=== PATIENT | female | born 1955 | race Caucasian/White ===

== ENCOUNTER 2019-12-19 13:27 | Outpatient (REF) | payer OTHER, SELFPAY | END 2019-12-19 13:28 | disposition home or self-care (01) | LOC: HO.HAP 13:27 | PROVIDERS: Visit Provider Internal Medicine | DX: H90.3 Sensorineural hearing loss, bilateral (principal) | CPT/HCPCS: 92591; V5275 ==

== ENCOUNTER 2020-01-15 06:47 | Day surgery (SDC) | payer OTHER, SELFPAY ==
[2020-01-10 13:43] VITALS: BMI 39.0
--- NOTE | 2020-01-14 10:47 | P.CONAN_ITS ---
Documented by User: Aislinn Borden 01/14/20 10:50 HPI - Anesthesia Eval Consult details Narrative: 64yo F for Colonoscopy with antibiotics (s/p TKA 2019) FOR[facility]LY [facility] Past Medical History Medical History Arthritis Asthma Diabetes GERD (gastroesophageal reflux disease) Hiatal hernia History of hypothyroidism HTN (hypertension) Hx of migraines Hx of vertigo Increased BMI Renal calculi Sleep apnea Surgical History Surgical History History of esophagogastroduodenoscopy (EGD) Hx of colonoscopy Hx of tonsillectomy Hx of total knee arthroplasty Social History Social History Alcohol intake: current Alcohol intake frequency: holidays/special occasions only Smoking Status: Former smoker Advance Directives: No Advance Directives Information Provided: No Advance Directives on File: No Meds Allergies Allergy/AdvReac Type Severity Reaction Status Date / Time No Known Allergies Allergy Verified 01/10/20 13:33 [No Known Allergies*] Home Medications Medication Instructions Recorded Confirmed Type acetaminophen 1 tab PO Q8H PRN 01/10/20 01/10/20 History albuterol sulfate 2 puff INHALATION Q6H PRN 01/10/20 01/10/20 History albuterol sulfate [Ventolin HFA] 2 puff PO Q6H PRN 01/10/20 01/10/20 History levothyroxine 1 tab PO QAM 01/10/20 01/10/20 History lisinopril-hydrochlorothiazide 2 tab PO QAM 01/10/20 01/10/20 History omeprazole 1 cap PO QAM 01/10/20 01/10/20 History Exam Exam Date and Time: January 14, 2020 1047 Height,Weight and Vital Signs: Height 5 ft Weight 90.718 kg Pertinent Lab Results Pertinent Lab Results: Laboratory Tests 11/16/19 11/21/19 11:15 09:04 WBC 7.5 Hgb 11.8 L Hct 37.1 Plt Count 392 Sodium 139 Potassium 4.6 Chloride 100 BUN 13 Creatinine 0.81 Assessment and Plan Assessment Anesthesia Assessment: Chart Reviewed Documented by User: Araceli Barrios 01/15/20 08:15 [facility] Past Medical History Medical History Arthritis Asthma Diabetes GERD (gastroesophageal reflux disease) Hiatal hernia History of hypothyroidism HTN (hypertension) Hx of migraines Hx of vertigo Increased BMI Renal calculi Sleep apnea Family History Family history of problems with anesthesia: No Surgical History Surgical History History of esophagogastroduodenoscopy (EGD) Hx of colonoscopy Hx of tonsillectomy Hx of total knee arthroplasty History of Problems with Anesthesia: No Social History Social History Alcohol intake: current Alcohol intake frequency: holidays/special occasions only Smoking Status: Former smoker Advance Directives: No Advance Directives Information Provided: No Advance Directives on File: No Meds Allergies Allergy/AdvReac Type Severity Reaction Status Date / Time No Known Allergies Allergy Verified 01/10/20 13:33 [No Known Allergies*] Home Medications Medication Instructions Recorded Confirmed Type acetaminophen 1 tab PO Q8H PRN 01/10/20 01/10/20 History albuterol sulfate 2 puff INHALATION Q6H PRN 01/10/20 01/10/20 History albuterol sulfate [Ventolin HFA] 2 puff PO Q6H PRN 01/10/20 01/10/20 History levothyroxine 1 tab PO QAM 01/10/20 01/10/20 History lisinopril-hydrochlorothiazide 2 tab PO QAM 01/10/20 01/10/20 History omeprazole 1 cap PO QAM 01/10/20 01/10/20 History Exam Height,Weight and Vital Signs: Vital Signs Temp Pulse Resp BP Pulse Ox 01/15/20 07:38 97 F 63 16 133/63 98 Pertinent Lab Results Pertinent Lab Results: Lab Results 01/15/20 Range/Units 07:19 POC Glucose 132 H (60-115) mg/dL Airway Mallampati Class: II TM Dist: >3cm Neck ROM: Full Denture: Upper Partial: Lower Heart: RRR Lungs: CTAB Assessment and Plan Assessment Anesthesia Assessment: Anesthesia Plan Discussed and Chart Reviewed Final Anesthetic Review NPO: Yes ASA Class: III Final Preanesthetic Review: No Changes in Pt Med Stat, Meds/Allgs Chart Reviewed, Consent Obtained/Reviewed and Anes Risks/Benef Reviewed Patient Risk: Intermediate Procedure Risk: Low Anesthetic Plan Anesthetic Plan: MAC: Disposition: Standard PACU
[2020-01-15 07:23] LABS: Glucose, Whole Blood 132 mg/dL (60-115)
[2020-01-15 07:38] VITALS: BP 133/63; PULSE 63; RESP 16; TEMP 36.1; O2SAT 98
[2020-01-15] MEDS: Gentamicin Sulfate/NaCl 80 MG/100 ML PIGGYBACK 100 MG IV (07:54)
[2020-01-15 09:17] VITALS: BP 92/55; PULSE 88; RESP 16; TEMP 36.8; O2SAT 92
--- NOTE | 2020-01-15 09:24 | PM.OP ---
Brief Operative Note Date of procedure: 01/15/20 Pre-op diagnosis: Screening Post-op diagnosis: other (Rectal polyp, Diverticulosis) Procedure: Colonoscopy to cecum and TI with biopsy and removal of polyp Surgeon: Kishan Keen Anesthesia: MAC Estimated blood loss (mL): 3.0 Pathology: other (A. Distal rectal polyp) Condition: stable Disposition: PACU
[2020-01-15 09:29] VITALS: BP 103/61; PULSE 74; RESP 18; TEMP 36.4; O2SAT 100
--- NOTE | 2020-01-15 09:48 | OP_ITS ---
SURGEON: Kishan Keen MD INDICATIONS: The patient presents for evaluation of colorectal cancer screening and personal history of tubular adenoma of the colon. Full consent has been obtained from her for this, including risks of bleeding and perforation. PREOPERATIVE DIAGNOSIS: POSTOPERATIVE DIAGNOSIS: PROCEDURE PERFORMED: ESTIMATED BLOOD LOSS: COMPLICATIONS: ANESTHESIA: Monitored anesthesia care. ASSISTANTS: SPECIMENS: PREOPERATIVE DIAGNOSES: Colorectal cancer screening and personal history of tubular adenoma of the colon. POSTOPERATIVE DIAGNOSES: Colorectal cancer screening and personal history of tubular adenoma of the colon, small colon polyp, diverticulosis, and internal hemorrhoids. DESCRIPTION OF PROCEDURE: The patient was placed in the left lateral decubitus position. The digital rectal exam revealed no abnormalities. The Olympus video pediatric colonoscope was entered into the rectum and advanced easily to the cecum. Once in the cecum, I did identify normal-appearing cecal pouch with appendiceal orifice and a normal-appearing ileocecal valve. The terminal ileum was cannulated and appeared normal. The scope withdrawn back in the colon. The entire cecum and ileocecal valve appeared normal. The scope was then slowly withdrawn assessing all mucosal surfaces carefully. Preparation was excellent. I did not visualize any sign of colitis nor angiodysplasia. There was a mild amount of sigmoid diverticulosis. The only polyp visualized was in the distal rectum seen in the retroflexed position. This was approximately 3 or 4 mm in diameter and was biopsied and completely removed with cold biopsy forceps. Internal hemorrhoids were noted as well. The scope was straightened out and withdrawn from the patient. She tolerated the procedure well and was returned to the recovery area in stable condition. IMPRESSION: 1. Small distal rectal polyp, status post biopsy removal. 2. Diverticulosis. 3. Internal hemorrhoids. PLAN: The results of the biopsy will be checked. I would recommend a repeat colonoscopy in 5 years for further screening. She was advised not to use any aspirin nor NSAIDs for 1 week. She did receive preprocedure antibiotics for prophylaxis in regard to recent knee replacement and was given a prescription for amoxicillin to use later today as well. PROCEDURES PERFORMED: Colonoscopy to cecum and terminal ileum with biopsy and removal of polyp. MD UGO Nicolas/CRISTÓBAL / [id number]
--- NOTE | 2020-01-15 10:04 | HO.POSTANES ---
Post Anesthesia Evaluation Post Anesthesia Evaluation Vital Signs: Vital Signs Temp Pulse Resp BP Pulse Ox 01/15/20 09:29 97.5 F 74 18 103/61 100 01/15/20 09:17 98.2 F 88 16 92/55 L 92 01/15/20 07:38 97 F 63 16 133/63 98 Anesthesia: Monitored Mental Status: Awake Pain Control: Satisfactory Nausea/Vomiting: None Hydration: Adequate Anesthesia-Related Issues: No Anes. Related Issues
== END 2020-01-15 10:15 | disposition home or self-care (01) ==
PROVIDERS: PCP Internal Medicine; Visit Provider Internal Medicine
PROC: 0DJD8ZZ Inspection of Lower Intestinal Tract, Via Natural or Artificial Opening Endoscopic (ICD-10-PCS; CPT 45378; principal; 2020-01-15 08:30)
DX: Z12.11 Encounter for screening for malignant neoplasm of colon (principal); Z86.010 Personal history of colon polyps; D12.8 Benign neoplasm of rectum; K57.30 Diverticulosis of large intestine without perforation or abscess without bleeding; K64.8 Other hemorrhoids; K21.9 Gastro-esophageal reflux disease without esophagitis; I10 Essential (primary) hypertension; E11.9 Type 2 diabetes mellitus without complications; G47.30 Sleep apnea, unspecified; J45.909 Unspecified asthma, uncomplicated; Z79.899 Other long term (current) drug therapy; Z96.652 Presence of left artificial knee joint; Z87.891 Personal history of nicotine dependence
CPT/HCPCS: 45380; 82947; 88305; J0290; J1580

== ENCOUNTER 2020-01-22 09:24 | Outpatient (REF) | payer OTHER, SELFPAY ==
--- NOTE | 2020-01-22 10:36 | MHC.AU.P13 ---
Hearing Instrument Fitting- Adult- Binaural Date of Visit: 01/22/20 Hearing Instruments Dispensed: Right Ear: Construction Grip: Phonak Model: Audeo [id number] Serial Number: [id number] Warranty: 04/05/2023 Battery Size: 312 Color: Black Hand Or Machine Paster: Size 2 power Type of Mold: cShell SN: [id number] Type of Wax Guard: Cerustop Left Ear: Construction Grip: Phonak Model: Audeo [id number] Serial Number: [id number] Warranty: 04/05/2023 Battery Size: 312 Color: Black Hand Or Machine Paster: size 2 power Type of Mold: cShell SN: [id number] Type of Wax Guard: Cerustop Summary of Fitting: Hearing aids were programmed to patient's audiogram and set to 100% target gain. Ran feedback measures and real-ear verification. Adjustments were made to better meet real-ear targets. Patient reported comfortable fit and sound quality. She notes that she may not like the Black color of the aids, as she usually cuts her hair very short. Advised that I think black is the best match but if she wants to change it we can return them for credit and re-order. Recommendations: Recommendations: Hearing instrument care and maintenance were discussed and practiced. See handouts for care/use instructions and battery information. The instrument(s) were paired to the patient's smartphone. Use of the smartphone catie was demonstrated. A hearing instrument follow-up was scheduled. Diagnosis Code(s): Primary Diagnosis: H90.3 Bilateral Sensorineural Hearing Loss Services Performed: Hearing Instrument Services: BTE-Binaural- Level 3 Hearing Aid Dispensing: Binaural Dispensing Fee Fitting (Other): Fitting/Orientation/Checking of Hearing Aid Conformity Evaluation, Real Ear, Functional Testing Number of Individual Battery Cells: 42 Signature: Provider: Donte Goetz, DEANNA-A
== END 2020-01-22 09:25 | disposition home or self-care (01) ==
LOC: HO.HAP 09:24
PROVIDERS: Visit Provider Internal Medicine
DX: Z46.1 Encounter for fitting and adjustment of hearing aid (principal); H90.3 Sensorineural hearing loss, bilateral
CPT/HCPCS: V5011; V5020; V5160; V5261; V5264; V5266

== ENCOUNTER 2020-02-10 09:24 | Emergency (ER) | payer OTHER, SELFPAY ==
--- NOTE | 2020-02-10 10:21 | ED_ITS ---
HPI - Abdominal Pain General Chief Complaint: General Medical Stated Complaint: ABD PAIN Time Seen by Provider: 02/10/20 10:03 Source: patient Mode of arrival: ambulatory Limitations: no limitations History of Present Illness HPI narrative: 64-year-old female with a past medical history of arthritis, asthma, diabetes, GERD, hiatal hernia, hypothyroidism, hypertension, migraines, vertigo, renal calculi, sleep apnea here with multiple complaints. The patient tells me that she has has body aches, cough, chills, nausea, diarrhea for the last 2-3 days. No fevers, shortness of breath, chest pain, abdominal pain or vomiting. MD elicited complaint: other Onset (ago): day(s) Pain Consistency: constant Location: none Exacerbating factors: nothing Relieving factors: nothing Associated symptoms: nausea, diarrhea and chills Related Data Home Medications Medication Instructions Recorded Confirmed acetaminophen 1 tab PO Q8H PRN 01/10/20 01/10/20 albuterol sulfate 2 puff INHALATION Q6H PRN 01/10/20 01/10/20 albuterol sulfate [Ventolin HFA] 2 puff PO Q6H PRN 01/10/20 01/10/20 lisinopril-hydrochlorothiazide 2 tab PO QAM 01/10/20 01/10/20 omeprazole 1 cap PO QAM 01/10/20 01/10/20 Previous Rx's Medication Instructions Recorded gabapentin 300 mg capsule 300 mg PO BID 90 Days #180 cap 01/10/20 prazosin 2 mg capsule 2 mg PO BEDTIME #90 cap 01/10/20 ibuprofen 800 mg tablet 800 mg PO TID PRN 15 Days #45 tab 01/23/20 meclizine 25 mg tablet 25 mg PO Q8H #90 tab 01/23/20 docusate sodium 100 mg capsule 100 mg PO BID #60 cap 01/24/20 fluticasone propionate 50 1 spray INTRANASAL DAILY #16 g 01/24/20 mcg/actuation nasal spray,suspension levothyroxine 75 mcg tablet 75 mcg PO QAM #90 tab 01/24/20 lactulose 10 gram/15 mL oral 10 g PO DAILY PRN 30 Days #500 ml 01/27/20 solution Allergies Allergy/AdvReac Type Severity Reaction Status Date / Time No Known Allergies Allergy Verified 01/10/20 13:33 [No Known Allergies*] Review of Systems Review of Systems Yes all other systems are reviewed and are negative Constitutional: Reports no additional constitutional complaints, Reports body ache(s), Reports chills, Denies fever(s), Denies headache(s) and Denies weakness Eyes: Reports no additional eye complaints and Denies change in vision Reports system reviewed and no additional complaints, except as documented, D enies dizziness, Denies headache(s), Denies nasal congestion, Denies nasal discharge and Denies neck pain Cardiovascular: Reports no additional cardiovascular complaints, Denies chest pain, Denies leg edema and Denies dyspnea Respiratory: Reports no additional respiratory complaints, Reports cough and Denies dyspnea Gastrointestinal: Reports no additional gastrointestinal complaints, Denies abdominal pain, Reports diarrhea, Reports nausea and Denies vomiting Genitourinary: Reports no additional female genitourinary complaints and Denies urinary incontinence Musculoskeletal: Reports no additional musculoskeletal complaints, Denies back pain, Denies arthralgias, Denies joint swelling, Denies neck pain, Denies numbness and Denies tingling Skin/Breast: Reports system reviewed and no additional complaints, except as docu and Denies rash Reports system reviewed and no additional complaints, except as documented, Denies Abnormal speech present, Denies dizziness, Denies headache(s), Denies numbness, Denies tingling and Denies weakness Physical Exam Vital Signs: Vital Signs: Last Vital Signs Temp 99.0 F 02/10/20 10:27 Pulse 65 02/10/20 10:27 Resp 16 02/10/20 10:27 BP 125/70 02/10/20 10:27 Pulse Ox 96 02/10/20 10:27 Body Mass Index 39.0 Const: General: cooperative, healthy appearing, comfortable and no acute di stress Orientation/consciousness: patient oriented x3 Limitations: no limitations HENMT: Head: Yes normal to inspection Ears: hearing grossly normal bilaterally General nose exam: Normal external nose present Face and sinus: Yes normal facial exam Mouth: Normal oral and palatal mucosa present Throat: Yes posterior oropharynx normal Eyes: General: appearance normal, both eyes and all related structures Pupils: Equal, round and reactive pupils present Neck: Neck: Yes normal visual inspection Chest: Chest palpation & inspection: normal inspection of the chest Resp: Effort & Inspection: normal respiratory effort Auscultation: clear to auscultation bilaterally Cardio: Rate: regular rate Rhythm: regular rhythm Peripheral pulses: Peripheral pulses 2+ throughout GI: Inspection: Yes normal to inspection Palpation (GI): Soft to palpation and nontender Auscultation: normal bowel sounds Back/Spine/Pelvis: Thoracic/Lumbar Spine: thoracic and lumbar spine normal to inspection Skin: General skin exam: no rashes or lesions noted Neuro: General: patient oriented x3, no focal motor deficits and normal sensation to monofilament Cranial nerves: Yes Equal, round and reactive pupils present Cognition (Neuro): normal cognition Speech: No Abnormal speech present Gait exam (Neuro): Normal gait present Motor exam (neuro): 5/5 motor strength present throughout Extrem: General: Yes normal to inspection Course Course Course Narrative: 64-year-old female here with body aches, nausea, diarrhea had cough for the last few days. On arrival the patient is well appearing, stable vital signs, afebrile. Plan for COVID testing, chest x-ray and labs. 1215- X-ray unremarkable. Labs unremarkable. COVID testing positive. Patient has stable vital signs, afebrile with saturations greater than 98%. She is able to tolerate p.o. liquids with no difficulty. Will discharge home with supportive care. Reviewed worrisome signs and symptoms of when to return to the emergency department. Comfortable discharge home. MDM - Abdominal Pain MDM Narrative Medical decision making narrative: Viral syndrome, COVID-19 infection, gastroenteritis, Medical Records Attestation: I reviewed the patient's medical records. Lab Data Attestation: I reviewed the patient's lab results. Result diagrams: 02/10/20 11:02/10/20 11: Labs: Lab Results 02/10/20 02/10/20 02/10/20 Range/Units 11: 11: 11:02 WBC 8.3 (4.8-10.8) X10*3/uL RBC 4.31 (4.20-5.50) X10*6/uL Hgb 12.0 (12.0-16.0) g/dl Hct 37.1 (37-47) % MCV 86.1 (80-98) fL MCH 27.8 (27.0-33.0) pg MCHC 32.3 (31.0-35.0) g/dl RDW 14.6 (11.0-16.0) % Plt Count 286 (160-400) X10*3/uL MPV 10.7 (9.4-12.3) fL Immature Gran % (Auto) 0.2 (0.0-0.4) % Neut % (Auto) 75.3 H (45-73) % Lymph % (Auto) 17.8 L (20-40) % Harris % (Auto) 6.6 (2-11) % Eos % (Auto) 0.0 (0-4) % Baso % (Auto) 0.1 (0-2) % Lymph # (Auto) 1.5 (1.2-4.9) X10*3/uL Harris # (Auto) 0.6 (0.1-1.2) X10*3/uL Eos # (Auto) 0.0 (0.0-0.4) X10*3/uL Baso # (Auto) 0.0 (0.0-0.2) X10*3/uL Abs Immat Gran (auto) 0.02 (0.00-0.03) X10*3/uL Absolute Neuts (auto) 6.3 (2.0-8.3) X10*3/uL Absolute Nucleated RBC 0.000 (0.0-0.012) X10*3/uL Nucleated RBC % (auto) 0.0 (0.0-0.2) /100WBC Sodium 136 (135-145) mmol/L Potassium 4.2 (3.3-5.1) mmol/l Chloride 99 (96-108) mmol/L Carbon Dioxide 29 (22-29) mmol/L Anion Gap 12 (12-20) BUN 9 (9-16) mg/dL Creatinine 0.77 (0.5-1.4) mg/dL Estim Creat Clear Calc 72.1 Estimated GFR > 60 Random Glucose 138 H (60-115) mg/dL Calcium 8.8 (8.4-10.2) mg/dL Magnesium 1.8 (1.6-2.6) mg/dL Total Bilirubin 0.4 (0.0-1.0) mg/dL Direct Bilirubin 0.2 (0.0-0.5) mg/dL AST 31 (5-31) U/L ALT 29 (0-31) U/L Alkaline Phosphatase 75 (39-117) U/L Total Protein 7.7 (6.5-8.0) g/dL Albumin 4.0 (3.5-5.0) g/dL Coronavirus (PCR) POSITIVE A (Negative) Influenza Type A (PCR) NEGATIVE (Negative) Influenza Type B (PCR) NEGATIVE (Negative) RSV RNA Qual (PCR) NEGATIVE (Negative) Imaging Data Chest x-ray: Attestation: I personally reviewed and interpreted this imaging study as follows: Radiologist's impression: EXAMINATION: XR CHEST CLINICAL INFORMATION: Cough COMPARISON: Chest radiographs 11/16/2019, 11/30/2010 TECHNIQUE: Frontal view of the chest was obtained. FINDINGS: The lungs are clear. There is no airspace consolidation or groundglass opacity. No vascular congestion or effusion. The heart is normal in size. The hilar and mediastinal contours and visualized bony structures are unremarkable. XR/XR chest 1V IMPRESSION: Unremarkable examination. Discharge Plan Discharge Clinical Impression: COVID-19 Patient Disposition: Home, Self-Care Instructions: COVID-19 (Coronavirus Disease 2019) (ED) Additional Instructions: Take tylenol or motrin if able as needed for pain or fever. Stay well hydrated with fluids like water, gatorade and/or powerade. Wash hands at home. If living with others try to self isolate if possible. If unable wear a mask around others in your home and wash hands frequently. If COVID test is positive you will need to self isolate for a total of 14 days from when your symptoms started. You may return to work sooner if testing is negative and all symptoms resolved >72 hours. You should return to the emergency department for severe shortness of breath, chest pain or fever which does not respond to both tylenol and motrin at home. expect to feel sick for a total of 14 days Prescriptions: No Action prazosin 2 mg capsule 2 mg PO BEDTIME Qty: 90 RF: 3 gabapentin 300 mg capsule 300 mg PO BID 90 Days Qty: 180 RF: 3 meclizine 25 mg tablet 25 mg PO Q8H Qty: 90 RF: 0 ibuprofen 800 mg tablet 800 mg PO TID PRN (Reason: fever or pain) 15 Days Qty: 45 RF: 0 levothyroxine 75 mcg tablet 75 mcg PO QAM Qty: 90 RF: 0 docusate sodium [Colace] 100 mg capsule 100 mg PO BID Qty: 60 RF: 0 fluticasone propionate 50 mcg/actuation spray,suspension 1 spray intranasal DAILY Qty: 16 RF: 0 lactulose 10 gram/15 mL solution 10 g PO DAILY PRN (Reason: constipation) 30 Days Qty: 500 RF: 0 lisinopril-hydrochlorothiazide 20-12.5 mg tablet 2 tab PO QAM RF: 0 acetaminophen 650 mg tablet extended release 1 tab PO Q8H PRN (Reason: Pain) RF: 0 albuterol sulfate 90 mcg/actuation HFA aerosol inhaler 2 puff inhalation Q6H PRN (Reason: Shortness Of Breath Or Wheezing) RF: 0 albuterol sulfate [Ventolin HFA] 90 mcg/actuation HFA aerosol inhaler 2 puff PO Q6H PRN (Reason: dyspnea) RF: 0 omeprazole 20 mg tablet,delayed release (DR/EC) 1 cap PO QAM RF: 0 Referrals: Gemma Lee MD [Primary Care Provider] - 2 days Interventions: ED Discharge Assessment Last Done: 02/10/20 12:12 Discharge Date/Time: 02/10/20 12:12 [facility] Past Medical History Attestation statement: The following information was validated with the patient. Source: old records reviewed and nursing notes reviewed Medical History Arthritis Asthma Diabetes GERD (gastroesophageal reflux disease) Hiatal hernia History of hypothyroidism HTN (hypertension) Hx of migraines Hx of vertigo Increased BMI Renal calculi Sleep apnea Surgical History History of esophagogastroduodenoscopy (EGD) Hx of colonoscopy Hx of tonsillectomy Hx of total knee arthroplasty Social History Social History Alcohol intake: current Alcohol intake frequency: does not drink Smoking Status: Never smoker Use of substances other than those prescribed or required for medical reasons: No Advance Directives: No Advance Directives Information Provided: Yes
[2020-02-10 10:27] VITALS: BP 125/70; PULSE 65; RESP 16; TEMP 37.2; O2SAT 96; BMI 39.0
[2020-02-10 11:05] LABS: MANUAL DIFF FLAG NO
[2020-02-10 11:09] LABS: Basophils Percent Auto 0.1 % (0-2); Hematocrit 37.1 % (37-47); Imm Gran Abs Auto 0.02 X10*3/uL (0.00-0.03); Imm Gran Pct Auto 0.2 % (0.0-0.4); Lymphocytes Absolute Auto 1.5 X10*3/uL (1.2-4.9); Lymphocytes Percent Auto 17.8 % (20-40); Mean Corpuscular HGB Conc 32.3 g/dl (31.0-35.0); Mean Corpuscular Hemoglobin 27.8 pg (27.0-33.0); Mean Corpuscular Volume 86.1 fL (80-98); Mean Platelet Volume 10.7 fL (9.4-12.3); Monocytes Absolute Auto 0.6 X10*3/uL (0.1-1.2); Monocytes Percent Auto 6.6 % (2-11); Neutrophils Absolute Auto 6.3 X10*3/uL (2.0-8.3); Neutrophils Percent Auto 75.3 % (45-73); Platelet Count 286 X10*3/uL (160-400); Red Blood Count 4.31 X10*6/uL (4.20-5.50); Red Cell Distribution Width 14.6 % (11.0-16.0); White Blood Count 8.3 X10*3/uL (4.8-10.8)
[2020-02-10 11:38] LABS: Alanine Aminotransferase 29 U/L (0-31); Alkaline Phosphatase 75 U/L (39-117); Anion Gap 12 (12-20); Aspartate Amino Transferase 31 U/L (5-31); Bilirubin Direct 0.2 mg/dL (0.0-0.5); Bilirubin Total 0.4 mg/dL (0.0-1.0); Blood Urea Nitrogen 9 mg/dL (9-16); Calcium 8.8 mg/dL (8.4-10.2); Carbon Dioxide 29 mmol/L (22-29); Chloride 99 mmol/L (96-108); Creatinine Clr Calc Pharmacy 72.1; Estimated Glomerular Filt Rate > 60; Glucose Random 138 mg/dL (60-115); Magnesium 1.8 mg/dL (1.6-2.6); Potassium 4.2 mmol/l (3.3-5.1); Sodium 136 mmol/L (135-145); Total Protein 7.7 g/dL (6.5-8.0)
[2020-02-10 11:53] LABS: Influenza A PCR NEGATIVE (Negative); Influenza B PCR NEGATIVE (Negative); Resp Syncy Virus RNA Qual PCR NEGATIVE (Negative); SARS COV2 PCR INHOUSE POSITIVE (Negative)
== END 2020-02-10 12:12 | disposition home or self-care (01) ==
PROVIDERS: Nurse Practitioner Family; Emergency Provider Internal Medicine; PCP Internal Medicine
DX: U07.1 COVID-19 (principal); M79.10 Myalgia, unspecified site; R05 Cough; R10.9 Unspecified abdominal pain
CPT/HCPCS: 0241U; 36415; 71045; 80048; 80076; 83735; 85025; 99283; 99284

== ENCOUNTER 2020-02-24 08:46 | Outpatient (REF) | payer MEDICARE, SELFPAY | END 2020-02-24 08:47 | disposition home or self-care (01) | LOC: HO.LAB 08:46 | PROVIDERS: PCP Internal Medicine; Visit Provider Internal Medicine | DX: Z20.828 Contact with and (suspected) exposure to other viral communicable diseases (principal) | CPT/HCPCS: C9803; U0003 ==

== ENCOUNTER 2020-03-20 08:25 | Outpatient (REF) | payer MEDICARE, SELFPAY | END 2020-03-20 08:26 | disposition home or self-care (01) | LOC: HO.HAP 08:25 | PROVIDERS: Visit Provider Internal Medicine | DX: Z13.89 Encounter for screening for other disorder (principal) ==

== ENCOUNTER 2020-04-10 10:42 | Outpatient (REF) | payer MEDICARE, SELFPAY | END 2020-04-10 10:43 | disposition home or self-care (01) | LOC: HO.HAP 10:42 | PROVIDERS: Visit Provider Internal Medicine | DX: Z46.1 Encounter for fitting and adjustment of hearing aid (principal); H90.3 Sensorineural hearing loss, bilateral | CPT/HCPCS: V5266 ==

== ENCOUNTER 2020-06-08 08:39 | Outpatient (REF) | payer MEDICARE, SELFPAY ==
[2020-06-08 09:46] LABS: Alanine Aminotransferase 17 U/L (0-31); Albumin Level 4.2 g/dL (3.5-5.0); Alkaline Phosphatase 75 U/L (39-117); Anion Gap 16 (12-20); Aspartate Amino Transferase 17 U/L (5-31); Bilirubin Total 0.4 mg/dL (0.0-1.0); Blood Urea Nitrogen 12 mg/dL (9-16); Calcium 9.1 mg/dL (8.4-10.2); Carbon Dioxide 28 mmol/L (22-29); Chloride 99 mmol/L (96-108); Cholesterol 215 mg/dL; Estimated Glomerular Filt Rate > 60; Glucose Fasting 134 mg/dL (60-99); HDL Cholesterol 46 mg/dL; LDL Cholesterol Calculated 140 mg/dl; Sodium 139 mmol/L (135-145); Triglycerides 147 mg/dL
[2020-06-08 09:54] LABS: Estimated Average Glucose 134 mg/dL; Hemoglobin A1c % 6.3 %
[2020-06-08 10:10] LABS: TSH reflex Free T4 3.72 uIU/mL (0.32-4.0)
[2020-06-08 10:37] LABS: Creatinine Urine 332.76 mg/dL; Microalbum/Creatinine Ratio Ur 6.6 ug/mg cr
== END 2020-06-08 08:40 | disposition home or self-care (01) ==
LOC: HO.LAB 08:39
PROVIDERS: PCP Internal Medicine; Visit Provider Internal Medicine
DX: E11.9 Type 2 diabetes mellitus without complications (principal); E78.00 Pure hypercholesterolemia, unspecified; E06.3 Autoimmune thyroiditis; E78.5 Hyperlipidemia, unspecified
CPT/HCPCS: 36415; 80053; 80061; 82043; 83036; 84443

== ENCOUNTER 2020-08-14 10:36 | Outpatient (REF) | payer MEDICARE, SELFPAY | END 2020-08-14 10:37 | disposition home or self-care (01) | LOC: HO.HAP 10:36 | PROVIDERS: Visit Provider Internal Medicine | DX: Z46.1 Encounter for fitting and adjustment of hearing aid (principal); H90.3 Sensorineural hearing loss, bilateral | CPT/HCPCS: V5266 ==

== ENCOUNTER 2020-08-26 08:41 | Outpatient (REF) | payer MEDICARE, SELFPAY | END 2020-08-26 08:42 | disposition home or self-care (01) | LOC: HO.LAB 08:41 | PROVIDERS: PCP Internal Medicine; Visit Provider Internal Medicine | DX: Z13.89 Encounter for screening for other disorder (principal) ==

== ENCOUNTER 2020-10-22 08:28 | Emergency (ER) | payer MEDICARE, SELFPAY ==
--- NOTE | ~2020-10-22 | XR_ITS ---
EXAMINATION: XR CHEST CLINICAL INFORMATION: SOB. COMPARISON: Chest 02/10/2020 TECHNIQUE: 2 views of the chest were obtained. FINDINGS: No significant abnormality is noted involving the heart, lungs, mediastinum, bony thorax or soft tissues. XR/XR chest 2V IMPRESSION: Unremarkable chest examination.
--- NOTE | 2020-10-22 08:35 | ECG_ITS ---
Test Reason : CP Blood Pressure : / mmHG Vent. Rate : 072 BPM Atrial Rate : 072 BPM P-R Int : 124 ms QRS Dur : 092 ms QT Int : 362 ms P-R-T Axes : 032 015 029 degrees QTc Int : 396 ms Normal sinus rhythm Nonspecific T wave abnormality Abnormal ECG When compared with ECG of 05-APR-2018 10:16, Nonspecific T wave abnormality now evident in Lateral leads Referred By: Generic ED Physician Electronically Signed By:STEFAN DOWNING MD
[2020-10-22 08:57] LABS: MANUAL DIFF FLAG NO
[2020-10-22 08:59] LABS: Basophils Absolute Auto 0.1 X10*3/uL (0.0-0.2); Basophils Percent Auto 0.6 % (0-2); Eosinophils Absolute Auto 0.2 X10*3/uL (0.0-0.4); Eosinophils Percent Auto 2.5 % (0-4); Hematocrit 37.3 % (37-47); Imm Gran Abs Auto 0.03 X10*3/uL (0.00-0.03); Imm Gran Pct Auto 0.4 % (0.0-0.4); Lymphocytes Absolute Auto 2.2 X10*3/uL (1.2-4.9); Lymphocytes Percent Auto 27.4 % (20-40); Mean Corpuscular HGB Conc 32.2 g/dl (31.0-35.0); Mean Corpuscular Hemoglobin 27.8 pg (27.0-33.0); Mean Corpuscular Volume 86.5 fL (80-98); Mean Platelet Volume 10.3 fL (9.4-12.3); Monocytes Absolute Auto 0.7 X10*3/uL (0.1-1.2); Monocytes Percent Auto 9.1 % (2-11); Neutrophils Absolute Auto 4.7 X10*3/uL (2.0-8.3); Platelet Count 341 X10*3/uL (160-400); Red Blood Count 4.31 X10*6/uL (4.20-5.50); Red Cell Distribution Width 14.7 % (11.0-16.0); White Blood Count 7.9 X10*3/uL (4.8-10.8)
[2020-10-22 09:22] LABS: Troponin-I High Sensitivity < 3.5 ng/L (<3.5-17.0)
[2020-10-22 09:29] LABS: Anion Gap 12 (12-20); Blood Urea Nitrogen 10 mg/dL (9-16); Calcium 9.1 mg/dL (8.4-10.2); Carbon Dioxide 28 mmol/L (22-29); Chloride 101 mmol/L (96-108); Estimated Glomerular Filt Rate > 60; Glucose Random 251 mg/dL (60-115); Potassium 4.1 mmol/L (3.3-5.1); Sodium 137 mmol/L (135-145)
[2020-10-22 10:19] VITALS: BP 126/78; PULSE 80; RESP 16; O2SAT 98; BMI 39.0
[2020-10-22 10:25] LABS: Influenza A PCR NEGATIVE (Negative); Influenza B PCR NEGATIVE (Negative); Resp Syncy Virus RNA Qual PCR NEGATIVE (Negative); SARS COV2 PCR INHOUSE NEGATIVE (Negative)
[2020-10-22 11:07] VITALS: BP 132/72; PULSE 75; RESP 16; O2SAT 96
--- NOTE | 2020-10-22 11:25 | ED.GENADULT ---
HPI - General Adult General Chief complaint: Upper Respiratory Symptoms Stated complaint: cough,sob, chest pain Time Seen by Provider: 10/22/20 11:25 History of Present Illness HPI narrative: 64-year-old female w ith past medical history of hypothyroidism, diabetes, hypertension, asthma, COVID in January of 2020 is here today with complaining of sore throat, rhinitis, cough for last 4 days. Patient denies fever, SOB, CP, syncope, presyncope. Patient reports that she had COVID in January of 2020. She reports that her symptoms are different today. When she had COVID he had lot of body aches today she reports that she has runny nose and itchy throat and cough. Patient had COVID vaccine in May. Patient denies being around anyone that has been sick with any respiratory symptoms. Denies having history of allergies Related Data Home Medications Medication Instructions Recorded Confirmed aspirin 81 mg tablet,delayed 81 mg PO QAM 02/20/20 06/18/20 release clonazepam 1 mg tablet 0.500f1 mg PO BID PRN 02/20/20 06/18/20 fluoxetine 20 mg capsule 60 mg PO QAM 02/20/20 06/18/20 trazodone 100 mg tablet 300 mg PO Q OTHER DAY PRN 02/20/20 06/18/20 Previous Rx's Medication Instructions Recorded gabapentin 300 mg capsule 300 mg PO BID 90 Days #180 cap 01/10/20 prazosin 2 mg capsule 2 mg PO BEDTIME #90 cap 01/10/20 nebulizers (AeroEclipse II #1 ea 02/11/20 Nebulizer) lisinopril 20 2 tab PO QAM #180 tab 03/01/20 mg-hydrochlorothiazide 12.5 mg tablet metformin 500 mg tablet,extended 500 mg PO BEDTIME #90 tab 03/01/20 release 24 hr verapamil 120 mg tablet,extended 120 mg PO QAM #90 tab 03/01/20 release lancets 33 gauge (TRUEplus Lancets) 33 gauge MISCELLANEOUS TID 30 Days 03/03/20 #100 ea lactulose 10 gram/15 mL oral 10 g PO DAILY PRN 30 Days #500 ml 03/10/20 solution blood sugar diagnostic (FreeStyle 1 strip MISCELLANEOUS BID 30 Days 03/18/20 Lite Strips) #50 strip atorvastatin 80 mg tablet 80 mg PO BEDTIME #90 tab 04/25/20 omeprazole 20 mg capsule,delayed 20 mg PO QAM #30 cap 05/19/20 release docusate sodium 100 mg capsule 100 mg PO BID #60 cap 05/21/20 (Colace) fluticasone propionate 50 1 spray INTRANASAL DAILY #16 g 05/21/20 mcg/actuation nasal spray,suspension albuterol sulfate 90 mcg/actuation 2 puff INHALATION Q6H PRN 30 Days 06/08/20 aerosol inhaler #8.5 g ezetimibe 10 mg tablet 10 mg PO DAILY 90 Days #90 tab 06/18/20 acetaminophen 650 mg 650 mg PO Q8H PRN 30 Days #90 tab 06/21/20 tablet,extended release miscellaneous medical supply See Rx Instructions MISCELLANEOUS 08/17/20 .COMPLEX #1 ea levothyroxine 75 mcg tablet 75 mcg PO QAM #90 tab 08/20/20 meclizine 25 mg tablet 25 mg PO Q8H #90 tab 09/07/20 ibuprofen 800 mg tablet 800 mg PO TID PRN #60 tab 09/26/20 albuterol sulfate 2.5 mg INHALATION Q4-6H PRN 30 10/13/20 Days #15 ml benzonatate 100 mg capsule 100 mg PO TID PRN #30 cap 10/22/20 (Ruben Hall) loratadine 10 mg tablet 10 mg PO DAILY PRN #20 tab 10/22/20 Allergies Allergy/AdvReac Type Severity Reaction Status Date / Time No Known Allergies Allergy Verified 06/18/20 11:09 [No Known Allergies*] Review of Systems Review of Systems: Constitutional : No Weight loss, No Fever, No Chills, No Night Sweats, No Fatigue, No Malaise ENT/Mouth : No Hearing loss, No Ear Pain, Nasal Congestion, No Sinus Pain, No Hoarseness, sore throat, Rhinorrhea, No Swallowing Difficulty Eyes: No Eye Pain, No Swelling, No Redness, No Foreign Body, No Discharge, No Vision Changes Cardiovascular : Chest Wall Pain, No SOB, No Dyspnea on Exertion, No Orthopnea, No Edema, No Palpitations Respiratory : Dry Cough, No Sputum, No Wheezing, No Smoke Exposure, No Dyspnea Gastrointestinal : No Nausea, No Vomiting, No Diarrhea, No Constipation, No abdominal Pain, No Hematochezia, No Melena Genitourinary : no irregular bleeding, No Dysuria, No Urinary Frequency, No Hematuria, No Urinary Incontinence, No Urgency, No Flank Pain, No Urinary Flow Changes, No Hesitancy Musculoskeletal : No joint pain, No Myalgias, No Joint Swelling Skin : No Skin Lesions, No rash Neuro : No Weakness, No Numbness, No Paresthesias, No Loss of Consciousness, No Dizziness, No Headache Psych : No Anxiety/Panic, No Depression, No SI/HI/AH/VH, No Social Issues, Heme/Lymph: No Bruising, No Bleeding,No Lymphadenopathy Endocrine : No Polyuria, No Polydipsia, No Temperature Intolerance [facility] Past Medical History Medical History (Updated 10/22/20 @ 11:55 by Joie Bradley [facility]) Arthritis Asthma Autoimmune thyroiditis Diabetes Dyslipidemia Facial abscess GERD (gastroesophageal reflux disease) Hiatal hernia HTN (hypertension) Hx of migraines Hx of vertigo Hypothyroidism Increased BMI Renal calculi Sleep apnea Thoracic spine pain Vertigo Surgical History History of arthroscopy of left knee History of esophagogastroduodenoscopy (EGD) History of hysteroscopy Hx of colonoscopy Hx of tonsillectomy Hx of total knee arthroplasty Family History Family History Father Stomach cancer Mother Stomach cancer Brother Stomach cancer Heart disease Sister Diabetes Breast cancer Social History Social History Alcohol intake: former Advance Directives: No Advance Directives Information Provided: Yes Physical Exam Vital Signs: Vital Signs: Last Vital Signs Pulse 75 10/22/20 11:07 Resp 16 10/22/20 11:07 BP 132/72 10/22/20 11:07 Pulse Ox 96 10/22/20 11:07 Body Mass Index 39.0 Const: General: cooperative, healthy appearing, comfortable and no acute distress Orientation/consciousness: patient oriented x3 Limitations: no limitations HENMT: Head: Yes normal to inspection, Yes normocephalic and Yes atraumatic Ears: hearing grossly normal bilaterally General nose exam: Normal external nose present Face and sinus: Yes normal facial exam Mouth: Normal oral and palatal mucosa present Teeth and gingiva: dentition normal Throat: Yes posterior oropharynx normal Eyes: Eyelids: Yes eyelids normal Conjunctivae: conjunctivae normal Sclerae: sclerae normal Corneas: corneas normal Pupils: Equal, round and reactive pupils present EOM: EOMs intact bilaterally Neck: Neck: Yes normal visual inspection, Yes full ROM, Yes no lymphadenopathy, Yes trachea midline and Yes supple Chest: Chest palpation & inspection: normal inspection of the chest Resp: Effort & Inspection: normal respiratory effort and able to speak in complete sentences Auscultation: clear to auscultation bilaterally Cardio: Jugular venous distension: no JVD Rate: regular rate Rhythm: regular rhythm GI: Inspection: Yes normal to inspection and No distended Auscultation: normal bowel sounds Skin: General skin exam: no rashes or lesions noted and turgor normal Neuro: General: patient oriented x3 Cranial nerves: Yes Equal, round and reactive pupils present Extrem: General: Yes normal to inspection and Yes full ROM Course Course Course Narrative: 64 years old female with history of COVID here today with 4 days of cough scratchy throat and tinnitus. Will obtain COVID testing, basic labs, EKG, chest x-ray, troponin. Patient reports that she has chest tightness when she is coughing. Denies any SOB, wheeze, palpitation, syncope, presyncope. Denies any other symptoms. Reevaluation(s) Reevaluation #1: All results reviewed. No leukocytosis, troponin negative, EKG normal, chest x-ray normal. Most likely allergic rhinitis, postnasal drip and cough. Will send patient home with Testina Coxes and loratadine. Patient can follow-up with her PCP in 2-3 days. She was instructed to return to emergency department if she will have worsening symptoms or if she will experience any additional concerning symptoms. Medical Decision Making Lab Data Result diagrams: 10/22/20 08:42 10/22/20 08:42 Labs: Lab Results 10/22/20 10/22/20 10/22/20 Range/Units 08:42 08:42 08:42 WBC 7.9 (4.8-10.8) X10*3/uL RBC 4.31 (4.20-5.50) X10*6/uL Hgb 12.0 (12.0-16.0) g/dl Hct 37.3 (37-47) % MCV 86.5 (80-98) fL MCH 27.8 (27.0-33.0) pg MCHC 32.2 (31.0-35.0) g/dl RDW 14.7 (11.0-16.0) % Plt Count 341 (160-400) X10*3/uL MPV 10.3 (9.4-12.3) fL Immature Gran % (Auto) 0.4 (0.0-0.4) % Neut % (Auto) 60.0 (45-73) % Lymph % (Auto) 27.4 (20-40) % [place] % (Auto) 9.1 (2-11) % Eos % (Auto) 2.5 (0-4) % Baso % (Auto) 0.6 (0-2) % Lymph # (Auto) 2.2 (1.2-4.9) X10*3/uL [place] # (Auto) 0.7 (0.1-1.2) X10*3/uL Eos # (Auto) 0.2 (0.0-0.4) X10*3/uL Baso # (Auto) 0.1 (0.0-0.2) X10*3/uL Abs Immat Gran (auto) 0.03 (0.00-0.03) X10*3/uL Absolute Neuts (auto) 4.7 (2.0-8.3) X10*3/uL Absolute Nucleated RBC 0.000 (0.0-0.012) X10*3/uL Nucleated RBC % (auto) 0.0 (0.0-0.2) /100WBC Sodium 137 (135-145) mmol/L Potassium 4.1 (3.3-5.1) mmol/L Chloride 101 (96-108) mmol/L Carbon Dioxide 28 (22-29) mmol/L Anion Gap 12 (12-20) BUN 10 (9-16) mg/dL Creatinine 0.83 (0.5-1.4) mg/dL Estim Creat Clear Calc TNP Estimated GFR > 60 Random Glucose 251 H D (60-115) mg/dL Calcium 9.1 (8.4-10.2) mg/dL Troponin I High Sens < 3.5 (<3.5-17.0) ng/L Coronavirus (PCR) (Negative) Influenza Type A (PCR) (Negative) Influenza Type B (PCR) (Negative) RSV RNA Qual (PCR) (Negative) 10/22/20 Range/Units Unknown WBC (4.8-10.8) X10*3/uL RBC (4.20-5.50) X10*6/uL Hgb (12.0-16.0) g/dl Hct (37-47) % MCV (80-98) fL MCH (27.0-33.0) pg MCHC (31.0-35.0) g/dl RDW (11.0-16.0) % Plt Count (160-400) X10*3/uL MPV (9.4-12.3) fL Immature Gran % (Auto) (0.0-0.4) % Neut % (Auto) (45-73) % Lymph % (Auto) (20-40) % [place] % (Auto) (2-11) % Eos % (Auto) (0-4) % Baso % (Auto) (0-2) % Lymph # (Auto) (1.2-4.9) X10*3/uL [place] # (Auto) (0.1-1.2) X10*3/uL Eos # (Auto) (0.0-0.4) X10*3/uL Baso # (Auto) (0.0-0.2) X10*3/uL Abs Immat Gran (auto) (0.00-0.03) X10*3/uL Absolute Neuts (auto) (2.0-8.3) X10*3/uL Absolute Nucleated RBC (0.0-0.012) X10*3/uL Nucleated RBC % (auto) (0.0-0.2) /100WBC Sodium (135-145) mmol/L Potassium (3.3-5.1) mmol/L Chloride (96-108) mmol/L Carbon Dioxide (22-29) mmol/L Anion Gap (12-20) BUN (9-16) mg/dL Creatinine (0.5-1.4) mg/dL Estim Creat Clear Calc Estimated GFR Random Glucose (60-115) mg/dL Calcium (8.4-10.2) mg/dL Troponin I High Sens (<3.5-17.0) ng/L Coronavirus (PCR) NEGATIVE (Negative) Influenza Type A (PCR) NEGATIVE (Negative) Influenza Type B (PCR) NEGATIVE (Negative) RSV RNA Qual (PCR) NEGATIVE (Negative) Imaging Data Chest x-ray: Radiologist's impression: FINDINGS: No significant abnormality is noted involving the heart, lungs, mediastinum, bony thorax or soft tissues. ECG Data Interpretation: Normal sinus, ventricular rate 72, atrial rate 72, GA 0.12, no ST changes. No changes when compared with EKG from April 05, 2018 Discharge Plan Discharge Clinical Impression: Cough Rhinitis Qualifiers: Rhinitis type: allergic Allergic rhinitis trigger: unspecified Allergic rhinitis seasonality: seasonal Qualified Code(s): J30.2 - Other seasonal allergic rhinitis Seasonal allergic rhinitis Qualifiers: Allergic rhinitis trigger: unspecified Qualified Code(s): J30.2 - Other seasonal allergic rhinitis Patient Disposition: Home, Self-Care Instructions: Allergic Rhinitis (ED), Acute Cough (ED) Additional Instructions: You were seen here today for cough and sore throat. Your COVID test is negative, your chest x-ray was negative for any acute processes. Your EKG was normal. You will be sent home with cough medication and allergy medicine. Please follow-up with your primary care provider in 2-3 days. He may return to emergency department if he your symptoms will get worse or if you will experience any additional concerning symptoms. Prescriptions: New benzonatate [Tessalon Perles] 100 mg capsule 100 mg PO TID PRN (Reason: cough) Qty: 30 RF: 0 loratadine 10 mg tablet 10 mg PO DAILY PRN (Reason: allergy symptoms) Qty: 20 RF: 0 No Action prazosin 2 mg capsule 2 mg PO BEDTIME Qty: 90 RF: 3 gabapentin 300 mg capsule 300 mg PO BID 90 Days Qty: 180 RF: 3 verapamil 120 mg tablet extended release 120 mg PO QAM Qty: 90 RF: 3 lisinopril-hydrochlorothiazide 20-12.5 mg tablet 2 tab PO QAM Qty: 180 RF: 3 metformin 500 mg tablet extended release 24 hr 500 mg PO BEDTIME Qty: 90 RF: 3 lancets [TRUEplus Lancets] 33 gauge misc 33 gauge miscellaneous TID 30 Days Qty: 100 RF: 10 lactulose 10 gram/15 mL solution 10 g PO DAILY PRN (Reason: constipation) 30 Days Qty: 500 RF: 11 blood sugar diagnostic [FreeStyle Lite Strips] Strip 1 strip miscellaneous BID 30 Days Qty: 50 RF: 9 atorvastatin 80 mg tablet 80 mg PO BEDTIME Qty: 90 RF: 2 omeprazole 20 mg capsule,delayed release(DR/EC) 20 mg PO QAM Qty: 30 RF: 6 fluticasone propionate 50 mcg/actuation spray,suspension 1 spray intranasal DAILY Qty: 16 RF: 6 docusate sodium [Colace] 100 mg capsule 100 mg PO BID Qty: 60 RF: 6 albuterol sulfate 90 mcg/actuation HFA aerosol inhaler 2 puff inhalation Q6H PRN (Reason: Shortness Of Breath Or Wheezing) 30 Days Qty: 8.5 RF: 6 acetaminophen 650 mg tablet extended release 650 mg PO Q8H PRN (Reason: fever or pain) 30 Days Qty: 90 RF: 6 miscellaneous medical supply Misc See Rx Instructions miscellaneous .COMPLEX Qty: 1 RF: 0 levothyroxine 75 mcg tablet 75 mcg PO QAM Qty: 90 RF: 0 meclizine 25 mg tablet 25 mg PO Q8H Qty: 90 RF: 1 ibuprofen 800 mg tablet 800 mg PO TID PRN (Reason: fever or pain) Qty: 60 RF: 4 albuterol sulfate 2.5 mg /3 mL (0.083 %) solution for nebulization 2.5 mg inhalation Q4-6H PRN (Reason: shortness of breath or wheezing) 30 Days Qty: 15 RF: 5 fluoxetine 20 mg capsule 60 mg PO QAM RF: 0 trazodone 100 mg tablet 300 mg PO Q OTHER DAY PRNRF: 0 clonazepam 1 mg tablet 0.500f1 mg PO BID PRN (Reason: anxiety) RF: 0 aspirin 81 mg tablet,delayed release (DR/EC) 81 mg PO QAM RF: 0 ezetimibe 10 mg tablet 10 mg PO DAILY 90 Days Qty: 90 RF: 3 (DME) AeroEclipse II Nebulizer Misc See Rx Instructions .ROUTE .MEDSUPPLY Qty: 1 RF: 0
== END 2020-10-22 12:10 | disposition home or self-care (01) ==
PROVIDERS: Emergency Provider Emergency Medicine; PCP Internal Medicine
DX: J30.2 Other seasonal allergic rhinitis (principal); Z20.822 Contact with and (suspected) exposure to COVID-19; R05 Cough; J02.9 Acute pharyngitis, unspecified; E11.9 Type 2 diabetes mellitus without complications; I10 Essential (primary) hypertension; J45.909 Unspecified asthma, uncomplicated; Z79.82 Long term (current) use of aspirin; Z79.899 Other long term (current) drug therapy
CPT/HCPCS: 0241U; 36415; 71046; 80048; 84484; 85025; 93005; 99283

== ENCOUNTER 2020-11-26 13:29 | Outpatient (REF) | payer MEDICARE, SELFPAY ==
--- NOTE | 2020-11-26 14:29 | MHC.AU.HFU ---
Hearing Instrument Follow-Up- Binaural Date of Visit: 11/26/20 Right Ear: Lock Tender Chief Operator: Phonak Model: Dinero Limitedeo [id number] Serial Number: [id number] Repair Warranty: 04/05/2023 Battery Size: 312 Color: Black Software Tools Developer: Size 2 power Type of Mold: cShell SN: [id number] Type of Wax Guard: Cerustop Dispensed By: [facility] Date of Fittin01/22/2020 Left Ear: Lock Tender Chief Operator: Phonak Model: Dinero Limitedeo [id number] Serial Number: [id number] Repair Warranty: 04/05/2023 Battery Size: 312 Color: Black Software Tools Developer: size 2 power Type of Mold: cShell SN: [id number] Type of Wax Guard: Cerustop Dispensed By: [facility] Date of Fittin01/22/2020 Follow-Up Summary: Hearing aid problem - Patient reports aids are not working well and cannot connect aids to cell phone and catie. Listening check showed the left aid cuts out when the roughener moves. Right aid was cleaned and is amplifying well. Patient asked to try to connect the right aid to the cell phone and catie. Able to pair cell phone with aids, but could not connect aids to the catie. Sending both aids with c-shells in for repair under warranty and patient is using old ITC aids. Recommendations: Recommendations (Other): Schedule appointment to pair aids to cell phone and catie when repairs are received. Diagnosis Code(s): Primary Diagnosis: H90.3 Bilateral Sensorineural Hearing Loss Services Performed: REYNA Non-Quantity Charges: HANC: NonBillable Event Signature: Provider: Donte Mills, DEANNA-A
== END 2020-11-26 13:30 | disposition home or self-care (01) ==
LOC: HO.HAP 13:29
PROVIDERS: Visit Provider Internal Medicine
DX: Z13.89 Encounter for screening for other disorder (principal)

== ENCOUNTER 2020-12-08 12:08 | Outpatient (REF) | payer MEDICARE, SELFPAY | END 2020-12-08 12:09 | disposition home or self-care (01) | LOC: HO.LAB 12:08 | PROVIDERS: PCP Internal Medicine; Visit Provider Internal Medicine | DX: Z20.822 Contact with and (suspected) exposure to COVID-19 (principal) | CPT/HCPCS: C9803; U0003; U0005 ==

== ENCOUNTER 2020-12-11 08:29 | Outpatient (REF) | payer MEDICARE, SELFPAY ==
[2020-12-11 09:25] LABS: Alanine Aminotransferase 23 U/L (0-31); Albumin Level 4.2 g/dL (3.5-5.0); Alkaline Phosphatase 78 U/L (39-117); Anion Gap 12 (12-20); Aspartate Amino Transferase 20 U/L (5-31); Bilirubin Total 0.6 mg/dL (0.0-1.0); Blood Urea Nitrogen 12 mg/dL (9-16); Calcium 9.5 mg/dL (8.4-10.2); Carbon Dioxide 29 mmol/L (22-29); Chloride 103 mmol/L (96-108); Cholesterol 187 mg/dL; Estimated Glomerular Filt Rate > 60; Glucose Fasting 138 mg/dL (60-99); HDL Cholesterol 55 mg/dL; LDL Cholesterol Calculated 114 mg/dl; Potassium 4.6 mmol/L (3.3-5.1); Sodium 139 mmol/L (135-145); Triglycerides 92 mg/dL
[2020-12-11 09:48] LABS: Creatinine Urine 294.66 mg/dL; Microalbum/Creatinine Ratio Ur 8.8 ug/mg cr
[2020-12-11 09:48] LABS: Thyroid Stimulating Hormone 3.35 uIU/mL (0.32-4.0)
[2020-12-16 13:46] LABS: Vitamin D 25-OH, D2 <4 ng/mL; Vitamin D 25-OH, D3 35 ng/mL; Vitamin D 25-OH, Total 35 ng/mL (30-100)
== END 2020-12-11 08:30 | disposition home or self-care (01) ==
LOC: HO.LAB 08:29
PROVIDERS: PCP Internal Medicine; Visit Provider Internal Medicine
DX: E11.65 Type 2 diabetes mellitus with hyperglycemia (principal); E78.5 Hyperlipidemia, unspecified; E03.9 Hypothyroidism, unspecified; E55.9 Vitamin D deficiency, unspecified; M54.6 Pain in thoracic spine
CPT/HCPCS: 36415; 80053; 80061; 82043; 82306; 84443

== ENCOUNTER 2020-12-24 13:27 | Outpatient (REF) | payer MEDICARE, SELFPAY | END 2020-12-24 13:28 | disposition home or self-care (01) | LOC: HO.HAP 13:27 | PROVIDERS: Visit Provider Internal Medicine | DX: Z13.89 Encounter for screening for other disorder (principal) ==

== ENCOUNTER 2021-05-05 07:25 | Outpatient (REF) | payer MEDICARE, SELFPAY ==
[2021-05-05 08:24] LABS: Alanine Aminotransferase 17 U/L (0-31); Albumin Level 4.1 g/dL (3.5-5.0); Alkaline Phosphatase 74 U/L (39-117); Anion Gap 15 (12-20); Aspartate Amino Transferase 18 U/L (5-31); Bilirubin Total 0.4 mg/dL (0.0-1.0); Blood Urea Nitrogen 12 mg/dL (9-16); Calcium 8.5 mg/dL (8.4-10.2); Carbon Dioxide 26 mmol/L (22-29); Chloride 102 mmol/L (96-108); Cholesterol 170 mg/dL; Estimated Glomerular Filt Rate > 60; Glucose Fasting 143 mg/dL (60-99); HDL Cholesterol 41 mg/dL; LDL Cholesterol Calculated 103 mg/dl; Potassium 4.1 mmol/L (3.3-5.1); Sodium 139 mmol/L (135-145); Total Protein 7.9 g/dL (6.5-8.0); Triglycerides 131 mg/dL
[2021-05-05 08:43] LABS: Thyroid Stimulating Hormone 9.48 uIU/mL (0.32-4.0)
[2021-05-05 09:02] LABS: Creatinine Urine 425.55 mg/dL
[2021-05-09 15:21] LABS: Vitamin D 25-OH, D2 <4 ng/mL; Vitamin D 25-OH, D3 36 ng/mL; Vitamin D 25-OH, Total 36 ng/mL (30-100)
== END 2021-05-05 07:26 | disposition home or self-care (01) ==
LOC: HO.LAB 07:25
PROVIDERS: PCP Internal Medicine; Visit Provider Internal Medicine
DX: E03.9 Hypothyroidism, unspecified (principal); I10 Essential (primary) hypertension; E78.5 Hyperlipidemia, unspecified; E55.9 Vitamin D deficiency, unspecified; E11.9 Type 2 diabetes mellitus without complications
CPT/HCPCS: 36415; 80053; 80061; 82043; 82306; 84443

== ENCOUNTER 2021-05-19 10:05 | Outpatient (REF) | payer MEDICARE, SELFPAY ==
--- NOTE | ~2021-05-19 | US_ITS ---
EXAMINATION: US ABDOMEN LIMITED CLINICAL INFORMATION: Periumbilical pain. COMPARISON: CT abdomen and pelvis 11/11/2019. Renal ultrasound 09/20/2018 and 02/07/2017. X-ray KUB 09/04/2018. TECHNIQUE: Real-time imaging of the periumbilical area. FINDINGS: In the area of the patient's pain in the periumbilical region, there is no hernia, mass, or fluid collection. US/US abdomen limited IMPRESSION: No abnormality of the soft tissues in the periumbilical region in the area of the patient's pain.
== END 2021-05-19 10:06 | disposition home or self-care (01) ==
LOC: HO.US 10:05
PROVIDERS: PCP Internal Medicine; Visit Provider Internal Medicine
DX: R10.33 Periumbilical pain (principal)
CPT/HCPCS: 76705

== ENCOUNTER 2021-06-07 09:27 | Outpatient (REF) | payer MEDICARE, SELFPAY ==
[2021-06-07 14:50] LABS: CT PCR NOT DETECTED (Not Detect.); NG PCR NOT DETECTED (Not Detect.)
== END 2021-06-07 09:28 | disposition home or self-care (01) ==
LOC: HO.LAB 09:27
PROVIDERS: Visit Provider Obstetrics & Gynecology
DX: Z01.419 Encounter for gynecological examination (general) (routine) without abnormal findings (principal); R10.2 Pelvic and perineal pain; N95.1 Menopausal and female climacteric states
CPT/HCPCS: 81003; 87491; 87591; 99212

== ENCOUNTER 2021-06-30 10:32 | Outpatient (REF) | payer OTHER, SELFPAY ==
--- NOTE | ~2021-06-30 | US_ITS ---
EXAMINATION: US PELVIS CLINICAL INFORMATION: Pelvic and perineal pain. COMPARISON: None TECHNIQUE: Ultrasound of the pelvis is performed using both transabdominal and transvaginal transducers along with Doppler. Transvaginal imaging is performed due to inadequate visualization transabdominally. FINDINGS: The uterus is measuring 7 x 2.9 x 4.1 cm. The endometrial thickness is 0.7 cm. Characterized by hyperechogenicity. There is also some fluid/cystic change within the lower canal. The right ovary is measuring 1.3 x 1.8 x 1.9 cm. Volume 1.1 cm. Associated calcification is noted. Vascularity normal. Left ovary is 1.9 x 1.1 x 1 cm. Unremarkable appearance. No free fluid is seen. No obvious adnexal mass. US/US pelvic and transvaginal IMPRESSION: The endometrium is thickened here in this postmenopausal patient at 7 mm and there is a cystic area in the lower endometrial canal region. Certainly polyp formation or hyperplasia versus other would need to be considered. Recommend gynecologic consultation. The ovaries appear to be within normal limits. There is no free fluid. Some small calcification associated with non-enlarged right ovary.
== END 2021-06-30 10:33 | disposition home or self-care (01) ==
LOC: HO.US 10:32
PROVIDERS: Visit Provider Obstetrics & Gynecology
DX: R10.2 Pelvic and perineal pain (principal)
CPT/HCPCS: 76830; 76856

== ENCOUNTER 2021-07-14 09:24 | Outpatient (REF) | payer OTHER, SELFPAY ==
--- NOTE | ~2021-07-14 | MM_ITS ---
EXAMINATION: BONE DENSITOMETRY CLINICAL INDICATION: Menopausal and female climacteric states. COMPARISON: Previous BD dated 09/16/2016 and baseline BD dated 12/22/2009. TECHNIQUE: Using a [employer] DXA System (software version: 13.1) manufactured by [employer], dual-energy x-ray absorptiometry was performed of the lumbar spine and left hip. The images are of good technical quality. Summary results are attached. FINDINGS: AP SPINE L1-L4: Current: BMD 1.245 g/cm2, Z-score 1.2, T-score 0.5, normal, 1.1% increase from previous, 10.0% increase from baseline (<5% change is not significant). Prior: BMD 1.231 g/cm2. Baseline: BMD 1.132 g/cm2. LEFT FEMUR, NECK: Current: BMD 0.874 g/cm2, Z-score -0.3, T-score -1.2, osteopenia. Prior: BMD 0.951 g/cm2. Baseline: BMD 0.952 g/cm2. LEFT FEMUR, TOTAL: Current: BMD 1.028 g/cm2, Z-score 0.8, T-score 0.2, normal, 1.9% increase from previous, 1.9% increase from baseline (<5% change is not significant). Prior: BMD 1.009 g/cm2. Baseline: BMD 1.009 g/cm2. IDENTIFIED RISK FACTORS: Menopause. HISTORY OF FRACTURE: None listed. MEDICATIONS: Vitamin D. MM/XR DEXA axial skeleton IMPRESSION: 1. DIAGNOSIS: Osteopenia based on the lowest T-score value of -1.2 in the femoral neck applying World Health Organization criteria. 2. 10-YEAR FRACTURE RISK PREDICTION, FRAX: Major osteoporotic fracture (clinical spine, forearm, hip or shoulder) 4.3%. Hip fracture 0.4%. 3. Treatment Recommendations: NOF guidelines recommend consideration for treatment in postmenopausal women and men age 50 and older presenting with the following: -A hip or vertebral (clinical or morphometric) fracture. -T-score less than or equal to -2.5 at the femoral neck or spine after appropriate evaluation to exclude secondary causes. -Low bone mass at the hip or spine and a 10-year fracture probability by FRAX of greater than or equal to 3% for hip fracture or greater than or equal to 20% for major osteoporotic fracture based on the [place] adapted WHO algorithm. 4. Other Recommendations: All treatment decisions require clinical judgment and consideration of individual patient factors, including patient preferences, comorbidities, previous drug use, risk factors not captured in the FRAX model (e.g. frailty, falls, vitamin D deficiency, increased bone turnover, interval significant decline in bone density) and possible under or overestimation of fracture risk by FRAX. Additional medical evaluation for secondary cause of low bone mineral density may be appropriate. FUTURE SCAN RECOMMENDATION: People with diagnosed cases of osteoporosis or at high risk for fracture should have regular bone mineral density tests. For patients eligible for Medicare, routine testing is allowed once every 2 years. The testing frequency can be increased to one year for patients who have rapidly progressing disease, those who are receiving or discontinuing medical therapy to restore bone mass, or have additional risk factors.
== END 2021-07-14 09:25 | disposition home or self-care (01) ==
LOC: HO.MAMMO 09:24
PROVIDERS: Visit Provider Obstetrics & Gynecology
DX: Z13.820 Encounter for screening for osteoporosis (principal); N95.1 Menopausal and female climacteric states
CPT/HCPCS: 77080

== ENCOUNTER → 2021-07-21 09:28 | Outpatient (BNVA) | payer OTHER, SELFPAY | PROVIDERS: PCP Internal Medicine; Visit Provider Obstetrics & Gynecology | DX: M85.80 Other specified disorders of bone density and structure, unspecified site (principal); R93.5 Abnormal findings on diagnostic imaging of other abdominal regions, including retroperitoneum | CPT/HCPCS: 99212 ==

== ENCOUNTER 2021-08-12 09:45 | Outpatient (REF) | payer OTHER, SELFPAY ==
--- NOTE | ~2021-08-12 | XR_ITS ---
EXAMINATION: XR SHOULDER, LEFT CLINICAL INFORMATION: Pain COMPARISON: Previous x-ray from November 2017 TECHNIQUE: Three views of the left shoulder. FINDINGS: Bone alignment is normal. No fracture or dislocation is seen. There is arthritis at the glenohumeral and acromioclavicular joints. There is an undersurface acromial osteophyte. There are degenerative changes of the greater tuberosity. There may be a left cervical rib. Soft tissues are unremarkable. XR/XR shoulder LT min 2V IMPRESSION: Arthritis at the acromioclavicular and glenohumeral joints. Question left cervical rib.
== END 2021-08-12 09:46 | disposition home or self-care (01) ==
LOC: HO.HOSX 09:45
PROVIDERS: PCP Internal Medicine; Visit Provider Physician Assistant
DX: M75.102 Unspecified rotator cuff tear or rupture of left shoulder, not specified as traumatic (principal)
CPT/HCPCS: 20610; 73030; 99212; J1020

== ENCOUNTER 2021-08-17 12:23 | Outpatient (REF) | payer OTHER, SELFPAY ==
--- NOTE | ~2021-08-17 | MM_ITS ---
EXAMINATION: MM SCREENING DIGITAL BREAST TOMOSYNTHESIS, BILATERAL CLINICAL INFORMATION: Screening. Asymptomatic. The lifetime risk of breast cancer based on the Tyrer-Cuzick Model is 5.7%. COMPARISON: Mammography: December 11, 2019 and studies dating back to August 14, 2014 TECHNIQUE: Digital breast tomosynthesis is performed in both the craniocaudal and mediolateral oblique views along with computer-aided detection (CAD). Synthesized 2D images are generated from the tomosynthesis. FINDINGS: There are scattered areas of fibroglandular density (ACR BI-RADS breast composition Category b). There are no significant masses, abnormal calcifications, or other abnormalities. MM/MM tomosynthesis screening BI IMPRESSION: There are no significant changes from prior study. ASSESSMENT: BI-RADS 1: Negative RECOMMENDATION: Routine annual mammography screening. This patient's information was entered into a reminder system with a target due date for their next mammogram.
== END 2021-08-17 12:24 | disposition home or self-care (01) ==
LOC: HO.MAMMO 12:23
PROVIDERS: Visit Provider Internal Medicine
DX: Z12.31 Encounter for screening mammogram for malignant neoplasm of breast (principal)
CPT/HCPCS: 77063; 77067

== ENCOUNTER 2021-08-19 09:42 | Outpatient (REF) | payer OTHER, SELFPAY | END 2021-08-19 09:43 | disposition home or self-care (01) | LOC: HO.LAB 09:42 | PROVIDERS: PCP Internal Medicine; Visit Provider Obstetrics & Gynecology | DX: R93.5 Abnormal findings on diagnostic imaging of other abdominal regions, including retroperitoneum (principal) | CPT/HCPCS: 58100; 88305 ==

== ENCOUNTER → 2021-09-02 09:27 | Outpatient (BNVA) | payer OTHER, SELFPAY | PROVIDERS: PCP Internal Medicine; Visit Provider Obstetrics & Gynecology | DX: N85.02 Endometrial intraepithelial neoplasia [EIN] (principal) | CPT/HCPCS: 99212 ==

== ENCOUNTER → 2021-09-06 10:32 | Outpatient (BNVA) | payer OTHER, SELFPAY | PROVIDERS: Visit Provider Obstetrics & Gynecology | DX: N85.02 Endometrial intraepithelial neoplasia [EIN] (principal) | CPT/HCPCS: 99212 ==

== ENCOUNTER 2021-09-17 06:36 | Day surgery (SDC) | payer OTHER, SELFPAY ==
--- NOTE | 2021-09-15 12:31 | P.CONAN_ITS ---
Documented by User: Aislinn Borden NP 09/15/21 12:32 HPI - Anesthesia Eval Consult details Narrative: 65yo F for D&C Hysteroscopy,poss polypectomy/myomectomy PMFSH Active Problems Active Problems: All Active Problems (Updated 09/02/21 @ 09:53 by Danny Fontenot MD) EIN (endometrial intraepithelial neoplasia) (Acute) Painful arc syndrome of left shoulder (Acute) Abnormal ultrasound of endometrium (Acute) Osteopenia (Acute) Pelvic pain in female (Acute) Menopausal state (Acute) Well woman exam (Acute) Periumbilical pain (Acute) Morbid obesity due to excess calories (Acute) Mild recurrent major depression (Acute) Vertigo (Acute) Thoracic spine pain (Acute) Facial abscess (Acute) Autoimmune thyroiditis (Acute) Dyslipidemia (Acute) HTN (hypertension) (Acute) Diabetes (Acute) Asthma (Acute) COVID-19 (Acute) Increased BMI (Acute) Past Medical History Medical History Arthritis Asthma Autoimmune thyroiditis Diabetes Dyslipidemia Facial abscess GERD (gastroesophageal reflux disease) Hiatal hernia HTN (hypertension) Hx of migraines Hx of vertigo Hypothyroidism Increased BMI Mild recurrent major depression Morbid obesity due to excess calories Periumbilical pain Renal calculi Sleep apnea Thoracic spine pain Vertigo Family History Family History Father Stomach cancer Mother Stomach cancer Brother Stomach cancer Heart disease Sister Diabetes Breast cancer Family history of problems with anesthesia: No Surgical History Surgical History History of arthroscopy of left knee History of esophagogastroduodenoscopy (EGD) History of hysteroscopy Hx of colonoscopy Hx of tonsillectomy Hx of total knee arthroplasty History of Problems with Anesthesia: No Social History Social History Housing: Apartment Alcohol intake: former Patient Tobacco Use Status: Former Tobacco user Tobacco use type: Cigarette e-Cigarette/Vaping Use: Never Used Second Hand Smoke Exposure: No Use of substances other than those prescribed or required for medical reasons: No Are you DNR?: No Advance Directives: No Advance Directives Information Provided: Yes Advance Directives on File: No service: No Current occupational status: disabled Current occupational exposures/hazards: No Meds Allergies Allergy/AdvReac Type Severity Reaction Status Date / Time No Known Allergies Allergy Verified 09/06/21 10:36 [No Known Allergies*] Home Medications Medication Instructions Recorded Confirmed Last Taken Type clonazepam 1 mg tablet 0.500f1 mg PO BID PRN anxiety 02/20/20 05/11/21 Unknown History fluoxetine 20 mg capsule 60 mg PO QAM 02/20/20 05/11/21 Unknown History trazodone 100 mg tablet 300 mg PO Q OTHER DAY PRN 02/20/20 05/11/21 Unknown History amitriptyline 25 mg tablet 25 mg PO BEDTIME 12/22/20 05/11/21 Unknown History Exam Exam Date and Time: September 15, 2021 1231 Assessment and Plan Assessment Anesthesia Assessment: Chart Reviewed Final Anesthetic Review Family History of Problems with Anesthesia: No History of Problems with Anesthesia: No Documented by User: Araceli Barrios MD 09/17/21 08:58 [facility] Active Problems Active Problems: All Active Problems (Updated 09/02/21 @ 09:53 by Danny Fontenot MD) EIN (endometrial intraepithelial neoplasia) (Acute) Painful arc syndrome of left shoulder (Acute) Abnormal ultrasound of endometrium (Acute) Osteopenia (Acute) Pelvic pain in female (Acute) Menopausal state (Acute) Well woman exam (Acute) Periumbilical pain (Acute) Morbid obesity due to excess calories (Acute) Mild recurrent major depression (Acute) Vertigo (Acute) Thoracic spine pain (Acute) Facial abscess (Acute) Autoimmune thyroiditis (Acute) Dyslipidemia (Acute) HTN (hypertension) (Acute) Diabetes (Acute) Asthma (Acute). Controlled. Inhaler prn COVID-19 (Acute) Increased BMI (Acute) MATT. Not using CPAP for now. Unable to obtain CPAP machine Past Medical History Medical History Arthritis Asthma Autoimmune thyroiditis Diabetes Dyslipidemia Facial abscess GERD (gastroesophageal reflux disease) Hiatal hernia HTN (hypertension) Hx of migraines Hx of vertigo Hypothyroidism Increased BMI Mild recurrent major depression Morbid obesity due to excess calories Periumbilical pain Renal calculi Sleep apnea Thoracic spine pain Vertigo Family History Family History Father Stomach cancer Mother Stomach cancer Brother Stomach cancer Heart disease Sister Diabetes Breast cancer Surgical History Surgical History History of arthroscopy of left knee History of esophagogastroduodenoscopy (EGD) History of hysteroscopy Hx of colonoscopy Hx of tonsillectomy Hx of total knee arthroplasty Social History Social History Housing: Apartment Alcohol intake: former Patient Tobacco Use Status: Former Tobacco user Tobacco use type: Cigarette e-Cigarette/Vaping Use: Never Used Second Hand Smoke Exposure: No Use of substances other than those prescribed or required for medical reasons: No Are you DNR?: No Advance Directives: No Advance Directives Information Provided: Yes Advance Directives on File: No service: No Current occupational status: disabled Current occupational exposures/hazards: No Meds Allergies Allergy/AdvReac Type Severity Reaction Status Date / Time No Known Allergies Allergy Verified 09/06/21 10:36 [No Known Allergies*] Home Medications Medication Instructions Recorded Confirmed Last Taken Type clonazepam 1 mg tablet 0.500f1 mg PO BID PRN anxiety 02/20/20 05/11/21 Unknown History fluoxetine 20 mg capsule 60 mg PO QAM 02/20/20 05/11/21 Unknown History trazodone 100 mg tablet 300 mg PO Q OTHER DAY PRN 02/20/20 05/11/21 Unknown History amitriptyline 25 mg tablet 25 mg PO BEDTIME 12/22/20 05/11/21 Unknown History Exam Height,Weight and Vital Signs: Height 5 ft Weight 95.254 kg Vital Signs Temp Pulse Resp BP Pulse Ox O2 Del Method 09/17/21 07:18 97.2 F 67 16 145/79 H 97 Room Air Pertinent Lab Results Pertinent Lab Results: Lab Results 09/17/21 Range/Units 07:15 POC Glucose 152 H (60-115) mg/dL Airway Mallampati Class: III TM Dist: >3cm Neck ROM: Full Denture: Upper Partial: Lower Loose/Missing/Broken Teeth: Yes (As above. No broken or loose per patient ) Heart: RRR Lungs: CTAB Assessment and Plan Assessment Anesthesia Assessment: Anesthesia Plan Discussed Final Anesthetic Review NPO: Yes ASA Class: III Final Preanesthetic Review: No Changes in Pt Med Stat, Meds/Allgs Chart Reviewed, Consent Obtained/Reviewed and Anes Risks/Benef Reviewed Patient Risk: Intermediate Procedure Risk: Low Assessment/Block/Sedation in SS: Assess/Block/Sedation-SS Anesthetic Plan Anesthetic Plan: GA Disposition: Standard PACU
[2021-09-17 07:03] VITALS: BMI 41.0
[2021-09-17 07:18] VITALS: BP 145/79; PULSE 67; RESP 16; TEMP 36.2; O2SAT 97
[2021-09-17 07:18] LABS: Glucose, Whole Blood 152 mg/dL (60-115)
[2021-09-17] MEDS: Lactated Ringers 1,000 ML 100 ML IVCONT (07:31)
--- NOTE | 2021-09-17 07:41 | MHC.SHP ---
Pre-Procedural Eval Section A Date of Service: 09/17/21 The patient is an INPATIENT: No Changes since office visit: No Cold of Flu in the past 2 weeks, No New Medical Problems, No Changes in Medication and No Patient answered all questions The History & Physical has been completed within 30 days and I have reviewed it.: Yes Section B Chief Complaint: Endometrial intraepithelial neoplasia [EIN] Allergies: Allergies Allergy/AdvReac Type Severity Reaction Status Date / Time No Known Allergies Allergy Verified 09/06/21 10:36 [No Known Allergies*] Plan Diagnosis/Plan: Unchanged I have reviewed the history and physical and performed a pertinent physical examination on my patient. No changes have occurred unless specified.
--- NOTE | 2021-09-17 09:35 | P.BOP_ITS ---
Brief Operative Note Date of Service: 09/17/21 Pre-op diagnosis: Endometrial hyperplasia with insufficient endometrial tissues on office EMB Post-op diagnosis: same (Normal endometrial/endocervical cavity no evidence of pathology) Procedure: Hysteroscopy D&C Surgeon: Danny Fontenot MD Anesthesia: GLMA Was an Pocket Assembler used for this Procedure?: No Estimated blood loss (mL): 0 Pathology: other (Endometrial Scrapping.) Condition: stable Disposition: PACU
--- NOTE | 2021-09-17 09:36 | P.OP_ITS ---
Operative Note Operative Note Date of Service: 09/17/21 Narrative: Preop Diagnosis: Endometrial hyperplasia with insufficient tissues on office endometrial biopsy Operation: Diagnostic Hysteroscopy, Dilataion & Curettage Post Op Diagnosis: Normal endometrial cavity QBL: Minimal Anesthesia: GLMA Surgeon: Danny Fontenot MD Product Development Ecologist: None Complication: None Pathology: Endometrial Scrapings Procedure: The patient was put in the dorsal lithotomy position, scrubbed, and draped in the usual manner. A sterile speculum was inserted in the patient's vagina. The anterior lip of the cervix was grasped with a single tooth tenaculum. The cervix was dilated up to 5 mm, then the scope was inserted in the patient's uterus. Inspection revealed Normal endometrial cavity. The Myosure Reach device was used; sharp curettings was carried on with minimal to moderate amount of tissues retrieved. At the end of the procedure, all instruments were taken out of the patient uterine and vaginal cavity. The single tooth tenaculum was removed and homeostasis was assured using pressure,. The patient tolerated the procedure well and was transferred to the PACU in a stable condition.
[2021-09-17 09:39] VITALS: BP 122/69; PULSE 70; RESP 14; TEMP 36.2; O2SAT 96
[2021-09-17 09:44] VITALS: BP 122/51; PULSE 65; RESP 16; O2SAT 97
[2021-09-17 09:49] VITALS: BP 130/67; PULSE 65; RESP 16; O2SAT 97
[2021-09-17 09:54] VITALS: BP 124/59; PULSE 64; RESP 16; O2SAT 98
[2021-09-17] MEDS: Acetaminophen 325 MG TABLET 650 MG PO (09:59)
[2021-09-17 10:11] VITALS: BP 136/71; PULSE 62; RESP 20; TEMP 36.7; O2SAT 98
== END 2021-09-17 10:50 | disposition home or self-care (01) ==
PROVIDERS: PCP Internal Medicine; Visit Provider Obstetrics & Gynecology
PROC: 0UDB8ZZ Extraction of Endometrium, Via Natural or Artificial Opening Endoscopic (ICD-10-PCS; CPT 58558; principal; 2021-09-17 08:30)
DX: N85.02 Endometrial intraepithelial neoplasia [EIN] (principal); I10 Essential (primary) hypertension; J45.909 Unspecified asthma, uncomplicated; E66.01 Morbid (severe) obesity due to excess calories; Z68.41 Body mass index [BMI] 40.0-44.9, adult; G47.33 Obstructive sleep apnea (adult) (pediatric); E11.9 Type 2 diabetes mellitus without complications; Z79.84 Long term (current) use of oral hypoglycemic drugs; Z79.899 Other long term (current) drug therapy; Z87.891 Personal history of nicotine dependence; Z86.16 Personal history of COVID-19
CPT/HCPCS: 58558; 82947; 88305; J2405; J2765; J3010

== ENCOUNTER 2021-09-27 06:30 | Outpatient (REF) | payer OTHER, SELFPAY ==
[2021-09-27 07:55] LABS: Alanine Aminotransferase 15 U/L (0-31); Albumin Level 4.1 g/dL (3.5-5.0); Alkaline Phosphatase 75 U/L (39-117); Anion Gap 12 (12-20); Aspartate Amino Transferase 18 U/L (5-31); Bilirubin Total 0.2 mg/dL (0.0-1.0); Blood Urea Nitrogen 12 mg/dL (9-16); Calcium 9.1 mg/dL (8.4-10.2); Carbon Dioxide 28 mmol/L (22-29); Chloride 103 mmol/L (96-108); Cholesterol 189 mg/dL; Estimated Glomerular Filt Rate > 60; Glucose Fasting 131 mg/dL (60-99); HDL Cholesterol 47 mg/dL; LDL Cholesterol Calculated 119 mg/dl; Potassium 4.2 mmol/L (3.3-5.1); Sodium 139 mmol/L (135-145); Total Protein 7.7 g/dL (6.5-8.0); Triglycerides 117 mg/dL
[2021-09-27 08:18] LABS: TSH reflex Free T4 (Prenatal) 11.23 uIU/mL (0.32-4.0)
[2021-09-27 09:17] LABS: Free T4 (Free Thyroxine) 0.72 ng/dL (0.71-1.85)
[2021-09-27 10:22] LABS: Creatinine Urine 229.06 mg/dL; Microalbum/Creatinine Ratio Ur 127.4 ug/mg cr
== END 2021-09-27 06:31 | disposition home or self-care (01) ==
LOC: HO.LAB 06:30
PROVIDERS: PCP Internal Medicine; Visit Provider Internal Medicine
DX: E11.65 Type 2 diabetes mellitus with hyperglycemia (principal); E78.5 Hyperlipidemia, unspecified; E06.3 Autoimmune thyroiditis
CPT/HCPCS: 36415; 80053; 80061; 82043; 84439

== ENCOUNTER → 2021-09-30 12:29 | Outpatient (BNVA) | payer OTHER, SELFPAY | PROVIDERS: PCP Internal Medicine; Visit Provider Obstetrics & Gynecology | DX: R93.5 Abnormal findings on diagnostic imaging of other abdominal regions, including retroperitoneum (principal) | CPT/HCPCS: 99212 ==

== ENCOUNTER 2021-12-14 07:18 | Outpatient (REF) | payer OTHER, SELFPAY ==
[2021-12-14 08:44] LABS: Protein/Creatinine Ratio, Ur 0.07 (<0.2); Total Protein Urine Random 24 mg/dL (<12)
[2021-12-14 08:44] LABS: Anion Gap 18 (12-20); Blood Urea Nitrogen 14 mg/dL (9-16); Carbon Dioxide 24 mmol/L (22-29); Chloride 101 mmol/L (96-108); Estimated Glomerular Filt Rate > 60; Glucose Random 140 mg/dL (60-115); Potassium 3.9 mmol/L (3.3-5.1); Sodium 139 mmol/L (135-145)
== END 2021-12-14 07:19 | disposition home or self-care (01) ==
LOC: HO.LAB 07:18
PROVIDERS: Visit Provider Internal Medicine Hypertension Specialist
DX: I10 Essential (primary) hypertension (principal); R80.9 Proteinuria, unspecified
CPT/HCPCS: 36415; 80048; 84156

== ENCOUNTER → 2021-12-28 09:19 | Outpatient (BNVA) | payer OTHER, SELFPAY | PROVIDERS: PCP Internal Medicine; Visit Provider Physician Assistant | DX: M75.102 Unspecified rotator cuff tear or rupture of left shoulder, not specified as traumatic (principal) | CPT/HCPCS: 99212 ==

== ENCOUNTER 2022-01-03 09:59 | Outpatient (REF) | payer OTHER, SELFPAY | END 2022-01-03 10:00 | disposition home or self-care (01) | LOC: HO.LNP 09:59 | PROVIDERS: Visit Provider Obstetrics & Gynecology | DX: R93.5 Abnormal findings on diagnostic imaging of other abdominal regions, including retroperitoneum (principal) | CPT/HCPCS: 58100; 88305 ==

== ENCOUNTER → 2022-01-17 09:02 | Outpatient (BNVA) | payer OTHER, SELFPAY | PROVIDERS: PCP Internal Medicine; Visit Provider Obstetrics & Gynecology | DX: Z71.2 Person consulting for explanation of examination or test findings (principal) | CPT/HCPCS: 99212 ==

== ENCOUNTER 2022-01-24 08:55 | Outpatient (REF) | payer OTHER, SELFPAY ==
[2022-01-24 10:46] LABS: Microalbum/Creatinine Ratio Ur 12.5 ug/mg cr
[2022-01-24 11:03] LABS: Alanine Aminotransferase 16 U/L (0-31); Alkaline Phosphatase 88 U/L (39-117); Anion Gap 14 (12-20); Aspartate Amino Transferase 17 U/L (5-31); Bilirubin Total 0.4 mg/dL (0.0-1.0); Blood Urea Nitrogen 13 mg/dL (9-16); Calcium 9.2 mg/dL (8.4-10.2); Carbon Dioxide 27 mmol/L (22-29); Chloride 103 mmol/L (96-108); Cholesterol 167 mg/dL; Estimated Glomerular Filt Rate > 60; Glucose Fasting 140 mg/dL (60-99); HDL Cholesterol 44 mg/dL; LDL Cholesterol Calculated 98 mg/dl; Potassium 4.2 mmol/L (3.3-5.1); Sodium 140 mmol/L (135-145); Total Protein 7.8 g/dL (6.5-8.0); Triglycerides 128 mg/dL; Vitamin D 25-OH Total 41.8 ng/mL (>30)
== END 2022-01-24 08:56 | disposition home or self-care (01) ==
LOC: HO.LAB 08:55
PROVIDERS: PCP Internal Medicine; Visit Provider Internal Medicine
DX: E55.9 Vitamin D deficiency, unspecified (principal); E06.3 Autoimmune thyroiditis; E78.5 Hyperlipidemia, unspecified; E11.65 Type 2 diabetes mellitus with hyperglycemia
CPT/HCPCS: 36415; 80053; 80061; 82043; 82306; 84443

== ENCOUNTER → 2022-02-18 09:25 | Outpatient (BNVA) | payer OTHER, SELFPAY | PROVIDERS: PCP Internal Medicine; Visit Provider Physician Assistant | DX: M75.102 Unspecified rotator cuff tear or rupture of left shoulder, not specified as traumatic (principal); E11.9 Type 2 diabetes mellitus without complications | CPT/HCPCS: 20610; 99212; J1040 ==

== ENCOUNTER 2022-05-17 09:09 | Outpatient (REF) | payer OTHER, SELFPAY ==
--- NOTE | ~2022-05-17 | MR_ITS ---
EXAMINATION: MR BRAIN WITHOUT CONTRAST CLINICAL INFORMATION: Ataxia COMPARISON: Brain MRI 09/12/[address] head 11/16/2019 TECHNIQUE: MRI of the brain was obtained using routine sequences without contrast. FINDINGS: No substantial change in mild to moderate burden of supratentorial white matter disease without new lesions identified. Unremarkable appearance of the posterior fossa. No acute infarct. No acute intracranial hemorrhage or extra-axial fluid collection. Stable mild generalized parenchymal volume loss. No mass lesion, mass effect, or herniation pattern. Normal intracranial arterial and dural venous sinus flow voids. Normal appearance of the midline structures. The orbits are grossly unremarkable. The paranasal sinuses and mastoids are well aerated. Normal marrow signal. 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 No new acute intracranial abnormality.
== END 2022-05-17 09:10 | disposition home or self-care (01) ==
LOC: HO.MRI 09:09
PROVIDERS: PCP Internal Medicine; Visit Provider Psychiatry & Neurology Neurology
DX: R27.0 Ataxia, unspecified (principal)
CPT/HCPCS: 70551

== ENCOUNTER → 2022-05-20 09:20 | Outpatient (BNVA) | payer OTHER, SELFPAY | PROVIDERS: Visit Provider Physician Assistant | DX: M75.102 Unspecified rotator cuff tear or rupture of left shoulder, not specified as traumatic (principal); E11.9 Type 2 diabetes mellitus without complications | CPT/HCPCS: 20610; 99212; J1040 ==

== ENCOUNTER 2022-05-25 10:00 | Outpatient (RCR) | payer OTHER, SELFPAY ==
--- NOTE | 2022-05-04 12:48 | MHC.PT.EP ---
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 pt's signs and symptoms consistent w/ cervical radiculopathy vs. TOS vs. referred pain from rotator cuff tendinopathy. pt had ? cervical rib on L side which may also be a factor in her pain symptoms. Will continue to monitor and treat/refer as appropriate. Impairments include pain, decreased range of motion, decreased strength, impaired functional mobility, impaired postural awareness, and altered ambulation mechanics. pt is a good candidate for skilled PT due to age, potential remediation of impairments, typical disease/condition progression and prognosis, comorbidities, and motivation. pt would benefit from skilled PT intervention to provide a tailored strengthening and stretching exercise program, functional training, gait training, postural re-training, neuromuscular re-education, modalities as needed for pain, equipment safety demonstration. Frequency and Duration: The patient will be seen 2x/wk for 4 wks Short Term Goals: pt will be I w/ HEP to promote self-management of condition. pt will improve L shoulder flexion by at least 10 degrees to promote ease in reaching for objects on higher shelves. pt will demo proper sitting posture w/ lumbar roll to promote neutral spine w/ seated ADLs. Dip Dyer Goals: pt will improve L functional ER and IR by 25% to promote ease in upper body ADLs. pt will report a statistically significant improvement in self-reported outcome measure, SPADI, to promote return to PLOF. pt will improve B shoulder flexion strength to 5/5 to promote ease in lifting objects. Treatment Plan: Modalities to reduce pain, spasms and effusion. Manual therapy to restore motion and function. Therapeutic exercise to improve strength and flexibility. Neuromuscular re-education for posture and balance. Therapeutic activities to return to functional activities of daily living. Electronically signed by: Neyda Zhao PT, DPT Please sign and return to therapist. Thank you for your referral.
--- NOTE | 2022-06-14 08:54 | MHC.PT.DC ---
[facility] [place] [facility] [place] [facility] [place] [facility] [address] [place] Turner 140 [facility] [phone] F: [phone] F: [phone] F: [phone] F: [phone] Physical Therapy Discharge Report Diagnosis: osteoarthritis of glenohumeral joint (RC) Date of Surgery: N/A Date of Evaluation: 05/04/22 Date of Discharge: 06/14/22 Treatments to Date: 5 Cancellations to Date: 2 No Shows to Date: 0 Discharge Status: Patient Elected to Stop Discharge Summary: Overall, the patient was reporting an improvement in shoulder pain with physical therapy intervention. The patient cancelled the last two scheduled visits and has not called to reschedule any additional appointments in approximately three weeks. The patient is discharged from this physical therapy plan of care. Electronically signed by: Neyda Zhao PT, DPT Please sign and return to therapist. Thank you for your referral.
== END 2022-06-14 08:55 | disposition home or self-care (01) ==
LOC: HO.PT 10:00
PROVIDERS: PCP Internal Medicine; Visit Provider Physician Assistant
DX: M19.012 Primary osteoarthritis, left shoulder (principal)
CPT/HCPCS: 97110; 97112; 97162

== ENCOUNTER 2022-05-31 09:51 | Outpatient (REF) | payer OTHER, SELFPAY ==
--- NOTE | ~2022-05-31 | XR_ITS ---
EXAMINATION: XR HAND, RIGHT CLINICAL INFORMATION: 05/31/2022 - Injury of wrist, hand, fingers 06/04/2022 - Pain of right thumb COMPARISON: None available. TECHNIQUE: PA, lateral, and oblique views of the right hand were obtained on 05/31/2022. PA, lateral, and oblique views of the right hand were obtained on 06/04/2022. FINDINGS: Right hand, 05/31/2022 Bones have normal alignment in the hand and wrist. The carpal bones are normal. Joint spaces of the wrist are maintained. Small ossific density of < 0.2 cm size adjacent to the base of the proximal phalanx of the thumb is of uncertain chronicity. There are osteophytes of multiple mildly degenerated interphalangeal joints. No erosions or periostitis. Right hand, 06/04/2022 Again noted is a small ossific density adjacent to the base of the proximal pharynx of the thumb, in region of radial collateral ligament attachment. 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 No new abnormalities. XR/XR hand RT 2V IMPRESSION: * Small ossific density of < 0.2 cm adjacent to the base of the proximal findings of the thumb is of uncertain chronicity. There was recent trauma, this could represent recent small avulsion fracture. 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
== END 2022-05-31 09:52 | disposition home or self-care (01) ==
LOC: HO.XRAY 09:51
PROVIDERS: PCP Internal Medicine; Visit Provider Internal Medicine
DX: S69.91XA Unspecified injury of right wrist, hand and finger(s), initial encounter (principal); X58.XXXA Exposure to other specified factors, initial encounter; Y93.9 Activity, unspecified; Y92.9 Unspecified place or not applicable; Y99.9 Unspecified external cause status
CPT/HCPCS: 73120

== ENCOUNTER 2022-06-04 06:15 | Emergency (ER) | payer OTHER, SELFPAY ==
--- NOTE | ~2022-06-04 | XR_ITS ---
EXAMINATION: XR HAND, RIGHT CLINICAL INFORMATION: 05/31/2022 - Injury of wrist, hand, fingers 06/04/2022 - Pain of right thumb COMPARISON: None available. TECHNIQUE: PA, lateral, and oblique views of the right hand were obtained on 05/31/2022. PA, lateral, and oblique views of the right hand were obtained on 06/04/2022. FINDINGS: Right hand, 05/31/2022 Bones have normal alignment in the hand and wrist. The carpal bones are normal. Joint spaces of the wrist are maintained. Small ossific density of < 0.2 cm size adjacent to the base of the proximal phalanx of the thumb is of uncertain chronicity. There are osteophytes of multiple mildly degenerated interphalangeal joints. No erosions or periostitis. Right hand, 06/04/2022 Again noted is a small ossific density adjacent to the base of the proximal pharynx of the thumb, in region of radial collateral ligament attachment. 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 No new abnormalities. XR/XR hand RT min 3V IMPRESSION: * Small ossific density of < 0.2 cm adjacent to the base of the proximal findings of the thumb is of uncertain chronicity. There was recent trauma, this could represent recent small avulsion fracture. 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
[2022-06-04 06:52] VITALS: BP 152/82; PULSE 64; RESP 16; TEMP 36.6; O2SAT 97; BMI 39.0
[2022-06-04 07:44] VITALS: BP 161/68; PULSE 58; RESP 13; TEMP 36.9; O2SAT 98
--- NOTE | 2022-06-04 07:48 | ED.EXTPRO ---
HPI - Extremity Problem General Chief complaint: Extremity Injury, Upper Stated complaint: dislocated thumb Time Seen by Provider: 06/04/22 07:34 Source: patient Mode of arrival: ambulatory Limitations: no limitations History of Present Illness HPI Narrative: c/o rt thumb pain sent by PCP because possible dislocation,pt fell on Monday,had outpatient xray Complaint: other (rt thumb pain) Onset (ago): day(s) (5) Pain Consistency: constant Location: right and other (thumb) Radiation: none Relieving factors: nothing Exacerbating factors: nothing Related Data Home Medications Medication Instructions Recorded Confirmed clonazepam 1 mg tablet 0.500f1 mg PO BID PRN anxiety 02/20/20 02/09/22 fluoxetine 20 mg capsule 60 mg PO QAM 02/20/20 02/09/22 trazodone 100 mg tablet 300 mg PO Q OTHER DAY PRN 02/20/20 02/09/22 amitriptyline 25 mg tablet 25 mg PO BEDTIME 12/22/20 02/09/22 Previous Rx's Medication Instructions Recorded nebulizers (AeroEclipse II #1 ea 02/11/20 Nebulizer) miscellaneous medical supply See Rx Instructions miscellaneous 08/17/20 .COMPLEX #1 ea loratadine 10 mg tablet 10 mg PO DAILY PRN allergy 12/22/20 symptoms #20 tabs docusate sodium 100 mg capsule 100 mg PO BID #60 caps 12/28/20 (Colace) fluticasone propionate 50 1 spray intranasal DAILY #16 grams 07/03/21 mcg/actuation nasal spray,suspension meclizine 25 mg tablet 25 mg PO Q8H #90 tabs 08/22/21 diabetic shoes #1 ea 09/28/21 blood sugar diagnostic (FreeStyle 1 strip miscellaneous BID for 10/12/21 Lite Strips) diabetes mellitus 30 days #50 strips aspirin 81 mg tablet,delayed 81 mg PO QAM 90 days #90 tabs 10/21/21 release prazosin 2 mg capsule 2 mg PO BEDTIME #90 caps 11/18/21 gabapentin 300 mg capsule 300 mg PO BID 90 days #180 caps 11/21/21 omeprazole 20 mg capsule,delayed 20 mg PO QAM #30 caps 01/11/22 release verapamil 120 mg tablet,extended 120 mg PO QAM #90 tabs 11/05/22 release ibuprofen 800 mg tablet 800 mg PO TID PRN fever or pain 01/16/22 #60 tabs albuterol sulfate 90 mcg/actuation 2 puff inhalation Q6H PRN 01/21/22 aerosol inhaler Shortness Of Breath Or Wheezing 30 days #8.5 grams albuterol sulfate 2.5 mg/3 mL 2.5 mg (3 mL) inhalation Q4-6H PRN 01/27/22 (0.083 %) solution for nebulization shortness of breath or wheezing 30 days #15 mL atorvastatin 80 mg tablet 80 mg PO BEDTIME #90 tabs 02/09/22 ezetimibe 10 mg tablet 10 mg PO DAILY 90 days #90 tabs 02/09/22 lisinopril 20 2 tab PO QAM #180 tabs 02/12/22 mg-hydrochlorothiazide 12.5 mg tablet metformin 500 mg tablet,extended 500 mg PO BEDTIME #90 tabs 02/12/22 release 24 hr levothyroxine 100 mcg tablet 100 mcg PO DAILY 90 days #90 tabs 02/18/22 (Synthroid) lancets 33 gauge (TRUEplus Lancets) 33 gauge miscellaneous TID for 03/20/22 diabetes mellitus #100 ea lactulose 10 gram/15 mL oral 10 g (15 mL) PO DAILY PRN 04/12/22 solution constipation 30 days #500 mL acetaminophen 650 mg 650 mg PO Q8H PRN fever or pain 30 05/02/22 tablet,extended release days #90 tabs Allergies Allergy/AdvReac Type Severity Reaction Status Date / Time No Known Allergies Allergy Verified 05/20/22 09:26 [No Known Allergies*] Review of Systems Eyes: Eyes: Reports no additional eye complaints Cardiovascular: Cardiovascular: Reports no additional cardiovascular complaints Gastrointestinal: Gastrointestinal: Reports no additional gastrointestinal complaints Neurologic: Reports system reviewed and no additional complaints, except as documented PMFSH Past Medical History Medical History Arthritis Asthma Autoimmune thyroiditis Diabetes Dyslipidemia Facial abscess GERD (gastroesophageal reflux disease) Hiatal hernia HTN (hypertension) Hx of migraines Hx of vertigo Hypothyroidism Increased BMI Mild recurrent major depression Morbid obesity due to excess calories Periumbilical pain Renal calculi Sleep apnea Thoracic spine pain Vertigo Surgical History History of arthroscopy of left knee History of esophagogastroduodenoscopy (EGD) History of hysteroscopy Hx of colonoscopy Hx of tonsillectomy Hx of total knee arthroplasty Family History Family History Father Stomach cancer Mother Stomach cancer Brother Stomach cancer Heart disease Sister Diabetes Breast cancer Social History Social History Housing: Apartment Alcohol intake: former Patient Tobacco Use Status: Former Tobacco user Tobacco use type: Cigarette e-Cigarette/Vaping Use: Never Used Second Hand Smoke Exposure: No Advance Directives: No service: No Current occupational status: disabled Current occupation: left hand dominant Current occupational exposures/hazards: No Cognitive needs: Yes Hearing needs: Yes Vision needs: Yes Physical Exam Vital Signs: Vital Signs: Last Vital Signs Temp 98.4 F 06/04/22 07:44 Pulse 58 06/04/22 07:44 Resp 13 06/04/22 07:44 BP 161/68 H 06/04/22 07:44 Pulse Ox 98 06/04/22 07:44 O2 Del Method Room Air 06/04/22 07:44 BMI result Body Mass Index 39.0 Const: General: cooperative Nutritional Appearance: average body habitus Orientation/consciousness: oriented to person HEENT: Head: Yes normal to inspection General nose exam: Normal external nose present Face and sinus: Yes normal facial exam Mouth: Normal oral and palatal mucosa present Neck: Neck: Yes normal visual inspection and Yes full ROM Chest: Chest palpation & inspection: normal inspection of the chest Resp: Effort & Inspection: normal respiratory effort Auscultation: clear to auscultation bilaterally Cardio: Jugular venous distension: no JVD Rate: regular rate Rhythm: regular rhythm GI: Inspection: Yes normal to inspection Palpation (GI): Soft to palpation, not firm and nontender Skin: General skin exam: no rashes or lesions noted Rashes: no rashes Neuro: General: oriented to person Extrem: Other: There is tenderness in the left thumb swelling in the left thumb Course Reevaluation(s) Reevaluation #1: X-ray reviewed there is no dislocation a possible small fracture will apply a spica splint discharge the patient with the follow-up with with Ortho Medical Decision Making Medical Decision Making MDM Narrative: Patient presented with a possible dislocation of the left thumb were going to get another x-ray and reassess Differential Diagnosis Differential Diagnoses: The differential diagnosis associated with the presentation includes Fracture/dislocation Independent Interpretation I performed an independent interpretation of an: Plain X-Ray Interpretation: I read the x-ray myself interpreted myself no dislocation seen possible no displaced fracture Radiology Impression Discussion of test interpretation with radiology: I have reviewed the radiologist's reading. Radiologist Impression: I reviewed the x-ray report. Small ossific density of < 0.2 cm size adjacent to the base of the proximal phalanx of the thumb is of uncertain chronicity. There are osteophytes of multiple mildly degenerated interphalangeal joints. No erosions or periostitis. Right hand, 06/04/2022 Again noted is a small ossific density adjacent to the base of the proximal pharynx of the thumb, in region of radial collateral ligament attachment. 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 No new abnormalities. XR/XR hand RT min 3V IMPRESSION: *? Small ossific density of < 0.2 cm adjacent to the base of the proximal findings of the thumb is of uncertain chronicity. There was recent trauma, this could represent recent small avulsion fracture. ? *? 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 Dictated By: Oh Browning MD Signed By: <Electronically signed by Oh Browning MD in OV> 06/04/22 0815 Procedures Orthopedic Splinting/Casting rt thumb: Side: right Upper Extremity Immobilizer: thumb spica Additional Comments: Right spica thumb splint was applied by me personally circulation was normal after the splint Discharge Plan Discharge Clinical Impression: Fracture of thumb Patient Disposition: Home, Self-Care Instructions: Thumb Fracture (ED) Additional Instructions: The x-ray does not show dislocation of the time but just a possible fracture . Prescriptions: No Action miscellaneous medical supply Misc See Rx Instructions miscellaneous .COMPLEX Qty: 1 0RF Rx Instructions: 1 pair of diabetic shoes and inserts miscellaneous; docusate sodium [Colace] 100 mg capsule 100 mg PO BID Qty: 60 0RF fluticasone propionate 50 mcg/actuation spray,suspension 1 spray intranasal DAILY Qty: 16 6RF meclizine 25 mg tablet 25 mg PO Q8H Qty: 90 1RF FreeStyle Lite Strips Strip 1 strip miscellaneous BID 30 Days Qty: 50 9RF aspirin 81 mg tablet,delayed release (DR/EC) 81 mg PO QAM 90 Days Qty: 90 3RF prazosin 2 mg capsule 2 mg PO BEDTIME Qty: 90 3RF gabapentin 300 mg capsule 300 mg PO BID 90 Days Qty: 180 3RF omeprazole 20 mg capsule,delayed release(DR/EC) 20 mg PO QAM Qty: 30 6RF verapamil 120 mg tablet extended release 120 mg PO QAM Qty: 90 3RF ibuprofen 800 mg tablet 800 mg PO TID PRN (Reason: fever or pain) Qty: 60 4RF albuterol sulfate 90 mcg/actuation HFA aerosol inhaler 2 puff inhalation Q6H PRN (Reason: Shortness Of Breath Or Wheezing) 30 Days Qty: 8.5 6RF albuterol sulfate 2.5 mg /3 mL (0.083 %) solution for nebulization 2.5 mg inhalation Q4-6H PRN (Reason: shortness of breath or wheezing) 30 Days Qty: 15 5RF lisinopril-hydrochlorothiazide 20-12.5 mg tablet 2 tab PO QAM Qty: 180 3RF metformin 500 mg tablet extended release 24 hr 500 mg PO BEDTIME Qty: 90 3RF levothyroxine [Synthroid] 100 mcg tablet 100 mcg PO DAILY 90 Days Qty: 90 0RF lancets [TRUEplus Lancets] 33 gauge misc 33 gauge miscellaneous TID Qty: 100 10RF lactulose 10 gram/15 mL solution 10 g PO DAILY PRN (Reason: constipation) 30 Days Qty: 500 11RF acetaminophen 650 mg tablet extended release 650 mg PO Q8H PRN (Reason: fever or pain) 30 Days Qty: 90 2RF fluoxetine 20 mg capsule 60 mg PO QAM trazodone 100 mg tablet 300 mg PO Q OTHER DAY PRN clonazepam 1 mg tablet 0.500f1 mg PO BID PRN (Reason: anxiety) (DME) AeroEclipse II Nebulizer Misc See Rx Instructions .ROUTE .MEDSUPPLY Qty: 1 0RF Rx Instructions: As directed amitriptyline 25 mg tablet 25 mg PO BEDTIME loratadine 10 mg tablet 10 mg PO DAILY PRN (Reason: allergy symptoms) Qty: 20 0RF (DME) diabetic shoes 8 See Rx Instructions .Route .MEDSUPPLY Qty: 1 0RF Rx Instructions: As directed atorvastatin 80 mg tablet 80 mg PO BEDTIME Qty: 90 2RF ezetimibe 10 mg tablet 10 mg PO DAILY 90 Days Qty: 90 3RF Referrals: Amador Montero MD [Physician] - 3 days
== END 2022-06-04 09:31 | disposition home or self-care (01) ==
PROVIDERS: Emergency Provider Emergency Medicine; PCP Internal Medicine
DX: S62.514A Nondisplaced fracture of proximal phalanx of right thumb, initial encounter for closed fracture (principal); W18.30XA Fall on same level, unspecified, initial encounter; E11.9 Type 2 diabetes mellitus without complications; E78.5 Hyperlipidemia, unspecified; I10 Essential (primary) hypertension; Z79.899 Other long term (current) drug therapy; Z79.02 Long term (current) use of antithrombotics/antiplatelets; Y93.9 Activity, unspecified; Y92.9 Unspecified place or not applicable; Y99.9 Unspecified external cause status
CPT/HCPCS: 29125; 73130; 99283; 99284

== ENCOUNTER 2022-06-08 12:55 | Outpatient (REF) | payer OTHER, SELFPAY ==
--- NOTE | ~2022-06-08 | XR_ITS ---
EXAMINATION: XR HAND, RIGHT CLINICAL INFORMATION: Hand pain. COMPARISON: X-ray 06/04/2022 TECHNIQUE: Four views of the right hand. FINDINGS: Redemonstrated is a small ossific density measuring approximately 2 mm in size, adjacent to the base of the proximal phalanx of the thumb, stable in position and alignment. This of uncertain chronicity. Mild degenerative changes in multiple interphalangeal joints, characterized by joint space loss, marginal osteophytes. Carpal row alignment is maintained. No erosions. XR/XR hand RT min 3V IMPRESSION: *Similar appearance of a small ossific density measuring approximately 2 mm adjacent to the base of the proximal phalanx of the thumb, of uncertain chronicity. This is an expected region of the radial collateral ligament attachment, and could represent an avulsion fracture, of indeterminate age. *Mild osteoarthritis of multiple interphalangeal joints.
== END 2022-06-08 12:56 | disposition home or self-care (01) ==
LOC: HO.HOSX 12:55
PROVIDERS: PCP Internal Medicine; Visit Provider Physician Assistant
DX: M18.11 Unilateral primary osteoarthritis of first carpometacarpal joint, right hand (principal)
CPT/HCPCS: 29085; 73130; 99212

== ENCOUNTER → 2022-06-15 11:14 | Outpatient (BNVA) | payer OTHER, SELFPAY | PROVIDERS: PCP Internal Medicine; Visit Provider Physician Assistant | DX: S62.501A Fracture of unspecified phalanx of right thumb, initial encounter for closed fracture (principal) | CPT/HCPCS: 29085 ==

== ENCOUNTER → 2022-06-29 08:23 | Outpatient (BNVA) | payer OTHER, SELFPAY | PROVIDERS: PCP Internal Medicine; Visit Provider Physician Assistant ==

== ENCOUNTER 2022-08-19 08:56 | Outpatient (REF) | payer OTHER, SELFPAY ==
--- NOTE | ~2022-08-19 | MM_ITS ---
EXAMINATION: MM SCREENING DIGITAL BREAST TOMOSYNTHESIS, BILATERAL CLINICAL INFORMATION: Screening. Asymptomatic. The lifetime risk of breast cancer based on the Tyrer-Cuzick Model is 5%. COMPARISON: Mammography: 08/17/2021, 12/11/2019, 12/05/2018 TECHNIQUE: Digital breast tomosynthesis is performed in both the craniocaudal and mediolateral oblique views along with computer-aided detection (CAD). Synthesized 2D images are generated from the tomosynthesis. FINDINGS: There are scattered areas of fibroglandular density (ACR BI-RADS breast composition Category b). There are no significant masses, abnormal calcifications, or other abnormalities. Parenchymal pattern is similar to prior studies. There is no developing density or architectural abnormality. Scattered minor nodular densities are stable. There are scattered benign round and rim calcifications again seen. The axilla and skin contours are unremarkable. No significant changes. MM/MM tomosynthesis screening BI IMPRESSION: No mammographic evidence of malignancy. ASSESSMENT: BI-RADS 2: Benign RECOMMENDATION: Routine annual mammography screening. This patient's information was entered into a reminder system with a target due date for their next mammogram.
== END 2022-08-19 08:57 | disposition home or self-care (01) ==
LOC: HO.MAMMO 08:56
PROVIDERS: PCP Internal Medicine; Visit Provider Internal Medicine
DX: Z12.31 Encounter for screening mammogram for malignant neoplasm of breast (principal)
CPT/HCPCS: 77063; 77067

== ENCOUNTER 2022-08-24 10:00 | Outpatient (RCR) | payer OTHER, SELFPAY ==
--- NOTE | 2022-07-18 10:32 | MHC.OT.EP ---
[address] [phone] Occupational Therapy Plan of Care Patient Name: Audrey Lopes Date of Evaluation: 07/18/22 Diagnosis: Thumb Sprain Pain Location: Right thumb base, tender to palpate radial thumb Pain Score: 7 Pain Scale Used: Numeric (0 - 10) Aggravating Factors: General use, movement/range Alleviating Factors: Ice for comfort, Tylenol Assessment: 66 yo female had episode of vertigo and fell out onto her right hand, injury occurring about two months ago, 05/30/22. She was seen in ED and given thumb spica splint for thumb injury and referred to [facility] 06/08/22. She was placed in short arm cast for three weeks. 06/29/22 cast removed and pt given removable pre-nell orthosis for activity and sleeping, referred to OT to initiate range and strengthening. Now 7 weeks s/p injury and reports moderate pain w/ movement and light use of right thumb. Patient has several orthopedic ailments at baseline (knee and shoulder pain) and has TELEPHONIC RN assist w/ home care and self care. She is also left hand dominant and uses left hand for most daily activities, but has trouble when incorporating right hand into bimanual tasks. Thumb range is slightly impaired, but overall functional. She will benefit from cont'd therapy services to address pain, edema, range, strength and overall functional return of right hand. Frequency and Duration: The patient will be seen 2x/wk for 6 weeks Short Term Goals: Ind w/ HEP Ind w/ heat modalities for comfort and warm-up before therex/ROM Thumb opp to small finger Pt to complete ADL FMC boards w/ ease Shelter Goals: Pt to progress to gentle pinch strengthening Pain free thumb at rest Pt to use right thumb w/ ease for bimanual grooming tasks or lifting small objects (cups, etc) Wean from orthosis wear Treatment Plan: Therapeutic Exercise Therapeutic Activity Home Exercise Program Patient Education Edema Control ADL Training Ultrasound Paraffin Fluidotherapy MHP Cold Packs Soft Tissue Mobilization Kinesiotaping Electronically Signed By: Raegan Sanabria OTR/L CHT Please Sign and return to therapist. Thank you once again for your referral.
--- NOTE | 2022-08-26 13:15 | MHC.OT.DC ---
[address] [phone] F: [phone] Occupational Therapy Discharge Note Patient Name: Audrey Lopes Provider: Antoine Dias PA-C Diagnosis: Thumb Sprain Date of Evaluation: 07/18/22 Date of Discharge: Treatments to Date: 9 Cancellations to Date: 2 No Shows to Date: 1 Discharge Status: Improved Function Independent with HEP Discharge Summary: Audrey was referred to OT s/p right thumb sprain 05/30/22, for which she was casted for three weeks then placed in pre-nell orthosis. She has completed course of therapy w/ good return of range, some tightness and edema still in IP. Gross grasp is weak but not painful. She has been avoiding most daily activities still but we have discussed incorporating right hand into daily use for functional return. She missed last scheduled appointment but is Ind w/ home program at this time and I anticipate she will continue to do well. Electronically Signed By: LIZZY Graham/Cecilio CHT Reviewed/agree with student documentation: Therapist: Please Sign and return to therapist, thank you for your referral.
== END 2022-08-26 13:16 | disposition home or self-care (01) ==
LOC: HO.OT 10:00
PROVIDERS: PCP Internal Medicine; Visit Provider Physician Assistant
DX: S69.90XD Unspecified injury of unspecified wrist, hand and finger(s), subsequent encounter (principal)
CPT/HCPCS: 29125; 29130; 97035; 97110; 97166; 97760

== ENCOUNTER 2022-09-05 08:51 | Outpatient (REF) | payer OTHER, SELFPAY | END 2022-09-05 08:52 | disposition home or self-care (01) | LOC: HO.LNP 08:51 | PROVIDERS: PCP Internal Medicine; Visit Provider Obstetrics & Gynecology | DX: Z13.89 Encounter for screening for other disorder (principal) ==

== ENCOUNTER 2022-09-05 10:33 | Outpatient (REF) | payer OTHER, SELFPAY ==
[2022-09-05 13:36] LABS: CT PCR NOT DETECTED (Not Detect.); NG PCR NOT DETECTED (Not Detect.)
== END 2022-09-05 10:34 | disposition home or self-care (01) ==
LOC: HO.LAB 10:33
PROVIDERS: PCP Internal Medicine; Visit Provider Obstetrics & Gynecology
DX: R10.2 Pelvic and perineal pain (principal); R31.29 Other microscopic hematuria
CPT/HCPCS: 0353U; 87086

== ENCOUNTER → 2022-09-09 12:16 | Outpatient (BNVA) | payer OTHER, SELFPAY | PROVIDERS: Visit Provider Physician Assistant | DX: M75.102 Unspecified rotator cuff tear or rupture of left shoulder, not specified as traumatic (principal) | CPT/HCPCS: 20610; 99212; J1040 ==

== ENCOUNTER 2022-09-16 13:17 | Outpatient (REF) | payer OTHER, SELFPAY ==
--- NOTE | ~2022-09-16 | US_ITS ---
EXAMINATION: US PELVIS COMPLETE CLINICAL INFORMATION: Pain COMPARISON: Pelvic ultrasound 06/30/2021 TECHNIQUE: Transabdominal and transvaginal imaging was performed. FINDINGS: The uterus is of normal size and echogenicity measuring 5.9 x 3.0 x 3.8 cm. The endometrium measures 0.6 cm in thickness with cystic change. Nabothian cysts in the cervix. A 0.8 cm intramural myoma in the posterior fundus. Both ovaries are of normal size and echogenicity. The right measures 2.0 x 1.1 x 1.2 cm for a volume of 1.4 mL. The left measures 2.0 x 0.8 x 1.1 cm for a volume of 0.9 mL. There is no pelvic free fluid. US/US pelvic and transvaginal IMPRESSION: Endometrium measures 0.6 cm in thickness with cystic change and could be seen in the setting of cystic endometrial hyperplasia with underlying neoplasia not excluded. Recommend correlation with any symptoms of postmenopausal bleeding and gynecologic evaluation and management to assess if tissue sampling may be warranted. The report will be called to the ordering clinician by a [facility] Physician Personal Injury Law Specialist.
== END 2022-09-16 13:18 | disposition home or self-care (01) ==
LOC: HO.US 13:17
PROVIDERS: Visit Provider Obstetrics & Gynecology
DX: R10.2 Pelvic and perineal pain (principal)
CPT/HCPCS: 76830; 76856

== ENCOUNTER 2022-09-20 11:02 | Outpatient (AMB) | payer OTHER, SELFPAY ==
[2022-09-20 11:15] VITALS: BP 132/76; BMI 39.8
--- NOTE | 2022-09-20 11:15 | MHC.OFFVIS ---
Intake Vital Signs 09/20/22 11:15 Height 5 ft Weight 204 lb BMI 39.8 BP 132/76 Intake Visit Reasons: urine dip Certified Orthotist/Pedorthist Required: No Allergies No Known Allergies [No Known Allergies*] Allergy (Verified 09/20/22 11:22) Is last menstrual period known: No Post menopausal: Yes Patient : No HPI HPI Comments History of Present Illness Details Presenting for follow-up. GC and chlamydia negative, ultrasound done but no report available yet [facility] Medical History Arthritis Asthma Autoimmune thyroiditis Diabetes Dyslipidemia Facial abscess GERD (gastroesophageal reflux disease) Hiatal hernia HTN (hypertension) Hx of migraines Hx of vertigo Hypothyroidism Increased BMI Mild recurrent major depression Morbid obesity due to excess calories Periumbilical pain Renal calculi Sleep apnea Thoracic spine pain Vertigo Surgical History History of arthroscopy of left knee History of esophagogastroduodenoscopy (EGD) History of hysteroscopy Hx of colonoscopy Hx of tonsillectomy Hx of total knee arthroplasty Family History Father Stomach cancer Mother Stomach cancer Brother Stomach cancer Heart disease Sister Diabetes Breast cancer Social History Housing: Apartment Alcohol intake: former Patient Tobacco Use Status: Former Tobacco user Tobacco use type: Cigarette e-Cigarette/Vaping Use: Never Used Second Hand Smoke Exposure: No Patient : No service: No Current occupational status: disabled Current occupation: left hand dominant Current occupational exposures/hazards: No Cognitive needs: Yes Hearing needs: Yes Vision needs: Yes Female Reproductive History Menstrual Age of Menarche: 11 Review of Systems Const All systems reviewed & are unremarkable except as noted in HPI and below Reports as per HPI and Reports no additional complaints GI Reports no additional complaints Reports no additional complaints Physical Exam Vital Signs: Last Vital Signs BP 132/76 09/20/22 11:15 BMI result Body Mass Index 39.8 Results AMB Urinalysis, Automated UA Leukoctes 0 Catie/uL Last Edit by IRIS Neal on 09/20/22 11:27 UA Nitrite Negative Last Edit by IRIS Neal on 09/20/22 11:27 UA Urobilinogen 0 mg/dL Last Edit by Raymond Landersileana RMA on 09/20/22 11:27 UA Protein 0 mg/dL Last Edit by Raymond Landersileana A on 09/20/22 11:27 UA pH 8.5 Last Edit by Raymond Landersdro, RMA on 09/20/22 11:27 UA Blood 0 Yovany/uL Last Edit by Raymond Landersdro, RMA on 09/20/22 11:27 UA Specific [place] 1.015 Last Edit by Raymond Landersileana RMA on 09/20/22 11:27 UA Ketone Negative Last Edit by Raymond Landersileana A on 09/20/22 11:27 UA Bilirubin 0 mg/dL Last Edit by Raymond Landersileana RMA on 09/20/22 11:27 UA Glucose 0 mg/dL Last Edit by Raymond Landersileana A on 09/20/22 11:27 Assessment & Plan Assessment & Plan (1) Microscopic hematuria: Code(s): R31.29 - Other microscopic hematuria Plan: Urine dip repeated in the office showed no evidence of microscopic hematuria, the patient was reassured. Instructions given the patient to schedule a 1-2 week ultrasound follow-up appointment to discuss the results and treat accordingly. All questions answered, the patient verbalized understanding Orders: Orders AMB Urinalysis Automated Today R31.29 - Other microscopic hematuria Quality Reporting (2019) Adult ([facility] 138/05/04/68) Smoking risk assessment performed?: Yes Patient Tobacco Use Status: Former Tobacco user Coding Level of Care Code Est Pt Level 3 (83953) Diagnoses Microscopic hematuria R31.29
== END 2022-09-20 11:33 | disposition home or self-care (01) ==
LOC: HO.HWS 11:02
PROVIDERS: PCP Internal Medicine; Visit Provider Obstetrics & Gynecology
DX: R31.29 Other microscopic hematuria (principal)
CPT/HCPCS: 99213

== ENCOUNTER → 2022-09-20 11:02 | Outpatient (BNVA) | payer OTHER, SELFPAY | PROVIDERS: PCP Internal Medicine; Visit Provider Obstetrics & Gynecology | DX: R31.29 Other microscopic hematuria (principal) | CPT/HCPCS: 81003; 99212 ==

== ENCOUNTER 2022-09-29 08:05 | Outpatient (AMB) | payer OTHER, SELFPAY ==
--- NOTE | 2022-09-29 08:25 | A.OFFVIS_ITS ---
Intake Vital Signs 09/29/22 08:26 Height 5 ft Weight 202 lb 13.204 oz BMI 39.6 BP 120/78 Intake Visit Reasons: US follow up Allergies No Known Allergies [No Known Allergies*] Allergy (Verified 09/20/22 11:22) HPI HPI Comments History of Present Illness Details Presenting for follow-up ultrasound. Pelvic ultrasound done recently showed the following: The uterus is of normal size and echogenicity measuring 5.9 x 3.0 x 3.8 cm. The endometrium measures 0.6 cm in thickness with cystic change. Nabothian cysts in the cervix. A 0.8 cm intramural myoma in the posterior fundus. Both ovaries are of normal size and echogenicity. The right measures 2.0 x 1.1 x 1.2 cm for a volume of 1.4 mL. The left measures 2.0 x 0.8 x 1.1 cm for a volume of 0.9 mL. There is no pelvic free fluid. [facility] Medical History Arthritis Asthma Autoimmune thyroiditis Diabetes Dyslipidemia Facial abscess GERD (gastroesophageal reflux disease) Hiatal hernia HTN (hypertension) Hx of migraines Hx of vertigo Hypothyroidism Increased BMI Mild recurrent major depression Morbid obesity due to excess calories Periumbilical pain Renal calculi Sleep apnea Thoracic spine pain Vertigo Surgical History History of arthroscopy of left knee History of esophagogastroduodenoscopy (EGD) History of hysteroscopy Hx of colonoscopy Hx of tonsillectomy Hx of total knee arthroplasty Family History Father Stomach cancer Mother Stomach cancer Brother Stomach cancer Heart disease Sister Diabetes Breast cancer Social History Housing: Apartment Alcohol intake: former Patient Tobacco Use Status: Former Tobacco user Tobacco use type: Cigarette e-Cigarette/Vaping Use: Never Used Second Hand Smoke Exposure: No service: No Current occupational status: disabled Current occupation: left hand dominant Current occupational exposures/hazards: No Cognitive needs: Yes Hearing needs: Yes Vision needs: Yes Female Reproductive History Menstrual Age of Menarche: 11 Review of Systems Const All systems reviewed & are unremarkable except as noted in HPI and below Reports as per HPI and Reports no additional complaints GI Reports no additional complaints Reports no additional complaints Office Procedures Endometrial Biopsy Details: The patient was counseled regarding the indication and benefits of endometrial sampling to rule out endometrial pathology including not limited to endometrial hyperplasia or endometrial cancer and others; The alternatives (Either do nothing vs. hysteroscopy D&C) & the risks were discussed with the patient including but not limited: pain, uterine perforation, bleeding, infection, possible injury to bladder, bowel, ureter, possible need for blood transfusion with all its possible risks. The patient verbalized understanding all questions answered and signed consent. The patient was placed into the dorsal lithotomy position; a speculum was inserted in the vagina. Using aseptic technique for the procedure, the cervix was cleansed with Betadine. The anterior lip of the cervix was grasped with a single tooth tenaculum. The uterus was sounded to 7 cm with a 4 mm Pipelle was used. Tissues samples were obtained and placed in formalin, in a patient labeled container and sent to the pathology department. At the end of the procedure, there was minimal bleeding noted The patient tolerated the procedure well and was discharged in good condition with the following instructions: Nothing in the vagina until the bleeding stops. No sex until the bleeding stops, to call if any of the following occurs: fever (>100.4), flu-like symptoms, abdominal pain, heavy bleeding, four smelling vaginal discharge. The patient was instructed to schedule a Follow up appointment in 2 weeks to discuss pathology results of the biopsy and treatment options. This note was generated with a voice recognition program. Some errors may have been overlooked during the review of this note. Sometimes these errors may af fect the content or meaning of a given sentence. [id number] Biopsy Assessment & Plan Assessment & Plan (1) Abnormal ultrasound of endometrium: Code(s): R93.5 - Abnormal findings on diagnostic imaging of other abdominal regions, including retroperitoneum Plan: Discussed with the patient the pelvic ultrasound findings, the endometrial stripe 6 mm and with cystic changes. The differential diagnosis discussed with the patient included but not limited to endometrial hyperplasia, malignancy or polyp. Recommended to the patient that the next step is an endometrial sampling via hysteroscopy D&C possible polypectomy versus endometrial biopsy to r/o endometrial pathology including hyperplasia or cancer. All the pros and cons risks and benefits of each approach were discussed with the patient, endometrial biopsy being less invasive, office procedure with less sensitivity and inability diagnose a polyp and removal versus hysteroscopy done under anesthesia more invasive more sensitive to endometrial cancer and possibility of diagnosing and endometrial polyp with the possibility of polypectomy. All questions were answered pt verbalized understanding and decided to proceed with endometrial biopsy. EMB done, see procedure note Orders: Orders AMB Endometrial Biopsy Today R93.5 - Abnormal findings on diagnostic imaging of other abdominal regions, including retroperitoneum Quality Reporting (2019) Adult ([facility] 13805/04/68) Smoking risk assessment performed?: Yes Patient Tobacco Use Status: Former Tobacco user Coding Level of Care Code Est Pt Level 3 (57286) Procedure Only Diagnoses Abnormal ultrasound of endometrium R93.5 CPT Codes Endometrial Biopsy - CPT: 31298-Pmhmalbqyab Biopsy ([id number])
[2022-09-29 08:26] VITALS: BP 120/78; BMI 39.6
== END 2022-09-29 08:37 | disposition home or self-care (01) ==
LOC: HO.HWS 08:05
PROVIDERS: PCP Internal Medicine; Visit Provider Obstetrics & Gynecology
DX: R93.5 Abnormal findings on diagnostic imaging of other abdominal regions, including retroperitoneum (principal)
CPT/HCPCS: 58100; 99213

== ENCOUNTER → 2022-09-29 08:05 | Outpatient (BNVA) | payer OTHER, SELFPAY | PROVIDERS: PCP Internal Medicine; Visit Provider Obstetrics & Gynecology | DX: R93.5 Abnormal findings on diagnostic imaging of other abdominal regions, including retroperitoneum (principal) | CPT/HCPCS: 58100; 99212 ==

== ENCOUNTER 2022-10-13 06:38 | Outpatient (REF) | payer OTHER, SELFPAY ==
[2022-10-13 08:04] LABS: Alanine Aminotransferase 18 U/L (0-31); Albumin Level 4.1 g/dL (3.5-5.0); Alkaline Phosphatase 82 U/L (39-117); Anion Gap 15 (12-20); Aspartate Amino Transferase 16 U/L (5-31); Bilirubin Total 0.2 mg/dL (0.0-1.0); Blood Urea Nitrogen 16 mg/dL (9-16); Calcium 9.9 mg/dL (8.4-10.2); Carbon Dioxide 24 mmol/L (22-29); Chloride 103 mmol/L (96-108); Cholesterol 188 mg/dL; Estimated Glomerular Filt Rate > 60; Glucose Fasting 119 mg/dL (60-99); HDL Cholesterol 46 mg/dL; LDL Cholesterol Calculated 114 mg/dl; Sodium 138 mmol/L (135-145); Total Protein 7.9 g/dL (6.5-8.0); Triglycerides 141 mg/dL
[2022-10-13 08:24] LABS: Vitamin D 25-OH Total 52.2 ng/mL (>30)
[2022-10-13 11:42] LABS: Creatinine Urine 138.33 mg/dL; Microalbum/Creatinine Ratio Ur 6.5 ug/mg cr
== END 2022-10-13 06:39 | disposition home or self-care (01) ==
LOC: HO.LAB 06:38
PROVIDERS: PCP Internal Medicine; Visit Provider Internal Medicine
DX: E06.3 Autoimmune thyroiditis (principal); E11.9 Type 2 diabetes mellitus without complications; E55.9 Vitamin D deficiency, unspecified; E78.5 Hyperlipidemia, unspecified
CPT/HCPCS: 36415; 80053; 80061; 82043; 82306; 84443

== ENCOUNTER 2022-10-18 09:01 | Outpatient (AMB) | payer OTHER, SELFPAY ==
[2022-10-18 09:07] VITALS: BP 150/80; PULSE 78; O2SAT 98; BMI 39.7
--- NOTE | 2022-10-18 09:07 | A.OFFPC_ITS ---
Vital Signs 10/18/22 09:07 10/18/22 10:18 Height 5 ft Weight 203 lb 6 oz BMI 39.7 BP 150/80 H 150/80 H Blood Pressure Location Lt brachial Lt brachial Position Sitting Sitting Pulse 78 Pulse Source Pulse Oximeter Pulse Oximetry (%) 98 Oxygen Delivery Method Room Air Comment Pt had 4 oz of coffee Intake Visit Reasons: Annual Exam Intake Note: Patient is here today for a physical. Manager Lvn Required: No Accompanied by: Self / Same As Patient Allergies No Known Allergies [No Known Allergies*] Allergy (Verified 10/18/22 09:23) Medication List - Last Reconciled 10/18/22 by Gemma Omer MD acetaminophen ER 650 mg PO Q8H PRN 30 days albuterol sulfate 90 mcg/actuation 2 puffs inhalation Q6H PRN 30 days albuterol sulfate 2.5 mg (3 mL) inhalation Q4-6H PRN 30 days amitriptyline 25 mg PO BEDTIME aspirin 81 mg PO QAM 90 days atorvastatin 80 mg PO BEDTIME blood sugar diagnostic (FreeStyle Lite Strips) 1 strip miscellaneous BID 30 days blood-glucose meter (FreeStyle Lite Meter kit) As directed clonazepam 0.500f1 mg PO BID PRN [diabetic shoes As directed] docusate sodium (Colace) 100 mg PO BID PRN 30 days ezetimibe 10 mg PO DAILY 90 days fluoxetine 60 mg PO QAM fluticasone propionate 50 mcg/actuation 1 spray intranasal DAILY gabapentin 300 mg PO BID 90 days ibuprofen 800 mg PO TID PRN lancets (TRUEplus Lancets) 33 gauge miscellaneous TID levothyroxine (Synthroid) 100 mcg PO DAILY 90 days lisinopril-hydrochlorothiazide 20-12.5 mg 2 tabs PO QAM loratadine 10 mg PO DAILY PRN metformin ER 500 mg PO BEDTIME miscellaneous medical supply 1 pair of diabetic shoes and inserts miscellaneous; nebulizers (AeroEclipse II Nebulizer) As directed omeprazole 20 mg PO QAM prazosin 2 mg PO BEDTIME trazodone 300 mg PO Q OTHER DAY PRN verapamil ER 120 mg PO QAM Tobacco use date assessed: 06/08/22 Fall risk assessment: 1 Fall in past year (Pt had a fall back in May and broke a right hand thumb.) Last assessed Fall Risk: 10/18/22 Dental Screening Dental Screen Date: 10/18/22 Did you have a dental visit in the last 12 months?: Yes Did you have a dental problem in the last 6 months where you did not have access to dental care?: Yes Was dental information given to patient?: Patient has dentist HPI HPI Comments History of Present Illness Details This is a 66-year-old female with diabetes mellitus type 2 and mild recurrent major depression that comes today for her physical exam. A1c within goal. Depression stable with medications and this is follow by Psychiatry. Last mammogram was August 2022 and was normal. Last colonoscopy was 2019 showing tubular adenoma and next colonoscopy is 2024. Walks with a cane for gait stability due to chronic left knee pain. Labs were discussed and TSH is dorothy vated because she did not had levothyroxine for 2 weeks. This is why I will not increase levothyroxine medication and will repeat TSH in 6 weeks. LDL not on goal and was advised to do low-cholesterol diet. [facility] Medical History (Updated 10/18/22 @ 09:37 by Gemma Omer MD) Arthritis Asthma Autoimmune thyroiditis Diabetes Dyslipidemia Facial abscess GERD (gastroesophageal reflux disease) Hiatal hernia HTN (hypertension) Hx of migraines Hx of vertigo Hypothyroidism Increased BMI Mild recurrent major depression Morbid obesity due to excess calories Periumbilical pain Renal calculi Sleep apnea Thoracic spine pain Vertigo Surgical History (Updated 10/18/22 @ 09:31 by Gemma Omer MD) History of arthroscopy of left knee History of esophagogastroduodenoscopy (EGD) History of hysteroscopy Hx of colonoscopy Hx of tonsillectomy Hx of total knee arthroplasty Family History (Updated 10/18/22 @ 09:33 by Gemma mOer MD) Father Stomach cancer Mother Stomach cancer Brother Stomach cancer Heart disease Sister Diabetes Breast cancer Social History Housing: Apartment Alcohol intake: former Patient Tobacco Use Status: Former Tobacco user Tobacco use type: Cigarette e-Cigarette/Vaping Use: Never Used Second Hand Smoke Exposure: No service: No Current occupational status: disabled Current occupation: left hand dominant Current occupational exposures/hazards: No Cognitive needs: Yes Hearing needs: Yes Vision needs: Yes Female Reproductive History Menstrual Age of Menarche: 11 Questionnaire PHQ-9 Over the last 2 weeks, how often have you been bothered by any of the following problems? 1. Little interest or pleasure in doing things: more than half the days 2. Feeling down, depressed, or hopeless: nearly every day 3. Trouble falling or staying asleep, or sleeping too much: more than half the days 4. Feeling tired or having little energy: nearly every day 5. Poor appetite or overeating: nearly every day 6. Feeling bad about yourself - or that you are a failure or have let yourself or your family down: several days 7. Trouble concentrating on things, such as reading the newspaper or watching television: not at all 8. Moving or speaking so slowly that other people could have noticed. Or the opposite - being so fidgety or restless that you have been moving around a lot more than usual: not at all 9. Thoughts that you would be better off or of hurting yourself in some way: not at all Total score: 14 Depression Screening Interpretation: Positive Depression Screening Follow-up: In treatment 11392 - PHQ-9 Billing: Yes Source: Developed by Drs. Kishan Nolan, Palak Paul, Edmundo Rodriguez and colleagues, with an educational rob from [employer]. Thrive Questionnaire Date Thrive assessed: 06/08/22 AUDIT C Alcohol Use Questionnaire (AUDIT-C) 1. How often do you have a drink containing alcohol?: Never Total Score: 0 JACOBO-7 AMB Questionnaire JACOBO-7 Date JACOBO - 7 assessed: 06/08/22 Source: Developed by Drs. Kishan Nolan, Edmundo Maya and colleagues, with an educational rob from [employer]. Review of Systems Const All systems reviewed & are unremarkable except as noted in HPI and below Eyes Reports no additional complaints, Denies change in vision and Denies other visual disturbances Card Denies chest pain at rest, Denies chest pain with activity, Denies edema, Denies irregular heart rhythm, Denies claudication, Denies dyspnea, Denies dyspnea on exertion, Denies orthopnea, Denies paroxysmal nocturnal dyspnea and Denies slow heart rate Resp Denies cough, Denies dyspnea and Denies dyspnea on exertion GI Denies abdominal pain, Denies change in bowel habits, Denies excessive flatus, Denies nausea and Denies vomiting Denies urinary incontinence, Denies urinary hesitancy and Denies urinary urgency Musc Denies abnormal gait, Denies atrophy, Denies deformity, Reports arthralgias and Denies limited range of motion Skin/Breast Denies bleeding lesions, Denies changing lesions and Denies rash Neuro Denies abnormal gait and Denies lack of coordination Physical exam (Primary Care) Vital Signs: Last Vital Signs Pulse 78 10/18/22 09:07 BP 150/80 H 10/18/22 10:18 Pulse Ox 98 10/18/22 09:07 Oxygen Delivery Method Room Air 10/18/22 09:07 BMI result Body Mass Index 39.7 Tobacco/Smoking Status: Tobacco use Status Tobacco use date assessed 06/08/22 10/18/22 09:17 Patient Tobacco Use Status Former Tobacco user 10/18/22 09:17 Tobacco use type Cigarette 10/18/22 09:17 e-Cigarette/Vaping Use Never Used 10/18/22 09:17 PHQ-9: PHQ-9 Score PHQ-9: Total score 14 10/18/22 10:24 Depression Screening Interpretation: Positive Depression Screening Follow-up: In treatment Thrive Assessment: Date of Thrive Assessment Date Thrive assessed 06/08/22 10/18/22 09:17 Const Orientation/consciousness: patient oriented x3 Limitations: ambulation with cane HENMT Head: Yes normal to inspection, Yes normocephalic and Yes atraumatic Ears: external ears normal Eyes General: appearance normal, both eyes and all related structures Eyelids: Yes eyelids normal Conjunctivae: conjunctivae normal Neck Neck: Yes normal visual inspection and Yes supple Resp Effort & Inspection: normal respiratory effort Auscultation: clear to auscultation bilaterally Cardio Jugular venous distension: no JVD Rate: regular rate Rhythm: regular rhythm Heart sounds: S1 normal heart sound present and S2 normal heart sound present GI Inspection: Yes normal to inspection Palpation (GI): Soft to palpation and nontender Auscultation: normal bowel sounds Skin General skin exam: no rashes or lesions noted Neuro General: patient oriented x3 and no focal motor deficits Extrem General: Yes full ROM Psych Appearance: grossly normal Results AMB Hemoglobin A1c AMB Hemoglobin A1c 6.3 % Last Edit by LILLIANA Espana on 10/18/22 09:41 Results Reviewed Results Reviewed: Laboratory Last Values Hgb A1c (Clinic) 6.3 % (4.0-6.0) H 10/18/22 09:36 Assessment and Plan Assessment & Plan (1) Physical exam: Code(s): Z00.00 - Encounter for general adult medical examination without abnormal fi ndings Plan: Repeat in a year. (2) Diabetes mellitus: Code(s): E11.9 - Type 2 diabetes mellitus without complications Plan: Continue metformin. A1c goal is equal or less than 7%. (3) Mild recurrent major depression: Code(s): F33.0 - Major depressive disorder, recurrent, mild Plan: Continue amitriptyline. Orders: Orders RT home sleep study Today G47.33 - Obstructive sleep apnea (adult) (pediatric) Thyroid Stimulating Hormone 6 Weeks E06.3 - Autoimmune thyroiditis AMB Hemoglobin A1c Today E11.9 - Type 2 diabetes mellitus without complications Medications: New zolpidem 5 mg PO BEDTIME PRN 30 tabs 0RF sleep 30 days meclizine 25 mg PO BID PRN 20 tabs 1RF dizziness 30 days Coding Level of Care Code Est Pt Prev Care >65y(29048) Diagnoses Physical exam Z00.00 Diabetes mellitus E11.9 Mild recurrent major depression F33.0 Time Spent (min) 35
[2022-10-18 10:18] VITALS: BP 150/80
== END 2022-10-18 09:47 | disposition home or self-care (01) ==
PROVIDERS: Visit Provider Internal Medicine
DX: Z00.00 Encounter for general adult medical examination without abnormal findings (principal); E11.9 Type 2 diabetes mellitus without complications; F33.0 Major depressive disorder, recurrent, mild
CPT/HCPCS: 83036; 99397

== ENCOUNTER 2022-10-31 07:56 | Outpatient (AMB) | payer OTHER, SELFPAY ==
[2022-10-31 07:59] VITALS: BP 120/72; BMI 39.6
--- NOTE | 2022-10-31 07:59 | MHC.OFFVIS ---
Intake Vital Signs 10/31/22 07:59 Height 5 ft Weight 202 lb 13.204 oz BMI 39.6 BP 120/72 Intake Visit Reasons: biopsy results. Medical Aides Teacher Required: No Information Interpreted: non-clinical & clinical Accompanied by: Self / Same As Patient Allergies No Known Allergies [No Known Allergies*] Allergy (Verified 10/31/22 08:00) Post menopausal: Yes HPI HPI Comments History of Present Illness Details The patient is presenting post hysteroscopy D&C no complaints minimal vaginal bleeding no feverishness chills or abdominal pain. The pathology showed the following: Endometrium, biopsy: Superficial strips of benign inactive endometrium with focal metaplastic changes and focal breakdown; no atypia or carcinoma, and fragments of benign endocervical glandular epithelium. COUNT INCLUDES THE [facility] Medical History Arthritis Asthma Autoimmune thyroiditis Diabetes Dyslipidemia Facial abscess GERD (gastroesophageal reflux disease) Hiatal hernia HTN (hypertension) Hx of migraines Hx of vertigo Hypothyroidism Increased BMI Mild recurrent major depression Morbid obesity due to excess calories Periumbilical pain Renal calculi Sleep apnea Thoracic spine pain Vertigo Surgical History History of arthroscopy of left knee History of esophagogastroduodenoscopy (EGD) History of hysteroscopy Hx of colonoscopy Hx of tonsillectomy Hx of total knee arthroplasty Family History Father Stomach cancer Mother Stomach cancer Brother Stomach cancer Heart disease Sister Diabetes Breast cancer Social History Housing: Apartment Alcohol intake: former Patient Tobacco Use Status: Former Tobacco user Tobacco use type: Cigarette e-Cigarette/Vaping Use: Never Used Second Hand Smoke Exposure: No service: No Current occupational status: disabled Current occupation: left hand dominant Current occupational exposures/hazards: No Cognitive needs: Yes Hearing needs: Yes Vision needs: Yes Female Reproductive History Menstrual Age of Menarche: 11 Review of Systems Const All systems reviewed & are unremarkable except as noted in HPI and below Reports as per HPI and Reports no additional complaints GI Reports no additional complaints Reports no additional complaints Physical Exam Vital Signs: Last Vital Signs BP 120/72 10/31/22 07:59 BMI result Body Mass Index 39.6 Assessment & Plan Assessment & Plan (1) Postmenopausal bleeding: Comment: Abnormal endometrial by ultrasound Code(s): N95.0 - Postmenopausal bleeding Plan: Discussed with the patient the intraoperative finding, no evidence of any abnormalities and the results of the pathology showing inactive endometrium. Discussed with the patient the sensitivity, specificity, positive and negative predictive value, of endometrial biopsy in detecting endometrial pathology including but not limited to endometrial hyperplasia, cancer and other pathology; instructed the patient to call in case is vaginal bleeding bleeding recurs, the next step will be to proceed with further endometrial sampling evaluation to rule out endometrial pathology. All questions answered and the patient verbalized understanding and agreed with the plan. Quality Reporting (2020) Adult ([facility] 138/05/04/68) Smoking risk assessment performed?: Yes Patient Tobacco Use Status: Former Tobacco user Coding Level of Care Code Est Pt Level 3 (39557) Diagnoses Postmenopausal bleeding N95.0
== END 2022-10-31 08:25 | disposition home or self-care (01) ==
LOC: HO.HWS 07:56
PROVIDERS: PCP Internal Medicine; Visit Provider Obstetrics & Gynecology
DX: N95.0 Postmenopausal bleeding (principal)
CPT/HCPCS: 99213

== ENCOUNTER → 2022-10-31 07:56 | Outpatient (BNVA) | payer OTHER, SELFPAY | PROVIDERS: PCP Internal Medicine; Visit Provider Obstetrics & Gynecology | DX: N95.0 Postmenopausal bleeding (principal) | CPT/HCPCS: 99212 ==

== ENCOUNTER → 2022-11-29 08:43 | Outpatient (REF) | payer OTHER, SELFPAY | LOC: HO.SL 08:43 | PROVIDERS: PCP Internal Medicine; Visit Provider Internal Medicine | DX: Z13.89 Encounter for screening for other disorder (principal) ==

== ENCOUNTER 2023-01-05 12:17 | Outpatient (AMB) | payer OTHER, SELFPAY ==
--- NOTE | 2023-01-05 12:32 | A.OFFVIS_ITS ---
Intake Intake Visit Reasons: OV - left shoulder pain, last inj 09/09/22 Intake Note: This patient presents for a repeat left shoulder injection. Allergies No Known Allergies [No Known Allergies*] Allergy (Verified 10/31/22 08:00) PFSH Medical History Arthritis Asthma Autoimmune thyroiditis Diabetes Dyslipidemia Facial abscess GERD (gastroesophageal reflux disease) Hiatal hernia HTN (hypertension) Hx of migraines Hx of vertigo Hypothyroidism Increased BMI Mild recurrent major depression Morbid obesity due to excess calories Periumbilical pain Renal calculi Sleep apnea Thoracic spine pain Vertigo Surgical History History of arthroscopy of left knee History of esophagogastroduodenoscopy (EGD) History of hysteroscopy Hx of colonoscopy Hx of tonsillectomy Hx of total knee arthroplasty Family History Father Stomach cancer Mother Stomach cancer Brother Stomach cancer Heart disease Sister Diabetes Breast cancer Social History Housing: Apartment Alcohol intake: former Patient Tobacco Use Status: Former Tobacco user Tobacco use type: Cigarette e-Cigarette/Vaping Use: Never Used Second Hand Smoke Exposure: No service: No Current occupational status: disabled Current occupation: left hand dominant Current occupational exposures/hazards: No Cognitive needs: Yes Hearing needs: Yes Vision needs: Yes Female Reproductive History Menstrual Age of Menarche: 11 Results Reviewed Results Reviewed: 01/05/23 12:22 Lidocaine HCl 2 % MPF [Xylocaine 2 % MPF] 5 ml .ROUTE .STK-MED ONE methylPREDNISolone acetate [DEPO-MedroL] 80 mg .ROUTE .STK-MED ONE Quality Reporting (2019) Adult ([facility] 138/05/04/68) Smoking risk assessment performed?: Yes Patient Tobacco Use Status: Former Tobacco user Coding
--- NOTE | 2023-01-05 12:32 | A.OFFVIS_ITS ---
Intake Intake Visit Reasons: OV - left shoulder pain, last inj 09/09/22 Allergies No Known Allergies [No Known Allergies*] Allergy (Verified 10/31/22 08:00) HPI OV - left shoulder pain, last inj 09/09/22 HPI Details 67-year-old female who presents in the [facility] today for a follow up of left shoulder pain. The patient had a cortisone injection on 09/09/2022. Patient has a significant medical history of diabetes mellitus. [facility] Medical History Arthritis Asthma Autoimmune thyroiditis Diabetes Dyslipidemia Facial abscess GERD (gastroesophageal reflux disease) Hiatal hernia HTN (hypertension) Hx of migraines Hx of vertigo Hypothyroidism Increased BMI Mild recurrent major depression Morbid obesity due to excess calories Periumbilical pain Renal calculi Sleep apnea Thoracic spine pain Vertigo Surgical History History of arthroscopy of left knee History of esophagogastroduodenoscopy (EGD) History of hysteroscopy Hx of colonoscopy Hx of tonsillectomy Hx of total knee arthroplasty Family History Father Stomach cancer Mother Stomach cancer Brother Stomach cancer Heart disease Sister Diabetes Breast cancer Social History Housing: Apartment Alcohol intake: former Patient Tobacco Use Status: Former Tobacco user Tobacco use type: Cigarette e-Cigarette/Vaping Use: Never Used Second Hand Smoke Exposure: No service: No Current occupational status: disabled Current occupation: left hand dominant Current occupational exposures/hazards: No Cognitive needs: Yes Hearing needs: Yes Vision needs: Yes Female Reproductive History Menstrual Age of Menarche: 11 Review of Systems Const All systems reviewed & are unremarkable except as noted in HPI and below Physical Exam Const General: cooperative, healthy appearing and no acute distress Resp Effort & Inspection: normal respiratory effort and able to speak in complete sentences Cardio Rate: regular rate Peripheral pulses: Peripheral pulses 2+ throughout GI Palpation (GI): Soft to palpation Skin Lesions: no lesions Rashes: no rashes Extrem Other: Left shoulder: Normal to inspection. No ecchymosis, erythema, or edema. Forward flexion and abduction to 90 degrees. Able to reach back pocket. Positive empty can. Positive cross-body reach. Negative drop arm. NVI. Office Procedures Joint Injection/Drain Joint Injection/Drain Primary Site: left shoulder Prep: site was prepped using aseptic technique, ethochloride spray was applied and injection warnings given Injected: 80 mg of, DepoMedrol, with 8 mL of (2% plain lido ) and in the subcromial space Approach Used: posterolateral Procedure: The patient tolerated the procedure well, but had some pain with the injection and there was some relief with the local anesthesia Coding 59792 - Large joint Procedure code (CPT) selection complete Results Reviewed Results Reviewed: 01/05/23 12:22 Lidocaine HCl 2 % MPF [Xylocaine 2 % MPF] 5 ml .ROUTE .STK-MED ONE methylPREDNISolone acetate [DEPO-MedroL] 80 mg .ROUTE .STK-MED ONE Assessment & Plan Assessment & Plan (1) Painful arc syndrome of left shoulder: Code(s): M75.102 - Unspecified rotator cuff tear or rupture of left shoulder, not specified as traumatic (2) Diabetes mellitus: Code(s): E11.9 - Type 2 diabetes mellitus without complications Plan Ms. Moses Jade is a 67-year-old female who presents in the office today for a follow up of left shoulder pain. The patient had a cortisone injection on 09/09/2022. Patient has a significant medical history of diabetes mellitus. The patient was offered a cortisone injection in the left shoulder with 80 mg of DepoMedrol. The patient was explained the risk, benefits, and alternatives to receiving this injection. After receiving consent for the injection, the patient had the procedure done while in office today. The patient tolerated the procedure well with no complications. Due to the patient?s history of diabetes, they were instructed to monitor his/her blood glucose level. The patient was informed that they could see a rise in their numbers and if the numbers became too high, they were instructed to call their PCP. The patient was also informed that they could have facial flushing as a side effect of the injection but this will pass. Follow up will be PRN, or sooner if needed. Patient Instructions: Scribed for Jahaira Alfaro PA-C by jose Arce scribe, on 01/05/2023 at 12:19 pm, EST. Quality Reporting (2020) Adult ([facility] 138/[birth year]) Smoking risk assessment performed?: Yes Patient Tobacco Use Status: Former Tobacco user Coding Level of Care Code Est Pt Level 4 (94285) Diagnoses Painful arc syndrome of left shoulder M75.102 Diabetes mellitus E11.9 CPT Codes Coding - 77105 Large joint: 19230 - Large joint ([id number])
== END 2023-01-05 13:23 | disposition home or self-care (01) ==
PROVIDERS: PCP Internal Medicine; Visit Provider Physician Assistant
DX: M75.102 Unspecified rotator cuff tear or rupture of left shoulder, not specified as traumatic (principal); E11.9 Type 2 diabetes mellitus without complications
CPT/HCPCS: 20610; 99214

== ENCOUNTER → 2023-01-05 12:17 | Outpatient (BNVA) | payer OTHER, SELFPAY | PROVIDERS: PCP Internal Medicine; Visit Provider Physician Assistant | DX: M75.102 Unspecified rotator cuff tear or rupture of left shoulder, not specified as traumatic (principal); E11.9 Type 2 diabetes mellitus without complications | CPT/HCPCS: 20610; 99212; J1040 ==

== ENCOUNTER 2023-01-20 07:46 | Emergency (ER) | payer OTHER, SELFPAY ==
[2023-01-20 07:57] VITALS: BP 170/66; PULSE 79; RESP 18; TEMP 36.4; O2SAT 98; BMI 39.7
--- NOTE | 2023-01-20 09:10 | ED_ITS ---
HPI - General Adult General Chief complaint: Ear Problems Stated complaint: wax guard in ear ? Time Seen by Provider: 01/20/23 09:08 Source: patient Mode of arrival: ambulatory Limitations: no limitations History of Present Illness HPI narrative: Patient is a 67 year old assigned female at with a history of MATT and DM presenting to the emergency department today with left ear pain. Patient states that over the last 2 days she has had left ear pain and is concerned part of her hearing aid is in her ear. Patient denies any dizziness, lightheadedness, abdominal pain, nausea, vomiting, fever, chills, blurry vision, double vision, loss of vision, chest pain, difficulty breathing, shortness of breath, back pain, night sweats, pain with urination, increased urinary frequency, increased urinary urgency, blood in her urine or stool, syncope or a near syncopal episode, recent trauma or falls, bowel incontinence, bladder incontinence, bowel retention, bladder retention, or any other complaints at this time. Onset (ago): day(s) (2) Location: left (ear pain) Radiation: non-radiation Severity: mild Severity scale (1-10): 3 Quality: aching and dull Pain Consistency: constant Relieving factors: none Exacerbating factors: none Associated symptoms: denies other symptoms Treatments prior to arrival: none Related Data Home Medications Medication Instructions Recorded Confirmed clonazepam 1 mg tablet 0.500f1 mg PO BID PRN anxiety 02/20/20 10/18/22 fluoxetine 20 mg capsule 60 mg PO QAM 02/20/20 10/18/22 amitriptyline 25 mg tablet 25 mg PO BEDTIME 12/22/20 10/18/22 Previous Rx's Medication Instructions Recorded nebulizers (AeroEclipse II #1 ea 02/11/20 Nebulizer) miscellaneous medical supply See Rx Instructions miscellaneous 08/17/20 .COMPLEX #1 ea loratadine 10 mg tablet 10 mg PO DAILY PRN allergy 12/22/20 symptoms #20 tabs diabetic shoes #1 ea 09/28/21 lancets 33 gauge (TRUEplus Lancets) 33 gauge miscellaneous TID for 03/20/22 diabetes mellitus #100 ea blood-glucose meter (FreeStyle #1 ea 06/10/22 Lite Meter kit) blood sugar diagnostic (FreeStyle 1 strip miscellaneous BID for 07/27/22 Lite Strips) diabetes mellitus 30 days #50 strips omeprazole 20 mg capsule,delayed 20 mg PO QAM #30 caps 08/01/22 release fluticasone propionate 50 1 spray intranasal DAILY #16 grams 08/04/22 mcg/actuation nasal spray,suspension albuterol sulfate 2.5 mg/3 mL 2.5 mg (3 mL) inhalation Q4-6H PRN 09/02/22 (0.083 %) solution for nebulization shortness of breath or wheezing 30 days #15 mL albuterol sulfate 90 mcg/actuation 2 puff inhalation Q6H PRN 09/20/22 aerosol inhaler Shortness Of Breath Or Wheezing 30 days #8.5 grams aspirin 81 mg tablet,delayed 81 mg PO QAM 90 days #90 tabs 10/03/22 release meclizine 25 mg tablet 25 mg PO BID PRN dizziness 30 days 10/18/22 #20 tabs docusate sodium 100 mg capsule 100 mg PO BID PRN constipation 30 10/22/22 (Colace) days #60 caps atorvastatin 80 mg tablet 80 mg PO BEDTIME #90 tabs 10/28/22 acetaminophen 650 mg 650 mg PO Q8H PRN fever or pain 30 10/29/22 tablet,extended release days #90 tabs gabapentin 300 mg capsule 300 mg PO BID 90 days #180 caps 10/31/22 prazosin 2 mg capsule 2 mg PO BEDTIME #90 caps 10/31/22 ibuprofen 800 mg tablet 800 mg PO TID PRN fever or pain 11/10/22 #60 tabs verapamil 120 mg tablet,extended 120 mg PO QAM #90 tabs 12/21/22 release amoxicillin 875 mg-potassium 1 tab PO BID 7 days #14 tabs 01/20/23 clavulanate 125 mg tablet ezetimibe 10 mg tablet 10 mg PO DAILY 90 days #90 tabs 01/20/23 levothyroxine 100 mcg tablet 100 mcg PO DAILY 90 days #90 tabs 01/20/23 (Synthroid) lisinopril 20 2 tab PO QAM #180 tabs 01/20/23 mg-hydrochlorothiazide 12.5 mg tablet metformin 500 mg tablet,extended 500 mg PO BEDTIME #90 tabs 01/20/23 release 24 hr zolpidem 5 mg tablet 5 mg PO BEDTIME PRN sleep 30 days 01/20/23 #30 tabs Allergies Allergy/AdvReac Type Severity Reaction Status Date / Time No Known Allergies Allergy Verified 01/20/23 07:57 [No Known Allergies*] Review of Systems Constitutional: Constitutional: Reports no additional constitutional complaints, Denies chills, Denies fever(s) and Denies night sweats Eyes: Eyes: Reports no additional eye complaints, Denies blurry vision, Denies change in vision, Denies diplopia, Denies eye discharge, Denies loss of vision and Denies eye pain ENT: Denies dizziness Comments: left ear pain Cardiovascular: Cardiovascular: Reports no additional cardiovascular complai nts, Denies chest pain, Denies lightheadedness, Denies Loss of Consciousness and Denies dyspnea Respiratory: Respiratory: Reports no additional respiratory complaints and Denies dyspnea Gastrointestinal: Gastrointestinal: Reports no additional gastrointestinal complaints, Denies abdominal pain, Denies melena, Denies hematochezia, Denies change in bowel habits and Denies change in stool character Genitourinary: Genitourinary: Denies hematuria, Denies urinary frequency, Denies dysuria, Denies urinary incontinence, Denies urinary hesitancy and Denies urinary urgency Musculoskeletal: Musculoskeletal: Reports no additional musculoskeletal complaints, Denies numbness and Denies tingling Neurologic: Denies dizziness, Denies loss of vision, Denies numbness and Denies tingling Psychiatric: Psychiatric: Reports no additional psychiatric complaints Endocrine: Endocrine: Reports no additional endocrine complaints Hematologic/Lymphatic: Hematologic/Lymphatic: Reports no additional hematolog ic/lymphatic complaints Allergic/Immunologic: Allergic/Immunologic: Reports no additional allergic/immunologic complaints [facility] Past Medical History Attestation statement: The following information was validated with the patient. Source: old records reviewed and nursing notes reviewed Medical History Postmenopausal bleeding Microscopic hematuria Injury of ligament of hand Thumb injury Microalbuminuria Abnormal ultrasound of endometrium Pelvic pain in female Well woman exam Periumbilical pain Morbid obesity due to excess calories Mild recurrent major depression Vertigo Thoracic spine pain Hypothyroidism Facial abscess Autoimmune thyroiditis Dyslipidemia Increased BMI Hx of migraines Hx of vertigo Arthritis Hiatal hernia GERD (gastroesophageal reflux disease) Renal calculi Diabetes Asthma Sleep apnea HTN (hypertension) Surgical History History of hysteroscopy History of arthroscopy of left knee History of esophagogastroduodenoscopy (EGD) Hx of colonoscopy Hx of tonsillectomy Hx of total knee arthroplasty Family History Family History Father Stomach cancer Mother Stomach cancer Brother Stomach cancer Heart disease Sister Diabetes Breast cancer Social History Social History Housing: Apartment Alcohol intake: former Patient Tobacco Use Status: Former Tobacco user Tobacco use type: Cigarette e-Cigarette/Vaping Use: Never Used Second Hand Smoke Exposure: No Advance Directives: No Advance Directives Information Provided: Yes service: No Current occupational status: disabled Current occupation: left hand dominant Current occupational exposures/hazards: No Cognitive needs: Yes Hearing needs: Yes Vision needs: Yes Physical Exam ED Vital Signs: Vital Signs - 24 hr 01/20/23 07:57 Temperature 97.6 F Pulse Rate 79 Respiratory Rate 18 Blood Pressure 170/66 H Pulse Oximetry 98 Oxygen Delivery Method Room Air BMI result Body Mass Index 39.7 Const General: cooperative, no acute distress, alert and awake Nutritional Appearance: well nourished Orientation/consciousness: patient oriented x3 Limitations: no limitations HENMT Head: Yes normal to inspection and Yes atraumatic Ears: hearing grossly normal bilaterally, external ears normal and other (left TM erythema) General nose exam: Normal external nose present, no nasal discharge noted and no epistaxis Face and sinus: Yes normal facial exam, No abrasion and No laceration Mouth: Normal oral and palatal mucosa present, no drooling and no muffled voice Eyes General: appearance normal, both eyes and all related structures Periorbital: periorbital findings normal Eyelids: Yes eyelids normal Conjunctivae: conjunctivae normal Pupils: Equal, round and reactive pupils present EOM: EOMs intact bilaterally Neck Neck: Yes normal visual inspection, Yes full ROM and Yes no lymphadenopathy Chest Chest palpation & inspection: normal inspection of the chest Resp Effort & Inspection: normal respiratory effort and able to speak in complete sentences GI Inspection: Yes normal to inspection Neuro General: patient oriented x3 and moves all extremities Cranial nerves: Yes Equal, round and reactive pupils present Cognition (Neuro): normal cognition Motor exam (neuro): 5/5 motor strength present throughout Sensory Exam: Normal double simultaneous stimulation for sensation Coordination: [id number] test normal Extrem General: Yes normal to inspection, Yes full ROM and Yes capillary refill normal Psych Appearance: grossly normal Mental Status: mental status grossly normal Affect: normal affect Attitude: cooperative Thought process: Normal thought process present Thought content: Normal thought content present Insight: Good insight present (Psych) Medical Decision Making Medical Decision Making MDM Narrative: Patient is a 67 year old assigned female at with a history of DM and MATT presenting to the emergency department today with left ear pain. Patient's physical exam was as noted in the physical exam portion of this note. I explained my physical exam findings to the patient. I answered all questions asked by the patient. I stressed the importance of the patient taking her medication as prescribed. I stressed the importance of the patient following up with her primary care provider and an ENT. I stressed the importance of the patient returning to the emergency department immediately if her symptoms were to worsen or if she were to develop any dizziness, shortness of breath, difficulty breathing, chest pain, blurry vision, loss of vision, nausea, vomiting, abdominal pain, fever, chills, back pain, or any other complaints. Patient verbalized agreement and understanding with this treatment plan and discharge. Differential Diagnosis Differential Diagnoses: The differential diagnosis associated with the presentation includes Left ear pain Otitis media Otitis externa Prescription Management I considered prescription management with: Antibiotic (patient prescribed an antibiotic for her possible otitis media.) Chronic Conditions Patient?s care impacted by: Diabetes Discharge Plan Discharge Clinical Impression: Otitis media Patient Disposition: Home, Self-Care Instructions: Ear Infection (ED) Additional Instructions: Follow up with your primary care provider and ENT. Return to the emergency department immediately if your symptoms worsen or if you develop any dizziness, shortness of breath, difficulty breathing, chest pain, blurry vision, loss of vision, nausea, vomiting, abdominal pain, fever, chills, back pain, or any other complaints. Prescriptions: New amoxicillin-pot clavulanate 875-125 mg tablet 1 tab PO BID 7 Days Qty: 14 0RF No Action miscellaneous medical supply Misc See Rx Instructions miscellaneous .COMPLEX Qty: 1 0RF Rx Instructions: 1 pair of diabetic shoes and inserts miscellaneous; lancets [TRUEplus Lancets] 33 gauge misc 33 gauge miscellaneous TID Qty: 100 10RF (DME) blood-glucose meter [FreeStyle Lite Meter] Kit See Rx Instructions .Route Qty: 1 0RF Rx Instructions: As directed FreeStyle Lite Strips Strip 1 strip miscellaneous BID 30 Days Qty: 50 9RF omeprazole 20 mg capsule,delayed release(DR/EC) 20 mg PO QAM Qty: 30 6RF fluticasone propionate 50 mcg/actuation spray,suspension 1 spray intranasal DAILY Qty: 16 6RF albuterol sulfate 2.5 mg /3 mL (0.083 %) solution for nebulization 2.5 mg inhalation Q4-6H PRN (Reason: shortness of breath or wheezing) 30 Days Qty: 15 5RF albuterol sulfate 90 mcg/actuation HFA aerosol inhaler 2 puff inhalation Q6H PRN (Reason: Shortness Of Breath Or Wheezing) 30 Days Qty: 8.5 6RF aspirin 81 mg tablet,delayed release (DR/EC) 81 mg PO QAM 90 Days Qty: 90 3RF docusate sodium [Colace] 100 mg capsule 100 mg PO BID PRN (Reason: constipation) 30 Days Qty: 60 3RF atorvastatin 80 mg tablet 80 mg PO BEDTIME Qty: 90 2RF acetaminophen 650 mg tablet extended release 650 mg PO Q8H PRN (Reason: fever or pain) 30 Days Qty: 90 2RF prazosin 2 mg capsule 2 mg PO BEDTIME Qty: 90 3RF gabapentin 300 mg capsule 300 mg PO BID 90 Days Qty: 180 3RF ibuprofen 800 mg tablet 800 mg PO TID PRN (Reason: fever or pain) Qty: 60 4RF verapamil 120 mg tablet extended release 120 mg PO QAM Qty: 90 3RF ezetimibe 10 mg tablet 10 mg PO DAILY 90 Days Qty: 90 3RF zolpidem 5 mg tablet 5 mg PO BEDTIME PRN (Reason: sleep) 30 Days Qty: 30 0RF levothyroxine [Synthroid] 100 mcg tablet 100 mcg PO DAILY 90 Days Qty: 90 0RF lisinopril-hydrochlorothiazide 20-12.5 mg tablet 2 tab PO QAM Qty: 180 3RF metformin 500 mg tablet extended release 24 hr 500 mg PO BEDTIME Qty: 90 3RF fluoxetine 20 mg capsule 60 mg PO QAM clonazepam 1 mg tablet 0.500f1 mg PO BID PRN (Reason: anxiety) (DME) AeroEclipse II Nebulizer Misc See Rx Instructions .ROUTE .MEDSUPPLY Qty: 1 0RF Rx Instructions: As directed amitriptyline 25 mg tablet 25 mg PO BEDTIME loratadine 10 mg tablet 10 mg PO DAILY PRN (Reason: allergy symptoms) Qty: 20 0RF (DME) diabetic shoes 8 See Rx Instructions .Route .MEDSUPPLY Qty: 1 0RF Rx Instructions: As directed meclizine 25 mg tablet 25 mg PO BID PRN (Reason: dizziness) 30 Days Qty: 20 1RF Referrals: [facility] [Provider Group] (Call to establish and follow up with a primary care provider. If you already have a primary care provider, please follow up with them.) [facility] [Provider Group] (Call to establish and follow up with a primary care provider. If you already have a primary care provider, please follow up with them.) [facility] Primary [place] [Provider Group] (Call to establish and follow up with a primary care provider. If you already have a primary care provider, please follow up with them.) [facility] Primary [facility],[place] [Provider Group] (Call to establish and follow up with a primary care provider. If you already have a primary care provider, please follow up with them.) Dominic Donald [Physician] - Interventions: ED Discharge Assessment Last Done: 01/20/23 09:50 Discharge Date/Time: 01/20/23 09:51 Print Language: Serbian
== END 2023-01-20 09:51 | disposition home or self-care (01) ==
PROVIDERS: Emergency Provider Emergency Medicine
DX: H66.92 Otitis media, unspecified, left ear (principal); Z79.899 Other long term (current) drug therapy
CPT/HCPCS: 99282; 99283

== ENCOUNTER 2023-02-17 07:32 | Emergency (ER) | payer OTHER, SELFPAY ==
[2023-02-17 07:46] VITALS: BP 158/77; PULSE 77; RESP 16; TEMP 36.8; O2SAT 97; BMI 39.6
--- NOTE | 2023-02-17 07:50 | ED_ITS ---
HPI - URI/Sore Throat General Chief Complaint: Upper Respiratory Symptoms Stated Complaint: covid test Time Seen by Provider: 02/17/23 07:46 Source: patient Mode of arrival: ambulatory Limitations: no limitations History of Present Illness HPI Narrative: Patient traveled to [place] and her niece now developed COVID, she has some cough and sore throat MD elicited complaint: cough and sore throat Related Data Home Medications Medication Instructions Recorded Confirmed clonazepam 1 mg tablet 0.500f1 mg PO BID PRN anxiety 02/20/20 10/18/22 fluoxetine 20 mg capsule 60 mg PO QAM 02/20/20 10/18/22 amitriptyline 25 mg tablet 25 mg PO BEDTIME 12/22/20 10/18/22 Previous Rx's Medication Instructions Recorded nebulizers (AeroEclipse II #1 ea 02/11/20 Nebulizer) miscellaneous medical supply See Rx Instructions miscellaneous 08/17/20 .COMPLEX #1 ea loratadine 10 mg tablet 10 mg PO DAILY PRN allergy 12/22/20 symptoms #20 tabs diabetic shoes #1 ea 09/28/21 blood-glucose meter (FreeStyle #1 ea 06/10/22 Lite Meter kit) blood sugar diagnostic (FreeStyle 1 strip miscellaneous BID for 07/27/22 Lite Strips) diabetes mellitus 30 days #50 strips fluticasone propionate 50 1 spray intranasal DAILY #16 grams 08/04/22 mcg/actuation nasal spray,suspension albuterol sulfate 2.5 mg/3 mL 2.5 mg (3 mL) inhalation Q4-6H PRN 09/02/22 (0.083 %) solution for nebulization shortness of breath or wheezing 30 days #15 mL albuterol sulfate 90 mcg/actuation 2 puff inhalation Q6H PRN 09/20/22 aerosol inhaler Shortness Of Breath Or Wheezing 30 days #8.5 grams aspirin 81 mg tablet,delayed 81 mg PO QAM 90 days #90 tabs 10/03/22 release meclizine 25 mg tablet 25 mg PO BID PRN dizziness 30 days 10/18/22 #20 tabs atorvastatin 80 mg tablet 80 mg PO BEDTIME #90 tabs 10/28/22 acetaminophen 650 mg 650 mg PO Q8H PRN fever or pain 30 10/29/22 tablet,extended release days #90 tabs gabapentin 300 mg capsule 300 mg PO BID 90 days #180 caps 10/31/22 prazosin 2 mg capsule 2 mg PO BEDTIME #90 caps 10/31/22 ibuprofen 800 mg tablet 800 mg PO TID PRN fever or pain 11/10/22 #60 tabs verapamil 120 mg tablet,extended 120 mg PO QAM #90 tabs 12/21/22 release amoxicillin 875 mg-potassium 1 tab PO BID 7 days #14 tabs 01/20/23 clavulanate 125 mg tablet ezetimibe 10 mg tablet 10 mg PO DAILY 90 days #90 tabs 01/20/23 levothyroxine 100 mcg tablet 100 mcg PO DAILY 90 days #90 tabs 01/20/23 (Synthroid) lisinopril 20 2 tab PO QAM #180 tabs 01/20/23 mg-hydrochlorothiazide 12.5 mg tablet metformin 500 mg tablet,extended 500 mg PO BEDTIME #90 tabs 01/20/23 release 24 hr zolpidem 5 mg tablet 5 mg PO BEDTIME PRN sleep 30 days 01/20/23 #30 tabs docusate sodium 100 mg capsule 100 mg PO BID PRN constipation 30 02/12/23 (Colace) days #60 caps omeprazole 20 mg capsule,delayed 20 mg PO QAM #30 caps 02/12/23 release lancets 33 gauge (TRUEplus Lancets) 33 gauge miscellaneous TID for 02/15/23 diabetes mellitus #100 ea Allergies Allergy/AdvReac Type Severity Reaction Status Date / Time No Known Allergies Allergy Verified 02/17/23 07:46 [No Known Allergies*] Review of Systems Review of Systems: Yes all other systems are reviewed and are negative Neurologic: Denies Sensory deficit (Neuro) REPLACED BY [facility] Past Medical History Medical History Postmenopausal bleeding Microscopic hematuria Injury of ligament of hand Thumb injury Microalbuminuria Abnormal ultrasound of endometrium Pelvic pain in female Well woman exam Periumbilical pain Morbid obesity due to excess calories Mild recurrent major depression Vertigo Thoracic spine pain Hypothyroidism Facial abscess Autoimmune thyroiditis Dyslipidemia Increased BMI Hx of migraines Hx of vertigo Arthritis Hiatal hernia GERD (gastroesophageal reflux disease) Renal calculi Diabetes Asthma Sleep apnea HTN (hypertension) Surgical History History of hysteroscopy History of arthroscopy of left knee History of esophagogastroduodenoscopy (EGD) Hx of colonoscopy Hx of tonsillectomy Hx of total knee arthroplasty Family History Family History Father Stomach cancer Mother Stomach cancer Brother Stomach cancer Heart disease Sister Diabetes Breast cancer Social History Social History Housing: Apartment Alcohol intake: former Comment: cramping Patient Tobacco Use Status: Former Tobacco user Tobacco use type: Cigarette e-Cigarette/Vaping Use: Never Used Second Hand Smoke Exposure: No Advance Directives: No service: No Current occupational status: disabled Current occupation: left hand dominant Current occupational exposures/hazards: No Cognitive needs: Yes Hearing needs: Yes Vision needs: Yes Physical Exam Vital Signs: Vital Signs: Last Vital Signs Temp 98.2 F 02/17/23 07:46 Pulse 77 02/17/23 07:46 Resp 16 02/17/23 07:46 BP 158/77 H 02/17/23 07:46 Pulse Ox 97 02/17/23 07:46 O2 Del Method Room Air 02/17/23 07:46 BMI result Body Mass Index 39.6 Const: General: healthy appearing Nutritional Appearance: average body habitus Orientation/consciousness: oriented to person and patient oriented x3 Limitations: no limitations HEENT: Head: Yes normal to inspection Ears: external ears normal General nose exam: Normal external nose present Mouth: Normal oral and palatal mucosa present and oropharynx normal Throat: Yes posterior oropharynx normal Eyes: General: appearance normal, both eyes and all related structures Neck: Other: supple Neck: Yes normal visual inspection Chest: Chest palpation & inspection: normal inspection of the chest Resp: Auscultation: clear to auscultation bilaterally Cardio: Jugular venous distension: no JVD Rate: regular rate Rhythm: regular rhythm Heart sounds: S1 normal heart sound present and S2 normal heart sound present GI: Inspection: Yes normal to inspection Palpation (GI): Soft to palpation, nontender and No hepatosplenomegaly present Auscultation: normal bowel sounds : General: Yes no CVA tenderness Back/Spine/Pelvis: Back: no CVA tenderness Skin: General skin exam: no rashes or lesions noted Neuro: General: oriented to person and patient oriented x3 Cranial nerves: Yes CN's II-XII intact bilaterally Motor exam (neuro): 5/5 motor strength present throughout Sensory Exam: No Sensory deficit (Neuro) Extrem: General: Yes normal to inspection Psych: Appearance: grossly normal Course Reevaluation(s) Reevaluation #1: patient well appearing but has covid Time: 09:00 Medical Decision Making Differential Diagnosis Differential Diagnoses: The differential diagnosis associated with the presentation includes (Flu, covid, rsv were considered) Lab Data MDM Lab Attestation statement: I reviewed the patient's lab results. (Covid positive) Labs: Lab Results 02/17/23 Range/Units 07:39 Influenza Type A (PCR) NEGATIVE (Negative) Influenza Type B (PCR) NEGATIVE (Negative) RSV RNA Qual (PCR) NEGATIVE (Negative) SARS-CoV-2 RNA (RT-PCR) POSITIVE A (Negative) Tests considered The following testing was considered but not selected: CXR considered but patient no hypoxic, well appearing Prescription Management I considered prescription management with: Antiviral (patient with no risk factors and is well appearing) Discharge Plan Discharge Clinical Impression: COVID-19 Patient Disposition: Home, Self-Care Instructions: COVID-19 (Coronavirus Disease 2019) (ED) Prescriptions: No Action miscellaneous medical supply Misc See Rx Instructions miscellaneous .COMPLEX Qty: 1 0RF Rx Instructions: 1 pair of diabetic shoes and inserts miscellaneous; (DME) blood-glucose meter [FreeStyle Lite Meter] Kit See Rx Instructions .Route Qty: 1 0RF Rx Instructions: As directed FreeStyle Lite Strips Strip 1 strip miscellaneous BID 30 Days Qty: 50 9RF fluticasone propionate 50 mcg/actuation spray,suspension 1 spray intranasal DAILY Qty: 16 6RF albuterol sulfate 2.5 mg /3 mL (0.083 %) solution for nebulization 2.5 mg inhalation Q4-6H PRN (Reason: shortness of breath or wheezing) 30 Days Qty: 15 5RF albuterol sulfate 90 mcg/actuation HFA aerosol inhaler 2 puff inhalation Q6H PRN (Reason: Shortness Of Breath Or Wheezing) 30 Days Qty: 8.5 6RF aspirin 81 mg tablet,delayed release (DR/EC) 81 mg PO QAM 90 Days Qty: 90 3RF atorvastatin 80 mg tablet 80 mg PO BEDTIME Qty: 90 2RF acetaminophen 650 mg tablet extended release 650 mg PO Q8H PRN (Reason: fever or pain) 30 Days Qty: 90 2RF prazosin 2 mg capsule 2 mg PO BEDTIME Qty: 90 3RF gabapentin 300 mg capsule 300 mg PO BID 90 Days Qty: 180 3RF ibuprofen 800 mg tablet 800 mg PO TID PRN (Reason: fever or pain) Qty: 60 4RF verapamil 120 mg tablet extended release 120 mg PO QAM Qty: 90 3RF ezetimibe 10 mg tablet 10 mg PO DAILY 90 Days Qty: 90 3RF zolpidem 5 mg tablet 5 mg PO BEDTIME PRN (Reason: sleep) 30 Days Qty: 30 0RF levothyroxine [Synthroid] 100 mcg tablet 100 mcg PO DAILY 90 Days Qty: 90 0RF lisinopril-hydrochlorothiazide 20-12.5 mg tablet 2 tab PO QAM Qty: 180 3RF metformin 500 mg tablet extended release 24 hr 500 mg PO BEDTIME Qty: 90 3RF omeprazole 20 mg capsule,delayed release(DR/EC) 20 mg PO QAM Qty: 30 6RF docusate sodium [Colace] 100 mg capsule 100 mg PO BID PRN (Reason: constipation) 30 Days Qty: 60 3RF lancets [TRUEplus Lancets] 33 gauge misc 33 gauge miscellaneous TID Qty: 100 10RF amoxicillin-pot clavulanate 875-125 mg tablet 1 tab PO BID 7 Days Qty: 14 0RF fluoxetine 20 mg capsule 60 mg PO QAM clonazepam 1 mg tablet 0.500f1 mg PO BID PRN (Reason: anxiety) (DME) AeroEclipse II Nebulizer Misc See Rx Instructions .ROUTE .MEDSUPPLY Qty: 1 0RF Rx Instructions: As directed amitriptyline 25 mg tablet 25 mg PO BEDTIME loratadine 10 mg tablet 10 mg PO DAILY PRN (Reason: allergy symptoms) Qty: 20 0RF (DME) diabetic shoes 8 See Rx Instructions .Route .MEDSUPPLY Qty: 1 0RF Rx Instructions: As directed meclizine 25 mg tablet 25 mg PO BID PRN (Reason: dizziness) 30 Days Qty: 20 1RF Referrals: Gemma Lee MD [Primary Care Provider] - 1 week
[2023-02-17 08:39] LABS: Influenza A PCR NEGATIVE (Negative); Influenza B PCR NEGATIVE (Negative); Resp Syncy Virus RNA Qual PCR NEGATIVE (Negative); SARS COV2 PCR INHOUSE POSITIVE (Negative)
[2023-02-17 09:46] VITALS: PULSE 77; RESP 17; O2SAT 99
== END 2023-02-17 09:50 | disposition home or self-care (01) ==
PROVIDERS: Emergency Provider Emergency Medicine; PCP Internal Medicine
DX: J02.9 Acute pharyngitis, unspecified (principal); R05.9 Cough, unspecified; Z20.822 Contact with and (suspected) exposure to COVID-19; Z20.828 Contact with and (suspected) exposure to other viral communicable diseases; Z79.899 Other long term (current) drug therapy
CPT/HCPCS: 0241U; 99283; 99284

== ENCOUNTER 2023-02-20 07:52 | Outpatient (REF) | payer OTHER, SELFPAY ==
[2023-02-20 10:45] LABS: Alanine Aminotransferase 26 U/L (0-31); Albumin Level 4.1 g/dL (3.5-5.0); Alkaline Phosphatase 67 U/L (39-117); Anion Gap 16 (12-20); Aspartate Amino Transferase 28 U/L (5-31); Bilirubin Total 0.3 mg/dL (0.0-1.0); Blood Urea Nitrogen 15 mg/dL (9-16); Calcium 9.6 mg/dL (8.4-10.2); Carbon Dioxide 27 mmol/L (22-29); Chloride 102 mmol/L (96-108); Cholesterol 168 mg/dL (<200); Estimated Glomerular Filt Rate > 60; Glucose Fasting 125 mg/dL (60-99); HDL Cholesterol 38 mg/dL (>40); LDL Cholesterol Calculated 100 mg/dL (<100); Potassium 3.6 mmol/L (3.3-5.1); Sodium 141 mmol/L (135-145); Total Protein 8.2 g/dL (6.5-8.0); Triglycerides 151 mg/dL (<150)
[2023-02-20 11:05] LABS: Thyroid Stimulating Hormone 11.73 uIU/mL (0.32-4.0); Vitamin D 25-OH Total 44.5 ng/mL (>30)
[2023-02-20 12:31] LABS: Creatinine Urine 335.15 mg/dL; Microalbum/Creatinine Ratio Ur 7.4 ug/mg cr (<30)
== END 2023-02-20 07:53 | disposition home or self-care (01) ==
LOC: HO.LAB 07:52
PROVIDERS: PCP Internal Medicine; Visit Provider Internal Medicine
DX: E78.5 Hyperlipidemia, unspecified (principal); E06.3 Autoimmune thyroiditis; E55.9 Vitamin D deficiency, unspecified; E11.9 Type 2 diabetes mellitus without complications
CPT/HCPCS: 36415; 80053; 80061; 82043; 82306; 82570; 84443

== ENCOUNTER 2023-02-22 07:50 | Outpatient (AMB) | payer OTHER, SELFPAY ==
[2023-02-22 08:10] VITALS: BP 150/90; BMI 39.8
--- NOTE | 2023-02-22 08:10 | MHC.PC.OV ---
Vital Signs 02/22/23 08:10 02/22/23 09:31 Height 5 ft Weight 204 lb BMI 39.8 BP 150/90 H 150/90 H Blood Pressure Location Lt brachial Lt brachial Position Sitting Sitting Intake Visit Reasons: dm Intake Note: Patient here for a follow up DM Preparation Supervisor Canning Required: No Accompanied by: Self / Same As Patient Allergies No Known Allergies [No Known Allergies*] Allergy (Verified 02/22/23 08:25) Medication List - Last Reconciled 02/22/23 by Gemma Omer MD acetaminophen ER 650 mg PO Q8H PRN 30 days albuterol sulfate 90 mcg/actuation 2 puffs inhalation Q6H PRN 30 days albuterol sulfate 2.5 mg (3 mL) inhalation Q4-6H PRN 30 days amitriptyline 25 mg PO BEDTIME aspirin 81 mg PO QAM 90 days atorvastatin 80 mg PO BEDTIME blood sugar diagnostic (FreeStyle Lite Strips) 1 strip miscellaneous BID 30 days blood-glucose meter (FreeStyle Lite Meter kit) As directed clonazepam 0.500f1 mg PO BID PRN [diabetic shoes As directed] docusate sodium (Colace) 100 mg PO BID PRN 30 days ezetimibe 10 mg PO DAILY 90 days fluoxetine 60 mg PO QAM fluticasone propionate 50 mcg/actuation 1 spray intranasal DAILY gabapentin 300 mg PO BID 90 days ibuprofen 800 mg PO TID PRN lancets (TRUEplus Lancets) 33 gauge miscellaneous TID levothyroxine (Synthroid) 100 mcg PO DAILY 90 days lisinopril-hydrochlorothiazide 20-12.5 mg 2 tabs PO QAM loratadine 10 mg PO DAILY PRN meclizine 25 mg PO BID PRN 30 days metformin ER 500 mg PO BEDTIME miscellaneous medical supply 1 pair of diabetic shoes and inserts miscellaneous; nebulizers (AeroEclipse II Nebulizer) As directed omeprazole 20 mg PO QAM prazosin 2 mg PO BEDTIME verapamil ER 120 mg PO QAM zolpidem 5 mg PO BEDTIME PRN 30 days Tobacco use date assessed: 06/08/22 Fall risk assessment: No Falls in past year Last assessed Fall Risk: 02/22/23 Dental Screening Dental Screen Date: 02/22/23 Did you have a dental visit in the last 12 months?: No Did you have a dental problem in the last 6 months where you did not have access to dental care?: No Was dental information given to patient?: Patient has dentist HPI HPI Comments History of Present Illness Details This is a 67-year-old female with diabetes mellitus type 2, hypothyroidism, dyslipidemia, hypertension and mild recurrent major depression that comes today for follow-up on her conditions. A1c not on goal, thyroid elevated, LDL not on goal and blood pressure elevated. This is because she is not compliant with medications and stop taking medications for about 1-2 weeks. Depression follow by Psychiatry and currently on medications. Had COVID-19 recently and ER did not give packs lobe it and said to call me for the prescription. She never call me for the prescription. [facility] Medical History Postmenopausal bleeding Microscopic hematuria Injury of ligament of hand Thumb injury Microalbuminuria Abnormal ultrasound of endometrium Pelvic pain in female Well woman exam Periumbilical pain Morbid obesity due to excess calories Mild recurrent major depression Vertigo Thoracic spine pain Hypothyroidism Facial abscess Autoimmune thyroiditis Dyslipidemia Increased BMI Hx of migraines Hx of vertigo Arthritis Hiatal hernia GERD (gastroesophageal reflux disease) Renal calculi Diabetes Asthma Sleep apnea HTN (hypertension) Surgical History History of hysteroscopy History of arthroscopy of left knee History of esophagogastroduodenoscopy (EGD) Hx of colonoscopy Hx of tonsillectomy Hx of total knee arthroplasty Family History Father Stomach cancer Mother Stomach cancer Brother Stomach cancer Heart disease Sister Diabetes Breast cancer Social History Housing: Apartment Alcohol intake: former Comment: cramping Patient Tobacco Use Status: Former Tobacco user Tobacco use type: Cigarette e-Cigarette/Vaping Use: Never Used Second Hand Smoke Exposure: No service: No Current occupational status: disabled Current occupation: left hand dominant Current occupational exposures/hazards: No Cognitive needs: Yes Hearing needs: Yes Vision needs: Yes Female Reproductive History Menstrual Age of Menarche: 11 Questionnaire Thrive Questionnaire Date Thrive assessed: 06/08/22 JACOBO-7 AMB Questionnaire JACOBO-7 Date JACOBO - 7 assessed: 06/08/22 Source: Developed by Drs. Kishan Nolan, Palak Paul, Edmunod Rodriguez and colleagues, with an educational rob from [employer]. Review of Systems Const All systems reviewed & are unremarkable except as noted in HPI and below Eyes Reports no additional complaints, Denies change in vision and Denies other visual disturbances Card Denies chest pain at rest, Denies chest pain with activity, Denies edema, Denies irregular heart rhythm, Denies claudication, Denies dyspnea, Denies dyspnea on exertion, Denies orthopnea, Denies paroxysmal nocturnal dyspnea and Denies slow heart rate Resp Denies cough, Denies dyspnea and Denies dyspnea on exertion GI Denies abdominal pain, Denies change in bowel habits, Denies excessive flatus, Denies nausea and Denies vomiting Denies urinary incontinence, Denies urinary hesitancy and Denies urinary urgency Musc Denies abnormal gait, Denies atrophy, Denies deformity and Denies limited range of motion Skin/Breast Denies bleeding lesions, Denies changing lesions and Denies rash Neuro Denies abnormal gait and Denies lack of coordination Physical exam (Primary Care) Vital Signs: Last Vital Signs BP 150/90 H 02/22/23 08:10 BMI result Body Mass Index 39.8 Tobacco/Smoking Status: Tobacco use Status Tobacco use date assessed 06/08/22 02/22/23 08:12 Patient Tobacco Use Status Former Tobacco user 02/22/23 08:12 Tobacco use type Cigarette 02/22/23 08:12 e-Cigarette/Vaping Use Never Used 02/22/23 08:12 Thrive Assessment: Date of Thrive Assessment Date Thrive assessed 06/08/22 02/22/23 08:12 Eyes General: appearance normal, both eyes and all related structures Eyelids: Yes eyelids normal Conjunctivae: conjunctivae normal Neck Neck: Yes normal visual inspection and Yes supple Resp Effort & Inspection: normal respiratory effort Auscultation: clear to auscultation bilaterally Cardio Jugular venous distension: no JVD Rate: regular rate Rhythm: regular rhythm Heart sounds: S1 normal heart sound present and S2 normal heart sound present Extrem General: Yes full ROM Results AMB Hemoglobin A1c AMB Hemoglobin A1c 8.2 % Last Edit by IRIS Ceballos on 02/22/23 08:16 Results Reviewed Results Reviewed: Laboratory Last Values Hgb A1c (Clinic) 8.2 % (4.0-6.0) H 02/22/23 08:06 Assessment and Plan Assessment & Plan (1) Diabetes mellitus: Code(s): E11.9 - Type 2 diabetes mellitus without complications Plan: Be compliant with metformin. A1c goal is equal or less than 7%. (2) Mild recurrent major depression: Code(s): F33.0 - Major depressive disorder, recurrent, mild Plan: Continue SSRIs. Follow-up with psychiatry. (3) Autoimmune thyroiditis: Code(s): E06.3 - Autoimmune thyroiditis Plan: Be compliant with levothyroxine. (4) Dyslipidemia: Code(s): E78.5 - Hyperlipidemia, unspecified Plan: Be compliant with statins. LDL goal is less than 70. (5) HTN (hypertension): Code(s): I10 - Essential (primary) hypertension Qualifiers: Hypertension type: essential hypertension Qualified Code(s): I10 - Essential (primary) hypertension Plan: Be compliant with lisinopril-hydrochlorothiazide. Blood pressure goal is equal or less than 130/80 P Orders: Orders Lipid Panel 4 Months E78.5 - Hyperlipidemia, unspecified Comprehensive [place]. Panel Fast 4 Months E11.9 - Type 2 diabetes mellitus without complications AMB Hemoglobin A1c Today E11.9 - Type 2 diabetes mellitus without complications Microalbumin, Random (w Creat) 4 Months E11.9 - Type 2 diabetes mellitus without complications Vitamin D 25-OH Total 4 Months E55.9 - Vitamin D deficiency, unspecified Thyroid Stimulating Hormone 4 Months E06.3 - Autoimmune thyroiditis Coding Level of Care Code Est Pt Level 4 (48670) Diagnoses Diabetes mellitus E11.9 Mild recurrent major depression F33.0 Autoimmune thyroiditis E06.3 Dyslipidemia E78.5 Essential hypertension I10 Hypertension type: essential hypertension Time Spent (min) 25
[2023-02-22 09:31] VITALS: BP 150/90
== END 2023-02-22 08:38 | disposition home or self-care (01) ==
PROVIDERS: PCP Internal Medicine; Visit Provider Internal Medicine
DX: E11.9 Type 2 diabetes mellitus without complications (principal); F33.0 Major depressive disorder, recurrent, mild; E06.3 Autoimmune thyroiditis; E78.5 Hyperlipidemia, unspecified; I10 Essential (primary) hypertension
CPT/HCPCS: 83036; 99214

== ENCOUNTER 2023-05-09 09:23 | Outpatient (AMB) | payer OTHER, SELFPAY ==
--- NOTE | 2023-05-09 09:48 | MHC.OFFVIS ---
Intake Intake Visit Reasons: OV - left shoulder pain, last inj 01/05/23 Intake Note: Audrey is a 67 year old - hand dominant female who presents today for a follow up for her left shoulder pain, last inj 01/05/23. Patient reports her last injection gave her 3 months of relief, she would like to repeat. Currently her pain is slowly coming back, however she is hoping to repeat the injection. Allergies No Known Allergies [No Known Allergies*] Allergy (Verified 05/09/23 09:49) HPI OV - left shoulder pain, last inj 01/05/23 HPI Details 67-year-old female who presents in the office today for a follow up of left shoulder pain. I last saw the patient in the office on 01/05/2023 when she received a cortisone injection in the left shoulder. While in the office today the patient reports her last injection gave her 3 months of relief. She would like to repeat the injection today. She states her pain is slowly increasing and she is hoping the injection give her relief. Patient has a significant medical history of diabetes mellitus. COUNT INCLUDES THE [facility] Medical History Postmenopausal bleeding Microscopic hematuria Injury of ligament of hand Thumb injury Microalbuminuria Abnormal ultrasound of endometrium Pelvic pain in female Well woman exam Periumbilical pain Morbid obesity due to excess calories Mild recurrent major depression Vertigo Thoracic spine pain Hypothyroidism Facial abscess Autoimmune thyroiditis Dyslipidemia Increased BMI Hx of migraines Hx of vertigo Arthritis Hiatal hernia GERD (gastroesophageal reflux disease) Renal calculi Diabetes Asthma Sleep apnea HTN (hypertension) Surgical History History of hysteroscopy History of arthroscopy of left knee History of esophagogastroduodenoscopy (EGD) Hx of colonoscopy Hx of tonsillectomy Hx of total knee arthroplasty Family History Father Stomach cancer Mother Stomach cancer Brother Stomach cancer Heart disease Sister Diabetes Breast cancer Social History Housing: Apartment Alcohol intake: former Comment: cramping Patient Tobacco Use Status: Former Tobacco user Tobacco use type: Cigarette e-Cigarette/Vaping Use: Never Used Second Hand Smoke Exposure: No service: No Current occupational status: disabled Current occupation: left hand dominant Current occupational exposures/hazards: No Cognitive needs: Yes Hearing needs: Yes Vision needs: Yes Female Reproductive History Menstrual Age of Menarche: 11 Review of Systems Const All systems reviewed & are unremarkable except as noted in HPI and below Physical Exam Const General: cooperative, healthy appearing and no acute distress Resp Effort & Inspection: normal respiratory effort and able to speak in complete sentences Cardio Rate: regular rate Peripheral pulses: Peripheral pulses 2+ throughout GI Palpation (GI): Soft to palpation Skin Lesions: no lesions Rashes: no rashes Extrem Other: Left shoulder: Normal to inspection. No ecchymosis, erythema, or edema. Forward flexion and abduction to 90 degrees. Able to reach back pocket. Positive empty can. Positive cross-body reach. Negative drop arm. NVI. Office Procedures Joint Injection/Drain Joint Injection/Drain Primary Site: left shoulder Prep: site was prepped using aseptic technique, ethochloride spray was applied and injection warnings given Injected: 80 mg of, DepoMedrol, with 8 mL of (2% plain lido ) and in the subcromial space Approach Used: posterolateral Procedure: The patient tolerated the procedure well, but had some pain with the injection and there was some relief with the local anesthesia Coding 26223 - Large joint Procedure code (CPT) selection complete Assessment & Plan Assessment & Plan (1) Painful arc syndrome of left shoulder: Code(s): M75.102 - Unspecified rotator cuff tear or rupture of left shoulder, not specified as traumatic (2) Diabetes mellitus: Code(s): E11.9 - Type 2 diabetes mellitus without complications Plan Ms. Moses Jade is a 67-year-old female who presents in the office today for a follow up of left shoulder pain. I last saw the patient in the office on 01/05/2023 when she received a cortisone injection in the left shoulder. While in the office today the patient reports her last injection gave her 3 months of relief. She would like to repeat the injection today. She states her pain is slowly increasing and she is hoping the injection give her relief. Patient has a significant medical history of diabetes mellitus. The patient was offered a cortisone injection in the left shoulder with 80 mg of DepoMedrol. The patient was explained the risk, benefits, and alternatives to receiving this injection. After receiving consent for the injection, the patient had the procedure done while in office today. The patient tolerated the procedure well with no complications. Due to the patient?s history of diabetes, they were instructed to monitor her blood glucose level. The patient was informed that they could see a rise in their numbers and if the numbers became too high, they were instructed to call their PCP. The patient was also informed that they could have facial flushing as a side effect of the injection but this will pass. Follow up will be PRN, or sooner if needed. Patient Instructions: Scribed by Jocelyne Vides bilingual medical assistant, for Jahaira Alfaro PA-C on 05/09/2023 at 9:27 am, EST. Quality Reporting (2019) Adult ([facility] 13805/04/68) Smoking risk assessment performed?: Yes Patient Tobacco Use Status: Former Tobacco user Coding Level of Care Code Est Pt Level 4 (21091) Diagnoses Painful arc syndrome of left shoulder M75.102 Diabetes mellitus E11.9 CPT Codes Coding - 04232 Large joint: 68905 - Large joint ([id number])
== END 2023-05-09 09:56 | disposition home or self-care (01) ==
PROVIDERS: PCP Internal Medicine; Visit Provider Physician Assistant
DX: M75.102 Unspecified rotator cuff tear or rupture of left shoulder, not specified as traumatic (principal); E11.9 Type 2 diabetes mellitus without complications
CPT/HCPCS: 20610; 99214

== ENCOUNTER → 2023-05-09 09:23 | Outpatient (BNVA) | payer OTHER, SELFPAY | PROVIDERS: PCP Internal Medicine; Visit Provider Physician Assistant | DX: M75.102 Unspecified rotator cuff tear or rupture of left shoulder, not specified as traumatic (principal); E11.9 Type 2 diabetes mellitus without complications | CPT/HCPCS: 20610; 99212; J1040 ==

== ENCOUNTER 2023-05-15 09:38 | Outpatient (AMB) | payer OTHER, SELFPAY ==
[2023-05-15 10:24] VITALS: BP 132/88; BMI 39.8
--- NOTE | 2023-05-15 10:24 | MHC.OFFVIS ---
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 Present Accompanied by: Self / Same As Patient Allergies No Known Allergies [No Known Allergies*] Allergy (Verified 05/15/23 10:25) Is last menstrual period known: No Post menopausal: Yes Patient : No HPI HPI Comments History of Present Illness Details Presenting complaining of vulvar bumps and vaginal bleeding upon urination since yesterday [facility] Medical History (Updated 05/15/23 @ 10:40 by Danny Fontenot MD) Postmenopausal bleeding Microscopic hematuria Injury of ligament of hand Thumb injury Microalbuminuria Abnormal ultrasound of endometrium Pelvic pain in female Well woman exam Periumbilical pain Morbid obesity due to excess calories Mild recurrent major depression Vertigo Thoracic spine pain Hypothyroidism Facial abscess Autoimmune thyroiditis Dyslipidemia Increased BMI Hx of migraines Hx of vertigo Arthritis Hiatal hernia GERD (gastroesophageal reflux disease) Renal calculi Diabetes Asthma Sleep apnea HTN (hypertension) Surgical History History of hysteroscopy History of arthroscopy of left knee History of esophagogastroduodenoscopy (EGD) Hx of colonoscopy Hx of tonsillectomy Hx of total knee arthroplasty Family History Father Stomach cancer Mother Stomach cancer Brother Stomach cancer Heart disease Sister Diabetes Breast cancer Social History Housing: Apartment Alcohol intake: former Comment: cramping Patient Tobacco Use Status: Former Tobacco user Tobacco use type: Cigarette e-Cigarette/Vaping Use: Never Used Second Hand Smoke Exposure: No Patient : No service: No Current occupational status: disabled Current occupation: left hand dominant Current occupational exposures/hazards: No Cognitive needs: Yes Hearing needs: Yes Vision needs: Yes Female Reproductive History Menstrual Age of Menarche: 11 Review of Systems Const All systems reviewed & are unremarkable except as noted in HPI and below Physical Exam Vital Signs: Last Vital Signs BP 132/88 05/15/23 10:24 BMI result Body Mass Index 39.8 General: Yes no CVA tenderness External Female Exam: normal appearance of the urethra and other (Multiple sebaceous cysts) Speculum Exam - Vagina: normal appearance of the vagina, normal palpation, no lesions and no masses Speculum Exam - Cervix: normal appearance of the cervix, normal palpation, no lesions, no masses and nontender Bimanual exam- vagina & uterus: normal bimanual exam, normal palpation, uterine size normal, normal palpation, uterine shape normal, No Cervical tenderness present and non-tender Bimanual Exam- Adnexa, other: normal adnexae Back/Spine/Pelvis Back: no CVA tenderness Assessment & Plan Assessment & Plan (1) Vulvar lesion: Code(s): N90.89 - Other specified noninflammatory disorders of vulva and perineum Plan: Discussed with the patient the finding on pelvic exam showing multiple sebaceous cyst, the patient was reassured. (2) Postmenopausal bleeding: Code(s): N95.0 - Postmenopausal bleeding Plan: Urine dip done in the office was negative for microscopic hematuria Discussed with the patient the differential diagnosis of post menopausal bleeding with normal pelvic exam including but not limited to, endometrial hyperplasia, cancer, polyps and other causes; co testing done, recommended ultrasound to measure the endometrial stripe; discussed with the patient that if the endometrial thickness is 4 mm or less the negative predictive value of endometrial pathology is 99%, otherwise If endometrial thickness is more than 4 mm will proceed with endometrial sampling versus hysteroscopy D&C polypectomy depending on the ultrasound findings. Instructed the patient to schedule an ultrasound follow-up appointment in 2 weeks. All questions answered, the patient verbalized understanding and agreed with the plan. Orders: Orders AMB Urinalysis Dipstick Today R30.0 - Dysuria US pelvic and transvaginal Today N95.0 - Postmenopausal bleeding Quality Reporting (2019) Adult ([facility] 138/05/04/68) Smoking risk assessment performed?: Yes Patient Tobacco Use Status: Former Tobacco user Coding Level of Care Code Est Pt Level 3 (70406) Diagnoses Vulvar lesion N90.89 Postmenopausal bleeding N95.0
== END 2023-05-15 11:31 | disposition home or self-care (01) ==
LOC: HO.HWS 09:39
PROVIDERS: PCP Internal Medicine; Visit Provider Obstetrics & Gynecology
DX: N90.89 Other specified noninflammatory disorders of vulva and perineum (principal); N95.0 Postmenopausal bleeding; R30.0 Dysuria
CPT/HCPCS: 99213

== ENCOUNTER → 2023-05-15 09:38 | Outpatient (BNVA) | payer OTHER, SELFPAY | PROVIDERS: PCP Internal Medicine; Visit Provider Obstetrics & Gynecology | DX: N90.89 Other specified noninflammatory disorders of vulva and perineum (principal); N95.0 Postmenopausal bleeding | CPT/HCPCS: 81002; 99212 ==

== ENCOUNTER 2023-05-29 10:36 | Outpatient (REF) | payer OTHER, SELFPAY | END 2023-05-29 10:37 | disposition home or self-care (01) | LOC: HO.US 10:36 | PROVIDERS: PCP Internal Medicine; Visit Provider Obstetrics & Gynecology | DX: Z13.89 Encounter for screening for other disorder (principal) ==

== ENCOUNTER 2023-06-01 10:19 | Outpatient (REF) | payer OTHER, SELFPAY | END 2023-06-01 10:20 | disposition home or self-care (01) | LOC: HO.HOSX 10:19 | PROVIDERS: Visit Provider Physician Assistant | DX: Z13.89 Encounter for screening for other disorder (principal) ==

== ENCOUNTER 2023-06-16 10:25 | Outpatient (REF) | payer OTHER, SELFPAY ==
--- NOTE | ~2023-06-16 | US_ITS ---
EXAMINATION: US PELVIS CLINICAL INFORMATION: Postmenopausal bleeding. COMPARISON: Pelvic ultrasound 09/16/2022. TECHNIQUE: Ultrasound of the pelvis is performed using both transabdominal and transvaginal transducers along with color Doppler. Transvaginal imaging is performed due to inadequate visualization transabdominally. FINDINGS: Uterus: The uterus is anteverted and measures 5.8 x 1.8 x 3.3 cm. 0.7 cm intramural fibroid in the posterior fundus is unchanged. The endometrial cyst seen on the prior study are not visible today. The double wall endometrial thickness is 4 mm. Adnexa: Right ovary measures 1.7 x 1.0 x 1.2 cm. The right ovary appears normal. Left ovary not seen US/US pelvic and transvaginal IMPRESSION: Endometrial stripe measures 4 mm in thickness. Previously seen endometrial cysts are not visible on the current study.
== END 2023-06-16 10:26 | disposition home or self-care (01) ==
LOC: HO.US 10:25
PROVIDERS: PCP Internal Medicine; Visit Provider Obstetrics & Gynecology
DX: N95.0 Postmenopausal bleeding (principal)
CPT/HCPCS: 76830; 76856

== ENCOUNTER 2023-06-22 08:53 | Outpatient (AMB) | payer OTHER, SELFPAY ==
[2023-06-22 09:03] VITALS: BP 140/82; BMI 39.8
--- NOTE | 2023-06-22 09:03 | MHC.OFFVIS ---
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 Urine dip in the office last visit was negative for microscopic hematuria. Pelvic ultrasound showed the following: Uterus: The uterus is anteverted and measures 5.8 x 1.8 x 3.3 cm. 0.7 cm intramural fibroid in the posterior fundus is unchanged. The endometrial cyst seen on the prior study are not visible today. The double wall endometrial thickness is 4 mm. Adnexa: Right ovary measures 1.7 x 1.0 x 1.2 cm. The right ovary appears normal. Left ovary not seen [facility] Medical History Postmenopausal bleeding Microscopic hematuria Injury of ligament of hand Thumb injury Microalbuminuria Abnormal ultrasound of endometrium Pelvic pain in female Well woman exam Periumbilical pain Morbid obesity due to excess calories Mild recurrent major depression Vertigo Thoracic spine pain Hypothyroidism Facial abscess Autoimmune thyroiditis Dyslipidemia Increased BMI Hx of migraines Hx of vertigo Arthritis Hiatal hernia GERD (gastroesophageal reflux disease) Renal calculi Diabetes Asthma Sleep apnea HTN (hypertension) Surgical History History of hysteroscopy History of arthroscopy of left knee History of esophagogastroduodenoscopy (EGD) Hx of colonoscopy Hx of tonsillectomy Hx of total knee arthroplasty Family History Father Stomach cancer Mother Stomach cancer Brother Stomach cancer Heart disease Sister Diabetes Breast cancer Social History Housing: Apartment Alcohol intake: former Comment: cramping Patient Tobacco Use Status: Former Tobacco user Tobacco use type: Cigarette e-Cigarette/Vaping Use: Never Used Second Hand Smoke Exposure: No Patient : No service: No Current occupational status: disabled Current occupation: left hand dominant Current occupational exposures/hazards: No Cognitive needs: Yes Hearing needs: Yes Vision needs: Yes Female Reproductive History Menstrual Age of Menarche: 11 control method: none Review of Systems Const All systems reviewed & are unremarkable except as noted in HPI and below Reports as per HPI and Reports no additional complaints GI Reports no additional complaints Reports no additional complaints Physical Exam Vital Signs: Last Vital Signs BP 140/82 H 06/22/23 09:03 BMI result Body Mass Index 39.8 Assessment & Plan Assessment & Plan (1) Postmenopausal bleeding: Code(s): N95.0 - Postmenopausal bleeding Plan: Discussed with the patient the results of the pelvic ultrasound showing an endometrial stripe thickness of 4 mm. Explained to the patient with an endometrial stripe of 4 mm &/or less, there is a high negative predictive value in detecting endometrial pathology including endometrial hyperplasia, polyps or malignancy. Therefore, there is no indication for endometrial sampling. Discussed with the patient the sensitivity, specificity, and positive and the negative predictive value of using ultrasound in detecting endometrial pathology. The patient was instructed to call if bleeding recurs, will proceed with endometrial sampling out endometrial pathology. All questions were answered and the patient verbalized understanding and agreed with the plan. Quality Reporting (2020) Adult ([facility] ) Smoking risk assessment performed?: Yes Patient Tobacco Use Status: Former Tobacco user Coding Level of Care Code Est Pt Level 3 (94287) Diagnoses Postmenopausal bleeding N95.0
== END 2023-06-22 09:55 | disposition home or self-care (01) ==
LOC: HO.HWS 08:53
PROVIDERS: PCP Internal Medicine; Visit Provider Obstetrics & Gynecology
DX: Z13.9 Encounter for screening, unspecified (principal); N95.0 Postmenopausal bleeding
CPT/HCPCS: 99213

== ENCOUNTER → 2023-06-22 08:53 | Outpatient (BNVA) | payer OTHER, SELFPAY | PROVIDERS: PCP Internal Medicine; Visit Provider Obstetrics & Gynecology | DX: N95.0 Postmenopausal bleeding (principal) | CPT/HCPCS: 81003; 99212 ==

== ENCOUNTER 2023-06-26 08:02 | Outpatient (REF) | payer OTHER, SELFPAY ==
[2023-06-26 09:06] LABS: Alanine Aminotransferase 23 U/L (0-31); Alkaline Phosphatase 88 U/L (39-117); Anion Gap 14 (12-20); Aspartate Amino Transferase 18 U/L (5-31); Bilirubin Total 0.4 mg/dL (0.0-1.0); Blood Urea Nitrogen 15 mg/dL (9-16); Calcium 9.2 mg/dL (8.4-10.2); Carbon Dioxide 25 mmol/L (22-29); Chloride 104 mmol/L (96-108); Cholesterol 151 mg/dL (<200); Estimated Glomerular Filt Rate > 60; Glucose Fasting 149 mg/dL (60-99); HDL Cholesterol 44 mg/dL (>40); LDL Cholesterol Calculated 74 mg/dL (<100); Potassium 3.8 mmol/L (3.3-5.1); Sodium 139 mmol/L (135-145); Total Protein 7.8 g/dL (6.5-8.0); Triglycerides 167 mg/dL (<150)
[2023-06-26 09:13] LABS: Creatinine Urine 304.56 mg/dL; Microalbum/Creatinine Ratio Ur 9.8 ug/mg cr (<30)
[2023-06-26 09:21] LABS: Thyroid Stimulating Hormone 3.43 uIU/mL (0.32-4.0); Vitamin D 25-OH Total 38.2 ng/mL (>30)
== END 2023-06-26 08:03 | disposition home or self-care (01) ==
LOC: HO.LAB 08:02
PROVIDERS: PCP Internal Medicine; Visit Provider Internal Medicine
DX: E78.5 Hyperlipidemia, unspecified (principal); E11.9 Type 2 diabetes mellitus without complications; E55.9 Vitamin D deficiency, unspecified; E06.3 Autoimmune thyroiditis
CPT/HCPCS: 36415; 80053; 80061; 82043; 82306; 82570; 84443

== ENCOUNTER 2023-06-29 09:08 | Outpatient (AMB) | payer OTHER, SELFPAY ==
--- NOTE | 2023-06-29 10:23 | A.OFFPC_ITS ---
Vital Signs 06/29/23 10:24 Height 5 ft Weight 215 lb BMI 42.0 BP 148/82 H Blood Pressure Location Lt brachial Position Sitting Intake Visit Reasons: dm- see comments Intake Note: Patient here for a follow up DM, c/o left ear pain Appointment Coordinator Required: No Accompanied by: Self / Same As Patient Allergies No Known Allergies [No Known Allergies*] Allergy (Verified 06/29/23 10:59) Medication List - Last Reconciled 06/29/23 by Gemma Omer MD acetaminophen ER 650 mg PO Q8H PRN 30 days albuterol sulfate 90 mcg/actuation 2 puffs inhalation Q6H PRN 30 days albuterol sulfate 2.5 mg (3 mL) inhalation Q4-6H PRN 30 days amitriptyline 25 mg PO BEDTIME aspirin 81 mg PO QAM 90 days atorvastatin 80 mg PO BEDTIME blood sugar diagnostic (FreeStyle Lite Strips) 1 strip miscellaneous BID 30 days blood-glucose meter (FreeStyle Lite Meter kit) As directed clonazepam 0.500f1 mg PO BID PRN [diabetic shoes As directed] docusate sodium (Colace) 100 mg PO BID PRN 30 days ezetimibe 10 mg PO DAILY 90 days fluoxetine 60 mg PO QAM fluticasone propionate 50 mcg/actuation 1 spray intranasal DAILY gabapentin 300 mg PO BID 90 days ibuprofen 800 mg PO TID PRN lancets (TRUEplus Lancets) 33 gauge miscellaneous TID levothyroxine (Synthroid) 100 mcg PO DAILY 90 days lisinopril-hydrochlorothiazide 20-12.5 mg 2 tabs PO QAM loratadine 10 mg PO DAILY PRN meclizine 25 mg PO BID PRN 30 days metformin ER 500 mg PO BEDTIME miscellaneous medical supply 1 pair of diabetic shoes and inserts miscellaneous; nebulizers (AeroEclipse II Nebulizer) As directed omeprazole 20 mg PO QAM prazosin 2 mg PO BEDTIME verapamil ER 120 mg PO QAM zolpidem 5 mg PO BEDTIME PRN 30 days Tobacco use date assessed: 06/29/23 Fall risk assessment: No Falls in past year Last assessed Fall Risk: 06/29/23 Dental Screening Dental Screen Date: 06/29/23 Did you have a dental visit in the last 12 months?: No Did you have a dental problem in the last 6 months where you did not have access to dental care?: No Was dental information given to patient?: Patient has dentist HPI HPI Comments History of Present Illness Details This is a 67-year-old female with diabetes mellitus type 2, hypertension, dyslipidemia, autoimmune thyroiditis, mild recurrent major depression and morbid obesity that complains of left ear pain that started 3 days ago. A1c has improved. Blood pressure borderline normal to elevated. TSH normal. LDL close to goal. Depression stable with medications and this is follow by Psychiatry. She is morbidly obese with a BMI of 42 and was advised to do diet and exercise to reach BMI goal less than 30. She does have chronic hearing loss and her hearing aids broke and I will refer her to a hearing test. She does wants a 2nd opinion for ear, nose throat. No chest pain or shortness of breath. [facility] Medical History (Updated 06/29/23 @ 11:50 by Gemma Omer MD) Postmenopausal bleeding Microscopic hematuria Injury of ligament of hand Thumb injury Microalbuminuria Abnormal ultrasound of endometrium Pelvic pain in female Well woman exam Periumbilical pain Morbid obesity due to excess calories Mild recurrent major depression Vertigo Thoracic spine pain Hypothyroidism Facial abscess Autoimmune thyroiditis Dyslipidemia Increased BMI Hx of migraines Hx of vertigo Arthritis Hiatal hernia GERD (gastroesophageal reflux disease) Renal calculi Diabetes Asthma Sleep apnea HTN (hypertension) Surgical History History of hysteroscopy History of arthroscopy of left knee History of esophagogastroduodenoscopy (EGD) Hx of colonoscopy Hx of tonsillectomy Hx of total knee arthroplasty Family History Father Stomach cancer Mother Stomach cancer Brother Stomach cancer Heart disease Sister Diabetes Breast cancer Social History Housing: Apartment Alcohol intake: former Comment: cramping Patient Tobacco Use Status: Former Tobacco user Tobacco use type: Cigarette e-Cigarette/Vaping Use: Never Used Second Hand Smoke Exposure: No service: No Current occupational status: disabled Current occupation: left hand dominant Current occupational exposures/hazards: No Cognitive needs: Yes Hearing needs: Yes Vision needs: Yes Female Reproductive History Menstrual Age of Menarche: 11 Questionnaire PHQ-9 Over the last 2 weeks, how often have you been bothered by any of the following problems? 1. Little interest or pleasure in doing things: several days 2. Feeling down, depressed, or hopeless: several days 3. Trouble falling or staying asleep, or sleeping too much: several days 4. Feeling tired or having little energy: several days 5. Poor appetite or overeating: several days 6. Feeling bad about yourself - or that you are a failure or have let yourself or your family down: several days 7. Trouble concentrating on things, such as reading the newspaper or watching television: not at all 8. Moving or speaking so slowly that other people could have noticed. Or the opposite - being so fidgety or restless that you have been moving around a lot more than usual: not at all 9. Thoughts that you would be better off or of hurting yourself in some way: not at all Total score: 6 Depression Screening Interpretation: Positive Depression Screening Follow-up: Existing condition and In treatment Depression Screening Done: Yes 03032 - PHQ-9 Billing: Yes Source: Developed by Drs. Kishan Nolan, Palak Paul, Edmundo Rodriguez and colleagues, with an educational rob from [employer]. Thrive Questionnaire Date Thrive assessed: 06/29/23 I am a: Patient What is your living situation today?: I have a steady place to live Within the past 12 months, did the food you bought not last and you didn't have the money to get more?: Never true Within the past 12 months, did you worry whether your food would run out before you got money to buy more?: Never true Do you have trouble paying for medicines?: No Do you have trouble getting transportation to medical appointments?: No Do you have trouble paying your heating and electricity bill?: No Do you have trouble taking care of your child, family member or friend?: No Do you have trouble with day-to-day activities such as bathing, preparing meals, shopping, managing finances, etc.?: No Are you currently unemployed and looking for a job?: No Are you interested in more education?: No Please select the resources that you would like help with: None Currently or been in a relationship where the following occur: no concerns reported THRIVE Score: 0 AUDIT C Alcohol Use Questionnaire (AUDIT-C) 1. How often do you have a drink containing alcohol?: Never Total Score: 0 JACOBO-7 AMB Questionnaire JACOBO-7 Date JACOBO - 7 assessed: 06/29/23 Feeling nervous, anxious, or on edge: 2 = More than half the days Not being able to stop or control worryin = Not at all Worrying too much about different things: 2 = More than half the days Trouble relaxin = Not at all Being so restless that it is hard to sit still: 0 = Not at all Becoming easily annoyed or irritable: 0 = Not at all Feeling afraid as if something awful might happen: 0 = Not at all Total JACOBO-7 score (0-4 normal; 5-9 mild; 10-14 moderate; 15-21 severe): 4 Source: Developed by Drs. Kishan Nolan, Palak Paul, Edmundo Rodriguez and colleagues, with an educational rob from [employer]. JACOBO-7 Assessment Billing JACOBO-7 Assessment Tool: JACOBO-7 Assessment 95775 Review of Systems Const All systems reviewed & are unremarkable except as noted in HPI and below Eyes Reports no additional complaints, Denies change in vision and Denies other visual disturbances Card Denies chest pain at rest, Denies chest pain with activity, Denies edema, Denies irregular heart rhythm, Denies claudication, Denies dyspnea, Denies dyspnea on exertion, Denies orthopnea, Denies paroxysmal nocturnal dyspnea and Denies slow heart rate Resp Denies cough, Denies dyspnea and Denies dyspnea on exertion GI Denies abdominal pain, Denies change in bowel habits, Denies excessive flatus, Denies nausea and Denies vomiting Physical exam (Primary Care) Vital Signs: Last Vital Signs BP 148/82 H 06/29/23 10:24 BMI result Body Mass Index 42.0 Tobacco/Smoking Status: Tobacco use Status Tobacco use date assessed 06/29/23 06/29/23 10:32 Patient Tobacco Use Status Former Tobacco user 06/29/23 10:32 Tobacco use type Cigarette 06/29/23 10:32 e-Cigarette/Vaping Use Never Used 06/29/23 10:32 PHQ-9: PHQ-9 Score PHQ-9: Total score 6 06/29/23 11:02 Depression Screening Interpretation: Positive Depression Screening Follow-up: Existing condition and In treatment Thrive Assessment: Date of Thrive Assessment Date Thrive assessed 06/29/23 06/29/23 10:32 Currently or been in a relationship where the following occur: no concerns reported Resp Effort & Inspection: normal respiratory effort Auscultation: clear to auscultation bilaterally Cardio Jugular venous distension: no JVD Rate: regular rate Rhythm: regular rhythm Heart sounds: S1 normal heart sound present and S2 normal heart sound present Extrem General: Yes full ROM Results AMB Hemoglobin A1c AMB Hemoglobin A1c 7.4 % Last Edit by IRIS Ceballos on 06/29/23 10:3 4 Results Reviewed Results Reviewed: Laboratory Last Values Hgb A1c (Clinic) 7.4 % (4.0-6.0) H 06/29/23 09:11 Assessment and Plan Assessment & Plan (1) Diabetes mellitus: Code(s): E11.9 - Type 2 diabetes mellitus without complications Plan: Continue metformin. A1c goal is equal or less than 7%. (2) Mild recurrent major depression: Code(s): F33.0 - Major depressive disorder, recurrent, mild Plan: Continue fluoxetine. Follow-up with psychiatry. (3) HTN (hypertension): Code(s): I10 - Essential (primary) hypertension Qualifiers: Hypertension type: essential hypertension Qualified Code(s): I10 - Essential (primary) hypertension Plan: Continue lisinopril-hydrochlorothiazide. Blood pressure goal is equal or less than 130/80. (4) Dyslipidemia: Code(s): E78.5 - Hyperlipidemia, unspecified Plan: Continue statins and Zetia. LDL goal is less than 70. (5) Autoimmune thyroiditis: Code(s): E06.3 - Autoimmune thyroiditis Plan: Continue levothyroxine. Monitor TSH. Orders: Orders Lipid Panel 4 Months E78.5 - Hyperlipidemia, unspecified Microalbumin, Random (w Creat) 4 Months E11.9 - Type 2 diabetes mellitus without complications AMB Hemoglobin A1c Today E11.9 - Type 2 diabetes mellitus without complications Comprehensive [place]. Panel Fast 4 Months E11.65 - Type 2 diabetes mellitus with hyperglycemia Thyroid Stimulating Hormone 4 Months E06.3 - Autoimmune thyroiditis Referrals Speech and Hearing Referral H91.90 - Unspecified hearing loss, unspecified ear Ear/Nose/Throat Referral H91.90 - Unspecified hearing loss, unspecified ear Medications: New amoxicillin-pot clavulanate 875-125 mg 1 tab PO BID 14 tabs 0RF 7 days Refilled albuterol sulfate 2.5 mg (3 mL) inhalation Q4-6H PRN 15 mL 5RF shortness of breath or wheezing 30 days docusate sodium (Colace) 100 mg PO BID PRN 60 caps 3RF constipation 30 days loratadine 10 mg PO DAILY PRN 20 tabs 0RF allergy symptoms omeprazole 20 mg PO QAM 30 caps 6RF acetaminophen ER 650 mg PO Q8H PRN 90 tabs 2RF fever or pain 30 days aspirin 81 mg PO QAM 90 tabs 3RF 90 days atorvastatin 80 mg PO BEDTIME 90 tabs 2RF ezetimibe 10 mg PO DAILY 90 tabs 3RF 90 days levothyroxine (Synthroid) 100 mcg PO DAILY 90 tabs 0RF 90 days E06.3 - Autoimmune thyroiditis ibuprofen 800 mg PO TID PRN 60 tabs 4RF fever or pain lisinopril-hydrochlorothiazide 20-12.5 mg 2 tabs PO QAM 180 tabs 3RF metformin ER 500 mg PO BEDTIME 90 tabs 3RF prazosin 2 mg PO BEDTIME 90 caps 3RF verapamil ER 120 mg PO QAM 90 tabs 3RF Discontinued meclizine Discontinued Reason: No Longer Medically Relevant 25 mg PO BID 30 days PRN 20 tabs 1RF dizziness Coding Level of Care Code Est Pt Level 4 (05560) Diagnoses Diabetes mellitus E11.9 Mild recurrent major depression F33.0 Essential hypertension I10 Hypertension type: essential hypertension Dyslipidemia E78.5 Autoimmune thyroiditis E06.3 Additional Codes JACOBO-7 Assessment Billing - JACOBO-7 Assessment Tool: JACOBO-7 Assessment 32360 ([id number]) Time Spent (min) 24
[2023-06-29 10:24] VITALS: BP 148/82; BMI 42.0
== END 2023-06-29 11:08 | disposition home or self-care (01) ==
PROVIDERS: PCP Internal Medicine; Visit Provider Internal Medicine
DX: E11.9 Type 2 diabetes mellitus without complications (principal); F33.0 Major depressive disorder, recurrent, mild; I10 Essential (primary) hypertension; E78.5 Hyperlipidemia, unspecified; E06.3 Autoimmune thyroiditis
CPT/HCPCS: 83036; 99214

== ENCOUNTER 2023-06-30 12:37 | Outpatient (AMB) | payer OTHER, SELFPAY ==
[2023-06-30 13:05] VITALS: BMI 42.0
--- NOTE | 2023-06-30 13:05 | A.OFFVIS_ITS ---
Vital Signs 06/30/23 13:05 06/30/23 13:06 Height 5 ft 5 ft Weight 215 lb 215 lb BMI 42.0 42.0 Intake Visit Reasons: Newprob-B/L knee pain-looking for Xray Intake Note: Audrey is a 67 year old female who presents today for a new problem visit with complaints of left knee pain. Patient reports that she has history of left TKA, she just wants to folllow up and make sure that everything is in place. She complains more of clicking than pain. Allergies No Known Allergies [No Known Allergies*] Allergy (Verified 06/29/23 10:59) HPI HPI Newprob-B/L knee pain-looking for Xray: Details: 67-year-old female who presents in the office today for an evaluation of left knee pain. Patient would like to be evaluated due to clicking in the left knee with some pain. Patient has a surgical history of a left total knee arthroplasty. Patient has a significant medical history of diabetes mellitus. PFS Medical History (Updated 06/30/23 @ 13:38 by Jocelyne Vides) Postmenopausal bleeding Microscopic hematuria Injury of ligament of hand Thumb injury Microalbuminuria Abnormal ultrasound of endometrium Pelvic pain in female Well woman exam Periumbilical pain Morbid obesity due to excess calories Mild recurrent major depression Vertigo Thoracic spine pain Hypothyroidism Facial abscess Autoimmune thyroiditis Dyslipidemia Increased BMI Hx of migraines Hx of vertigo Arthritis Hiatal hernia GERD (gastroesophageal reflux disease) Renal calculi Diabetes Asthma Sleep apnea HTN (hypertension) Surgical History (Updated 06/30/23 @ 13:38 by Jocelyne Vides) History of hysteroscopy History of arthroscopy of left knee History of esophagogastroduodenoscopy (EGD) Hx of colonoscopy Hx of tonsillectomy Hx of total knee arthroplasty Family History Father Stomach cancer Mother Stomach cancer Brother Stomach cancer Heart disease Sister Diabetes Breast cancer Social History Housing: Apartment Alcohol intake: former Comment: cramping Patient Tobacco Use Status: Former Tobacco user Tobacco use type: Cigarette e-Cigarette/Vaping Use: Never Used Second Hand Smoke Exposure: No service: No Current occupational status: disabled Current occupation: left hand dominant Current occupational exposures/hazards: No Cognitive needs: Yes Hearing needs: Yes Vision needs: Yes Female Reproductive History Menstrual Age of Menarche: 11 Review of Systems Const All systems reviewed & are unremarkable except as noted in HPI and below Physical Exam Vital Signs: BMI result Body Mass Index 42.0 Const General: cooperative and no acute distress Orientation/consciousness: patient oriented x3 Resp Effort & Inspection: normal respiratory effort and able to speak in complete sentences Cardio Peripheral pulses: Peripheral pulses 2+ throughout Skin General skin exam: no rashes or lesions noted Neuro General: patient oriented x3 Extrem Other: Left knees: Normal to inspection. No ecchymosis, erythema, or joint effusion. ROM is 0-120 degrees. No tenderness to palpation along the medial or lateral joint lines. Patella tracking is appropriate. No laxity with varus or valgus stress. Negative anterior drawer. NVI. Right knee: Normal to inspection. No ecchymosis, erythema, or joint effusion. No tenderness to palpation along the medial or lateral joint lines. Full knee extension and flexion. Crepitus felt with ROM. NVI. Quality Reporting (2019) Adult ([facility] ) Smoking risk assessment performed?: Yes Patient Tobacco Use Status: Former Tobacco user Assessment & Plan Assessment & Plan (1) History of arthroplasty of left knee: Code(s): Z96.652 - Presence of left artificial knee joint Category: Surgical (2) Osteoarthritis of right knee: Code(s): M17.11 - Unilateral primary osteoarthritis, right knee Category: Medical Plan Ms. Moses Jade is a 67-year-old female who presents in the office today for an evaluation of left knee pain. Patient would like to be evaluated due to clicking in the left knee with some pain. Patient has a surgical history of a left total knee arthroplasty. Patient has a significant medical history of diabetes mellitus. Discussed with the patient that the clicking she is feeling is of no concern. She can continue with her normal activities. Follow up will be PRN, or sooner if needed. X-rays of the bilateral knees which were obtained while in the office today and were reviewed by me, Jahaira Alfaro PA-C, revealed: Left knee: Left total knee arthroplasty hardware intact with no evidence of loosening or periprosthetic fracture. Right knee: Osteoarthritis. Orders: Orders XR knee standing BI 03/21/24 M25.569 - Pain in unspecified knee XR knee RT 2V 06/01/23 M25.569 - Pain in unspecified knee XR knee LT 2V 06/01/23 M25.569 - Pain in unspecified knee XR knee RT 3V Today M25.569 - Pain in unspecified knee XR knee LT 2V Today M25.569 - Pain in unspecified knee Patient Instructions: Scribed by Joceylne Vides ophthalmic medical technician, for Jahaira Alfaro PA-C on 06/30/2023 at 12:40 pm, EST.
[2023-06-30 13:06] VITALS: BMI 42.0
== END 2023-06-30 13:21 | disposition home or self-care (01) ==
PROVIDERS: PCP Internal Medicine; Visit Provider Physician Assistant
DX: M17.11 Unilateral primary osteoarthritis, right knee (principal); Z96.652 Presence of left artificial knee joint
CPT/HCPCS: 99213

== ENCOUNTER 2023-06-30 12:37 | Outpatient (REF) | payer OTHER, SELFPAY ==
--- NOTE | ~2023-06-30 | XR_ITS ---
EXAMINATION: XR BILATERAL KNEE CLINICAL INFORMATION: Pain in unspecified knee. TECHNIQUE: AP standing, lateral and sunrise views of bilateral knees. COMPARISON: 05/24/2019. FINDINGS: RIGHT KNEE: Trace joint effusion. Moderate narrowing of the medial compartment with minimal marginal osteophytes. LEFT KNEE: Status post left total knee arthroplasty. Trace joint effusion. There is slight step off at the midportion along the inferior aspect of the tibial component of the prosthesis, not identified on the prior exams of 08/24/2018 and 05/24/2019. Correlation with clinical exam and possible additional imaging recommended. XR/XR knee LT 2V IMPRESSION: 1. Moderate degenerative changes bilateral knees. 2. Status post left total knee arthroplasty. There is slight step off at the midportion along the inferior aspect of the tibial component of the prosthesis, not identified on the prior exams of 08/24/2018 and 05/24/2019. Correlation with clinical exam and possible additional imaging recommended.
--- NOTE | ~2023-06-30 | XR_ITS ---
EXAMINATION: XR BILATERAL KNEE CLINICAL INFORMATION: Pain in unspecified knee. TECHNIQUE: AP standing, lateral and sunrise views of bilateral knees. COMPARISON: 05/24/2019. FINDINGS: RIGHT KNEE: Trace joint effusion. Moderate narrowing of the medial compartment with minimal marginal osteophytes. LEFT KNEE: Status post left total knee arthroplasty. Trace joint effusion. There is slight step off at the midportion along the inferior aspect of the tibial component of the prosthesis, not identified on the prior exams of 08/24/2018 and 05/24/2019. Correlation with clinical exam and possible additional imaging recommended. XR/XR knee RT 3V IMPRESSION: 1. Moderate degenerative changes bilateral knees. 2. Status post left total knee arthroplasty. There is slight step off at the midportion along the inferior aspect of the tibial component of the prosthesis, not identified on the prior exams of 08/24/2018 and 05/24/2019. Correlation with clinical exam and possible additional imaging recommended.
== END 2023-06-30 12:38 | disposition home or self-care (01) ==
LOC: HO.HOSX 12:37
PROVIDERS: PCP Internal Medicine; Visit Provider Physician Assistant
DX: M25.562 Pain in left knee (principal); M17.11 Unilateral primary osteoarthritis, right knee; Z96.652 Presence of left artificial knee joint
CPT/HCPCS: 73560; 73562; 99212

== ENCOUNTER 2023-08-15 13:58 | Outpatient (AMB) | payer OTHER, SELFPAY ==
--- NOTE | 2023-08-15 14:05 | MHC.OFFVIS ---
Intake Visit Reasons: O/V LT shoulder S/P 05/06/23 Intake Note: Audrey is a 67 year old female who presents today for a repeat injection for her left shoulder, last inj 05/09/23. Patient reports her last injection gave her about 4 months of relief and would like to repeat. Allergies No Known Allergies [No Known Allergies*] Allergy (Verified 06/29/23 10:59) HPI HPI O/V LT shoulder S/P 05/06/23: Details: 67-year-old female who presents in the office today for a follow up of left shoulder pain. I last saw the patient in the office with this complaint on 05/09/2023 when she repeated a cortisone injection. While in the office today the patient reports the last injection gave her about 4 months of relief. She would like to repeat the injection today. Patient has a significant medical history of diabetes mellitus. [facility] Medical History (Updated 06/30/23 @ 13:38 by Jocelyne Vides) Postmenopausal bleeding Microscopic hematuria Injury of ligament of hand Thumb injury Microalbuminuria Abnormal ultrasound of endometrium Pelvic pain in female Well woman exam Periumbilical pain Morbid obesity due to excess calories Mild recurrent major depression Vertigo Thoracic spine pain Hypothyroidism Facial abscess Autoimmune thyroiditis Dyslipidemia Increased BMI Hx of migraines Hx of vertigo Arthritis Hiatal hernia GERD (gastroesophageal reflux disease) Renal calculi Diabetes Asthma Sleep apnea HTN (hypertension) Surgical History (Updated 06/30/23 @ 13:38 by Jocelyne Vides) History of hysteroscopy History of arthroscopy of left knee History of esophagogastroduodenoscopy (EGD) Hx of colonoscopy Hx of tonsillectomy Hx of total knee arthroplasty Family History Father Stomach cancer Mother Stomach cancer Brother Stomach cancer Heart disease Sister Diabetes Breast cancer Social History Housing: Apartment Alcohol intake: former Comment: cramping Patient Tobacco Use Status: Former Tobacco user Tobacco use type: Cigarette e-Cigarette/Vaping Use: Never Used Second Hand Smoke Exposure: No service: No Current occupational status: disabled Current occupation: left hand dominant Current occupational exposures/hazards: No Cognitive needs: Yes Hearing needs: Yes Vision needs: Yes Female Reproductive History Menstrual Age of Menarche: 11 Review of Systems Const All systems reviewed & are unremarkable except as noted in HPI and below Physical Exam Const General: cooperative, healthy appearing and no acute distress Resp Effort & Inspection: normal respiratory effort and able to speak in complete sentences Cardio Rate: regular rate Peripheral pulses: Peripheral pulses 2+ throughout GI Palpation (GI): Soft to palpation Skin Lesions: no lesions Rashes: no rashes Extrem Other: Left shoulder: Normal to inspection. No ecchymosis, erythema, or edema. Forward flexion and abduction to 90 degrees. Able to reach back pocket. Positive empty can. Positive cross-body reach. Negative drop arm. NVI. Office Procedures Joint Injection/Drain Joint Injection/Drain Primary Site: left shoulder Prep: site was prepped using aseptic technique, ethochloride spray was applied and injection warnings given Injected: 40 mg of, DepoMedrol, with 8 mL of (2% plain lido ) and in the subcromial space Approach Used: posterolateral Procedure: The patient tolerated the procedure well, but had some pain with the injection and there was some relief with the local anesthesia Coding 02075 - Large joint Procedure code (CPT) selection complete Quality Reporting (2019) Adult ([facility] ) Smoking risk assessment performed?: Yes Patient Tobacco Use Status: Former Tobacco user Assessment & Plan Assessment & Plan (1) Painful arc syndrome of left shoulder: Code(s): M75.102 - Unspecified rotator cuff tear or rupture of left shoulder, not specified as traumatic Category: Medical (2) Diabetes mellitus: Code(s): E11.9 - Type 2 diabetes mellitus without complications Category: Medical Plan Ms. Gustavo Jade is a 67-year-old female who presents in the office today for a follow up of left shoulder pain. I last saw the patient in the office with this complaint on 05/09/2023 when she repeated a cortisone injection. While in the office today the patient reports the last injection gave her about 4 months of relief. She would like to repeat the injection today. Patient has a significant medical history of diabetes mellitus. The patient was offered a cortisone injection in the left shoulder with 40 mg of DepoMedrol. The patient was explained the risk, benefits, and alternatives to receiving this injection. After receiving consent for the injection, the patient had the procedure done while in the office today. The patient tolerated the procedure well with no complications. Due to the patient?s history of diabetes, they were instructed to monitor her blood glucose level. The patient was informed that they could see a rise in their numbers and if the numbers became too high, they were instructed to call their PCP. The patient was also informed that they could have facial flushing as a side effect of the injection, but this will pass. Follow-up will be PRN, or sooner if needed. Orders: Orders XR shoulder LT min 2V Today M25.519 - Pain in unspecified shoulder Patient Instructions: Scribed by Jocelyne Vides medical records secretary, for Jahaira Alfaro PA-C on 08/15/2023 at 2:07 pm, EST. Coding Level of Care Code Est Pt Level 4 (01517) Diagnoses Painful arc syndrome of left shoulder M75.102 Diabetes mellitus E11.9 CPT Codes Coding - 19445 Large joint: 99839 - Large joint ([id number])
== END 2023-08-15 14:47 | disposition home or self-care (01) ==
PROVIDERS: PCP Internal Medicine; Visit Provider Physician Assistant
DX: M75.102 Unspecified rotator cuff tear or rupture of left shoulder, not specified as traumatic (principal); E11.9 Type 2 diabetes mellitus without complications
CPT/HCPCS: 20610; 99214

== ENCOUNTER 2023-08-15 13:58 | Outpatient (REF) | payer OTHER, SELFPAY ==
--- NOTE | ~2023-08-15 | XR_ITS ---
EXAMINATION: XR SHOULDER, LEFT CLINICAL INFORMATION: Pain in unspecified shoulder COMPARISON: August 12, 2021 TECHNIQUE: Three views of the left shoulder. FINDINGS: Moderate arthritic changes at the glenohumeral and acromioclavicular joints redemonstrated. Small subacromial spur. Possible left cervical rib as previously noted. Hypertrophic change along the greater tuberosity XR/XR shoulder LT min 2V IMPRESSION: 1. Moderate arthritic changes at the glenohumeral and acromioclavicular joints redemonstrated. 2. Possible left cervical rib as previously noted.
== END 2023-08-15 13:59 | disposition home or self-care (01) ==
LOC: HO.HOSX 13:58
PROVIDERS: PCP Internal Medicine; Visit Provider Physician Assistant
DX: M75.102 Unspecified rotator cuff tear or rupture of left shoulder, not specified as traumatic (principal); E11.9 Type 2 diabetes mellitus without complications
CPT/HCPCS: 20610; 73030; 99212; J1010

== ENCOUNTER 2023-08-21 08:26 | Outpatient (REF) | payer OTHER, SELFPAY ==
[2023-08-21 10:53] LABS: Thyroid Stimulating Hormone 2.76 uIU/mL (0.32-4.0)
== END 2023-08-21 08:27 | disposition home or self-care (01) ==
LOC: HO.LAB 08:26
PROVIDERS: PCP Internal Medicine; Visit Provider Internal Medicine
DX: E06.3 Autoimmune thyroiditis (principal)
CPT/HCPCS: 36415; 84443

== ENCOUNTER 2023-09-11 11:36 | Outpatient (REF) | payer OTHER, SELFPAY | END 2023-09-11 11:37 | disposition home or self-care (01) | LOC: HO.MAMMO 11:36 | PROVIDERS: PCP Internal Medicine; Visit Provider Internal Medicine | DX: Z12.31 Encounter for screening mammogram for malignant neoplasm of breast (principal) | CPT/HCPCS: 77063; 77067 ==

== ENCOUNTER → 2023-09-11 12:00 | Outpatient (BNV) | payer OTHER, SELFPAY | PROVIDERS: PCP Internal Medicine; Visit Provider Radiology Diagnostic Radiology | DX: Z12.31 Encounter for screening mammogram for malignant neoplasm of breast (principal) | CPT/HCPCS: 77063; 77067 ==

== ENCOUNTER 2023-09-12 10:21 | Outpatient (AMB) | payer OTHER, SELFPAY ==
--- NOTE | 2023-09-12 10:30 | A.OFFVIS_ITS ---
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 No complaints. Last Pap/HPV was negative in 08/26 Last Mammogram was in 10/03 reports still pending Last Colonoscopy was done 01/30, the recommendation was to repeat in 5 years Last DEXA scan was in 08/01 REPLACED BY [facility] Medical History (Updated 09/12/23 @ 10:56 by Danny Fontenot MD) Well woman exam Postmenopausal bleeding Microscopic hematuria Injury of ligament of hand Thumb injury Microalbuminuria Abnormal ultrasound of endometrium Pelvic pain in female Periumbilical pain Morbid obesity due to excess calories Mild recurrent major depression Vertigo Thoracic spine pain Hypothyroidism Facial abscess Autoimmune thyroiditis Dyslipidemia Increased BMI Hx of migraines Hx of vertigo Arthritis Hiatal hernia GERD (gastroesophageal reflux disease) Renal calculi Diabetes Asthma Sleep apnea HTN (hypertension) Surgical History History of hysteroscopy History of arthroscopy of left knee History of esophagogastroduodenoscopy (EGD) Hx of colonoscopy Hx of tonsillectomy Hx of total knee arthroplasty Family History Father Stomach cancer Mother Stomach cancer Brother Stomach cancer Heart disease Sister Diabetes Breast cancer Social History Housing: Apartment Alcohol intake: former Comment: cramping Patient Tobacco Use Status: Former Tobacco user Tobacco use type: Cigarette e-Cigarette/Vaping Use: Never Used Second Hand Smoke Exposure: No service: No Current occupational status: disabled Current occupation: left hand dominant Current occupational exposures/hazards: No Cognitive needs: Yes Hearing needs: Yes Vision needs: Yes Female Reproductive History Menstrual Age of Menarche: 11 Total pregnancies: 0 Number of Living Children: 0 Date of last pap smear: 08/26/15 Date of Mammogram: 09/11/23 Review of Systems Const All systems reviewed & are unremarkable except as noted in HPI and below Card Reports as per HPI Resp Reports as per HPI GI Reports as per HPI and Reports no additional complaints Reports as per HPI Physical Exam Vital Signs: Last Vital Signs BP 126/80 09/12/23 10:33 BMI result Body Mass Index 41.8 Const General: cooperative, healthy appearing and comfortable Chest Chest palpation & inspection: normal inspection of the chest and normal palpation of entire chest wall Breast/axilla inspection: normal inspection of the breasts and normal inspection of the axillae Breast/axilla palpation: normal palpation of the breasts, normal palpation of the axillae and no axillary lymphadenopathy Resp Effort & Inspection: normal respiratory effort Auscultation: clear to auscultation bilaterally Percussion: percussion normal Cardio Palpation: normal PMI Rate: regular rate Rhythm: regular rhythm Heart sounds: no murmurs and no rubs Peripheral pulses: Peripheral pulses 2+ throughout GI Inspection: Yes normal to inspection Palpation (GI): Soft to palpation, nontender, no guarding, not rigid and No hepatosplenomegaly present Percussion: Yes normal to percussion Auscultation: normal bowel sounds Rectal Exam - Female: deferred General: Yes bladder normal to palpation External Female Exam: No lesion Speculum Exam - Vagina: normal appearance of the vagina, normal palpation, normal vaginal discharge and not erythematous Speculum Exam - Cervix: normal appearance of the cervix and normal palpation Bimanual exam- vagina & uterus: normal bimanual exam, normal palpation, uterine size normal, bladder normal to palpation, consistency normal and normal palpation Bimanual Exam- Adnexa, other: normal adnexae, no masses and no tenderness Quality Reporting (2019) Adult ([facility] [birth year]) Smoking risk assessment performed?: Yes Patient Tobacco Use Status: Former Tobacco user Assessment & Plan Assessment & Plan (1) Well woman exam: Code(s): Z01.419 - Encounter for gynecological examination (general) (routine) without abnormal findings Category: Medical Plan: Co testing done although the patient 's age is above 65 since last co testing was in 08/26 preceded by negative Pap without HPV in 2009 Counseled the patient about the recommended dietary allowance of 1200 mg of Calcium & 800 IU of vitamin D. Instructions given the patient to schedule next screening Mammogram in 10/04. Will order DEXA scan . The patient was instructed to perform monthly self-breast exams and to schedule a 2 week DEXA scan follow-up appointment and an annual exam in a year; All questions answered and the patient verbalized understanding. Orders: Orders XR DEXA axial skeleton Today Z78.0 - Asymptomatic menopausal state Coding Level of Care Code Est Pt Prev Care 40-64y(58409) Diagnoses Well woman exam Z01.419
[2023-09-12 10:33] VITALS: BP 126/80; BMI 41.8
== END 2023-09-12 13:17 | disposition home or self-care (01) ==
PROVIDERS: PCP Internal Medicine; Visit Provider Obstetrics & Gynecology
DX: Z01.419 Encounter for gynecological examination (general) (routine) without abnormal findings (principal)
CPT/HCPCS: 99397

== ENCOUNTER 2023-09-12 10:21 | Outpatient (REF) | payer OTHER, SELFPAY ==
[2023-09-16 18:59] LABS: HPV mRNA E6/E7 Not Detected (Not Detected)
== END 2023-09-12 10:22 | disposition home or self-care (01) ==
LOC: HO.LNP 10:21
PROVIDERS: PCP Internal Medicine; Visit Provider Obstetrics & Gynecology
DX: Z01.419 Encounter for gynecological examination (general) (routine) without abnormal findings (principal); Z11.51 Encounter for screening for human papillomavirus (HPV)
CPT/HCPCS: 87624; 88175

== ENCOUNTER 2023-09-22 08:27 | Outpatient (REF) | payer OTHER, SELFPAY ==
--- NOTE | ~2023-09-22 | MM_ITS ---
EXAMINATION: BONE DENSITOMETRY CLINICAL INDICATION: Menopause. COMPARISON: This is the patient's baseline examination. TECHNIQUE: Using a [employer] DXA System (software version: 13.1) manufactured by [employer], dual-energy x-ray absorptiometry was performed of the lumbar spine and left hip. The images are of good technical quality. Summary results are attached. FINDINGS: LEFT FEMUR, NECK: BMD 0.907 g/cm2, Z-score 0.2, T-score -0.9, normal. LEFT FEMUR, TOTAL: BMD 1.031 g/cm2, Z-score 1.0, T-score 0.2, normal. AP SPINE L1-L4: BMD 1.238 g/cm2, Z-score 1.3, T-score 0.5, normal. IDENTIFIED RISK FACTORS: Menopause, secondary osteoporosis (type 1 diabetes, hyperthyroidism). HISTORY OF FRACTURE: None listed. MEDICATIONS: None listed. MM/XR DEXA axial skeleton IMPRESSION: 1. DIAGNOSIS: Normal bone density based on the lowest T-score value of -0.9 in the femoral neck applying World Health Organization criteria. 2. 10-YEAR FRACTURE RISK PREDICTION, FRAX: According to the guidelines, FRAX calculation should only be performed on patients in the osteopenia bone density category. Therefore, FRAX was not performed on this patient. 3. Treatment Recommendations: NOF guidelines recommend consideration for treatment in postmenopausal women and men age 50 and older presenting with the following: -A hip or vertebral (clinical or morphometric) fracture. -T-score less than or equal to -2.5 at the femoral neck or spine after appropriate evaluation to exclude secondary causes. -Low bone mass at the hip or spine and a 10-year fracture probability by FRAX of greater than or equal to 3% for hip fracture or greater than or equal to 20% for major osteoporotic fracture based on the [place] adapted WHO algorithm. 4. Other Recommendations: All treatment decisions require clinical judgment and consideration of individual patient factors, including patient preferences, comorbidities, previous drug use, risk factors not captured in the FRAX model (e.g. frailty, falls, vitamin D deficiency, increased bone turnover, interval significant decline in bone density) and possible under or overestimation of fracture risk by FRAX. FUTURE SCAN RECOMMENDATION: People with diagnosed cases of osteoporosis or at high risk for fracture should have regular bone mineral density tests. For patients eligible for Medicare, routine testing is allowed once every 2 years. The testing frequency can be increased to one year for patients who have rapidly progressing disease, those who are receiving or discontinuing medical therapy to restore bone mass, or have additional risk factors.
== END 2023-09-22 08:28 | disposition home or self-care (01) ==
LOC: HO.MAMMO 08:27
PROVIDERS: PCP Internal Medicine; Visit Provider Obstetrics & Gynecology
DX: Z13.820 Encounter for screening for osteoporosis (principal); Z78.0 Asymptomatic menopausal state
CPT/HCPCS: 77080

== ENCOUNTER 2023-09-24 06:12 | Emergency (ER) | payer OTHER, SELFPAY ==
[2023-09-24 06:17] VITALS: BP 181/83; PULSE 73; RESP 16; TEMP 36.5; O2SAT 97; BMI 39.1
[2023-09-24 06:57] VITALS: BP 179/73; PULSE 64; RESP 18; TEMP 520; TEMP 968; O2SAT 98
--- NOTE | 2023-09-24 06:58 | ED_ITS ---
HPI - Ear Problem General Chief complaint: Ear Problems Stated complaint: ear pain/infection? Time Seen by Provider: 09/24/23 06:51 Source: patient, RN notes reviewed and old records reviewed Mode of arrival: ambulatory Limitations: no limitations History of Present Illness ED Provider: AVEL JAY PA-C HPI Narrative: 67-year-old female with past medical history significant for MATT and diabetes presents to the ED today for evaluation of right ear pain x3 days. She admits to history of recurrent ear infection secondary to hearing a ED use. She was last treated for this a few months ago with complete resolution up until 3 days ago. Denies hearing changes, drainage from the ear, fever/chills, jaw pain, ear swelling, neck pain. Denies FB. Patient noted to be slightly hypertensive to 179/73 on arrival. She tells me that she did not take her blood pressure medications yet this morning. She denies headache, dizziness, vision changes, chest pain, palpitations, or sob. Related Data Home Medications ?Medication ?Instructions ?Recorded ?Confirmed clonazepam 1 mg tablet 0.500f1 mg PO BID PRN anxiety 02/20/20 06/29/23 fluoxetine 20 mg capsule 60 mg PO QAM 02/20/20 06/29/23 amitriptyline 25 mg tablet 25 mg PO BEDTIME 12/22/20 06/29/23 Previous Rx's ?Medication ?Instructions ?Recorded nebulizers (AeroEclipse II #1 ea 02/11/20 Nebulizer) miscellaneous medical supply See Rx Instructions miscellaneous 08/17/20 .COMPLEX #1 ea diabetic shoes #1 ea 09/28/21 blood-glucose meter (FreeStyle #1 ea 06/10/22 Lite Meter kit) fluticasone propionate 50 1 spray intranasal DAILY #16 grams 08/04/22 mcg/actuation nasal spray,suspension gabapentin 300 mg capsule 300 mg PO BID 90 days #180 caps 10/31/22 lancets 33 gauge (TRUEplus Lancets) 33 gauge miscellaneous TID for 02/15/23 diabetes mellitus #100 ea blood sugar diagnostic (FreeStyle 1 strip miscellaneous BID for 05/05/23 Lite Strips) diabetes mellitus 30 days #50 strips acetaminophen 650 mg 650 mg PO Q8H PRN fever or pain 30 06/29/23 tablet,extended release days #90 tabs albuterol sulfate 2.5 mg/3 mL 2.5 mg (3 mL) inhalation Q4-6H PRN 06/29/23 (0.083 %) solution for nebulization shortness of breath or wheezing 30 days #15 mL amoxicillin 875 mg-potassium 1 tab PO BID 7 days #14 tabs 06/29/23 clavulanate 125 mg tablet aspirin 81 mg tablet,delayed 81 mg PO QAM 90 days #90 tabs 06/29/23 release atorvastatin 80 mg tablet 80 mg PO BEDTIME #90 tabs 06/29/23 docusate sodium 100 mg capsule 100 mg PO BID PRN constipation 30 06/29/23 (Colace) days #60 caps ezetimibe 10 mg tablet 10 mg PO DAILY 90 days #90 tabs 06/29/23 ibuprofen 800 mg tablet 800 mg PO TID PRN fever or pain 06/29/23 #60 tabs levothyroxine 100 mcg tablet 100 mcg PO DAILY 90 days #90 tabs 06/29/23 (Synthroid) lisinopril 20 2 tab PO QAM #180 tabs 06/29/23 mg-hydrochlorothiazide 12.5 mg tablet metformin 500 mg tablet,extended 500 mg PO BEDTIME #90 tabs 06/29/23 release 24 hr omeprazole 20 mg capsule,delayed 20 mg PO QAM #30 caps 06/29/23 release prazosin 2 mg capsule 2 mg PO BEDTIME #90 caps 06/29/23 verapamil 120 mg tablet,extended 120 mg PO QAM #90 tabs 06/29/23 release albuterol sulfate 90 mcg/actuation 2 puff PO Q6H PRN for wheezing 30 07/16/23 aerosol inhaler (Ventolin HFA) days #18 grams loratadine 10 mg tablet 10 mg PO DAILY PRN allergy 08/09/23 symptoms #20 tabs zolpidem 5 mg tablet 5 mg PO BEDTIME PRN sleep 30 days 09/05/23 #30 tabs amoxicillin 875 mg-potassium 1 tab PO Q12H 7 days #14 tabs 09/24/23 clavulanate 125 mg tablet ciprofloxacin 0.3 %-dexamethasone 4 drp otic (ear) right BID 7 days 09/24/23 0.1 % ear drops,suspension #7.5 mL (Ciprodex) Allergies Allergy/AdvReac Type Severity Reaction Status Date / Time No Known Allergies Allergy Verified 09/24/23 06:19 [No Known Allergies*] Review of Systems Review of Systems: Constitutional: No fever, chills, fatigue, night sweats, weight changes ENT/Mouth: No hearing loss, nasal congestion, sinus pain, rhinorrhea, sore throat, +ear pain Eyes: No eye pain, swelling, redness, vision changes, discharge Cardio: No chest pain, palpitations, GARCIA, orthopnea, peripheral edema Pulm: No SOB, cough, sputum, wheezing, dyspnea, hemoptysis GI: No nausea, vomiting, hematemesis, abdominal pain, diarrhea, constipation, hematochezia, melena : No irregular bleeding, dysuria, frequency, urgency, hesitancy, hematuria, flank pain, urinary flow changes, urinary incontinence or retention MSK: No back pain, neck pain, joint pain, myalgias Skin: No lesions, rashes Neuro: No weakness, numbness, paresthesias, LOC, dizziness, headache Psych: No anxiety/panic, depression, SI/HI, AH/VH All other systems reviewed and are negative. [facility] Past Medical History Attestation statement: The following information was validated with the patient. Source: old records reviewed and nursing notes reviewed Medical History Well woman exam Postmenopausal bleeding Microscopic hematuria Injury of ligament of hand Thumb injury Microalbuminuria Abnormal ultrasound of endometrium Pelvic pain in female Periumbilical pain Morbid obesity due to excess calories Mild recurrent major depression Vertigo Thoracic spine pain Hypothyroidism Facial abscess Autoimmune thyroiditis Dyslipidemia Increased BMI Hx of migraines Hx of vertigo Arthritis Hiatal hernia GERD (gastroesophageal reflux disease) Renal calculi Diabetes Asthma Sleep apnea HTN (hypertension) Surgical History History of hysteroscopy History of arthroscopy of left knee History of esophagogastroduodenoscopy (EGD) Hx of colonoscopy Hx of tonsillectomy Hx of total knee arthroplasty Family History Family History Father Stomach cancer Mother Stomach cancer Brother Stomach cancer Heart disease Sister Diabetes Breast cancer Social History Social History (Reviewed 09/24/23 @ 07:00 by DEVON Cerda Housing: Apartment Alcohol intake: never Comment: cramping Patient Tobacco Use Status: Former Tobacco user Tobacco use type: Cigarette Smoked in Last 30 Days: No e-Cigarette/Vaping Use: Never Used Second Hand Smoke Exposure: No Use of substances other than those prescribed or required for medical reasons: No Advance Directives: No Advance Directives Information Provided: Yes Do you have a plan to hurt others: No Plan service: No Current occupational status: disabled Current occupation: left hand dominant Current occupational exposures/hazards: No Cognitive needs: Yes Hearing needs: Yes Vision needs: Yes Physical Exam Vital Signs: Vital Signs: Last Vital Signs Temp 968.0 F H 09/24/23 06:57 Pulse 64 09/24/23 06:57 Resp 18 09/24/23 06:57 BP 179/73 H 09/24/23 06:57 Pulse Ox 98 09/24/23 06:57 O2 Del Method Room Air 09/24/23 06:57 BMI result Body Mass Index 39.1 Patient hypertensive, vitals otherwise WNL. Const: General: cooperative, healthy appearing, comfortable and no acute distress Orientation/consciousness: patient oriented x3 Limitations: no limitations HEENT: Other: + No pain on manipulation of left pinna or tragus. No mastoid tenderness. Left EAC without erythema, edema or discharge. TM intact without erythema, effusion, or bulging. + pain noted on manipulation of right pi nna . No mastoid tenderness or fluctuance. No protrusion of the pinna. Right EAC erythematous and edematous without discharge. TM intact, erythematous, and bulging. Head: Yes normal to inspection, Yes No palpable skull fracture present, Yes normocephalic and Yes atraumatic Ears: hearing grossly normal bilaterally Face and sinus: Yes normal facial exam and Yes sinuses nontender Eyes: General: appearance normal, both eyes and all related structures Pupils: Equal, round and reactive pupils present Neck: Neck: Yes normal visual inspection and Yes no lymphadenopathy Resp: Effort & Inspection: normal respiratory effort and able to speak in complete sentences Auscultation: clear to auscultation bilaterally Cardio: Rate: regular rate Rhythm: regular rhythm Skin: General skin exam: no rashes or lesions noted Neuro: General: patient oriented x3 and gait normal Cranial nerves: Yes Equal, round and reactive pupils present Course Course Course Narrative: 719-- Physical exam is consistent with otitis media and otitis externa of the right ear. I did discuss these findings with the patient. Will send augmentin along with ciprodex to pharmacy for treatment. I do not have any concern for malignant otitis externa or mastoiditis at this time. Advised to take tylenol/ motrin at home for pain/ discomfort. Patient has remained stable throughout ED visit today. Discussed worrisome signs and symptoms and when to return to the ED. All questions answered at this time. Patient is agreeable with disposition and stable for discharge. Medical Decision Making Medical Decision Making [facility] Narrative: 67-year-old female with past medical history significant for MATT and diabetes presents to the ED today for evaluation of right ear pain x3 days. Patient hypertensive, vitals otherwise WNL. Afebrile. She is nontoxic appearing in no acute distress. On exam, pain noted on manipulation of right pinna . No mastoid tenderness or fluctuance. No protrusion of the pinna. Right EAC erythematous and edematous without discharge. TM intact, erythematous, and bulging. No cervical LAD. Posterior oropharynx wnl. Differential diagnosis includes otitis media, otitis externa. Unlikely mastoiditis, malignant otitis externa. Plan for disposition. Differential Diagnosis Differential Diagnoses: The differential diagnosis associated with the presentation includes as above. Admission/Observation Not indicated External Record Review External record reviewed: Inpatient record Tests considered The following testing was considered but not selected: I considered obtaining imaging however no suspicion for deep tissue infection, not warranted at this time Prescription Management I considered prescription management with: Antibiotic Social Determinants Patient?s care significantly limited by Social Determinants of Health including: Other Social Determinant of Health Critical Care Time Critical Care Time Critical Care Time: No Discharge Plan Discharge Clinical Impression: External otitis of right ear, Otitis media of right ear Patient Disposition: Home, Self-Care Instructions: Otitis Externa (ED), Ear Infection (ED) Additional Instructions: You have an ear infection of your right ear. Ciprodex drops have been sent to your pharmacy for treatment. Instill 4 drops into the right ear every day for the next 7 days. Augmentin is an antibiotic that has been sent to your pharmacy. Take this twice daily for the next 7 days. Do not stop taking this early or skip any doses as this may cause infection to persist or worsen. On Augmentin, softer bowel movements are to be expected. Call your provider if you move your bowels more than 4 times a day, your bowel movements are almost all liquid, or you get a rash.? You may take Tylenol and ibuprofen as needed at home for fever/pain. Please follow-up with your primary care provider. Return with new or worsening symptoms. In the case of an emergency call 911. Prescriptions: New amoxicillin-pot clavulanate 875-125 mg tablet 1 tab PO Q12H 7 Days Qty: 14 0RF ciprofloxacin-dexamethasone [Ciprodex] 0.3-0.1 % drops,suspension 4 drp otic (ear) right BID 7 Days Qty: 7.5 0RF No Action miscellaneous medical supply Misc See Rx Instructions miscellaneous .COMPLEX Qty: 1 0RF Rx Instructions: 1 pair of diabetic shoes and inserts miscellaneous; (DME) blood-glucose meter [FreeStyle Lite Meter] Kit See Rx Instructions .Route Qty: 1 0RF Rx Instructions: As directed fluticasone propionate 50 mcg/actuation spray,suspension 1 spray intranasal DAILY Qty: 16 6RF gabapentin 300 mg capsule 300 mg PO BID 90 Days Qty: 180 3RF lancets [TRUEplus Lancets] 33 gauge misc 33 gauge miscellaneous TID Qty: 100 10RF FreeStyle Lite Strips Strip 1 strip miscellaneous BID 30 Days Qty: 50 9RF albuterol sulfate [Ventolin HFA] 90 mcg/actuation HFA aerosol inhaler 2 puff PO Q6H PRN (Reason: for wheezing) 30 Days Qty: 18 6RF loratadine 10 mg tablet 10 mg PO DAILY PRN (Reason: allergy symptoms) Qty: 20 0RF zolpidem 5 mg tablet 5 mg PO BEDTIME PRN (Reason: sleep) 30 Days Qty: 30 0RF fluoxetine 20 mg capsule 60 mg PO QAM clonazepam 1 mg tablet 0.500f1 mg PO BID PRN (Reason: anxiety) (DME) AeroEclipse II Nebulizer Misc See Rx Instructions .ROUTE .MEDSUPPLY Qty: 1 0RF Rx Instructions: As directed amitriptyline 25 mg tablet 25 mg PO BEDTIME (DME) diabetic shoes 8 See Rx Instructions .Route .MEDSUPPLY Qty: 1 0RF Rx Instructions: As directed amoxicillin-pot clavulanate 875-125 mg tablet 1 tab PO BID 7 Days Qty: 14 0RF acetaminophen 650 mg tablet extended release 650 mg PO Q8H PRN (Reason: fever or pain) 30 Days Qty: 90 2RF albuterol sulfate 2.5 mg /3 mL (0.083 %) solution for nebulization 2.5 mg inhalation Q4-6H PRN (Reason: shortness of breath or wheezing) 30 Days Qty: 15 5RF aspirin 81 mg tablet,delayed release (DR/EC) 81 mg PO QAM 90 Days Qty: 90 3RF atorvastatin 80 mg tablet 80 mg PO BEDTIME Qty: 90 2RF docusate sodium [Colace] 100 mg capsule 100 mg PO BID PRN (Reason: constipation) 30 Days Qty: 60 3RF ezetimibe 10 mg tablet 10 mg PO DAILY 90 Days Qty: 90 3RF levothyroxine [Synthroid] 100 mcg tablet 100 mcg PO DAILY 90 Days Qty: 90 0RF ibuprofen 800 mg tablet 800 mg PO TID PRN (Reason: fever or pain) Qty: 60 4RF lisinopril-hydrochlorothiazide 20-12.5 mg tablet 2 tab PO QAM Qty: 180 3RF metformin 500 mg tablet extended release 24 hr 500 mg PO BEDTIME Qty: 90 3RF omeprazole 20 mg capsule,delayed release(DR/EC) 20 mg PO QAM Qty: 30 6RF prazosin 2 mg capsule 2 mg PO BEDTIME Qty: 90 3RF verapamil 120 mg tablet extended release 120 mg PO QAM Qty: 90 3RF Referrals: Gemma Lee MD [Primary Care Provider] - Interventions: ED Discharge Assessment Last Done: 09/24/23 07:39 Discharge Date/Time: 09/24/23 07:39 Print Language: Slovak
[2023-09-24 07:39] VITALS: BP 179/73; PULSE 64; RESP 18; TEMP 37; O2SAT 98
== END 2023-09-24 07:39 | disposition home or self-care (01) ==
PROVIDERS: Emergency Provider Emergency Medicine; PCP Internal Medicine
DX: H60.91 Unspecified otitis externa, right ear (principal); H66.91 Otitis media, unspecified, right ear; Z79.899 Other long term (current) drug therapy
CPT/HCPCS: 99283; 99284

== ENCOUNTER 2023-10-02 13:19 | Outpatient (AMB) | payer OTHER, SELFPAY ==
--- NOTE | 2023-10-02 13:21 | A.OFFPC_ITS ---
Vital Signs 10/02/23 13:22 Height 5 ft Weight 214 lb BMI 41.8 BP 126/82 Blood Pressure [place] Lt brachial Position S[place] [facility] [place] Ear infection Paste Mixer Required: No Accompanied by: Self / Same As Patient Allergies No Known Allergies [No Known Allergies*] Allergy (Verified 10/02/23 13:34) Medication List - Last Reconciled 10/02/23 by Gemma Omer MD acetaminophen ER 650 mg PO Q8H PRN 30 days albuterol sulfate 2.5 mg (3 mL) inhalation Q4-6H PRN 30 days albuterol sulfate 90 mcg/actuation (Ventolin HFA) 2 puffs PO Q6H PRN 30 days amitriptyline 25 mg PO BEDTIME aspirin 81 mg PO QAM 90 days atorvastatin 80 mg PO BEDTIME blood sugar diagnostic (FreeStyle Lite Strips) 1 strip miscellaneous BID 30 days blood-glucose meter (FreeStyle Lite Meter kit) As directed clonazepam 0.500f1 mg PO BID PRN [diabetic shoes As directed] docusate sodium (Colace) 100 mg PO BID PRN 30 days ezetimibe 10 mg PO DAILY 90 days fluoxetine 60 mg PO QAM fluticasone propionate 50 mcg/actuation 1 spray intranasal DAILY gabapentin 300 mg PO BID 90 days ibuprofen 800 mg PO TID PRN lancets (TRUEplus Lancets) 33 gauge miscellaneous TID levothyroxine (Synthroid) 100 mcg PO DAILY 90 days lisinopril-hydrochlorothiazide 20-12.5 mg 2 tabs PO QAM loratadine 10 mg PO DAILY PRN metformin ER 500 mg PO BEDTIME miscellaneous medical supply 1 pair of diabetic shoes and inserts miscellaneous; nebulizers (AeroEclipse II Nebulizer) As directed omeprazole 20 mg PO QAM prazosin 2 mg PO BEDTIME verapamil ER 120 mg PO QAM zolpidem 5 mg PO BEDTIME PRN 30 days Tobacco use date assessed: 06/29/23 Fall risk assessment: No Falls in past year Last assessed Fall Risk: 10/02/23 Dental Screening Dental Screen Date: 06/29/23 HPI HPI Comments History of Present Illness Details This is a 67-year-old female with hypertension, autoimmune thyroiditis, morbid obesity, diabetes mellitus type 2 and mild recurrent major depression that comes today as ER discharge follow-up due to right otitis externa. She completed antibiotics and feels somewhat improved. She has multiple ear infections due to the use of hearing aids. Follows with ENT Dr. Donald for that matter. No fever. Blood pressure stable. Last TSH was normal. She is morbidly obese with a BMI of 41.8 and was advised to do diet and exercise to reach BMI goal less than 30. Depression well controlled with SSRIs and follow b y Psychiatry. A1c very close to goal. [facility] Medical History Well woman exam Postmenopausal bleeding Microscopic hematuria Injury of ligament of hand Thumb injury Microalbuminuria Abnormal ultrasound of endometrium Pelvic pain in female Periumbilical pain Morbid obesity due to excess calories Mild recurrent major depression Vertigo Thoracic spine pain Hypothyroidism Facial abscess Autoimmune thyroiditis Dyslipidemia Increased BMI Hx of migraines Hx of vertigo Arthritis Hiatal hernia GERD (gastroesophageal reflux disease) Renal calculi Diabetes Asthma Sleep apnea HTN (hypertension) Surgical History History of hysteroscopy History of arthroscopy of left knee History of esophagogastroduodenoscopy (EGD) Hx of colonoscopy Hx of tonsillectomy Hx of total knee arthroplasty Family History Father Stomach cancer Mother Stomach cancer Brother Stomach cancer Heart disease Sister Diabetes Breast cancer Social History Housing: Apartment Alcohol intake: never Comment: cramping Patient Tobacco Use Status: Former Tobacco user Tobacco use type: Cigarette e-Cigarette/Vaping Use: Never Used Second Hand Smoke Exposure: No service: No Current occupational status: disabled Current occupation: left hand dominant Current occupational exposures/hazards: No Cognitive needs: Yes Hearing needs: Yes Vision needs: Yes Female Reproductive History Menstrual Age of Menarche: 11 Questionnaire Thrive Questionnaire Date Thrive assessed: 06/29/23 JACOBO-7 AMB Questionnaire JACOBO-7 Date JACOBO - 7 assessed: 06/29/23 Source: Developed by Drs. Kishan Nolan, Palak Paul, Edmundo Rodriguez and colleagues, with an educational rob from [employer]. Review of Systems Const All systems reviewed & are unremarkable except as noted in HPI and below Card Denies chest pain at rest, Denies chest pain with activity, Denies edema, Denies irregular heart rhythm, Denies claudication, Denies dyspnea, Denies dyspnea on exertion, Denies orthopnea, Denies paroxysmal nocturnal dyspnea and Denies slow heart rate Resp Denies cough, Denies dyspnea and Denies dyspnea on exertion GI Denies abdominal pain, Denies change in bowel habits, Denies excessive flatus, Denies nausea and Denies vomiting Physical exam (Primary Care) Vital Signs: Last Vital Signs BP 126/82 10/02/23 13:22 BMI result Body Mass Index 41.8 Tobacco/Smoking Status: Tobacco use Status Tobacco use date assessed 06/29/23 10/02/23 13:29 Patient Tobacco Use Status Former Tobacco user 10/02/23 13:29 Tobacco use type Cigarette 10/02/23 13:29 e-Cigarette/Vaping Use Never Used 10/02/23 13:29 Thrive Assessment: Date of Thrive Assessment Date Thrive assessed 06/29/23 10/02/23 13:29 Resp Effort & Inspection: normal respiratory effort Auscultation: clear to auscultation bilaterally Cardio Jugular venous distension: no JVD Rate: regular rate Rhythm: regular rhythm Heart sounds: S1 normal heart sound present and S2 normal heart sound present Extrem General: Yes full ROM Results AMB Hemoglobin A1c AMB Hemoglobin A1c 7.1 % Last Edit by IRIS Ceballos on 10/02/23 13:3 4 Results Reviewed Results Reviewed: Laboratory Last Values Hgb A1c (Clinic) 7.1 % (4.0-6.0) H 10/02/23 13:21 Assessment and Plan Assessment & Plan (1) Diabetes mellitus: Code(s): E11.9 - Type 2 diabetes mellitus without complications Qualifiers: Diabetes mellitus type: type 2 Diabetes mellitus long term care phlebotomist insulin use: without long term care phlebotomist use Diabetes mellitus complication status: without c omplication Qualified Code(s): E11.9 - Type 2 diabetes mellitus without complications Plan: Continue metformin. A1c goal is equal or less than 7%. (2) Morbid obesity due to excess calories: Code(s): E66.01 - Morbid (severe) obesity due to excess calories Plan: Start diet and exercise. BMI goal is less than 30. Patient declines weight loss surgery. (3) Mild recurrent major depression: Code(s): F33.0 - Major depressive disorder, recurrent, mild Plan: Continue SSRIs. (4) Autoimmune thyroiditis: Code(s): E06.3 - Autoimmune thyroiditis Plan: Continue levothyroxine. Monitor TSH. (5) HTN (hypertension): Code(s): I10 - Essential (primary) hypertension Qualifiers: Hypertension type: essential hypertension Qualified Code(s): I10 - Essential (primary) hypertension Plan: Continue lisinopril-hydrochlorothiazide. Blood pressure goal is equal or less than 130/80. Orders: Orders AMB Hemoglobin A1c Today E11.9 - Type 2 diabetes mellitus without complications Complete Blood Count Auto Diff Today D64.9 - Anemia, unspecified IRON PROFILE Today D64.9 - Anemia, unspecified Microalbumin, Random (w Creat) Today E11.9 - Type 2 diabetes mellitus without complications Vitamin B12 and Folate Today E53.8 - Deficiency of other specified B group vitamins Thyroid Stimulating Hormone Today E06.3 - Autoimmune thyroiditis Lipid Panel Today E78.5 - Hyperlipidemia, unspecified Vitamin D 25-OH Total Today E55.9 - Vitamin D deficiency, unspecified Comprehensive [place]. Panel Fast Today E11.9 - Type 2 diabetes mellitus without complications Coding Level of Care Code Est Pt Level 4 (80293) Complex EM visit Add On G2211 Diagnoses Type 2 diabetes mellitus without complication, without long-term current use of insulin E11.9 Diabetes mellitus type: type 2 Diabetes mellitus alf insulin use: without alf use Diabetes mellitus complication status: without complication Morbid obesity due to excess calories E66.01 Mild recurrent major depression F33.0 Autoimmune thyroiditis E06.3 Essential hypertension I10 Hypertension type: essential hypertension Time Spent (min) 22
[2023-10-02 13:22] VITALS: BP 126/82; BMI 41.8
== END 2023-10-02 13:42 | disposition home or self-care (01) ==
PROVIDERS: PCP Internal Medicine; Visit Provider Internal Medicine
DX: E11.9 Type 2 diabetes mellitus without complications (principal); F33.0 Major depressive disorder, recurrent, mild; E06.3 Autoimmune thyroiditis; I10 Essential (primary) hypertension
CPT/HCPCS: 83036; 99214; G2211

== ENCOUNTER 2023-10-20 09:09 | Outpatient (AMB) | payer OTHER, SELFPAY ==
--- NOTE | 2023-10-20 09:24 | A.OFFVIS_ITS ---
Intake Visit Reasons: OV- LT shoulder pain last inj 08/15/23 Intake Note: Audrey is a 67 year old female who presents today for a repeat injection for her left shoulder, last inj 08/15/23. Patient reports her last injection lasted her less than 2 weeks. Allergies No Known Allergies [No Known Allergies*] Allergy (Verified 10/02/23 13:34) HPI HPI OV- LT shoulder pain last inj 08/15/23: Details: 67-year-old female who presents in the office today for a follow-up of left shoulder pain. I last saw the patient in the office on 08/15/23 when she received a cortisone injection in the left shoulder. ? ? While in the office today, the patient reports her last injection gave her less than two weeks of relief. ? ? Patient has a medical history of diabetes mellitus. ? [facility] Medical History Well woman exam Postmenopausal bleeding Microscopic hematuria Injury of ligament of hand Thumb injury Microalbuminuria Abnormal ultrasound of endometrium Pelvic pain in female Periumbilical pain Morbid obesity due to excess calories Mild recurrent major depression Vertigo Thoracic spine pain Hypothyroidism Facial abscess Autoimmune thyroiditis Dyslipidemia Increased BMI Hx of migraines Hx of vertigo Arthritis Hiatal hernia GERD (gastroesophageal reflux disease) Renal calculi Diabetes Asthma Sleep apnea HTN (hypertension) Surgical History History of hysteroscopy History of arthroscopy of left knee History of esophagogastroduodenoscopy (EGD) Hx of colonoscopy Hx of tonsillectomy Hx of total knee arthroplasty Family History Father Stomach cancer Mother Stomach cancer Brother Stomach cancer Heart disease Sister Diabetes Breast cancer Social History Housing: Apartment Alcohol intake: never Comment: cramping Patient Tobacco Use Status: Former Tobacco user Tobacco use type: Cigarette e-Cigarette/Vaping Use: Never Used Second Hand Smoke Exposure: No service: No Current occupational status: disabled Current occupation: left hand dominant Current occupational exposures/hazards: No Cognitive needs: Yes Hearing needs: Yes Vision needs: Yes Female Reproductive History Menstrual Age of Menarche: 11 Review of Systems Const All systems reviewed & are unremarkable except as noted in HPI and below Physical Exam Const General: cooperative, healthy appearing and no acute distress Resp Effort & Inspection: normal respiratory effort and able to speak in complete sentences Cardio Rate: regular rate Peripheral pulses: Peripheral pulses 2+ throughout GI Palpation (GI): Soft to palpation Skin Lesions: no lesions Rashes: no rashes Extrem Other: Left shoulder: Normal to inspection. No ecchymosis, erythema, or edema. Forward flexion and abduction to 90 degrees. Able to reach back pocket. Positive empty can. Positive cross-body reach. Negative drop arm. NVI. 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 Moses Jade is a 67-year-old female who presents in the office today for a follow-up of left shoulder pain. I last saw the patient in the office on 08/15/23 when she received a cortisone injection in the left shoulder. ? ? While in the office today, the patient reports her last injection gave her less than two weeks of relief. ? ? Patient has a medical history of diabetes mellitus.? ? The patient is currently too early for a repeat cortisone injection in the left shoulder. She is adamant to receive a regular cortisone injection of 80 mg. Since her A1c is trending down at 7.1 in 09/2023 I have agreed to do so with the strict understanding that the patient will need to closely monitor her glucose levels. A referral to Pain Management was made in the office today. We discussed obtaining an MRI of the left shoulder for possible surgical planning; however, the patient is not interested in surgical intervention at this time. Follow-up will be three months from her last cortisone injection, after 11/15/23, or sooner if needed. ? Orders: Referrals Pain Management Referral M75.102 - Unspecified rotator cuff tear or rupture of left shoulder, not specified as traumatic Patient Instructions: Scribed by Jocelyne Vides electromedical service engineer, for Jahaira Alfaro PA-C on 10/20/2023 at 9:13 am, EST.? Coding Level of Care Code Est Pt Level 3 (52096) Diagnoses Painful arc syndrome of left shoulder M75.102 Type 2 diabetes mellitus without complication, without long-term current use of insulin E11.9 Diabetes mellitus complication status: without complication Diabetes mellitus halfway insulin use: without halfway use Diabetes mellitus type: type 2
== END 2023-10-20 09:50 | disposition home or self-care (01) ==
PROVIDERS: PCP Internal Medicine; Visit Provider Physician Assistant
DX: M75.102 Unspecified rotator cuff tear or rupture of left shoulder, not specified as traumatic (principal); E11.9 Type 2 diabetes mellitus without complications
CPT/HCPCS: 99213

== ENCOUNTER → 2023-10-20 09:09 | Outpatient (BNVA) | payer OTHER, SELFPAY | PROVIDERS: PCP Internal Medicine; Visit Provider Physician Assistant | DX: M75.102 Unspecified rotator cuff tear or rupture of left shoulder, not specified as traumatic (principal) | CPT/HCPCS: 99212 ==

== ENCOUNTER 2023-10-23 08:27 | Outpatient (REF) | payer OTHER, SELFPAY ==
[2023-10-23 08:40] LABS: MANUAL DIFF FLAG NO
[2023-10-23 08:56] LABS: Basophils Absolute Auto 0.1 X10*3/uL (0.0-0.2); Basophils Percent Auto 0.6 % (0-2); Eosinophils Absolute Auto 0.2 X10*3/uL (0.0-0.4); Hematocrit 37.4 % (37.0-47.0); Hemoglobin 12.1 g/dl (12.0-16.0); Imm Gran Abs Auto 0.01 X10*3/uL (0.00-0.03); Imm Gran Pct Auto 0.1 % (0.0-0.4); Lymphocytes Absolute Auto 3.5 X10*3/uL (1.2-4.9); Lymphocytes Percent Auto 43.3 % (20-40); Mean Corpuscular HGB Conc 32.4 g/dl (31.0-35.0); Mean Corpuscular Hemoglobin 28.2 pg (27.0-33.0); Mean Corpuscular Volume 87.2 fL (80.0-98.0); Mean Platelet Volume 10.8 fL (9.4-12.3); Monocytes Absolute Auto 0.5 X10*3/uL (0.1-1.2); Monocytes Percent Auto 6.3 % (2-11); Neutrophils Absolute Auto 3.9 x10*3/uL (2.0-8.3); Neutrophils Percent Auto 47.7 % (45-73); Platelet Count 380 X10*3/uL (160-400); Red Blood Count 4.29 X10*6/uL (4.20-5.50); Red Cell Distribution Width 15.1 % (11.0-16.0); White Blood Count 8.2 X10*3/uL (4.8-10.8)
[2023-10-23 09:31] LABS: Creatinine Urine 191.02 mg/dL; Microalbum/Creatinine Ratio Ur 6.8 ug/mg cr (<30)
[2023-10-23 09:36] LABS: Alanine Aminotransferase 19 U/L (0-31); Albumin Level 4.1 g/dL (3.5-5.0); Alkaline Phosphatase 95 U/L (39-117); Anion Gap 12 (12-20); Aspartate Amino Transferase 18 U/L (5-31); Bilirubin Total 0.4 mg/dL (0.0-1.0); Blood Urea Nitrogen 12 mg/dL (9-16); Calcium 9.6 mg/dL (8.4-10.2); Carbon Dioxide 30 mmol/L (22-29); Chloride 102 mmol/L (96-108); Cholesterol 148 mg/dL (<200); Estimated Glomerular Filt Rate > 60; Glucose Fasting 155 mg/dL (60-99); HDL Cholesterol 42 mg/dL (>40); Iron 45 mcg/dL (30-160); LDL Cholesterol Calculated 85 mg/dL (<100); Percent Iron Saturation 16 % (15-50); Potassium 3.7 mmol/L (3.3-5.1); Sodium 140 mmol/L (135-145); Total Iron Binding Capacity 288 mcg/dL (228-428); Total Protein 8.1 g/dL (6.5-8.0); Triglycerides 107 mg/dL (<150); Unsaturated Iron Binding 243 ug/dL
[2023-10-23 09:52] LABS: Thyroid Stimulating Hormone 4.19 uIU/mL (0.32-4.0); Vitamin D 25-OH Total 47.3 ng/mL (>30)
[2023-10-23 10:46] LABS: Folate 9.6 ng/mL (> or = 4.0); Vitamin B12 627 pg/mL (200-900)
== END 2023-10-23 08:28 | disposition home or self-care (01) ==
LOC: HO.LAB 08:27
PROVIDERS: PCP Internal Medicine; Visit Provider Internal Medicine
DX: D64.9 Anemia, unspecified (principal); E78.5 Hyperlipidemia, unspecified; E06.3 Autoimmune thyroiditis; E11.65 Type 2 diabetes mellitus with hyperglycemia; E55.9 Vitamin D deficiency, unspecified; E11.9 Type 2 diabetes mellitus without complications; E53.8 Deficiency of other specified B group vitamins
CPT/HCPCS: 36415; 80053; 80061; 82043; 82306; 82570; 82607; 82746; 83540; 84443; 85025

== ENCOUNTER 2023-10-24 08:11 | Outpatient (AMB) | payer OTHER, SELFPAY ==
--- NOTE | 2023-10-24 08:34 | MHC.PC.OV ---
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 Accompanied by: Self / Same As Patient Allergies No Known Allergies [No Known Allergies*] Allergy (Verified 10/24/23 08:47) Medication List - Last Reconciled 10/24/23 by Gemma Omer MD acetaminophen ER 650 mg PO Q8H PRN 30 days albuterol sulfate 90 mcg/actuation (Ventolin HFA) 2 puffs PO Q6H PRN 30 days albuterol sulfate 2.5 mg (3 mL) inhalation Q4-6H PRN 30 days amitriptyline 25 mg PO BEDTIME aspirin 81 mg PO QAM 90 days atorvastatin 80 mg PO BEDTIME blood sugar diagnostic (FreeStyle Lite Strips) 1 strip miscellaneous BID 30 days blood-glucose meter (FreeStyle Lite Meter kit) As directed clonazepam 0.500f1 mg PO BID PRN [diabetic shoes As directed] docusate sodium (Colace) 100 mg PO BID PRN 30 days ezetimibe 10 mg PO DAILY 90 days fluoxetine 60 mg PO QAM fluticasone propionate 50 mcg/actuation 1 spray intranasal DAILY gabapentin 300 mg PO BID 90 days ibuprofen 800 mg PO TID PRN lancets (TRUEplus Lancets) 33 gauge miscellaneous TID levothyroxine (Synthroid) 100 mcg PO DAILY 90 days lisinopril-hydrochlorothiazide 20-12.5 mg 2 tabs PO QAM loratadine 10 mg PO DAILY PRN metformin ER 500 mg PO BEDTIME miscellaneous medical supply 1 pair of diabetic shoes and inserts miscellaneous; nebulizers (AeroEclipse II Nebulizer) As directed omeprazole 20 mg PO QAM prazosin 2 mg PO BEDTIME verapamil ER 120 mg PO QAM zolpidem 5 mg PO BEDTIME PRN 30 days Tobacco use date assessed: 06/29/23 Fall risk assessment: No Falls in past year Last assessed Fall Risk: 10/24/23 Dental Screening Dental Screen Date: 06/29/23 HPI HPI Comments History of Present Illness Details This is a 67-year-old female with mild recurrent major depression, morbid obesity and diabetes mellitus type 2 comes for her physical exam. Depression is follow by Psychiatry. She is morbidly obese with a BMI of 41.4 and declines weight loss surgery. Advised to do diet and exercise to reach BMI goal less than 30. A1c was very close to goal. Labs were discussed and her thyroid was abnormal and dose was increased to 112 mcg. TSH will be repeated in 6 weeks. DEXA scan done 2023 was normal. 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 [facility] Medical History (Updated 10/24/23 @ 10:47 by Gemma Omer MD) Well woman exam Postmenopausal bleeding Microscopic hematuria Injury of ligament of hand Thumb injury Microalbuminuria Abnormal ultrasound of endometrium Pelvic pain in female Periumbilical pain Morbid obesity due to excess calories Mild recurrent major depression Vertigo Thoracic spine pain Hypothyroidism Facial abscess Autoimmune thyroiditis Dyslipidemia Increased BMI Hx of migraines Hx of vertigo Arthritis Hiatal hernia GERD (gastroesophageal reflux disease) Renal calculi Diabetes Asthma Sleep apnea HTN (hypertension) Surgical History History of hysteroscopy History of arthroscopy of left knee History of esophagogastroduodenoscopy (EGD) Hx of colonoscopy Hx of tonsillectomy Hx of total knee arthroplasty Family History Father Stomach cancer Mother Stomach cancer Brother Stomach cancer Heart disease Sister Diabetes Breast cancer Social History Housing: Apartment Alcohol intake: never Comment: cramping Patient Tobacco Use Status: Former Tobacco user Tobacco use type: Cigarette e-Cigarette/Vaping Use: Never Used Second Hand Smoke Exposure: No service: No Current occupational status: disabled Current occupation: left hand dominant Current occupational exposures/hazards: No Cognitive needs: Yes Hearing needs: Yes Vision needs: Yes Female Reproductive History Menstrual Age of Menarche: 11 Questionnaire Thrive Questionnaire Date Thrive assessed: 06/29/23 JACOBO-7 AMB Questionnaire JACOBO-7 Date JACOBO - 7 assessed: 06/29/23 Source: Developed by Drs. Kishan Nolan, Palak Paul, Edmundo Rodriguez and colleagues, with an educational rob from [employer]. Review of Systems Const All systems reviewed & are unremarkable except as noted in HPI and below Card Denies chest pain at rest, Denies chest pain with activity, Denies edema, Denies irregular heart rhythm, Denies claudication, Denies dyspnea, Denies dyspnea on exertion, Denies orthopnea, Denies paroxysmal nocturnal dyspnea and Denies slow heart rate Resp Denies cough, Denies dyspnea and Denies dyspnea on exertion GI Denies abdominal pain, Denies change in bowel habits, Denies excessive flatus, Denies nausea and Denies vomiting Denies urinary incontinence, Denies urinary hesitancy and Denies urinary urgency Physical exam (Primary Care) Vital Signs: Last Vital Signs BP 130/82 10/24/23 08:36 BMI result Body Mass Index 41.4 Tobacco/Smoking Status: Tobacco use Status Tobacco use date assessed 06/29/23 10/24/23 08:35 Patient Tobacco Use Status Former Tobacco user 10/24/23 08:35 Tobacco use type Cigarette 10/24/23 08:35 e-Cigarette/Vaping Use Never Used 10/24/23 08:35 Thrive Assessment: Date of Thrive Assessment Date Thrive assessed 06/29/23 10/24/23 08:35 [facility] Head: Yes normal to inspection, Yes normocephalic and Yes atraumatic Ears: external ears normal Eyes General: appearance normal, both eyes and all related structures Eyelids: Yes eyelids normal Conjunctivae: conjunctivae normal Neck Neck: Yes normal visual inspection and Yes supple Resp Effort & Inspection: normal respiratory effort Auscultation: clear to auscultation bilaterally Cardio Jugular venous distension: no JVD Rate: regular rate Rhythm: regular rhythm Heart sounds: S1 normal heart sound present and S2 normal heart sound present GI Inspection: Yes normal to inspection Palpation (GI): Soft to palpation and nontender Auscultation: normal bowel sounds Skin General skin exam: no rashes or lesions noted Neuro General: no focal motor deficits Extrem General: Yes full ROM Psych Appearance: grossly normal Assessment and Plan Assessment & Plan (1) Physical exam: Code(s): Z00.00 - Encounter for general adult medical examination without abnormal findings Plan: Repeat in a year. (2) Mild recurrent major depression: Code(s): F33.0 - Major depressive disorder, recurrent, mild Plan: Continue SSRIs. Follow-up with psychiatry. (3) Morbid obesity due to excess calories: Code(s): E66.01 - Morbid (severe) obesity due to excess calories Plan: Start diet and exercise. BMI goal is less than 30. (4) Diabetes mellitus: Code(s): E11.9 - Type 2 diabetes mellitus without complications Qualifiers: Diabetes mellitus type: type 2 Diabetes mellitus longterm insulin use: without coastal/harbor defense officer use Diabetes mellitus complication status: without complication Qualified Code(s): E11.9 - Type 2 diabetes mellitus without complications Plan: Continue metformin. A1c goal is equal or less than 7%. Orders: Orders Microalbumin, Random (w Creat) 4 Months E11.9 - Type 2 diabetes mellitus without complications Thyroid Stimulating Hormone 6 Weeks E06.3 - Autoimmune thyroiditis Lipid Panel 4 Months E78.5 - Hyperlipidemia, unspecified Comprehensive [place]. Panel Fast 4 Months E11.9 - Type 2 diabetes mellitus without complications Referrals Gastroenterology Referral D36.9 - Benign neoplasm, unspecified site Medications: New levothyroxine 112 mcg PO DAILY 90 days 90 tabs 0RF Changed From zolpidem 5 mg PO BEDTIME 30 days PRN 30 tabs 0RF sleep To zolpidem Needs to discuss with Psychiatrist 5 mg PO BEDTIME 30 days PRN 30 tabs 0RF sleep Discontinued levothyroxine (Synthroid) Discontinued Reason: Patient Completed Course 100 mcg PO DAILY 90 days 90 tabs 0RF E06.3 - Autoimmune thyroiditis Coding Level of Care Code Est Pt Prev Care >65y(03183) Diagnoses Physical exam Z00.00 Mild recurrent major depression F33.0 Morbid obesity due to excess calories E66.01 Type 2 diabetes mellitus without complication, without long-term current use of insulin E11.9 Diabetes mellitus type: type 2 Diabetes mellitus longterm insulin use: without coastal/harbor defense officer use Diabetes mellitus complication status: without complication Time Spent (min) 33
[2023-10-24 08:36] VITALS: BP 130/82; BMI 41.4
== END 2023-10-24 09:02 | disposition home or self-care (01) ==
PROVIDERS: PCP Internal Medicine; Visit Provider Internal Medicine
DX: Z00.00 Encounter for general adult medical examination without abnormal findings (principal); F33.0 Major depressive disorder, recurrent, mild; E66.01 Morbid (severe) obesity due to excess calories; Z68.41 Body mass index [BMI] 40.0-44.9, adult; E11.9 Type 2 diabetes mellitus without complications
CPT/HCPCS: 99397

== ENCOUNTER 2023-10-31 09:05 | Outpatient (AMB) | payer OTHER, SELFPAY ==
[2023-10-31 09:22] VITALS: BP 164/72; PULSE 68; O2SAT 97; BMI 42.2
--- NOTE | 2023-10-31 09:22 | MHC.OFFVIS ---
Vital Signs 10/31/23 09:22 Height 5 ft Weight 216 lb BMI 42.2 BP 164/72 H Blood Pressure Location Rt brachial Position Sitting Pulse 68 Pulse Source Pulse Oximeter Pulse Oximetry (%) 97 Oxygen Delivery Method Room Air Intake Visit Reasons: rotator cuff tear/rupture of left shoulder Allergies No Known Allergies [No Known Allergies*] Allergy (Verified 10/31/23 09:25) Medication List - Last Reconciled 10/31/23 by Rebekah Renee acetaminophen ER 650 mg PO Q8H PRN 30 days albuterol sulfate 90 mcg/actuation (Ventolin HFA) 2 puffs PO Q6H PRN 30 days albuterol sulfate 2.5 mg (3 mL) inhalation Q4-6H PRN 30 days amitriptyline 25 mg PO BEDTIME aspirin 81 mg PO QAM 90 days atorvastatin 80 mg PO BEDTIME blood sugar diagnostic (FreeStyle Lite Strips) 1 strip miscellaneous BID 30 days blood-glucose meter (FreeStyle Lite Meter kit) As directed clonazepam 0.500f1 mg PO BID PRN [diabetic shoes As directed] docusate sodium (Colace) 100 mg PO BID PRN 30 days ezetimibe 10 mg PO DAILY 90 days fluoxetine 60 mg PO QAM fluticasone propionate 50 mcg/actuation 1 spray intranasal DAILY gabapentin 300 mg PO BID 90 days ibuprofen 800 mg PO TID PRN lancets (TRUEplus Lancets) 33 gauge miscellaneous TID levothyroxine 112 mcg PO DAILY 90 days lisinopril-hydrochlorothiazide 20-12.5 mg 2 tabs PO QAM loratadine 10 mg PO DAILY PRN metformin ER 500 mg PO BEDTIME miscellaneous medical supply 1 pair of diabetic shoes and inserts miscellaneous; nebulizers (AeroEclipse II Nebulizer) As directed omeprazole 20 mg PO QAM prazosin 2 mg PO BEDTIME verapamil ER 120 mg PO QAM zolpidem 5 mg PO BEDTIME PRN 30 days HPI Comments Details: Audrey is a very pleasant 67-year-old female who presents the office today for evaluation management of her left shoulder pain. She is left-hand dominant, has been suffering with this pain for many years. Patient has been under the care of [facility], received multiple steroid injections. Most recent was a couple weeks ago with very minimal improvement of her pain, relief lasted only a couple of days. Patient has undergone multiple attempts at physical therapy with no improvement. Denies history of surgery to that shoulder. Has been taking Motrin with minimal improvement of her pain. She also takes gabapentin and Tylenol with minimal improvement. Pain today is rated as an 8/10, constant. Pain is worse with movement and use of the left arm. Very bothersome with activities of daily living as she is left-hand dominant. In terms of muscle damage condition is described as aching. Pain is negatively impacting patient's general activity, mood, normal work, sleep and recreational activities. Per most recent orthopedic note patient is not ready to proceed with surgical intervention. This was discussed with her today, she continues to decline proceeding with surgery through Orthopedics without exhausting all other options. COUNTS INCLUDE 234 BEDS AT [facility] Medical History Well woman exam Postmenopausal bleeding Microscopic hematuria Injury of ligament of hand Thumb injury Microalbuminuria Abnormal ultrasound of endometrium Pelvic pain in female Periumbilical pain Morbid obesity due to excess calories Mild recurrent major depression Vertigo Thoracic spine pain Hypothyroidism Facial abscess Autoimmune thyroiditis Dyslipidemia Increased BMI Hx of migraines Hx of vertigo Arthritis Hiatal hernia GERD (gastroesophageal reflux disease) Renal calculi Diabetes Asthma Sleep apnea HTN (hypertension) Surgical History History of hysteroscopy History of arthroscopy of left knee History of esophagogastroduodenoscopy (EGD) Hx of colonoscopy Hx of tonsillectomy Hx of total knee arthroplasty Family History Father Stomach cancer Mother Stomach cancer Brother Stomach cancer Heart disease Sister Diabetes Breast cancer Social History Housing: Apartment Alcohol intake: never Comment: cramping Patient Tobacco Use Status: Former Tobacco user Tobacco use type: Cigarette e-Cigarette/Vaping Use: Never Used Second Hand Smoke Exposure: No service: No Current occupational status: disabled Current occupation: left hand dominant Current occupational exposures/hazards: No Cognitive needs: Yes Hearing needs: Yes Vision needs: Yes Female Reproductive History Menstrual Age of Menarche: 11 Review of Systems Const All systems reviewed & are unremarkable except as noted in HPI and below Physical Exam Vital Signs: Last Vital Signs Pulse 68 10/31/23 09:22 BP 164/72 H 10/31/23 09:22 Pulse Ox 97 10/31/23 09:22 Oxygen Delivery Method Room Air 10/31/23 09:22 BMI result Body Mass Index 42.2 General: awake, alert, oriented. Answers questions appropriately. Fully engaged in examination. Skin: warm, dry, intact HEENT: Normocephalic. Hearing intact. Cardiac: External chest normal in appearance. Respiratory: No cough, audible wheezing or stridor. Abdomen: without gross distension. MS: No obvious swelling or deformities of the right shoulder. Limited range of motion, pain with overhead reaching behind the back reach. Neurological: Oriented to person, place, time and situation. Thought process intact. No gait abnormalities appreciated. Psychiatric: Appropriate mood and affect. Good judgment and insight. Quality Reporting (2019) Adult ([facility] 138/05/04/[birth year]) Smoking risk assessment performed?: Yes Patient Tobacco Use Status: Former Tobacco user Results Reviewed Results Reviewed: 08/15/23: XR/XR shoulder LT min 2V FINDINGS: Moderate arthritic changes at the glenohumeral and acromioclavicular joints redemonstrated. Small subacromial spur. Possible left cervical rib as previously noted. Hypertrophic change along the greater tuberosity IMPRESSION: 1. Moderate arthritic changes at the glenohumeral and acromioclavicular joints redemonstrated. 2. Possible left cervical rib as previously noted. Assessment & Plan Assessment & Plan (1) Painful arc syndrome of left shoulder: Code(s): M75.102 - Unspecified rotator cuff tear or rupture of left shoulder, not specified as traumatic Category: Medical (2) Left shoulder pain: Code(s): M25.512 - Pain in left shoulder Category: Medical Plan Audrey is a very pleasant 67-year-old female who presented to the office today for evaluation management of her chronic left shoulder pain. Patient has exhausted conservative therapy including multiple attempts at PT, steroid injections, nonsteroidal anti-inflammatory medications all without improvement of her pain. Discussed options for treatment including diagnostic interventional testing, steroid injections, peripheral nerve stimulation with Sprint, RFA and more permanent neuromodulation. Informational pamphlets provided. Will schedule for fluoroscopy guided left suprascapular nerve block with local anesthetic. If patient reports good results with plan for left suprascapular sprint peripheral nerve stimulator. All questions and concerns have been answered and patient agrees with the plan. Follow up after injections and sooner if needed. Coding Level of Care Code New Pt Level 4 (36040) Diagnoses Painful arc syndrome of left shoulder M75.102 Left shoulder pain M25.512
== END 2023-10-31 10:07 | disposition home or self-care (01) ==
PROVIDERS: PCP Internal Medicine; Visit Provider Registered Nurse Emergency
DX: M75.102 Unspecified rotator cuff tear or rupture of left shoulder, not specified as traumatic (principal); M25.512 Pain in left shoulder
CPT/HCPCS: 99204

== ENCOUNTER → 2023-10-31 09:05 | Outpatient (BNVA) | payer OTHER, SELFPAY | PROVIDERS: PCP Internal Medicine; Visit Provider Registered Nurse Emergency | DX: M75.102 Unspecified rotator cuff tear or rupture of left shoulder, not specified as traumatic (principal); M25.512 Pain in left shoulder | CPT/HCPCS: 99202 ==

== ENCOUNTER 2023-12-05 09:57 | Outpatient (AMB) | payer OTHER, SELFPAY ==
--- NOTE | 2023-12-05 10:07 | A.OFFVIS_ITS ---
Vital Signs 12/05/23 10:08 Height 5 ft Weight 213 lb 13.574 oz BMI 41.8 Intake Visit Reasons: DEXA follow up Allergies No Known Allergies [No Known Allergies*] Allergy (Verified 10/31/23 09:25) HPI Comments Details: The patient is presenting for follow up regarding DEXA scan results. T score @ spine and femoral Neck respectively were=0.5 /-0.9 and 10 year FRAX risk for severe osteoporosis and fracture was not calculated. [facility] Medical History Well woman exam Postmenopausal bleeding Microscopic hematuria Injury of ligament of hand Thumb injury Microalbuminuria Abnormal ultrasound of endometrium Pelvic pain in female Periumbilical pain Morbid obesity due to excess calories Mild recurrent major depression Vertigo Thoracic spine pain Hypothyroidism Facial abscess Autoimmune thyroiditis Dyslipidemia Increased BMI Hx of migraines Hx of vertigo Arthritis Hiatal hernia GERD (gastroesophageal reflux disease) Renal calculi Diabetes Asthma Sleep apnea HTN (hypertension) Surgical History History of hysteroscopy History of arthroscopy of left knee History of esophagogastroduodenoscopy (EGD) Hx of colonoscopy Hx of tonsillectomy Hx of total knee arthroplasty Family History Father Stomach cancer Mother Stomach cancer Brother Stomach cancer Heart disease Sister Diabetes Breast cancer Social History Housing: Apartment Alcohol intake: never Comment: cramping Patient Tobacco Use Status: Former Tobacco user Tobacco use type: Cigarette e-Cigarette/Vaping Use: Never Used Second Hand Smoke Exposure: No service: No Current occupational status: disabled Current occupation: left hand dominant Current occupational exposures/hazards: No Cognitive needs: Yes Hearing needs: Yes Vision needs: Yes Female Reproductive History Menstrual Age of Menarche: 11 Review of Systems Const All systems reviewed & are unremarkable except as noted in HPI and below Reports as per HPI and Reports no additional complaints GI Reports no additional complaints Reports no additional complaints Quality Reporting (2019) Adult ([facility] 138//) Smoking risk assessment performed?: Yes Patient Tobacco Use Status: Former Tobacco user Assessment & Plan Assessment & Plan (1) Osteopenia: Code(s): M85.80 - Other specified disorders of bone density and structure, unspecified site Category: Medical Plan: Discussed with the patient the DEXA results and FRAX risk. FRAX risk and T score showed no evidence of osteoporosis. Discussed with the patient all the options for osteoporosis prevention including lifestyle modifications including Ca+D supplements 1200 mg po qd/800 MIU, Weight bearing exercises and proteine supplements. The patient verbalized understanding and agreed plan will repeat DEXA in 2 years. Coding Level of Care Code Est Pt Level 3 (58045) Diagnoses Osteopenia M85.80
[2023-12-05 10:08] VITALS: BMI 41.8
== END 2023-12-05 10:14 | disposition home or self-care (01) ==
LOC: HO.HWS 09:57
PROVIDERS: PCP Internal Medicine; Visit Provider Obstetrics & Gynecology
DX: M85.80 Other specified disorders of bone density and structure, unspecified site (principal)
CPT/HCPCS: 99213

== ENCOUNTER 2023-12-05 09:57 | Outpatient (REF) | payer OTHER, SELFPAY ==
[2023-12-05 11:19] LABS: Alanine Aminotransferase 24 U/L (0-31); Alkaline Phosphatase 97 U/L (39-117); Anion Gap 12 (12-20); Aspartate Amino Transferase 21 U/L (5-31); Bilirubin Total 0.3 mg/dL (0.0-1.0); Blood Urea Nitrogen 16 mg/dL (9-16); Calcium 9.2 mg/dL (8.4-10.2); Carbon Dioxide 26 mmol/L (22-29); Chloride 104 mmol/L (96-108); Cholesterol 125 mg/dL (<200); Estimated Glomerular Filt Rate > 60; Glucose Fasting 129 mg/dL (60-99); HDL Cholesterol 39 mg/dL (>40); LDL Cholesterol Calculated 61 mg/dL (<100); Potassium 3.6 mmol/L (3.3-5.1); Sodium 138 mmol/L (135-145); Triglycerides 129 mg/dL (<150)
[2023-12-05 11:23] LABS: Thyroid Stimulating Hormone 0.27 uIU/mL (0.32-4.0)
[2023-12-05 12:20] LABS: Creatinine Urine 164.59 mg/dL; Microalbum/Creatinine Ratio Ur 9.1 ug/mg cr (<30)
== END 2023-12-05 09:58 | disposition home or self-care (01) ==
LOC: HO.LAB 09:57
PROVIDERS: Absent Provider Internal Medicine; PCP Internal Medicine; Visit Provider Obstetrics & Gynecology
DX: M85.80 Other specified disorders of bone density and structure, unspecified site (principal); E11.9 Type 2 diabetes mellitus without complications; E78.5 Hyperlipidemia, unspecified; E06.3 Autoimmune thyroiditis
CPT/HCPCS: 36415; 80053; 80061; 82043; 82570; 84443; 99212

== ENCOUNTER 2023-12-19 13:28 | Outpatient (AMB) | payer OTHER, SELFPAY ==
--- NOTE | 2023-12-19 13:35 | MHC.OFFVIS ---
Intake Visit Reasons: OV- LT shoulder pain last inj 08/15/23 Intake Note: Audrey is a 67 year old left hand dominant female who presents today for a repeat injection for her left shoulder, last inj 08/15/23. Patient reports she had mild relief with her last injection but she is requesting to repeat her injection. Allergies No Known Allergies [No Known Allergies*] Allergy (Verified 12/19/23 13:38) HPI HPI OV- LT shoulder pain last inj 08/15/23: Details: 68-year-old left hand dominant female who presents in the office today for a follow-up of left shoulder pain. I last saw the patient in the office on 10/20/23 when we deferred repeat cortisone injection as the patient was too early for it. She was referred to Pain Management. The patient was not interested in surgical intervention at that time. She was seen by Kusum Schwartz APRN at Pain Management on 10/31/23 and was scheduled for fluoroscopy guided left suprascapular nerve block with local anesthetic. While in the office today, the patient reports that her last injection provided mild relief; however, she is requesting to have a repeat injection today. Patient has a medical history of diabetes mellitus. [facility] Medical History Well woman exam Postmenopausal bleeding Microscopic hematuria Injury of ligament of hand Thumb injury Microalbuminuria Abnormal ultrasound of endometrium Pelvic pain in female Periumbilical pain Morbid obesity due to excess calories Mild recurrent major depression Vertigo Thoracic spine pain Hypothyroidism Facial abscess Autoimmune thyroiditis Dyslipidemia Increased BMI Hx of migraines Hx of vertigo Arthritis Hiatal hernia GERD (gastroesophageal reflux disease) Renal calculi Diabetes Asthma Sleep apnea HTN (hypertension) Surgical History History of hysteroscopy History of arthroscopy of left knee History of esophagogastroduodenoscopy (EGD) Hx of colonoscopy Hx of tonsillectomy Hx of total knee arthroplasty Family History Father Stomach cancer Mother Stomach cancer Brother Stomach cancer Heart disease Sister Diabetes Breast cancer Social History Housing: Apartment Alcohol intake: never Comment: cramping Patient Tobacco Use Status: Former Tobacco user Tobacco use type: Cigarette e-Cigarette/Vaping Use: Never Used Second Hand Smoke Exposure: No service: No Current occupational status: disabled Current occupation: left hand dominant Current occupational exposures/hazards: No Cognitive needs: Yes Hearing needs: Yes Vision needs: Yes Female Reproductive History Menstrual Age of Menarche: 11 Review of Systems Const All systems reviewed & are unremarkable except as noted in HPI and below Physical Exam Const General: cooperative, healthy appearing and no acute distress Resp Effort & Inspection: normal respiratory effort and able to speak in complete sentences Cardio Rate: regular rate Peripheral pulses: Peripheral pulses 2+ throughout GI Palpation (GI): Soft to palpation Skin Lesions: no lesions Rashes: no rashes Extrem Other: Left shoulder: Normal to inspection. No ecchymosis, erythema, or edema. Forward flexion and abduction to 90 degrees. Able to reach back pocket. Positive empty can. Positive cross-body reach. Negative drop arm. NVI. Office Procedures Joint Injection/Aspiration Joint Injection/Aspiration Primary Site: left shoulder Prep: site was prepped using aseptic technique, ethochloride spray was applied and injection warnings given Injected: 80 mg of, DepoMedrol, with 8 mL of (2% plain lido ) and in the subcromial space Approach Used: posterolateral Procedure: The patient tolerated the procedure well, but had some pain with the injection and there was some relief with the local anesthesia Coding 73144 - Large joint Procedure code (CPT) selection complete Quality Reporting (2019) Adult ([facility] ) Smoking risk assessment performed?: Yes Patient Tobacco Use Status: Former Tobacco user Assessment & Plan Assessment & Plan (1) Painful arc syndrome of left shoulder: Code(s): M75.102 - Unspecified rotator cuff tear or rupture of left shoulder, not specified as traumatic Category: Medical (2) Diabetes mellitus: Code(s): E11.9 - Type 2 diabetes mellitus without complications Category: Medical Qualifiers: Diabetes mellitus complication status: without complication Diabetes mellitus intermediate frame tender insulin use: without intermediate frame tender use Diabetes mellitus type: type 2 Qualified Code(s): E11.9 - Type 2 diabetes mellitus without complications Plan Mr. Moses Jade is a 68-year-old left hand dominant female who presents in the office today for a follow-up of left shoulder pain. I last saw the patient in the office on 10/20/23 when we deferred repeat cortisone injection as the patient was too early for it. She was referred to Pain Management. The patient was not interested in surgical intervention at that time. She was seen by Kusum Schwartz APRN at Pain Management on 10/31/23 and was scheduled for fluoroscopy guided left suprascapular nerve block with local anesthetic. While in the office today, the patient reports that her last injection provided mild relief; however, she is requesting to have a repeat injection today. Patient has a medical history of diabetes mellitus. The patient was offered a cortisone injection in the left shoulder with 80 mg of Depo-Medrol. The patient was explained the risks, benefits, and alternatives to receiving this injection. After receiving consent for the injection, the patient had the procedure done while in the office today. The patient tolerated the procedure well with no complication. Due to the patient?s history of diabetes, they were instructed to monitor her blood glucose level. The patient was informed that they could see a rise in their numbers and if the numbers became too high, they were instructed to call their pcp. The patient was also informed that they could have facial flushing as a side effect of the injection, but this will pass. Patient Instructions: Scribed by Brittany Henderson medical driver, for Jahaira Alfaro PA-C on 12/19/23 at 1:50 pm EST. Coding Level of Care Code Est Pt Level 4 (82542) Diagnoses Painful arc syndrome of left shoulder M75.102 Type 2 diabetes mellitus without complication, without long-term current use of insulin E11.9 Diabetes mellitus complication status: without complication Diabetes mellitus alf insulin use: without intermediate frame tender use Diabetes mellitus type: type 2 CPT Codes Coding - 58667 Large joint: 06954 - Large joint ([id number])
== END 2023-12-19 13:56 | disposition home or self-care (01) ==
PROVIDERS: PCP Internal Medicine; Visit Provider Physician Assistant
DX: M75.102 Unspecified rotator cuff tear or rupture of left shoulder, not specified as traumatic (principal); E11.9 Type 2 diabetes mellitus without complications
CPT/HCPCS: 20610; 99214

== ENCOUNTER → 2023-12-19 13:28 | Outpatient (BNVA) | payer OTHER, SELFPAY | PROVIDERS: PCP Internal Medicine; Visit Provider Physician Assistant | DX: M75.102 Unspecified rotator cuff tear or rupture of left shoulder, not specified as traumatic (principal); E11.9 Type 2 diabetes mellitus without complications | CPT/HCPCS: 20610; 99212; J1010; J2003 ==

== ENCOUNTER 2023-12-26 06:26 | Outpatient (REF) | payer OTHER, SELFPAY | END 2023-12-26 06:27 | disposition home or self-care (01) | LOC: CF 06:26 | PROVIDERS: Visit Provider Anesthesiology | DX: Z13.89 Encounter for screening for other disorder (principal) ==

== ENCOUNTER 2024-01-18 09:35 | Outpatient (AMB) | payer OTHER, SELFPAY ==
--- NOTE | 2024-01-18 10:32 | AM.OFFWIN_ITS ---
Intake Vital Signs 01/18/24 10:35 Height 5 ft Weight 211 lb BMI 41.2 BP 130/100 H Pulse 63 Pulse Source Pulse Oximeter Pulse Oximetry (%) 97 Oxygen Delivery Method Room Air Intake Visit Reasons: EP Sore in nose Intake Note: Patient here for sore inside nose that has been present for 1 week. Patient Tobacco Use Status: Former Tobacco user Allergies No Known Allergies [No Known Allergies*] Allergy (Verified 01/18/24 10:34) Do you need a note to return to daycare/school/sports/work: No HPI EP Sore in nose HPI Details This note is constructed using voice recognition software. While every effort has been made to ensure accuracy, pilot control operator errors may have been included. The patient is a 68 year old female who presents to the clinic today with sore in her nose for the past week. She reports that she has tried [id number] antibacterial ointment and saline spray which has not seem to resolve the area. She reports the area to be slightly tender. She denies fever, chills, cough, shortness of breath, or other URI symptoms. She denies any difficulty breathing. [facility] Medical History Well woman exam Postmenopausal bleeding Microscopic hematuria Injury of ligament of hand Thumb injury Microalbuminuria Abnormal ultrasound of endometrium Pelvic pain in female Periumbilical pain Morbid obesity due to excess calories Mild recurrent major depression Vertigo Thoracic spine pain Hypothyroidism Facial abscess Autoimmune thyroiditis Dyslipidemia Increased BMI Hx of migraines Hx of vertigo Arthritis Hiatal hernia GERD (gastroesophageal reflux disease) Renal calculi Diabetes Asthma Sleep apnea HTN (hypertension) Surgical History History of hysteroscopy History of arthroscopy of left knee History of esophagogastroduodenoscopy (EGD) Hx of colonoscopy Hx of tonsillectomy Hx of total knee arthroplasty Family History Father Stomach cancer Mother Stomach cancer Brother Stomach cancer Heart disease Sister Diabetes Breast cancer Social History Housing: Apartment Alcohol intake: never Comment: cramping Patient Tobacco Use Status: Former Tobacco user Tobacco use type: Cigarette e-Cigarette/Vaping Use: Never Used Second Hand Smoke Exposure: No service: No Current occupational status: disabled Current occupation: left hand dominant Current occupational exposures/hazards: No Cognitive needs: Yes Hearing needs: Yes Vision needs: Yes Female Reproductive History Menstrual Age of Menarche: 11 Review of Systems Const All systems reviewed & are unremarkable except as noted in HPI and below Physical Exam Vital Signs: Last Vital Signs Pulse 63 01/18/24 10:35 BP 130/100 H 01/18/24 10:35 Pulse Ox 97 01/18/24 10:35 Oxygen Delivery Method Room Air 01/18/24 10:35 BMI result Body Mass Index 41.2 Const General: cooperative, healthy appearing, comfortable, no acute distress and well developed Orientation/consciousness: patient oriented x3 Limitations: no limitations HEENT Other: 2 mm abscess to right Nares with minimal erythema, no discharge or warmth. Head: Yes normal to inspection Ears: hearing grossly normal bilaterally General nose exam: Normal external nose present Face and sinus: Yes normal facial exam Eyes General: appearance normal, both eyes and all related structures Neck Neck: Yes normal visual inspection and Yes full ROM Resp Effort & Inspection: normal respiratory effort and able to speak in complete sentences Auscultation: clear to auscultation bilaterally Cardio Rate: regular rate Rhythm: regular rhythm Heart sounds: normal S1 and S2 Skin General skin exam: no rashes or lesions noted Neuro General: patient oriented x3 Assessment & Plan Assessment & Plan (1) Nasal vestibulitis: Code(s): J34.89 - Other specified disorders of nose and nasal sinuses Plan: Topical antibiotic ointment sent to requested pharmacy. Advised patient to mo nitor for improvement or failure to resolve and follow up with PCP if no improvement. Plan See above for full details and plan. Medications: New mupirocin 2% 1 appl topical TID 7 days 15 grams 0RF Coding Level of Care Code Est Pt Level 3 (77084) Diagnoses Nasal vestibulitis J34.89
[2024-01-18 10:35] VITALS: BP 130/100; PULSE 63; O2SAT 97; BMI 41.2
== END 2024-01-18 10:50 | disposition home or self-care (01) ==
PROVIDERS: PCP Internal Medicine; Visit Provider Registered Nurse
DX: J34.89 Other specified disorders of nose and nasal sinuses (principal)

== ENCOUNTER → 2024-01-18 09:35 | Outpatient (BNVA) | payer OTHER, SELFPAY | PROVIDERS: PCP Internal Medicine; Visit Provider Registered Nurse | DX: J34.89 Other specified disorders of nose and nasal sinuses (principal) | CPT/HCPCS: 99212 ==

== ENCOUNTER 2024-03-25 08:47 | Outpatient (REF) | payer OTHER, SELFPAY ==
[2024-03-25 09:43] LABS: Creatinine Urine 275.89 mg/dL; Microalbum/Creatinine Ratio Ur 7.2 ug/mg cr (<30)
[2024-03-25 09:45] LABS: Alanine Aminotransferase 23 U/L (0-31); Albumin Level 3.9 g/dL (3.5-5.0); Alkaline Phosphatase 84 U/L (39-117); Anion Gap 10 (12-20); Aspartate Amino Transferase 31 U/L (5-31); Bilirubin Total 0.4 mg/dL (0.0-1.0); Blood Urea Nitrogen 13 mg/dL (9-16); Calcium 8.8 mg/dL (8.4-10.2); Carbon Dioxide 29 mmol/L (22-29); Chloride 107 mmol/L (96-108); Cholesterol 137 mg/dL (<200); Estimated Glomerular Filt Rate > 60; Glucose Fasting 135 mg/dL (60-99); HDL Cholesterol 39 mg/dL (>40); LDL Cholesterol Calculated 69 mg/dL (<100); Potassium 3.5 mmol/L (3.3-5.1); Sodium 142 mmol/L (135-145); Total Protein 7.7 g/dL (6.5-8.0); Triglycerides 145 mg/dL (<150)
== END 2024-03-25 08:48 | disposition home or self-care (01) ==
LOC: HO.LAB 08:47
PROVIDERS: PCP Internal Medicine; Visit Provider Internal Medicine
DX: E78.5 Hyperlipidemia, unspecified (principal); E11.9 Type 2 diabetes mellitus without complications
CPT/HCPCS: 36415; 80053; 80061; 82043; 82570

== ENCOUNTER 2024-03-26 10:40 | Outpatient (AMB) | payer OTHER, SELFPAY ==
--- NOTE | 2024-03-26 11:02 | MHC.PC.OV ---
Vital Signs 03/26/24 11:04 Height 5 ft Weight 210 lb BMI 41.0 BP 152/90 H Blood Pressure Location Lt brachial Position Sitting Intake Visit Reasons: dm Intake Note: Patient here for a follow up DM Cardiac Nurse Specialist Required: No Accompanied by: Self / Same As Patient Allergies No Known Allergies [No Known Allergies*] Allergy (Verified 03/26/24 11:34) Medication List - Last Reconciled 03/26/24 by Gemma Omer MD acetaminophen ER 650 mg PO Q8H PRN 30 days albuterol sulfate 2.5 mg (3 mL) inhalation Q4-6H PRN 30 days albuterol sulfate 90 mcg/actuation (Ventolin HFA) 2 puffs PO Q6H PRN 30 days amitriptyline 25 mg PO BEDTIME aspirin 81 mg PO QAM 90 days atorvastatin 80 mg PO BEDTIME blood sugar diagnostic (FreeStyle Lite Strips) 1 strip miscellaneous BID 30 days blood-glucose meter (FreeStyle Lite Meter kit) As directed clonazepam 0.500f1 mg PO BID PRN [diabetic shoes As directed] docusate sodium (Colace) 100 mg PO BID PRN 30 days ezetimibe 10 mg PO DAILY 90 days fluoxetine 60 mg PO QAM fluticasone propionate 50 mcg/actuation 1 spray intranasal DAILY gabapentin 300 mg PO BID 90 days ibuprofen 800 mg PO TID PRN lancets (TRUEplus Lancets) 33 gauge miscellaneous TID levothyroxine 112 mcg PO DAILY 90 days lisinopril-hydrochlorothiazide 20-12.5 mg 2 tabs PO QAM loratadine 10 mg PO DAILY PRN metformin ER 500 mg PO BEDTIME miscellaneous medical supply 1 pair of diabetic shoes and inserts miscellaneous; mupirocin 2% 1 appl topical TID 7 days nebulizers (AeroEclipse II Nebulizer) As directed omeprazole 20 mg PO QAM prazosin 2 mg PO BEDTIME verapamil ER 120 mg PO QAM zolpidem 5 mg PO BEDTIME PRN 30 days Tobacco use date assessed: 03/26/24 Fall risk assessment: No Falls in past year Last assessed Fall Risk: 03/26/24 Dental Screening Dental Screen Date: 03/26/24 Did you have a dental visit in the last 12 months?: No Did you have a dental problem in the last 6 months where you did not have access to dental care?: No Was dental information given to patient?: Patient has dentist HPI HPI Comments History of Present Illness Details The patient is a 68-year-old female presenting for a follow-up of her chronic conditions. She has been diagnosed with Type 2 Diabetes Mellitus, currently with an A1c of 7.1, which is slightly above the goal of 7. She continues taking Metformin once daily. Her blood glucose levels have been noted at 137. She reports a history of hypothyroidism managed with Levothyroxine 112 mg daily, but recent lab work did not assess thyroid function, necessitating repeat testing. Her hypertension is primarily controlled with Lisinopril, though she did not take her dose today. Additionally, she is treated for hyperlipidemia with Atorvastatin 80 mg and Ezetimibe 10 mg, reporting good cholesterol levels. The patient requests a medication change for her GERD from Omeprazole to Pantoprazole, describing symptoms of significant acid reflux that is poorly controlled, impacting her dietary choices. She denies any drug allergies and takes a variety of medications including Tylenol, Clonazepam for anxiety, and Loratadine, among others for her conditions. Depression is being managed with Fluoxetine 60 mg. [facility] Medical History Well woman exam Postmenopausal bleeding Microscopic hematuria Injury of ligament of hand Thumb injury Microalbuminuria Abnormal ultrasound of endometrium Pelvic pain in female Periumbilical pain Morbid obesity due to excess calories Mild recurrent major depression Vertigo Thoracic spine pain Hypothyroidism Facial abscess Autoimmune thyroiditis Dyslipidemia Increased BMI Hx of migraines Hx of vertigo Arthritis Hiatal hernia GERD (gastroesophageal reflux disease) Renal calculi Diabetes Asthma Sleep apnea HTN (hypertension) Surgical History History of hysteroscopy History of arthroscopy of left knee History of esophagogastroduodenoscopy (EGD) Hx of colonoscopy Hx of tonsillectomy Hx of total knee arthroplasty Family History Father Stomach cancer Mother Stomach cancer Brother Stomach cancer Heart disease Sister Diabetes Breast cancer Social History Housing: Apartment Alcohol intake: never Comment: cramping Patient Tobacco Use Status: Former Tobacco user Tobacco use type: Cigarette e-Cigarette/Vaping Use: Never Used Second Hand Smoke Exposure: No service: No Current occupational status: disabled Current occupation: left hand dominant Current occupational exposures/hazards: No Cognitive needs: Yes Hearing needs: Yes Vision needs: Yes Female Reproductive History Menstrual Age of Menarche: 11 Questionnaire PHQ-9 Over the last 2 weeks, how often have you been bothered by any of the following problems? 1. Little interest or pleasure in doing things: more than half the days 2. Feeling down, depressed, or hopeless: more than half the days 3. Trouble falling or staying asleep, or sleeping too much: several days 4. Feeling tired or having little energy: more than half the days 5. Poor appetite or overeating: several days 6. Feeling bad about yourself - or that you are a failure or have let yourself or your family down: not at all 7. Trouble concentrating on things, such as reading the newspaper or watching television: not at all 8. Moving or speaking so slowly that other people could have noticed. Or the opposite - being so fidgety or restless that you have been moving around a lot more than usual: not at all 9. Thoughts that you would be better off or of hurting yourself in some way: not at all Total score: 8 Depression Screening Interpretation: Positive Depression Screening Follow-up: Existing condition, In treatment, Community Mental Health Worker F/U and Follow-up Visit Requested Depression Screening Done: Yes 57150 - PHQ-9 Billing: Yes Source: Developed by Drs. Kishan Nolan, Palak Paul, Edmundo Rodriguez and colleagues, with an educational rob from [employer]. Thrive Questionnaire Date Thrive assessed: 03/26/24 I am a: Patient What is your living situation today?: I have a steady place to live Within the past 12 months, did the food you bought not last and you didn't have the money to get more?: Never true Within the past 12 months, did you worry whether your food would run out before you got money to buy more?: Never true Do you have trouble paying for medicines?: No Do you have trouble getting transportation to medical appointments?: No Do you have trouble paying your heating and electricity bill?: No Do you have trouble taking care of your child, family member or friend?: No Do you have trouble with day-to-day activities such as bathing, preparing meals, shopping, managing finances, etc.?: No Are you currently unemployed and looking for a job?: No Are you interested in more education?: No Please select the resources that you would like help with: None Currently or been in a relationship where the following occur: No concerns reported THRIVE Score: 0 AUDIT C Alcohol Use Questionnaire (AUDIT-C) 1. How often do you have a drink containing alcohol?: Never Total Score: 0 Score Reviewed/Action Taken: No JACOBO-7 AMB Questionnaire JACOBO-7 Date JACOBO - 7 assessed: 03/26/24 Feeling nervous, anxious, or on edge: 2 = More than half the days Not being able to stop or control worryin = Several days Worrying too much about different things: 2 = More than half the days Trouble relaxin = Several days Being so restless that it is hard to sit still: 0 = Not at all Becoming easily annoyed or irritable: 1 = Several days Feeling afraid as if something awful might happen: 0 = Not at all Total JACOBO-7 score (0-4 normal; 5-9 mild; 10-14 moderate; 15-21 severe): 7 Source: Developed by Drs. Kishan Nolan, Palak Paul, Edmundo Rodriguez and colleagues, with an educational rob from [employer]. JACOBO-7 Assessment Billing JACOBO-7 Assessment Tool: JACOBO-7 Assessment 43873 Review of Systems Const All systems reviewed & are unremarkable except as noted in HPI and below Card Denies chest pain at rest, Denies chest pain with activity, Denies edema, Denies irregular heart rhythm, Denies claudication, Denies dyspnea, Denies dyspnea on exertion, Denies orthopnea, Denies paroxysmal nocturnal dyspnea and Denies slow heart rate Resp Denies cough, Denies dyspnea and Denies dyspnea on exertion Physical exam (Primary Care) Vital Signs: Last Vital Signs BP 152/90 H 03/26/24 11:04 BMI result Body Mass Index 41.0 BMI Assessment/Plan discussion: High BMI High, discussed plan: lifestyle, weight reduction, dietary and physical activity Tobacco/Smoking Status: Tobacco use Status Tobacco use date assessed 03/26/24 03/26/24 11:22 Patient Tobacco Use Status Former Tobacco user 03/26/24 11:22 Tobacco use type Cigarette 03/26/24 11:22 e-Cigarette/Vaping Use Never Used 03/26/24 11:22 PHQ-9: PHQ-9 Score PHQ-9: Total score 8 03/26/24 12:06 Depression Screening Interpretation: Positive Depression Screening Follow-up: Existing condition, In treatment, Community Mental Health Worker F/U and Follow-up Visit Requested Thrive Assessment: Date of Thrive Assessment Date Thrive assessed 03/26/24 03/26/24 11:22 Currently or been in a relationship where the following occur: No concerns reported Resp Effort & Inspection: normal respiratory effort Auscultation: clear to auscultation bilaterally Cardio Jugular venous distension: no JVD Rate: regular rate Rhythm: regular rhythm Heart sounds: S1 normal heart sound present and S2 normal heart sound present Extrem General: Yes full ROM Results AMB Hemoglobin A1c AMB Hemoglobin A1c 7.1 % Last Edit by IRIS Ceballos on 03/26/24 12:06 Results Reviewed Results Reviewed: Laboratory Last Values Hgb A1c (Clinic) 7.1 % (4.0-6.0) H 03/26/24 11:02 Coding Level of Care Code Est Pt Level 4 (39621) Complex EM visit Add On G2211 Diagnoses Type 2 diabetes mellitus without complication, without long-term current use of insulin E11.9 Diabetes mellitus type: type 2 Diabetes mellitus terminal computer operator insulin use: without terminal computer operator use Diabetes mellitus complication status: without complication Morbid obesity due to excess calories E66.01 Mild recurrent major depression F33.0 Essential hypertension I10 Hypertension type: essential hypertension Dyslipidemia E78.5 Autoimmune thyroiditis E06.3 Additional Codes JACOBO-7 Assessment Billing - JACOBO-7 Assessment Tool: JACOBO-7 Assessment 89558 ([id number]) PHQ-9 - 73287 - PHQ-9 Billing: Yes ([id number]) Time Spent (min) 23 Assessment & Plan Assessment & Plan (1) Diabetes mellitus: Code(s): E11.9 - Type 2 diabetes mellitus without complications Category: Medical Qualifiers: Diabetes mellitus type: type 2 Diabetes mellitus terminal computer operator insulin use: without terminal computer operator use Diabetes mellitus complication status: without complication Qualified Code(s): E11.9 - Type 2 diabetes mellitus without complications (2) Morbid obesity due to excess calories: Code(s): E66.01 - Morbid (severe) obesity due to excess calories Category: Medical (3) Mild recurrent major depression: Code(s): F33.0 - Major depressive disorder, recurrent, mild Category: Medical (4) HTN (hypertension): Code(s): I10 - Essential (primary) hypertension Category: Medical Qualifiers: Hypertension type: essential hypertension Qualified Code(s): I10 - Essential (primary) hypertension (5) Dyslipidemia: Code(s): E78.5 - Hyperlipidemia, unspecified Category: Medical (6) Autoimmune thyroiditis: Code(s): E06.3 - Autoimmune thyroiditis Category: Medical Plan - Order thyroid function tests to assess current status and adjust Levothyroxine dosage if necessary. - Prescribe Pantoprazole for management of GERD symptoms. - Reinforce dietary modifications to avoid trigger foods such as spicy and acidic components that exacerbate GERD. - Encourage the patient to monitor blood pressure readings and adhere to current antihypertensive regimen. - Continue current diabetic management plan including Metformin and dietary control. - Monitor cholesterol levels with ongoing use of Atorvastatin and Ezetimibe. - Ensure consistent follow-up with psychiatry for depression and anxiety management. Patient was informed and verbally consented to the use of an ambient scribe for clinic note documentation during this visit. During our visit, I discussed with the patient the management strategies for her Type 2 Diabetes Mellitus, highlighting the importance of maintaining her A1c below 7. We agreed upon repeating her thyroid function tests to ensure her hypothyroidism is adequately managed. I emphasized the need to switch from Omeprazole to Pantoprazole due to ineffective control of GERD and suggested dietary adjustments to prevent symptom exacerbation. Additionally, we reaffirmed her antihypertensive regimen and stressed the importance of regular monitoring. The patient and I reviewed the results of her cholesterol management which were favorable, and we discussed the continued use of psychiatric medications with follow-up in mental health services. Orders: Orders Thyroid Stimulating Hormone Today E06.3 - Autoimmune thyroiditis AMB Hemoglobin A1c Today E11.9 - Type 2 diabetes mellitus without complications Medications: New pantoprazole 40 mg PO DAILY 90 tabs 1RF 90 days lisinopril-hydrochlorothiazide 20-25 mg 1 tab PO DAILY 90 tabs 1RF 90 days Discontinued omeprazole Discontinued Reason: Patient Completed Course 20 mg PO QAM 30 caps 6RF Patient Instructions: - Undergo thyroid function testing at your earliest convenience. - Start taking Pantoprazole as prescribed for GERD. - Avoid spicy and acidic foods to reduce acid reflux symptoms. - Continue monitoring blood glucose and pressure levels. - Adhere to current medication regimens for diabetes, cholesterol, and hypertension. - Follow up with psychiatry for mental health management. - Notify if experiencing any new or worsening symptoms.
[2024-03-26 11:04] VITALS: BP 152/90; BMI 41.0
== END 2024-03-26 11:51 | disposition home or self-care (01) ==
PROVIDERS: PCP Internal Medicine; Visit Provider Internal Medicine
DX: E11.69 Type 2 diabetes mellitus with other specified complication (principal); E66.01 Morbid (severe) obesity due to excess calories; F33.0 Major depressive disorder, recurrent, mild; Z68.41 Body mass index [BMI] 40.0-44.9, adult; I10 Essential (primary) hypertension; E78.5 Hyperlipidemia, unspecified; E06.3 Autoimmune thyroiditis

== ENCOUNTER 2024-03-26 10:40 | Outpatient (REF) | payer OTHER, SELFPAY ==
[2024-03-26 13:15] LABS: Thyroid Stimulating Hormone 1.98 uIU/mL (0.32-4.0)
== END 2024-03-26 10:41 | disposition home or self-care (01) ==
LOC: HO.LAB 10:40
PROVIDERS: PCP Internal Medicine; Visit Provider Internal Medicine
DX: E11.9 Type 2 diabetes mellitus without complications (principal); I10 Essential (primary) hypertension; E78.5 Hyperlipidemia, unspecified; E06.3 Autoimmune thyroiditis; F41.9 Anxiety disorder, unspecified; F32.A Depression, unspecified; E66.01 Morbid (severe) obesity due to excess calories; Z68.41 Body mass index [BMI] 40.0-44.9, adult; Z79.899 Other long term (current) drug therapy
CPT/HCPCS: 36415; 83036; 84443; 96127; 99212

== ENCOUNTER 2024-05-14 13:13 | Outpatient (AMB) | payer OTHER, SELFPAY ==
--- NOTE | 2024-05-14 13:15 | MHC.OFFVIS ---
Intake Visit Reasons: left shoulder cortisone inj, last inj 12/19/23 Intake Note: Audrey is a 67 year old left hand dominant female who presents today for a repeat injection for her left shoulder, last inj 12/19/23. Patient reports her last injection gave her relief up until these past few weeks. Allergies No Known Allergies [No Known Allergies*] Allergy (Verified 03/26/24 11:34) HPI HPI left shoulder cortisone inj, last inj 12/19/23: Details: Ms. Moses Jade is a left-hand dominant 68-year-old female who presents to office today for repeat cortisone injection left shoulder. She reports he gets roughly about 3 months of relief and would like to repeat injection. FORMERLY [facility], [facility] Medical History Well woman exam Postmenopausal bleeding Microscopic hematuria Injury of ligament of hand Thumb injury Microalbuminuria Abnormal ultrasound of endometrium Pelvic pain in female Periumbilical pain Morbid obesity due to excess calories Mild recurrent major depression Vertigo Thoracic spine pain Hypothyroidism Facial abscess Autoimmune thyroiditis Dyslipidemia Increased BMI Hx of migraines Hx of vertigo Arthritis Hiatal hernia GERD (gastroesophageal reflux disease) Renal calculi Diabetes Asthma Sleep apnea HTN (hypertension) Surgical History History of hysteroscopy History of arthroscopy of left knee History of esophagogastroduodenoscopy (EGD) Hx of colonoscopy Hx of tonsillectomy Hx of total knee arthroplasty Family History Father Stomach cancer Mother Stomach cancer Brother Stomach cancer Heart disease Sister Diabetes Breast cancer Social History Housing: Apartment Alcohol intake: never Comment: cramping Patient Tobacco Use Status: Former Tobacco user Tobacco use type: Cigarette e-Cigarette/Vaping Use: Never Used Second Hand Smoke Exposure: No service: No Current occupational status: disabled Current occupation: left hand dominant Current occupational exposures/hazards: No Cognitive needs: Yes Hearing needs: Yes Vision needs: Yes Female Reproductive History Menstrual Age of Menarche: 11 Review of Systems Const All systems reviewed & are unremarkable except as noted in HPI and below Physical Exam Const General: cooperative, healthy appearing and no acute distress Resp Effort & Inspection: normal respiratory effort and able to speak in complete sentences Cardio Rate: regular rate Peripheral pulses: Peripheral pulses 2+ throughout Skin Lesions: no lesions Rashes: no rashes Extrem Other: Left shoulder: Normal to inspection. No ecchymosis, erythema, or edema. Forward flexion and abduction to 90 degrees. Able to reach back pocket. Positive empty can. Positive cross-body reach. Negative drop arm. NVI. Office Procedures AMB Joint Injection/Aspiration Joint Injection/Aspiration Primary Site: left shoulder Prep: site was prepped using aseptic technique, ethochloride spray was applied and injection warnings given Injected: 80 mg of, DepoMedrol, with 8 mL of (2% plain lidocaine) and in the subcromial space Approach Used: posterolateral Procedure: The patient tolerated the procedure well, but had some pain with the injection and there was some relief with the local anesthesia Coding 66021 - Large joint Procedure code (CPT) selection complete Quality Reporting (2019) Adult ([facility] ) Smoking risk assessment performed?: Yes Patient Tobacco Use Status: Former Tobacco user Assessment & Plan Assessment & Plan (1) Painful arc syndrome of left shoulder: Code(s): M75.102 - Unspecified rotator cuff tear or rupture of left shoulder, not specified as traumatic Category: Medical Plan The patient was offered a cortisone injection in the left shoulder with 80 mg of DepoMedrol. The patient was explained the risks, benefits, and alternatives to receiving this injection. After receiving consent for the injection, the patient had the procedure done while in the office today. The patient tolerated the procedure well with no complications. Follow-up will be p.r.n., or sooner if needed Coding Level of Care Code Est Pt Level 3 (07082) Diagnoses Painful arc syndrome of left shoulder M75.102 CPT Codes Coding - 35678 Large joint: 43857 - Large joint ([id number])
--- OUTSIDE RECORDS SUMMARY | 2024-05-14 16:31 | XMS_ITS | Patient Health Record ---
Author Organization [facility] Address [address] [place] [address] Care Team Providers Care Clinic Md Associate Name Role Phone Gemma Lee Primary Care Provider UnavailKishan Mejia Unavailable [phone] ALLERGIES No Known Allergies REASON FOR REFERRAL No Information MEDICATIONS Medication SIG (Take, Route, Frequency, Duration) Notes Start Date End Date Status Omeprazole 20 MG 1 capsule Orally Onc e a day for 30 days 12/11/2013 Active Gabapentin 300 MG 1 capsule Orally twi ce a day Active Meclizine HCl Active clonazePAM 1 MG 1 tablet Orally Twic e a day Active Levothyroxine Sodium 100 MCG 1 tablet Orally Once a day Active Doc-Q-Lace 100 mg 1 po QD Ac tive Fluticasone Propionate 50 MCG/ACT 1 spray in each nostril Nasally Once a day Active MiraLax 17 GM/SCOOP 1 capful in 8 ounces of water Orally Once or twice a day for constipation for 30 days 06/22/2022 Active metFORMIN HCl 500 MG 1 tablet with meals Orally Once a day Active ProAir HFA 108 (90 Base) MCG/ACT 2 puffs as needed Inhalation every 4 hrs Active Lisinopril-hydroCHLOROthiaz ole 20-12.5 MG 2 tablet Orally Once a day Active traZODone HCl 100 MG 1 tablet at bedtime Orally Once a day Active FLUoxetine HCl 20 MG 1 capsule in the mo rning Orally Once a day Active Clotrimazole 1 % 1 application to aff ected area Externally Twice a day Active Metamucil 0.52 GM Take 2 with 8 ounces of water Orally Once or twice a day for constipation for 30 days 06/22/2022 Active Aspir-81 81 MG 1 tablet Orally Once a day Active SUMAtriptan Succinate 25 MG Orally Active Topiramate 200 MG 1 tablet Orally Once a day Active Mapap 500 MG 1 tablet as needed O rally every 6 hrs Active Verapamil HCl 120 MG 1 tablet Orally onc e a day Active IMMUNIZATIONS Vaccine Route Administration Date Status Comme nts Flu vaccine no Preserv 3 and > Unknown 12/23/2013 Admin istered Influenza Unknown 12/28/2021 Administered SOCIAL HISTORY Tobacco Use: Social History Observation Description Date Details (start date - stop date) Former Smoker NA - NA Sex Assigned At : Social History Observation Description Sex Assigned At Unknown Tobacco Use/Smoking Question Answer Notes Patient is a former smoker How long has it been since y ou last smoked? > 10 years Additional Findings: Tobacco User Modera te cigarette smoker (10-19 cigs/day) Additional Findings: Tobacco Non-User Ex-cigaret te smoker PROBLEMS Problem Type ICD Code Onset Dates Problem Status W/U Status Risk SNOMED Code Notes Problem Encounter for screening for malignant neoplasm of colon (Z12.11) Active confirmed 536201699 Problem History of adenomatous polyp of colon (Z86.010) Active confirmed 409379060 Problem Diarrhea (R19.7) Active confirmed [address] scan, colon (R93.3) Active confirmed 347101285 Problem Constipation, unspecified constipation type (K59.00) Active confirmed 98183843 Encounters Encounter Location Date Provider Diagnosis [facility] [address] [place] [address] 06/17/2023 Kishan Keen PLAN OF TREATMENT Pending Test Test Name Order Date CLOSTRIDIUM DIFF TOXIN A&B (C DIFF) 03/14 STOOL WBC 04/02/2015 GIARDIA AG, STOOL EIA 04/02/2015 OVA & PARASITES (O&P) 04/02/2015 CULTURE, STOOL 04/02/2015 Future Test Test Name Order Date COLONOSCOPY 08/19/2014 COLONOSCOPY 11/27/2019 Insurance Providers Payer Name Payer Address Payer Phone Subscriber Number Group Number Insured Name Patient Relationship to Insured Coverage Start Date Coverage End Date [facility] [address] Attn Claims [place] [id number] PRATHERCARLA Self - patient is the insured [place] [address] [place] [id number] CARLA PRATHER Self - patient is the insured MEDICAL (GENERAL) HISTORY Medical History History ICD Code Tubular adenomas removed in 2005 and 04/14 010; negative colonoscopy in 10/2014 Sigmoid diverticulosis and internal hemo rrhoids Hypertension Depression Migraines Denies MS,CVA,Lung disease,renal disease NIDDM Hard of hearing Kidney stones GERD--EGD in 2005-neg for Escamilla's--sma [facility] Sleep apnea--uses CPAP Hypothyroid Vertigo Surgical History Surgery Date(Month/Year) Left knee replacement in 2019 Tonsillectomy
--- OUTSIDE RECORDS SUMMARY | 2024-05-14 16:31 | XMS_ITS | Clinical Summary ---
Author Organization [facility] Facility Address [address] [place] [address] Care Team Providers Care Fire Patrol Name Role Phone Gemma Lee MD Primary Care Provider [phone] Allergies No known active allergies Medications Arthritis Pain Relief 650 MG 8 hr tablet Take 650 mg by mouth every 8 (eight) hours if needed 2 Active albuterol (2.5 MG/3ML) 0.083% nebulizer solution Take 3 mL by nebulization every 4 (four) hours if needed 2 Active Ventolin HFA 108 (90 Base) MCG/ACT inhaler Inhale 2 puffs every 6 (six) hours if needed 2 Active Aspirin Low Dose 81 MG EC tablet Take 81 mg by mouth 1 (one) time each day in the morning 2 Active atorvastatin (LIPITOR) 80 MG tablet Take 80 mg by mouth at bed time 2 Active clonazePAM (KlonoPIN) 1 MG tablet Take 0.5 mg by mouth 2 (two) times a day if needed 2 Active ezetimibe (ZETIA) 10 MG tablet Take 10 mg by mouth 1 (one) time each day 2 Active FLUoxetine (PROzac) 20 MG capsule Take 60 mg by mouth 1 (one) time each day in the morning 2 Active fluticasone (FLONASE) 50 MCG/ACT nasal spray Administer 50 sprays into each nostril 1 (one) time each day 2 Active gabapentin (NEURONTIN) 300 MG capsule Take 300 mg by mouth in the morning and 300 mg in the evening. 2 Active ibuprofen (ADVIL,MOTRIN) 800 MG tablet Take 800 mg by mouth 3 (three) times a day if needed 2 Active lactulose (CHRONULAC) 10 GM/15ML solution Take 10 g by mouth 3 (three) times a day if needed 2 Active levothyroxine (SYNTHROID, LEVOTHROID) 88 MCG tablet Take 88 mcg by mouth 1 (one) time each day 2 Active lisinopril-hydr oCHLOROthiazide (PRINZIDE,ZESTO RETIC) 20-12.5 MG per tablet Take 2 tablets by mouth every morning 2 Active meclizine (ANTIVERT) 25 MG tablet Take 25 mg by mouth every 8 (eight) hours 2 Active metFORMIN XR (GLUCOPHAGE-XR) 500 MG 24 hr tablet Take 500 mg by mouth at bed time 2 Active omeprazole (PriLOSEC) [address] capsule Take 20 mg by mouth 2 Active prazosin (MINIPRESS) 2 MG capsule Take 2 mg by mouth at bed time 2 Active traZODone (DESYREL) 100 MG tablet Take 300 mg by mouth every other day if needed 2 Active verapamil SR (CALAN-SR) 120 MG CR tablet Take 120 mg by mouth 1 (one) time each day in the morning 2 Active Active Problems Problem Noted Date Diagnosed Date Type 2 diabetes mellitus wit h other diabetic kidney complication 12/22/2022 Chronic kidney disease, stage 2 (mild) 3 Essential (primary) hypertension 10/21/2021 Gastroesophageal reflux disease 10/21/2021 Dyslipidemia 10/21/2021 Family History Medical History Relation Comments Cancer Brother Heart disease Brother Cancer Father Cancer Mother Cancer Sister Diabetes Sister Relation Status Comments Brother Father Mother Sister Social History Tobacco Use Types Packs/Day Years Used Date Smoking Tobacco: Former Cigarettes Smokeless Tobacco: Never Tobacco Cessation:Counseling Given: No Alcohol Use Standard Drinks/Week Comments Not Currently 0 (1 standard drink = 0.6 oz pur e alcohol) Comments Unknown Sex and Gender Information Value Date Recorded Sex Assigned at Not on file Legal Sex Female 1:34 PM EDT Gender Identity Not on file Sexual Orientation Not on file Last Filed Vital Signs Vital Sign Reading Time Taken Comments Blood Pressure 134/78 12/22/2022 12:48 PM EDT Pulse 83 12/22/2022 12:48 PM EDT Temperature - - Respiratory Rate - - Oxygen Saturation 97% 12/16/2021 12:21 PM EDT Inhaled Oxygen Concentration - - Weight 94.8 kg (209 lb) 12/22/2022 12:48 PM EDT Height - - Body Mass Index - - Plan of Treatment Health Maintenance Due Date Last Done Comments Breast Cancer Screening 1955 Pneumococcal Vaccine: 65+ Ye ars (1 of 2 - PCV) 11/17/1959 Colorectal Cancer Screening: Annual FOBT 2002 Colorectal Cancer Screening: Colonoscopy 2002 Colorectal Cancer Screening: Sigmoidoscopy 2002 Diabetes: Hemoglobin A1C 12/22/2022 Diabetes: Ophthalmology Exam 12/22/2022 Diabetes: Pedal Pulse Checked 12/22/2022 Diabetes: Sensory Foot Exam 12/22/2022 Diabetes: Visual Foot Exam 12/22/2022 Influenza Vaccine (#1) 2023 Hepatitis B Vaccine Aged Out No longe r eligible based on patient's age to complete this topic Insurance [employer] ONE CARE DUAL SNP ([id number]) [place] [id number] [facility] ONE CARE DUAL SNP ([id number]) Care Teams Fire Patrol Relationship Specialty Start Date End Date Gemma Lee MD [address] [place], [place] PCP - General Internal Medicine 09/29/21
--- OUTSIDE RECORDS SUMMARY | 2024-05-14 16:31 | XMS_ITS | Data Portability ---
Author Organization [place] - [facility] Address [address] [address] Care Team Providers Care Heat Treater Head Name Role Phone DORI HARGROVE Primary Care Provider [phone] Assessment Encounter Date Assessment Date Assessment LastModified by Organization Details LastModified Time 01/26/2024 01/26/2024 68-year-old female presents today for hearing evaluation. Audiometric testing shows moderately severe sloping to profound sensorineural hearing loss with poor word recognition. On exam, there is a wax guard in the left EAC which was removed. Middle ears are well aerated. I gave her medical clearance for updated hearing aids. We discussed that she may also be a candidate for cochlear implant. We gave her contact information to assess audiologic candidacy. [email or web address] Not available 02/03/2024 15:03:28 Plan of Treatment Reminders Order Date Submit Date Provider Last Modified By Organization Details Last Modified Time Details Appointments None record ed. Lab None record ed. Referral None record ed. Procedures None record ed. Surgeries None record ed. Imaging None record ed. Medication Orders None record ed. Patient TargetsNo targets recorded. Patient InstructionsNo instructions recorded. Reason for Referral None Reported. Results Created Date Observation Date Name Description Value Unit Range Abnormal Flag Note LastModifiedBy Organization Detail LastModifiedTime 01/26/20 24 audio gram No observ ation record ed. BARCODE Not Available 2023 17:06:54 Result Notes None recorded. Problems Name Problem SNOMED Code Status Onset Date Resolution Date Notes Provider Name and Address Organization Details Recorded Time Sensorineural hearing loss of bilateral ears 513817566 Active 2023 LIANET MCFARLANE , KATIE [address] [facility],[address], [place], [address], [facility] 13:22:39 Problem Notes None recorded. Procedures Surgical History Date Name Laterality Status Provider Name and Address Organization Details Recorded Time 01/26/2024 Comp Audio with Tymps (31672 & 52118) completed LIANET MCFARLANE, AUD 100 [facility], [place], [address], [facility] - [facility] 01/26/2024 13:20:24 Imaging Results Imaging Date Name Status LastModified by Organiz ation Details LastModified Time 01/26/2024 audiogram completed BARCODE Information no t available 01/26/2024 17:06:54 Procedure Notes None recorded. Medical Equipment None Reported. Allergies No known drug allergies Medications Name Sig Start Date Stop Date Status Note LastModified by Organization Details LastModified Time medbox status USE DIRECTED 01/25 completed Not Available Not Available Not Available verapamil ER (SR) 120 mg tablet,exte nded release TAKE 1 TABLET BY MOUTH EVERY MORNING active Not Available Not Available No t Available neomycin-po lymyxin-hyd rocort 3.5 mg/mL-10,00 0 unit/mL-1 % ear solution INSTILL 4 TO 5 DROPS INTO THE RIGHT EAR TWICE A DAY 01/25 completed Not Available Not Available Not Available atorvastati n 80 mg tablet TAKE 1 TABLET BY MOUTH AT BEDTIME active Not Available Not Available No t Available albuterol sulfate 2.5 mg/3 mL (0.083 %) solution for nebulizatio n INHALE 1 AMPULE USING A NEBULIZER EVERY 4 TO 6 HOURS NEEDED FOR WHEEZING OR SHORTNESS OF BREATH active Not Available Not Available No t Available Stool Softener 100 mg capsule TAKE 1 CAPSULE BY MOUTH TWICE DAILY NEEDED FOR CONSTIPAT ION active Not Available Not Available No t Available lisinopril 20 mg-hydrochl orothiazide 12.5 mg tablet TAKE 2 TABLETS BY MOUTH ONCE DAILY IN THE MORNING active Not Available Not Available No t Available ibuprofen 800 mg tablet TAKE 1 TABLET BY MOUTH THREE TIMES DAILY NEEDED FOR PAIN OR FEVER active Not Available Not Available No t Available ondansetron HCl 4 mg tablet TAKE 1 TABLET BY MOUTH EVERY DAY NEEDED FOR NAUSEA active Not Available Not Available No t Available clonazepam 1 mg tablet TAKE 1/2 TO 1 TABLET BY MOUTH TWICE DAILY NEEDED ANXIETY active Not Available Not Available No t Available sumatriptan 50 mg tablet TAKE 1 TABLET BY MOUTH EVERY DAY NEEDED FOR HEADACHE active Not Available Not Available No t Available aspirin 81 mg tablet,demetrio yed release TAKE 1 TABLET BY MOUTH EVERY MORNING active Not Available Not Available No t Available acetaminoph en ER 650 mg tablet,exte nded release TAKE 1 TABLET BY MOUTH EVERY 8 HOURS NEEDED FOR PAIN OR FEVER active Not Available Not Available No t Available levothyroxi ne 100 mcg tablet TAKE 1 TABLET BY MOUTH EVERY MORNING 01/25 completed Not Available Not Available Not Available amitriptyli ne 25 mg tablet TAKE 1 TABLET BY MOUTH AT BEDTIME active Not Available Not Available No t Available triamcinolo ne acetonide 0.1 % dental paste COAT LESION WITH A FILM AFTER EACH MEAL AND AT BEDTIME 01/25 completed Not Available Not Available Not Available trazodone 100 mg tablet TAKE 1 TO 1 & 1/2 TABLETS BY MOUTH AT BEDTIME active Not Available Not Available No t Available meclizine 25 mg tablet TAKE 1 TABLET BY MOUTH TWICE DAILY NEEDED FOR DIZZINESS active Not Available Not Available No t Available gabapentin 300 mg capsule TAKE 1 CAPSULE BY MOUTH TWICE DAILY IN THE MORNING AND AT BEDTIME active Not Available Not Available No t Available omeprazole 20 mg capsule,del ayed release TAKE 1 CAPSULE BY MOUTH EVERY MORNING active Not Available Not Available No t Available mupirocin 2 % topical ointment APPLY 1 APPLICATI ON TOPICALLY 3 TIMES A DAY FOR 7 DAYS active Not Available Not Available No t Available zolpidem 5 mg tablet TAKE 1 TABLET BY MOUTH AT BEDTIME NEEDED FOR SLEEP active Not Available Not Available No t Available cefdinir 300 mg capsule TAKE 1 CAPSULE BY MOUTH TWICE A DAY 01/25 completed Not Available Not Available Not Available fluoxetine 20 mg capsule TAKE 3 CAPSULES BY MOUTH EVERY DAY IN THE MORNING active Not Available Not Available No t Available fluticasone propionate 50 mcg/actuati on nasal spray,suspe nsion USE 1 SPRAY IN EACH NOSTRIL ONCE DAILY active Not Available Not Available No t Available metformin ER 500 mg tablet,exte nded release 24 hr TAKE 1 TABLET BY MOUTH AT BEDTIME active Not Available Not Available No t Available docusate sodium 100 mg tablet Take 1 tablet every day by oral route. active Not Available Not Available No t Available loratadine 10 mg tablet TAKE 1 TABLET BY MOUTH EVERY DAY NEEDED FOR ALLERGIES 01/25 completed Not Available Not Available Not Available prazosin 2 mg capsule TAKE 1 CAPSULE BY MOUTH AT BEDTIME active Not Available Not Available No t Available levothyroxi ne 112 mcg tablet TAKE 1 TABLET BY MOUTH EVERY DAY active Not Available Not Available No t Available amoxicillin 875 mg-potassiu m clavulanate 125 mg tablet TAKE 1 TABLET BY MOUTH EVERY 12 HOURS FOR 7 DAYS 01/25 completed Not Available Not Available Not Available Ventolin HFA 90 mcg/actuati on aerosol inhaler INHALE 2 PUFFS BY MOUTH EVERY 6 HOURS NEEDED FOR WHEEZING active Not Available Not Available No t Available ezetimibe 10 mg tablet TAKE 1 TABLET BY MOUTH AT BEDTIME active Not Available Not Available No t Available ciprofloxac in 0.3 %-dexametha sone 0.1 % ear drops,suspe nsion PLACE 4 DROPS INTO RIGHT EAR TWICE A DAY FOR 7 DAYS 01/25 completed Not Available Not Available Not Available lactulose 10 gram/15 mL oral solution TAKE 15 ML (10 GRAMS) BY MOUTH ONCE DAILY NEEDED FOR CONSTIPAT ION 01/25 completed Not Available Not Available Not Available fluocinolon e acetonide oil 0.01 % ear drops USE 4 DROPS IN EACH EAR TWICE DAILY DIRECTED 01/25 completed Not Available Not Available Not Available FreeStyle Lite Strips USE TO TEST BLOOD SUGAR TWICE DAILY active Not Available Not Available No t Available ClearLax 17 gram/dose oral powder MIX 17 GRAMS IN 8 OUNCES OF WATER AND DRINK ONE OR TWO TIMES DAILY FOR CONSTIPAT ION active Not Available Not Available No t Available loratadine 10 mg capsule Take by oral route. active Not Available Not Available No t Available TRUEplus Lancets 33 gauge TEST BLOOD SUGAR THREE TIMES DAILY active Not Available Not Available No t Available Reguloid (psyllium husk) 0.4 gram capsule TAKE 2 CAPSULES BY MOUTH WITH 8 OUNCES WATER ONE OR TWO TIMES DAILY DIRECTED FOR CONSTIPAT ION 01/25 completed Not Available Not Available Not Available Vitals Date Recorded Body height Body mass index (BMI) Body weight Provider Name and Address Organization Details Last Updated DateTime 01/26/2024 152.4 cm 41.7 kg/m2 31200.97 g Gilda Gunn [place] - [facility] 01/26/2024 14:26:38 Social History None recorded. Functional Status None recorded. Mental Status None recorded. Family History Nothing Reported. Medical History Condition Response Arthritis Y Migraines Y Anxiety Y Hypertension Y Asthma Y Gynecological HistoryNo gynecological history recorded. Obstetrics History GPAL:G 0 P 0 0 0 0 Past Encounters Encounter ID Performer Location Encounter Start Date Encounter Closed Date Diagnosis/Indication Diagnosis SNOMED-CT Code Diagnosis ICD10 Code Diagnosis Note [id number] MAMADOU QUIÑONEZ MD [facility] [address] [address] 01/26/2024 12:31:34 01/26/2024 14:45:05 Sensorineural hearing loss of bilateral ears [id number] H90.3 Audiologic al evaluation results: Right ear: {{Normal N ormal through 2 kHz Mild M oderate Mo derately-s evere Genesis re* Profou nd}} {{hearing hearing. s loping to a mild slopi ng to a moderate s loping to moderately severe slo ping to severe slo ping to profound* flat high frequency low frequency mid frequency cookie bite garrison curve}} {{with sen sorineural hearing loss with* cond uctive hearing loss with mixed hearing loss with}} {{excellen t good say r poor* no measurable }} word recognitio n. Left ear: {{Normal N ormal through 2 kHz Mild M oderate Mo derately-s evere* Sev ere Profou nd}} {{hearing hearing. s loping to a mild slopi ng to a moderate s loping to moderately severe slo ping to severe slo ping to profound* flat high frequency low frequency mid frequency cookie bite garrison curve}} {{with sen sorineural hearing loss with* cond uctive hearing loss with mixed hearing loss with}} {{excellen t good say r poor* no measurable }} word recognitio n. Tympanomet ry: Right Ear:{{Type A* Type As Type Ad Type C Type C, shallow & rounded Ty pe B Type B with large volume Cou ld not maintain a hermetic seal}} Left Ear:{{Type A* Type As Type Ad Type C Type C, shallow & rounded Ty pe B Type B with large volume Cou ld not maintain a hermetic seal}} Health Concerns Section Related Observation LastModified by Organization Detai ls LastModified Time None Recorded Concern Status LastModified by Organization Details LastModified Time None Recorded Advance Directives Directive None Recorded Payers Encounter Date Sequence Insurance Name Policy Number Policy Terry Covered Member ID Terry Member ID Guarantor Name 01/26/2024 1 [facility] - DOS ON OR AFTER 2022 - MEDICARE [place]ANTAGE [place]ACEMENT/ADV ANTAGE - PPO) Audrey Lopes [id number] Audreymisael Jade Notes Date Note Type Note Provider Name and Address Organization Details Recorded Time 01/26/2024 text/html 68 yo F here for hearing loss. She needs new hearing aids5 years old hearing loss >20 years. Family History brother, uncle, nephewFrequent ear infections, sees Dr. Donald every 3 months. No loud noise exposureNo tinnitusSome vertigo described as lightheaded, no room spinningHead feels heavy , h/o migraines. no sore throat, no ear pain MAMADOU QUIÑONEZ MD [address] [place] [address],[place] [address], [place], [address], [place] - [facility] 02/03/2024 15:03:55 OBGyn Episode No OBEpisode recorded.
--- OUTSIDE RECORDS SUMMARY | 2024-05-14 16:31 | XMS_ITS ---
Author Organization [facility] Address [address] [place] [address] Care Team Providers Care Sifting Operator Name Role Phone Gemma Lee Primary Care Provider Unavailab Kishan James [phone] REASON FOR VISIT Miralax refill MEDICATIONS Medication SIG (Take, Route, Fr equency, Duration) Notes Start Date End Date Status MiraLax 17 GM/SCOOP 1 capful in 8 ounces of water Orally Once or twice a day for constipation for 30 days 06/22/2022 Active Encounters Encounter Location Date Provider Diagnosis [facility] [address] [place] [address] 06/17/2023 Kishan Keen PLAN OF TREATMENT Medication Medication Name Sig Start Date Stop Date Notes MiraLax 17 GM/SCOOP 1 capful in 8 ounces of water Orally Once or twice a day for constipation for 30 days 06/22/2022
== END 2024-05-14 13:24 | disposition home or self-care (01) ==
PROVIDERS: PCP Internal Medicine; Visit Provider Physician Assistant
DX: M75.102 Unspecified rotator cuff tear or rupture of left shoulder, not specified as traumatic (principal)
CPT/HCPCS: 20610; 99213

== ENCOUNTER → 2024-05-14 13:13 | Outpatient (BNVA) | payer OTHER, SELFPAY | PROVIDERS: PCP Internal Medicine; Visit Provider Physician Assistant | DX: M75.102 Unspecified rotator cuff tear or rupture of left shoulder, not specified as traumatic (principal) | CPT/HCPCS: 20610; 99212; J1010; J2003 ==

== ENCOUNTER 2024-05-23 11:17 | Outpatient (REF) | payer OTHER, SELFPAY ==
[2024-05-23 11:59] LABS: Hematocrit 37.6 % (37.0-47.0); Mean Corpuscular HGB Conc 31.9 g/dl (31.0-35.0); Mean Corpuscular Hemoglobin 27.6 pg (27.0-33.0); Mean Corpuscular Volume 86.4 fL (80.0-98.0); Mean Platelet Volume 10.8 fL (9.4-12.3); Platelet Count 369 X10*3/uL (160-400); Red Blood Count 4.35 X10*6/uL (4.20-5.50); Red Cell Distribution Width 14.8 % (11.0-16.0); White Blood Count 11.7 X10*3/uL (4.8-10.8)
[2024-05-23 12:40] LABS: Anion Gap 13 (12-20); Blood Urea Nitrogen 22 mg/dL (9-16); Calcium 9.5 mg/dL (8.4-10.2); Carbon Dioxide 27 mmol/L (22-29); Chloride 104 mmol/L (96-108); Estimated Glomerular Filt Rate > 60; Glucose Random 120 mg/dL (60-115); Sodium 140 mmol/L (135-145)
[2024-05-23 12:57] LABS: TSH reflex Free T4 0.84 uIU/mL (0.32-4.0)
[2024-05-23 13:11] LABS: Folate 8.7 ng/mL (> or = 4.0); Vitamin B12 528 pg/mL (200-900)
--- OUTSIDE RECORDS SUMMARY | 2024-05-23 14:32 | XMS_ITS | Data Portability ---
Author Organization [place] - [facility], [facility] Address [address] [address] Care Team Providers Care Data Center Manager Name Role Phone DORI HARGROVE Primary Care Provider Assessment Encounter Date Assessment Date Assessment LastModified [...] Time Sensorineural hearing loss of bilateral ears [id number] Active 2023 LIANET MCFARLANE , KATIE 100 [facility],[address], [place], [address], [facility] 13:22:39 Problem Notes None recorded. Procedures Surgical History Date Name Laterality Status Provider Name and Address Organization Details Recorded Time 01/26/2024 Comp Audio with Tymps (85826 & 80688) completed LIANET MCFARLANE, AUD 100 [facility] [address], [place], [address], [facility] - [facility] 01/26/2024 13:20:24 Imaging Results Imaging Date Name [...] Updated DateTime 01/26/2024 152.4 cm 41.7 kg/m2 25809.97 g Gilda Gunn [place] - [facility] 01/26/2024 14:26:38 Social History None recorded. Functional [...] SNOMED-CT Code Diagnosis ICD10 Code Diagnosis Note [id number] MAMADOU QUIÑONEZ MD [facility] [address] [address] 01/26/2024 12:31:34 01/26/2024 14:45:05 Sensorineural hearing loss of bilateral ears [id number] H90.3 Audiologic al evaluation results: Right ear: [...] Terry Member ID Guarantor Name 01/26/2024 1 [facility] - DOS ON OR AFTER 2022 - MEDIC[place]AGE [place]/ADV ANTAGE - PPO) Audrey Lopes [id number] Audreymisael Jade Notes Date Note Type Note [...] throat, no ear pain MAMADOU QUIÑONEZ MD [address] [place] [address],[place] [address], [place], [address], [place] - [facility] 02/03/2024 15:03:55 OBGyn Episode No OBEpisode recorded.
--- OUTSIDE RECORDS SUMMARY | 2024-05-23 14:32 | XMS_ITS | Patient Health Record ---
Author Organization [facility] Address [address] [place] [address] Care Team Providers Care Funeral Car Driver Name Role Phone Gemma Lee Primary Care Provider UnavailKishan Mejia Unavailable [phone] Allergies No Known Allergies Reason For Referral No Information Medications Medication SIG (Take, Route, Frequency, Duration) Notes [...] tablet Orally onc e a day Active Immunizations Vaccine Route Administration Date Status Comme nts Flu vaccine no Preserv 3 and > Unknown 12/23/2013 Admin istered Influenza Unknown 12/28/2021 Administered Social History Tobacco Use: Social History Observation Description Date Details (start date - stop date) Former Smoker NA - NA Tobacco Use/Smoking Question Answer Notes Patient is a former smoker How long has it been since y ou last smoked? > 10 years Additional Findings: Tobacco User Modera te cigarette smoker (10-19 cigs/day) Additional Findings: Tobacco Non-User Ex-cigaret te smoker Section Notes: Nonsmoker; no sig. alcohol Nonsmoker; no sig. alcohol Nonsmoker; no sig. alcohol Problems Problem Type SNOMED Code ICD Code Onset Dates Problem Status W/U Status Risk Notes Problem 914241904 Encounter for screening for malignant neoplasm of colon (Z12.11) Active confirmed Problem 577147805 History of adenomatous polyp of colon (Z86.010) Active confirmed Problem 00828436 Diarrhea (R19.7) Active confirmed Problem 531993492 Abnormal CT scan , colon (R93.3) Active confirmed Problem 48316282 Constipation, unspecified constipation type (K59.00) Active confirmed Encounters Encounter Location Date Provider Diagnosis [facility] [address] [facility] [address] [place] [address] 06/17/2023 Kishan Keen Plan Of Treatment Pending Test Test Name Order Date CLOSTRIDIUM DIFF TOXIN A&B (C DIFF) 03/14 STOOL WBC 04/02/2015 GIARDIA AG, STOOL EIA 04/02/2015 OVA & PARASITES (O&P) 04/02/2015 CULTURE, STOOL 04/02/2015 Future Test Test Name Order Date COLONOSCOPY 08/19/2014 COLONOSCOPY 11/27/2019 Insurance Providers Payer Name Payer Address Payer Phone Subscriber Number Group Number Insured Name Patient Relationship to Insured Coverage Start Date Coverage End Date [facility] [address] Attn Claims [place] [address] [id number] PRATHERCARLA Self - patient is the insured MEDICAID OF [facility] [address] [place] [address] [id number] CARLA PRATHER Self - patient is the insured Medical (General) History Medical History History ICD Code Tubular adenomas removed in 2005 and 04/14 010; negative colonoscopy in 10/2014 Sigmoid diverticulosis and internal hemo rrhoids Hypertension Depression Migraines Denies AK,CVA,Lung disease,renal disease NIDDM Hard of hearing Kidney stones GERD--EGD in 2005-neg for Escamilla's--sma [facility] Sleep apnea--uses CPAP Hypothyroid Vertigo Surgical History Surgery Date(Month/Year) Left knee replacement in 2018 Tonsillectomy
--- OUTSIDE RECORDS SUMMARY | 2024-05-23 14:32 | XMS_ITS | Clinical Summary ---
Author Organization [facility] Facility Address [address] [place] [address] Care Team Providers Care Sculpture Instructor Name Role Phone Gemma Lee MD Primary Care Provider Allergies No known active allergies Medications Arthritis [...] ONE CARE DUAL SNP ([id number]) [place] [id number] [facility] ONE CARE DUAL SNP ([id number]) Care Teams Sculpture Instructor Relationship Specialty Start Date End Date Gemma Lee MD [address] [place], [place] PCP - General Internal Medicine 09/29/21
--- OUTSIDE RECORDS SUMMARY | 2024-05-23 14:32 | XMS_ITS ---
Author Organization [facility] Address [address] [place] [address] Care Team Providers Care Precision Optics Technician Name Role Phone Gemma Lee Primary Care Provider Unavailab Kishan James [phone] REASON FOR VISIT Miralax refill Medications Medication SIG (Take, Route, Fr equency, Duration) Notes Start Date End Date Status MiraLax 17 GM/SCOOP 1 capful in 8 ounces of water Orally Once or twice a day for constipation for 30 days 06/22/2022 Active Encounters Encounter Location Date Provider Diagnosis [facility] [address] [place] [address] 06/17/2023 Kishan Keen Plan Of Treatment Medication Medication Name Sig Start Date Stop Date Notes MiraLax 17 GM/SCOOP 1 capful in 8 ounces of water Orally Once or twice a day for constipation for 30 days 06/22/2022 Progress Notes * CARLA PRATHERDOB:1955 ( 67 yo F)Acc No.[id number]:06/17/2023 Patient:?CARLA PRATHER :1955???Age:67 Y???Sex:Female Address:[address] [place] [address] [address], [place] [address] * Refills? Refill MiraLax Powder, 17 GM/SCOOP, Orally, 1, 1 capful in 8 ounces of water, Once or twice a day for constipation, 30 days, Refills=6 * true * Date:? Generated for Veronica mayorga/Elliot/eTransmitting on:?05/23/2024 02:31 PM EDT
== END 2024-05-23 11:18 | disposition home or self-care (01) ==
LOC: HO.LAB 11:17
PROVIDERS: PCP Internal Medicine; Visit Provider Registered Nurse
DX: G31.84 Mild cognitive impairment of uncertain or unknown etiology (principal)
CPT/HCPCS: 36415; 80048; 82607; 82746; 84443; 85027

== ENCOUNTER → 2024-07-09 14:03 | Outpatient (REF) | payer OTHER, SELFPAY ==
--- OUTSIDE RECORDS SUMMARY | 2024-07-09 16:17 | XMS_ITS | Clinical Summary ---
Author Organization [facility] Facility Address [address] [place] [id number] Care Team Providers Care Management Professional Name Role Phone Gemma Lee MD Primary Care Provider [phone] Allergies No known active allergies Medications Arthritis [...] Comments Breast Cancer Screening 1955 Pneumococcal Vaccine: 50+ Ye ars (1 of 2 - PCV) 1972 Colorectal Cancer Screening: Annual FOBT 2002 Colorectal Cancer Screening: Colonoscopy 2002 Colorectal Cancer Screening: Sigmoidoscopy 2002 Diabetes: Hemoglobin A1C 12/22/2022 Diabetes: Ophthalmology Exam 12/22/2022 Diabetes: Pedal Pulse Checked 12/22/2022 Diabetes: Sensory Foot Exam 12/22/2022 Diabetes: Visual Foot Exam 12/22/2022 Influenza Vaccine (Season Ended) 2024 Hepatitis B Vaccine Aged Out No longe r eligible based on patient's age to complete this topic Insurance * Guarantor: Audrey Lopes Account Type Relation to Patient Date of Phone Billing Address Personal/Family Self [address] [address] [employer] Dual SNP ([id number]) [place] [phone] [facility] One Care Dual SNP ([id number]) Care Teams Management Professional Relationship Specialty Start Date End Date Gemma Lee MD [address] [place], [place] PCP - General Internal Medicine 09/29/21
--- OUTSIDE RECORDS SUMMARY | 2024-07-09 16:17 | XMS_ITS | Data Portability ---
Author Organization [place] [facility] Address [address] [address] Care Team Providers Care Netbackup Engineer Name Role Phone DORI HARGROVE Primary Care Provider [phone] Assessment Encounter Date Assessment Date Assessment LastModified [...] Time Sensorineural hearing loss of bilateral ears [id number] Active 2023 LIANET MCFARLANE , KATIE [address] [facility], [place], [address], [facility] 13:22:39 Problem Notes None recorded. Procedures Surgical History Date Name Laterality Status Provider Name and Address Organization Details Recorded Time 01/26/2024 Comp Audio with Tymps (35474 & 86605) completed LIANET MCFARLANE, AUD [address] [facility],[address], [place], [address], [facility] - [facility] 01/26/2024 13:20:24 Imaging Results Imaging Date [...] Updated DateTime 01/26/2024 152.4 cm 41.7 kg/m2 88386.97 g Gilda Gunn [place] - [facility] 01/26/2024 14:26:38 Social History None recorded. [...] SNOMED-CT Code Diagnosis ICD10 Code Diagnosis Note [id number] MAMADOU QUIÑONEZ MD [facility] [address] [address] 01/26/2024 12:31:34 01/26/2024 14:45:05 Sensorineural hearing loss of bilateral ears [id number] H90.3 Audiologic al evaluation results: Right ear: [...] Terry Member ID Guarantor Name 01/26/2024 1 [facility] - DOS ON OR AFTER 2022 - MEDICARE ADVANTAGE [place] (MEDICARE REPLACEMENT/ADV ANTAGE - PPO) Audrey Lopes [id number] Audreymisael Jade Notes Date Note Type Note [...] no sore throat, no ear pain MAMADOU QUIÑNOEZ MD [address] [place] [address],[place] [address], [place], [address], [place] - [facility] 02/03/2024 15:03:55 OBGyn Episode No OBEpisode recorded.
== END ==
LOC: HO.SL 14:03
PROVIDERS: PCP Internal Medicine; Visit Provider Internal Medicine
DX: G47.33 Obstructive sleep apnea (adult) (pediatric) (principal); G47.13 Recurrent hypersomnia
CPT/HCPCS: 95806

== ENCOUNTER → 2024-07-09 14:16 | Outpatient (BNV) | payer OTHER, SELFPAY | PROVIDERS: PCP Internal Medicine; Visit Provider Internal Medicine | DX: G47.33 Obstructive sleep apnea (adult) (pediatric) (principal) | CPT/HCPCS: 95806 ==

== ENCOUNTER 2024-08-08 10:24 | Outpatient (AMB) | payer OTHER, SELFPAY ==
--- NOTE | 2024-08-08 10:30 | A.OFFPC_ITS ---
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 Required: No Accompanied by: Self / Same As Patient Allergies No Known Allergies [No Known Allergies*] Allergy (Verified 08/08/24 10:35) Medication List - Last Reconciled 08/08/24 by Gemma Omer MD acetaminophen ER 650 mg PO Q8H PRN 30 days [adult diapers briefs As directed] albuterol sulfate 2.5 mg (3 mL) inhalation Q4-6H PRN 30 days albuterol sulfate 90 mcg/actuation (Ventolin HFA) 2 puffs PO Q6H PRN 30 days amitriptyline 25 mg PO BEDTIME aspirin 81 mg PO QAM 90 days atorvastatin 80 mg PO BEDTIME blood sugar diagnostic (FreeStyle Lite Strips) 1 strip miscellaneous BID 30 days blood-glucose meter (FreeStyle Lite Meter kit) As directed clonazepam 0.500f1 mg PO BID PRN [diabetic shoes As directed] docusate sodium (Colace) 100 mg PO BID PRN 30 days ezetimibe 10 mg PO DAILY 90 days fluoxetine 60 mg PO QAM fluticasone propionate 50 mcg/actuation 1 spray intranasal DAILY gabapentin 300 mg PO BID 90 days ibuprofen 800 mg PO TID PRN lancets (TRUEplus Lancets) 33 gauge miscellaneous TID levothyroxine 112 mcg PO DAILY 90 days lisinopril-hydrochlorothiazide 20-25 mg 1 tab PO DAILY 90 days loratadine 10 mg PO DAILY PRN metformin ER 500 mg PO BEDTIME miscellaneous medical supply 1 pair of diabetic shoes and inserts miscellaneous; mupirocin 2% 1 appl topical TID 7 days nebulizers (AeroEclipse II Nebulizer) As directed pantoprazole 40 mg PO DAILY 90 days prazosin 2 mg PO BEDTIME verapamil ER 120 mg PO QAM zolpidem 5 mg PO BEDTIME PRN 30 days Tobacco use date assessed: 03/26/24 Fall risk assessment: No Falls in past year Last assessed Fall Risk: 08/08/24 Dental Screening Dental Screen Date: 03/26/24 HPI HPI Comments History of Present Illness Details The patient is a 68-year-old female presenting with Type 2 Diabetes Mellitus, which is currently poorly controlled with an HbA1c of 7.6. She is on Metformin but may require adjustments to her medication regimen. The patient reports increased anxiety, which disrupts her sleep and daily life. She suspects sleep apnea due to episodes of missed breathing, though she has not been formally diagnosed or treated for this condition. Her medication regimen includes management for hyperlipidemia and essential hypertension, with her lipid levels and blood pressure reported as stable. The patient also manages neuropathy with Gabapentin and takes Levothyroxine for hypothyroidism, which is under control. Depression with anxiety is follow by Psychiatry. She is morbidly obese with a BMI of 41.4 and was advised to do diet and exercise as tolerated to reach BMI goal less than 30. [facility] Medical History (Updated 08/08/24 @ 10:52 by Gemma Omer MD) Well woman exam Postmenopausal bleeding Microscopic hematuria Injury of ligament of hand Thumb injury Microalbuminuria Abnormal ultrasound of endometrium Pelvic pain in female Periumbilical pain Morbid obesity due to excess calories Mild recurrent major depression Vertigo Thoracic spine pain Hypothyroidism Facial abscess Autoimmune thyroiditis Dyslipidemia Increased BMI Hx of migraines Hx of vertigo Arthritis Hiatal hernia GERD (gastroesophageal reflux disease) Renal calculi Diabetes Asthma Sleep apnea HTN (hypertension) Surgical History History of hysteroscopy History of arthroscopy of left knee History of esophagogastroduodenoscopy (EGD) Hx of colonoscopy Hx of tonsillectomy Hx of total knee arthroplasty Family History Father Stomach cancer Mother Stomach cancer Brother Stomach cancer Heart disease Sister Diabetes Breast cancer Social History Housing: Apartment Alcohol intake: never Comment: cramping Patient Tobacco Use Status: Former Tobacco user Tobacco use type: Cigarette e-Cigarette/Vaping Use: Never Used Second Hand Smoke Exposure: No service: No Current occupational status: disabled Current occupation: left hand dominant Current occupational exposures/hazards: No Cognitive needs: Yes Hearing needs: Yes Vision needs: Yes Female Reproductive History Menstrual Age of Menarche: 11 Questionnaire PHQ-9 Over the last 2 weeks, how often have you been bothered by any of the following problems? 1. Little interest or pleasure in doing things: not at all 2. Feeling down, depressed, or hopeless: several days 3. Trouble falling or staying asleep, or sleeping too much: nearly every day 4. Feeling tired or having little energy: nearly every day 5. Poor appetite or overeating: nearly every day 6. Feeling bad about yourself - or that you are a failure or have let yourself or your family down: several days 7. Trouble concentrating on things, such as reading the newspaper or watching television: several days 8. Moving or speaking so slowly that other people could have noticed. Or the opposite - being so fidgety or restless that you have been moving around a lot more than usual: more than half the days 9. Thoughts that you would be better off or of hurting yourself in some way: not at all Total score: 14 Depression Screening Interpretation: Positive Depression Screening Follow-up: Existing condition, In treatment and Follow-up Visit Requested Depression Screening Done: Yes 45183 - PHQ-9 Billing: Yes Source: Developed by Drs. Kishan Nolan, Palak Paul, Edmundo Rodriguez and colleagues, with an educational rob from [employer]. Thrive Questionnaire Date Thrive assessed: 08/08/24 I am a: Patient What is your living situation today?: I have a steady place to live Within the past 12 months, did the food you bought not last and you didn't have the money to get more?: Never true Within the past 12 months, did you worry whether your food would run out before you got money to buy more?: Sometimes True Do you have trouble paying for medicines?: No Do you have trouble getting transportation to medical appointments?: No Do you have trouble paying your heating and electricity bill?: No Do you have trouble taking care of your child, family member or friend?: No Do you have trouble with day-to-day activities such as bathing, preparing meals, shopping, managing finances, etc.?: Yes Are you currently unemployed and looking for a job?: No Are you interested in more education?: No Please select the resources that you would like help with: Daily support Currently or been in a relationship where the following occur: No concerns reported THRIVE Score: 1 AUDIT C Alcohol Use Questionnaire (AUDIT-C) 1. How often do you have a drink containing alcohol?: Never Total Score: 0 Score Reviewed/Action Taken: No JACOBO-7 AMB Questionnaire JACOBO-7 Date JACOBO - 7 assessed: 08/08/24 Feeling nervous, anxious, or on edge: 1 = Several days Not being able to stop or control worryin = Several days Worrying too much about different things: 1 = Several days Trouble relaxin = Several days Being so restless that it is hard to sit still: 1 = Several days Becoming easily annoyed or irritable: 1 = Several days Feeling afraid as if something awful might happen: 1 = Several days Total JACOBO-7 score (0-4 normal; 5-9 mild; 10-14 moderate; 15-21 severe): 7 Source: Developed by Drs. Kishan Nolan, Palak Paul, Edmundo Rodriguez and colleagues, with an educational rob from [employer]. JACOBO-7 Assessment Billing JACOBO-7 Assessment Tool: JACOBO-7 Assessment 47383 Review of Systems Const All systems reviewed & are unremarkable except as noted in HPI and below Card Denies chest pain at rest, Denies chest pain with activity, Denies edema, Denies irregular heart rhythm, Denies claudication, Denies dyspnea, Denies dyspnea on exertion, Denies orthopnea, Denies paroxysmal nocturnal dyspnea and Denies slow heart rate Resp Denies cough, Denies dyspnea and Denies dyspnea on exertion GI Denies abdominal pain, Denies change in bowel habits, Denies excessive flatus, Denies nausea and Denies vomiting Neuro Denies lack of coordination Physical exam (Primary Care) Vital Signs: Last Vital Signs BP 136/84 08/08/24 10:34 BMI result Body Mass Index 41.4 BMI Assessment/Plan discussion: High BMI High, discussed plan: lifestyle, weight reduction, dietary and physical activity Tobacco/Smoking Status: Tobacco use Status Tobacco use date assessed 03/26/24 08/08/24 10:32 Patient Tobacco Use Status Former Tobacco user 08/08/24 10:32 Tobacco use type Cigarette 08/08/24 10:32 e-Cigarette/Vaping Use Never Used 08/08/24 10:32 PHQ-9: PHQ-9 Score PHQ-9: Total score 14 08/08/24 10:46 Depression Screening Interpretation: Positive Depression Screening Follow-up: Existing condition, In treatment and Follow-up Visit Requested Thrive Assessment: Date of Thrive Assessment Date Thrive assessed 08/08/24 08/08/24 10:32 Currently or been in a relationship where the following occur: No concerns reported Resp Effort & Inspection: normal respiratory effort Auscultation: clear to auscultation bilaterally Cardio Jugular venous distension: no JVD Rate: regular rate Rhythm: regular rhythm Heart sounds: S1 normal heart sound present and S2 normal heart sound present Extrem General: Yes full ROM Results AMB Hemoglobin A1c AMB Hemoglobin A1c 7.6 % Last Edit by IRIS Ceballos on 08/08/24 10:4 1 Results Reviewed Results Reviewed: Laboratory Last Values Hgb A1c (Clinic) 7.6 % (4.0-6.0) H 08/08/24 10:29 Coding Level of Care Code Est Pt Level 4 (91185) Complex EM visit Add On G2211 Diagnoses Type 2 diabetes mellitus without complication, without long-term current use of insulin E11.9 Diabetes mellitus type: type 2 Diabetes mellitus correction insulin use: without terminologist use Diabetes mellitus complication status: without complication MATT (obstructive sleep apnea) G47.33 Morbid obesity due to excess calories E66.01 Mild recurrent major depression F33.0 Autoimmune thyroiditis E06.3 Dyslipidemia E78.5 Essential hypertension I10 Hypertension type: essential hypertension Additional Codes JACOBO-7 Assessment Billing - JACOBO-7 Assessment Tool: JACOBO-7 Assessment 52206 ([id number]) PHQ-9 - 76483 - PHQ-9 Billing: Yes ([id number]) Time Spent (min) 23 Assessment & Plan Assessment & Plan (1) Diabetes mellitus: Code(s): E11.9 - Type 2 diabetes mellitus without complications Category: Medical Qualifiers: Diabetes mellitus type: type 2 Diabetes mellitus correction insulin use: without terminologist use Diabetes mellitus complication status: without complication Qualified Code(s): E11.9 - Type 2 diabetes mellitus without complications (2) MATT (obstructive sleep apnea): Code(s): G47.33 - Obstructive sleep apnea (adult) (pediatric) Category: Medical (3) Morbid obesity due to excess calories: Code(s): E66.01 - Morbid (severe) obesity due to excess calories Category: Medical (4) Mild recurrent major depression: Code(s): F33.0 - Major depressive disorder, recurrent, mild Category: Medical (5) Autoimmune thyroiditis: Code(s): E06.3 - Autoimmune thyroiditis Category: Medical (6) Dyslipidemia: Code(s): E78.5 - Hyperlipidemia, unspecified Category: Medical (7) HTN (hypertension): Code(s): I10 - Essential (primary) hypertension Category: Medical Qualifiers: Hypertension type: essential hypertension Qualified Code(s): I10 - Essential (primary) hypertension Plan The patient's diabetes management will be adjusted to improve her HbA1c control. Her anxiety and sleep issues will be further evaluated with a referral to sleep medicine, and her current treatment regimen for hyperlipidemia, hypertension, and hypothyroidism will be maintained. A focus on dietary changes and portion control is advised to support her health. Patient was informed and verbally consented to the use of an ambient scribe for clinic note documentation during this visit. I discussed with the patient the importance of controlling her diabetes and adjusting her Metformin regimen. We talked about the potential need for a CPAP machine if sleep apnea is confirmed. I explained the risks and benefits of her current medication regimen and emphasized the importance of lifestyle changes, including diet and exercise, to improve her health outcomes. I also recommended a follow-up colonoscopy with Dr. Keen and emphasized the importance of continued monitoring of her various health conditions. Orders: Orders AMB Hemoglobin A1c Today E11.9 - Type 2 diabetes mellitus without complications Lipid Panel 3 Months E78.5 - Hyperlipidemia, unspecified Microalbumin, Random (w Creat) 3 Months R80.9 - Proteinuria, unspecified Vitamin D 25-OH Total 3 Months E55.9 - Vitamin D deficiency, unspecified Complete Blood Count Auto Diff 3 Months D64.9 - Anemia, unspecified IRON PROFILE 3 Months D64.9 - Anemia, unspecified Comprehensive [place]. Panel Fast 3 Months G47.33 - Obstructive sleep apnea (adult) (pediatric) Vitamin B12 and Folate 3 Months E53.8 - Deficiency of other specified B group vitamins Thyroid Stimulating Hormone 3 Months E06.3 - Autoimmune thyroiditis Referrals Sleep Medicine Referral G47.33 - Obstructive sleep apnea (adult) (pediatric) Gastroenterology Referral D36.9 - Benign neoplasm, unspecified site Medications: New metformin ER 500 mg PO BID 180 tabs 1RF 90 days semaglutide (Ozempic) for 4 weeks 0.25 mg (0.368 mL) subcut QWEEK 1.472 mL 0RF 4 weeks E11.9 - Type 2 diabetes mellitus without complications Discontinued metformin ER Discontinued Reason: Patient Completed Course 500 mg PO BEDTIME 90 tabs 3RF Patient Instructions: - Adjust Metformin dosage as instructed. - Follow up with sleep medicine for suspected sleep apnea. - Maintain current medication regimen for other conditions. - Focus on dietary changes and portion control. - Schedule a follow-up colonoscopy with Dr. Keen. - Stay positive and focus on lifestyle changes for better health outcomes.
[2024-08-08 10:34] VITALS: BP 136/84; BMI 41.4
== END 2024-08-08 10:56 | disposition home or self-care (01) ==
LOC: HO.HMCH 10:25
PROVIDERS: PCP Internal Medicine; Visit Provider Internal Medicine
DX: E11.9 Type 2 diabetes mellitus without complications (principal); G47.33 Obstructive sleep apnea (adult) (pediatric); E66.01 Morbid (severe) obesity due to excess calories; Z68.41 Body mass index [BMI] 40.0-44.9, adult; F33.0 Major depressive disorder, recurrent, mild; E06.3 Autoimmune thyroiditis; E78.5 Hyperlipidemia, unspecified; I10 Essential (primary) hypertension

== ENCOUNTER → 2024-08-08 10:24 | Outpatient (BNVA) | payer OTHER, SELFPAY | PROVIDERS: PCP Internal Medicine; Visit Provider Internal Medicine | DX: E11.40 Type 2 diabetes mellitus with diabetic neuropathy, unspecified (principal); G47.33 Obstructive sleep apnea (adult) (pediatric); E66.01 Morbid (severe) obesity due to excess calories; Z68.41 Body mass index [BMI] 40.0-44.9, adult; F33.0 Major depressive disorder, recurrent, mild; E06.3 Autoimmune thyroiditis; E78.5 Hyperlipidemia, unspecified; I10 Essential (primary) hypertension; Z79.84 Long term (current) use of oral hypoglycemic drugs; Z79.899 Other long term (current) drug therapy | CPT/HCPCS: 83036; 96127; 99212 ==

== ENCOUNTER 2024-10-02 09:48 | Outpatient (AMB) | payer OTHER, SELFPAY ==
--- NOTE | 2024-10-02 09:57 | A.OFFVIS_ITS ---
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 She suspects sleep apnea due to episodes of missed breathing, though she has not been formally diagnosed or treated for this condition. no HX of sleep studies. Accompanied by: Self / Same As Patient Allergies No Known Allergies (No Known Allergies*) Allergy (Verified 10/02/24 10:00) HPI Comments Details: 68 year old l. handed female referred to us for sleep apnea evaluation by her pcp Dr. Hayes. 06/2024 HST AHI c/w 7.2 and 40% snoring, BMI is 41. 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 No new acute intracranial abnormality. She has insomnia and was trialed on ambien, unisom, and tylenolol pm to help fall asleep, and nothing works.. She goes to bed at 11pm and wakes up 1am, goes to the bathroom, then can not fall asleep until 3am and then wakes up at 5am for the day. Feels chronically fatigued. She has witnessed apneas, snores loudly, and gets up 3-4 times a night. She had a HST and her wires were detached after 2 hours due to side sleeping. She suffers from, daily and spontaneous migraines from the occipital area and migrate with pulsating, 7/10 severity, with photophobia /phonia blurry vision, vertigo and balance difficulty. She has arthritis on r. side of the jaw due to bruxism, she has an appt with the dentist 15 Oct 2024. She has bilateral hearing aids. STM is poor, brain fog, forgets where she places articles and forgets to complete chores, forgets names, numbers. 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 Mood is anxious, she gets irritable and depressed and she has auditory hallucinations of someone knocking on the door. Her BMI is elevated to 41. RLS bilateral numbness and tingling in feet and hands, she had NCS/EMG will request. She started with vertigo and falls 3 years ago- with nausea /vomitting / diarrhea FH sister dementia passed at 80 FH+ brother 86 seizures and seizure PFSH Medical History Well woman exam Postmenopausal bleeding Microscopic hematuria Injury of ligament of hand Thumb injury Microalbuminuria Abnormal ultrasound of endometrium Pelvic pain in female Periumbilical pain Morbid obesity due to excess calories Mild recurrent major depression Vertigo Thoracic spine pain Hypothyroidism Facial abscess Autoimmune thyroiditis Dyslipidemia Increased BMI Hx of migraines Hx of vertigo Arthritis Hiatal hernia GERD (gastroesophageal reflux disease) Renal calculi Diabetes Asthma Sleep apnea HTN (hypertension) Surgical History History of hysteroscopy History of arthroscopy of left knee History of esophagogastroduodenoscopy (EGD) Hx of colonoscopy Hx of tonsillectomy Hx of total knee arthroplasty Family History Father Stomach cancer Mother Stomach cancer Brother Stomach cancer Heart disease Sister Diabetes Breast cancer Social History Housing: Apartment Alcohol intake: never Comment: cramping Patient Tobacco Use Status: Former Tobacco user Tobacco use type: Cigarette e-Cigarette/Vaping Use: Never Used Second Hand Smoke Exposure: No service: No Current occupational status: disabled Current occupation: left hand dominant Current occupational exposures/hazards: No Cognitive needs: Yes Hearing needs: Yes Vision needs: Yes Female Reproductive History Menstrual Age of Menarche: 11 Physical Exam Vital Signs: Last Vital Signs Pulse 58 10/02/24 09:58 BP 134/84 10/02/24 09:58 Pulse Ox 97 10/02/24 09:58 Oxygen Delivery Method Room Air 10/02/24 09:58 BMI result Body Mass Index 41.1 Assessment & Plan Assessment & Plan (1) MATT (obstructive sleep apnea): Comment: start cpap use - Code(s): G47.33 - Obstructive sleep apnea (adult) (pediatric) Category: Medical (2) Vertigo: Comment: pt in future for vestibular / gait /balance Code(s): R42 - Dizziness and giddiness Category: Medical (3) Hx of migraines: Comment: sumatritpan 50mg po at onset Code(s): Z86.69 - Personal history of other diseases of the nervous system and sense organs Category: Medical (4) Balance problem due to vestibular dysfunction: Code(s): H81.90 - Unspecified disorder of vestibular function, unspecified ear Category: Medical Qualifiers: Laterality: bilateral Qualified Code(s): H81.93 - Unspecified disorder of vestibular function, bilateral Plan HST reviewed with patient will start her on cpap therapy. BMI is elevated, patient education re: weight loss and positional therapy. Labs r/o nutritional deficiencies. TSH, B12, MMA Homocysteine, folate normal,ferritin? A1c is 7.6, HDL is low. Vertigo/Balance issues, vestibular PT. Headaches Sumatriptan 50mg po at onset of headache may take one additional tablet if headache does not abort in 24 hours. Do not exceed 100mg po in 24 hours. Orders: Orders PT Evaluation and Treatment Today H81.90 - Unspecified disorder of vestibular function, unspecified ear Medications: New sumatriptan succinate take 1 tab at onset of headache; if no relief may repeat 1 tab after at least 2 hrs; max = 4 tabs/24 hr orally; 10 tabs 2RF migraines 1 month MDD 100mg R42 - Dizziness and giddiness, Z86.69 - Personal history of other diseases of the nervous system and sense organs Patient Instructions: Sleep Hygiene provided: set a scheduled bedtime and wake time to help regulate the circadian rhythm and balance the release of pituitary hormones. Sleep in a dark room, temperatures below 68 degrees, and no devices n bed. Limit caffeinated products 6 hours prior to bed, and limit fluids 2-4 hours prior to bed. Gentle night yoga, diffusing essential oils, and playing soft music can be relaxing. Coding Level of Care Code New Pt Level 4 (39556) Diagnoses MATT (obstructive sleep apnea) G47.33 Vertigo R42 Hx of migraines Z86.69 Balance problem due to vestibular dysfunction of both ears H81.93 Laterality: bilateral Time Spent (min) 30 Comment start cpap, mild matt, with elevated BMI +snoring Sleep Questionnaire Difficulty falling asleep: Yes Difficulty staying asleep?: Yes Number of arousals: 3-4 Snoring: Yes Witnessed apneas: Yes Gasping arousals: Yes Nocturia: Yes GERD: Yes Vivid dreams: Yes (nightmares fear inducing) Acting out dreams: No Abnormal behavior in sleep: No Abnormal movements in sleep: No Morning headaches: Yes Excessive daytime sleepiness: Yes Daytime naps: No Restless legs: Yes Hallucinations: Yes (auditory) Sleep paralysis: No Drop attacks: No Sleep Study: No CPAP: No
[2024-10-02 09:58] VITALS: BP 134/84; PULSE 58; O2SAT 97; BMI 41.1
--- OUTSIDE RECORDS SUMMARY | 2024-10-02 10:26 | XMS_ITS | Patient Health Record ---
Author Organization [facility] Address [address] [place] [address] Care Team Providers Care Door Tender Name Role Phone Gemma Lee Primary Care Provider UnavailKishan Mejia Unavailable [phone] Allergies No Known Allergies Reason For Referral [...] Problem Status W/U Status Risk Notes Problem 438792353 Encounter for screening for malignant neoplasm of colon (Z12.11) Active confirmed Problem 021235262 History of adenomatous polyp of colon (Z86.010) Active confirmed Problem 35879640 Diarrhea (R19.7) Active confirmed Problem 626056226 Abnormal CT scan , colon (R93.3) Active confirmed Problem 24103510 Constipation, unspecified constipation type (K59.00) Active confirmed Plan Of Treatment Pending Test Test Name Order Date CLOSTRIDIUM DIFF TOXIN A&B (C DIFF) 03/14 STOOL WBC 04/02/2015 GIARDIA AG, STOOL EIA 04/02/2015 OVA & PARASITES (O&P) 04/02/2015 CULTURE, STOOL 04/02/2015 Future Test Test Name Order Date COLONOSCOPY 08/19/2014 COLONOSCOPY 11/27/2019 Next Appt Details Provider Name:Kishan Kieran Keen , 12/05/2024 09:40:00 AM, [address], [address], [place], [address], Insurance Providers Payer Name Payer Address Payer Phone Subscriber Number Group Number Insured Name Patient Relationship to Insured Coverage Start Date Coverage End Date [facility] [address] Attn [place] [id number] CARLA PRATHER Self - patient is the insured MEDICAID OF [employer] [address] [place] [address] [id number] CARLA PRATHER Self - patient is the insured Medical (General) History Medical History History ICD Code Tubular adenomas removed in 2005 and 04/14 010; negative colonoscopy in 10/2014 Sigmoid diverticulosis and internal hemo rrhoids Hypertension Depression Migraines Denies [place],CVA,Lung disease,renal disease NIDDM Hard of hearing Kidney stones GERD--EGD in 2005-neg for Escamilla's--[facility] Sleep apnea--uses CPAP Hypothyroid Vertigo Surgical History Surgery Date(Month/Year) Left knee replacement in 2018 Tonsillectomy
--- OUTSIDE RECORDS SUMMARY | 2024-10-02 10:26 | XMS_ITS | Data Portability ---
Author Organization [place] - [facility], Allergy Address [address] [address] Care Team Providers Care Student Recruiter Name Role Phone DORI HARGROVE Primary Care [...] Time Sensorineural hearing loss of bilateral ears 777114123 Active 2023 LIANET MCFARLANE , AUD 100 [facility] 100, [place], [address], [facility] 13:22:39 Problem Notes None recorded. Procedures Surgical History Date Name Laterality Status Provider Name and Address Organization Details Recorded Time 01/26/2024 Comp Audio with Tymps - 89085 & 93588 completed LIANET DENYS, [facility] 100 [facility] 100, [place], [address], [facility] - [facility] 01/26/2024 13:20:24 Imaging Results None recorded. Procedure Notes None recorded. Medical Equipment None [...] Not Available No t Available amoxicillin 875 mg-chase prakash clavulanate 125 mg tablet TAKE 1 TABLET [...] Updated DateTime 01/26/2024 152.4 cm 41.7 kg/m2 34749.97 g Gilda Gunn [place] - [facility] 01/26/2024 14:26:38 Social History None recorded. [...] SNOMED-CT Code Diagnosis ICD10 Code Diagnosis Note [id number] MAMADOU QUIÑONEZ MD [facility] [address] [address] 01/26/2024 12:31:34 01/26/2024 14:45:05 Sensorineural hearing loss of bilateral ears 781129254 H90.3 Audiologic al evaluation results: Right ear: Severe sloping to profound sensorineu ral hearing loss with poor word recognitio n. Left ear: Moderately -severe sloping to profound sensorineu ral hearing loss with poor word recognitio n. Tympanomet ry: Right Ear:Type A Left Ear:Type A Health Concerns Section Related Observation LastModified by Organization Detai ls LastModified Time None Recorded Concern Status LastModified by Organization Details LastModified Time None Recorded Advance Directives Directive None Recorded Payers Insurance Date Sequence Insurance Name Policy Number Policy Terry Covered Member ID Terry Member ID Guarantor Name 06/21/2024 1 [facility] - DOS ON OR AFTER 2022 - MEDICARE ADVANTAGE [place] (MEDICARE REPLACEMENT/ADV ANTAGE - PPO) [facility] [id number] [facility] Notes Date Note Type Note Provider Name [...] throat, no ear pain MAMADOU QUIÑONEZ MD [address] [place] [address],[address], [address], [place] - [facility] 02/03/2024 15:03:55 OBGyn Episode No OBEpisode recorded.
--- OUTSIDE RECORDS SUMMARY | 2024-10-02 10:26 | XMS_ITS | Clinical Summary ---
Author Organization [facility] Facility Address [address] [place] [address] Care Team Providers Care Metal Rivet Machine Operator Name Role Phone Gemma Lee MD Primary Care Provider [phone] Allergies No known active allergies Medications Arthritis [...] Visual Foot Exam 12/22/2022 Influenza Vaccine (#1) 2024 Hepatitis B Vaccine Aged Out No longe r eligible based on patient's age to complete this topic Insurance * Guarantor: Audrey Lopes Account Type Relation to Patient Date of Phone Billing Address Personal/Family Self [address] [address] One Care Dual SNP ([id number]) [place] [id number] [facility] One Care Dual SNP ([id number]) Care Teams Metal Rivet Machine Operator Relationship Specialty Start Date End Date Gemma Lee MD [address] [place], [place] PCP - General Internal Medicine 09/29/21
== END 2024-10-02 10:59 | disposition home or self-care (01) ==
LOC: HO.HSMS 09:49
PROVIDERS: PCP Internal Medicine; Visit Provider Physician Assistant Medical
DX: G47.33 Obstructive sleep apnea (adult) (pediatric) (principal); R42 Dizziness and giddiness; Z86.69 Personal history of other diseases of the nervous system and sense organs; H81.93 Unspecified disorder of vestibular function, bilateral
CPT/HCPCS: 99204

== ENCOUNTER → 2024-10-02 09:48 | Outpatient (BNVA) | payer OTHER, SELFPAY | PROVIDERS: PCP Internal Medicine; Visit Provider Physician Assistant Medical | DX: G47.33 Obstructive sleep apnea (adult) (pediatric) (principal); H81.93 Unspecified disorder of vestibular function, bilateral; Z86.69 Personal history of other diseases of the nervous system and sense organs; Z79.899 Other long term (current) drug therapy | CPT/HCPCS: 99202 ==

== ENCOUNTER 2024-10-11 09:30 | Outpatient (AMB) | payer OTHER, SELFPAY ==
--- NOTE | 2024-10-11 09:36 | MHC.OFFVIS ---
Intake Visit Reasons: left shoulder inj (80), last inj 05/14/24 Intake Note: Audrey is a 68 year old female who presents today for a repeat injection for her left shoulder (80) , last injection was on 05/14/24. Patient states that her last injection lasted her about 4 months. Allergies No Known Allergies (No Known Allergies*) Allergy (Verified 10/11/24 09:37) Medication List - Last Reconciled 10/11/24 by Margaret Garcia RN acetaminophen ER 650 mg PO Q8H PRN 30 days [adult diapers briefs As directed] albuterol sulfate 2.5 mg (3 mL) inhalation Q4-6H PRN 30 days albuterol sulfate 90 mcg/actuation (Ventolin HFA) 2 puffs PO Q6H PRN 30 days amitriptyline 25 mg PO BEDTIME 90 days aspirin 81 mg PO QAM 90 days atorvastatin 80 mg PO BEDTIME blood sugar diagnostic (FreeStyle Lite Strips) 1 strip miscellaneous BID 30 days blood-glucose meter (FreeStyle Lite Meter kit) As directed clonazepam 0.500f1 mg PO BID PRN [diabetic shoes As directed] docusate sodium (Colace) 100 mg PO BID PRN 30 days ezetimibe 10 mg PO DAILY 90 days fluoxetine 60 mg PO QAM fluticasone propionate 50 mcg/actuation 1 spray intranasal DAILY gabapentin 300 mg PO BID 90 days ibuprofen 800 mg PO TID PRN lancets (TRUEplus Lancets) 33 gauge miscellaneous TID levothyroxine 112 mcg PO DAILY 90 days lisinopril-hydrochlorothiazide 20-25 mg 1 tab PO DAILY 90 days loratadine 10 mg PO DAILY PRN metformin ER 500 mg PO BID 90 days miscellaneous medical supply 1 pair of diabetic shoes and inserts miscellaneous; mupirocin 2% 1 appl topical TID 7 days nebulizers (AeroEclipse II Nebulizer) As directed pantoprazole 40 mg PO DAILY 90 days prazosin 2 mg PO BEDTIME semaglutide (Ozempic) 0.25 mg (0.368 mL) subcut QWEEK 4 weeks sumatriptan succinate take 1 tab at onset of headache; if no relief may repeat 1 tab after at least 2 hrs; max = 4 tabs/24 hr orally; 1 month MDD 100mg verapamil ER 120 mg PO QAM zolpidem 5 mg PO BEDTIME PRN 30 days HPI HPI left shoulder inj (80), last inj 05/14/24: Details: Ms. Moses Jade is a 68-year-old female who presents to the office today for repeat cortisone injection in the left shoulder. Last injection was 05/14/2024 which gave her good relief. [facility] Medical History (Updated 10/07/24 @ 07:10 by Steph Buckner [facility]) Migraine White matter disease Anxiety MCI (mild cognitive impairment) Ataxia Well woman exam Postmenopausal bleeding Microscopic hematuria Injury of ligament of hand Thumb injury Microalbuminuria Abnormal ultrasound of endometrium Pelvic pain in female Periumbilical pain Morbid obesity due to excess calories Mild recurrent major depression Vertigo Thoracic spine pain Hypothyroidism Facial abscess Autoimmune thyroiditis Dyslipidemia Increased BMI Hx of migraines Hx of vertigo Arthritis Hiatal hernia GERD (gastroesophageal reflux disease) Renal calculi Diabetes Asthma Sleep apnea HTN (hypertension) Surgical History History of hysteroscopy History of arthroscopy of left knee History of esophagogastroduodenoscopy (EGD) Hx of colonoscopy Hx of tonsillectomy Hx of total knee arthroplasty Family History Father Stomach cancer Mother Stomach cancer Brother Stomach cancer Heart disease Sister Diabetes Breast cancer Social History Housing: Apartment Alcohol intake: never Comment: cramping Patient Tobacco Use Status: Former Tobacco user Tobacco use type: Cigarette e-Cigarette/Vaping Use: Never Used Second Hand Smoke Exposure: No service: No Current occupational status: disabled Current occupation: left hand dominant Current occupational exposures/hazards: No Cognitive needs: Yes Hearing needs: Yes Vision needs: Yes Female Reproductive History Menstrual Age of Menarche: 11 Review of Systems Const All systems reviewed & are unremarkable except as noted in HPI and below Physical Exam Const General: cooperative, healthy appearing and no acute distress Resp Effort & Inspection: normal respiratory effort and able to speak in complete sentences Cardio Rate: regular rate Peripheral pulses: Peripheral pulses 2+ throughout Skin Lesions: no lesions Rashes: no rashes Extrem Other: Left shoulder: Normal to inspection. No ecchymosis, erythema, or edema. Forward flexion and abduction to 90 degrees. Able to reach back pocket. Positive empty can. Positive cross-body reach. Negative drop arm. NVI. Office Procedures AMB Joint Injection/Aspiration Joint Injection/Aspiration Primary Site: left shoulder Prep: site was prepped using aseptic technique, ethochloride spray was applied and injection warnings given Injected: 80 mg of, DepoMedrol, with 8 mL of (2% plain lidocaine) and in the subcromial space Approach Used: posterolateral Procedure: The patient tolerated the procedure well, but had some pain with the injection and there was some relief with the local anesthesia Coding 29106 - Large joint Procedure code (CPT) selection complete Assessment & Plan Assessment & Plan (1) Painful arc syndrome of left shoulder: Code(s): M75.102 - Unspecified rotator cuff tear or rupture of left shoulder, not specified as traumatic Category: Medical Plan The patient was offered a cortisone injection in the left shoulder with 80 mg of DepoMedrol. The patient was explained the risks, benefits, and alternatives to receiving this injection. After receiving consent for the injection, the patient had the procedure done while in the office today. The patient tolerated the procedure well with no complications. Follow-up will be patient has PRN, or sooner if needed Coding Level of Care Code Est Pt Level 3 (82531) Diagnoses Painful arc syndrome of left shoulder M75.102 CPT Codes Coding - 98837 Large joint: 56525 - Large joint ([id number])
--- OUTSIDE RECORDS SUMMARY | 2024-10-11 09:42 | XMS_ITS | Clinical Summary ---
Author Organization [facility] Facility Address [address] [place] [address] Care Team Providers Care Real Estate Assessor Name Role Phone Gemma Lee MD Primary [...] Phone Billing Address Personal/Family Self [address] [address] One Care Dual SNP ([id number]) [place] [id number] [facility] One Care Dual SNP ([id number]) Care Teams Real Estate Assessor Relationship Specialty Start Date End Date Gemma Lee MD [address] [place], [place] PCP - General Internal Medicine 09/29/21
--- OUTSIDE RECORDS SUMMARY | 2024-10-11 09:42 | XMS_ITS | Patient Health Record ---
Author Organization [facility] Address [address] [place] [address] Care Team Providers Care Medical Librarian Name Role Phone Gemma Lee Primary Care Provider UnavailKishan Mejia Unavailable [phone] Allergies No Known Allergies Reason For Referral [...] Problem Status W/U Status Risk Notes Problem 550624992 Encounter for screening for malignant neoplasm of colon (Z12.11) Active confirmed Problem 236476081 History of adenomatous polyp of colon (Z86.010) Active confirmed Problem 05479477 Diarrhea (R19.7) Active confirmed Problem 499283295 Abnormal CT scan , colon (R93.3) Active confirmed Problem 66706864 Constipation, unspecified constipation type (K59.00) Active confirmed Plan Of Treatment Pending Test Test Name Order Date CLOSTRIDIUM DIFF TOXIN A&B (C DIFF) 03/14 STOOL WBC 04/02/2015 GIARDIA AG, STOOL EIA 04/02/2015 OVA & PARASITES (O&P) 04/02/2015 CULTURE, STOOL 04/02/2015 Future Test Test Name Order Date COLONOSCOPY 08/19/2014 COLONOSCOPY 11/27/2019 Next Appt Details Provider Name:Kishan Kieran Keen , 12/05/2024 09:40:00 AM, [address], [address], [place], [address], Insurance Providers Payer Name Payer Address Payer Phone Subscriber Number Group Number Insured Name Patient Relationship to Insured Coverage Start Date Coverage End Date [facility] [address] Attn Claims [place] [address] [phone] [id number] CARLA PRATHER Self - patient is the insured MEDICAID OF [email or web address] [address] [place] [address] [id number] CARLA PRATHER Self - patient is the insured Medical (General) History Medical History History ICD Code Tubular adenomas removed in 2005 and 04/14 010; negative colonoscopy in 10/2014 Sigmoid diverticulosis and internal hemo rrhoids Hypertension Depression Migraines Denies [place],CVA,Lung disease,renal disease NIDDM Hard of hearing Kidney stones GERD--EGD in 2005-neg for Escamilla's--[facility] Sleep apnea--uses CPAP Hypothyroid Vertigo Surgical History Surgery Date(Month/Year) Left knee replacement in 2018 Tonsillectomy
== END 2024-10-11 09:45 | disposition home or self-care (01) ==
LOC: HO.HOS 09:31
PROVIDERS: PCP Internal Medicine; Visit Provider Physician Assistant
DX: M75.102 Unspecified rotator cuff tear or rupture of left shoulder, not specified as traumatic (principal)
CPT/HCPCS: 20610

== ENCOUNTER → 2024-10-11 09:30 | Outpatient (BNVA) | payer OTHER, SELFPAY | PROVIDERS: PCP Internal Medicine; Visit Provider Physician Assistant | DX: M25.512 Pain in left shoulder (principal); M75.102 Unspecified rotator cuff tear or rupture of left shoulder, not specified as traumatic | CPT/HCPCS: 20610; J1010; J2003 ==

== ENCOUNTER 2024-10-28 07:40 | Outpatient (REF) | payer OTHER, SELFPAY ==
--- OUTSIDE RECORDS SUMMARY | 2024-10-28 07:42 | XMS_ITS | Clinical Summary ---
Author Organization [facility] Facility Address [address] [place] [address] Care Team Providers Care Cd Storage And Materials Make Up Helper Name Role Phone Gemma Lee MD Primary Care Provider [phone] Allergies No known active allergies Medications Arthritis [...] Phone Billing Address Personal/Family Self [address] [address] One Care Dual SNP ([id number]) [place] [id number] [facility] One Care Dual SNP ([id number]) Care Teams Cd Storage And Materials Make Up Helper Relationship Specialty Start Date End Date Gemma Lee MD [address] [place], [place] PCP - General Internal Medicine 09/29/21
--- OUTSIDE RECORDS SUMMARY | 2024-10-28 07:42 | XMS_ITS | Patient Health Record ---
Author Organization [facility] Address [address] [place] [address] Care Team Providers Care Benefits Consultant Name Role Phone Gemma Lee Primary Care Provider UnavailKishan Mejia Unavailable [phone] Allergies No Known Allergies Reason For Referral [...] Problem Status W/U Status Risk Notes Problem 837970752 Encounter for screening for malignant neoplasm of colon (Z12.11) Active confirmed Problem 677015588 History of adenomatous polyp of colon (Z86.010) Active confirmed Problem 32300071 Diarrhea (R19.7) Active confirmed Problem 656027059 Abnormal CT scan , colon (R93.3) Active confirmed Problem 56552439 Constipation, unspecified constipation type (K59.00) Active confirmed [...] [address], [address], [place], [address], Insurance Providers Payer Name Payer Address Payer Phone Subscriber Number Group Number Insured Name Patient Relationship to Insured Coverage Start Date Coverage End Date [facility] [address] Attn Claims [place] [id number] CARLA PRATHER Self - patient is the insured MEDICAID OF [employer] [address] [place] [address] [id number] CARLA PRATHER Self - patient is the insured Medical (General) History Medical History History ICD Code Tubular adenomas removed in 2005 and 04/14 010; negative colonoscopy in 10/2014 Sigmoid diverticulosis and internal hemo rrhoids Hypertension Depression Migraines Denies [place],CVA,Lung disease,renal disease NIDDM Hard of hearing Kidney stones GERD--EGD in 2005-neg for Escamilla's--[facility] Sleep apnea--uses CPAP Hypothyroid Vertigo Surgical History Surgery Date(Month/Year) Left knee replacement in 2018 Tonsillectomy
[2024-10-28 07:56] LABS: MANUAL DIFF FLAG NO
[2024-10-28 08:49] LABS: Hematocrit 35.7 % (37.0-47.0); Hemoglobin 11.7 g/dl (12.0-16.0); Imm Gran Abs Auto 0.01 X10*3/uL (0.00-0.03); Imm Gran Pct Auto 0.1 % (0.0-0.4); Lymphocytes Absolute Auto 3.7 X10*3/uL (1.2-4.9); Mean Corpuscular HGB Conc 32.8 g/dl (31.0-35.0); Mean Corpuscular Hemoglobin 28.3 pg (27.0-33.0); Mean Corpuscular Volume 86.2 fL (80.0-98.0); NRBC Abs Auto 0.000 X10*3/uL (0.0-0.012); NRBC Pct Auto 0.0 /100WBC (0.0-0.2); Platelet Count 319 X10*3/uL (160-400); Red Blood Count 4.14 X10*6/uL (4.20-5.50); White Blood Count 9.4 X10*3/uL (4.8-10.8)
[2024-10-28 09:30] LABS: Alanine Aminotransferase 23 U/L (0-31); Albumin Level 4.0 g/dL (3.5-5.0); Alkaline Phosphatase 94 U/L (39-117); Anion Gap 12 (12-20); Aspartate Amino Transferase 29 U/L (5-31); Blood Urea Nitrogen 19 mg/dL (9-16); Calcium 9.1 mg/dL (8.4-10.2); Carbon Dioxide 26 mmol/L (22-29); Chloride 104 mmol/L (96-108); Cholesterol 168 mg/dL (<200); Estimated Glomerular Filt Rate > 60; HDL Cholesterol 44 mg/dL (>40); Iron 40 mcg/dL (30-160); Percent Iron Saturation 14 % (15-50); Potassium 3.7 mmol/L (3.3-5.1); Sodium 138 mmol/L (135-145); Total Iron Binding Capacity 286 mcg/dL (228-428); Total Protein 7.3 g/dL (6.5-8.0); Triglycerides 166 mg/dL (<150); Unsaturated Iron Binding 246 ug/dL
[2024-10-28 09:47] LABS: Thyroid Stimulating Hormone 5.56 uIU/mL (0.32-4.0)
[2024-10-28 10:36] LABS: Microalbum/Creatinine Ratio Ur 5.2 ug/mg cr (<30)
[2024-10-28 11:19] LABS: Folate 5.6 ng/mL (> or = 4.0); Vitamin B12 500 pg/mL (200-900)
== END 2024-10-28 07:41 | disposition home or self-care (01) ==
LOC: HO.LAB 07:40
PROVIDERS: PCP Internal Medicine; Visit Provider Internal Medicine
DX: E53.8 Deficiency of other specified B group vitamins (principal); G47.33 Obstructive sleep apnea (adult) (pediatric); R80.9 Proteinuria, unspecified; E78.5 Hyperlipidemia, unspecified; E55.9 Vitamin D deficiency, unspecified; D64.9 Anemia, unspecified; E06.3 Autoimmune thyroiditis
CPT/HCPCS: 36415; 80053; 80061; 82043; 82306; 82570; 82607; 82746; 83540; 84443; 85025

== ENCOUNTER 2024-11-25 07:52 | Outpatient (AMB) | payer OTHER, SELFPAY ==
--- OUTSIDE RECORDS SUMMARY | 2024-11-25 07:55 | XMS_ITS | Clinical Summary ---
Author Organization [facility] Facility Address [address] [place] [id number] Care Team Providers Care Sander Operator Name Role Phone Gemma Lee MD Primary Care Provider [phone] Allergies No known active allergies Medications Arthritis [...] Phone Billing Address Personal/Family Self 1955 [address] [address] One [facility] Dual SNP ([id number]) [place] [id number] [facility] One Care Dual SNP ([id number]) Care Teams Sander Operator Relationship Specialty Start Date End Date Gemma Lee MD [address] [place], [place] PCP - General Internal Medicine 09/29/21
--- OUTSIDE RECORDS SUMMARY | 2024-11-25 07:55 | XMS_ITS | Patient Health Record ---
Author Organization [facility] Address [address] [place] [address] Care Team Providers Care Simulation Educator Name Role Phone Gemma Lee Primary Care Provider UnavailKishan Mejia Unavailable [phone] Allergies No Known Allergies Reason For Referral [...] Problem Status W/U Status Risk Notes Problem [id number] Encounter for screening for malignant neoplasm of colon (Z12.11) Active confirmed Problem 609226640 History of adenomatous polyp of colon (Z86.010) Active confirmed Problem 30167174 Diarrhea (R19.7) Active confirmed Problem 339953544 Abnormal CT scan , colon (R93.3) Active confirmed Problem 37346042 Constipation, unspecified constipation type (K59.00) Active confirmed Plan Of Treatment Pending Test Test Name Order Date CLOSTRIDIUM DIFF TOXIN A&B (C DIFF) 03/14 STOOL WBC 04/02/2015 GIARDIA AG, STOOL EIA 04/02/2015 OVA & PARASITES (O&P) 04/02/2015 CULTURE, STOOL 04/02/2015 Future Test Test Name Order Date COLONOSCOPY 08/19/2014 COLONOSCOPY 11/27/2019 Next Appt Details Provider Name:Kishan Kieran Keen , 12/05/2024 09:40:00 AM, [address], [address], [place], [address], Insurance Providers Payer Name Payer Address Payer Phone Subscriber Number Group Number Insured Name Patient Relationship to Insured Coverage Start Date Coverage End Date [facility] [address] Attn Claims [place] [address] [id number] CARLA PRATHER Self - patient is the insured MEDICAID OF [employer] [address] [place] [address] [id number] CARLA PRATHER Self - patient is the insured Medical (General) History Medical History History ICD Code Tubular adenomas removed in 2005 and 04/14 010; negative colonoscopy in 10/2014 Sigmoid diverticulosis and internal hemo rrhoids Hypertension Depression Migraines Denies NC,CVA,Lung disease,renal disease NIDDM Hard of hearing Kidney stones GERD--EGD in 2005-neg for Escamilla's--[facility] Sleep apnea--uses CPAP Hypothyroid Vertigo Surgical History Surgery Date(Month/Year) Left knee replacement in 2018 Tonsillectomy
[2024-11-25 08:09] VITALS: BP 144/72; PULSE 68; O2SAT 97; BMI 40.8
--- NOTE | 2024-11-25 08:09 | MHC.PC.OV ---
Vital Signs 11/25/24 08:09 Height 5 ft Weight 209 lb BMI 40.8 BP 144/72 H Blood Pressure Location Lt brachial Position Sitting Pulse 68 Pulse Source Pulse Oximeter Pulse Oximetry (%) 97 Oxygen Delivery Method Room Air Intake Visit Reasons: annual exam Behavioral Consultant Required: No Accompanied by: Self / Same As Patient Allergies No Known Allergies (No Known Allergies*) Allergy (Verified 11/25/24 08:31) Medication List - Last Reconciled 11/25/24 by Gemma Omer MD acetaminophen ER 650 mg PO Q8H PRN 30 days [adult diapers briefs As directed] albuterol sulfate 2.5 mg (3 mL) inhalation Q4-6H PRN 30 days albuterol sulfate 90 mcg/actuation (Ventolin HFA) 2 puffs PO Q6H PRN 30 days amitriptyline 25 mg PO BEDTIME 90 days aspirin 81 mg PO QAM 90 days atorvastatin 80 mg PO BEDTIME blood sugar diagnostic (FreeStyle Lite Strips) 1 strip miscellaneous BID 30 days blood-glucose meter (FreeStyle Lite Meter kit) As directed clonazepam 0.500f1 mg PO BID PRN [diabetic shoes As directed] docusate sodium (Colace) 100 mg PO BID PRN 30 days ezetimibe 10 mg PO DAILY 90 days fluoxetine 60 mg PO QAM fluticasone propionate 50 mcg/actuation 1 spray intranasal DAILY gabapentin 300 mg PO BID 90 days ibuprofen 800 mg PO TID PRN lancets (TRUEplus Lancets) 33 gauge miscellaneous TID levothyroxine (Levoxyl) 125 mcg PO DAILY 90 days lisinopril-hydrochlorothiazide 20-25 mg 1 tab PO DAILY 90 days loratadine 10 mg PO DAILY PRN metformin ER 500 mg PO BID 90 days miscellaneous medical supply 1 pair of diabetic shoes and inserts miscellaneous; mupirocin 2% 1 appl topical TID 7 days nebulizers (AeroEclipse II Nebulizer) As directed pantoprazole 40 mg PO DAILY 90 days prazosin 2 mg PO BEDTIME semaglutide (Ozempic) 0.25 mg (0.368 mL) subcut QWEEK 4 weeks sumatriptan succinate take 1 tab at onset of headache; if no relief may repeat 1 tab after at least 2 hrs; max = 4 tabs/24 hr orally; 1 month MDD 100mg verapamil ER 120 mg PO QAM zolpidem 5 mg PO BEDTIME PRN 30 days Tobacco use date assessed: 03/26/24 Fall risk assessment: No Falls in past year Last assessed Fall Risk: 11/25/24 Dental Screening Dental Screen Date: 03/26/24 HPI HPI Comments History of Present Illness Details The patient is a 69-year-old female presenting with a physical exam. She has a history of mild major depression, which is currently managed by psychiatry. Recently, her sister , leading to a cessation of her medications, resulting in elevated TSH, LDL, and an A1c of 7.8%, indicating poor diabetes control. The patient is morbidly obese with a BMI of 40.8. She has been advised to engage in exercise to reduce her BMI below 30. She reports diffuse joint pain, likely due to fibromyalgia and osteoarthritis. Celebrex has been prescribed to manage her osteoarthritis symptoms. The patient also experiences angina, which is part of her cardiovascular history. Preventative care measures include a mammogram, bone DEXA scan, and colonoscopy, with the last colonoscopy performed in 2019 and due for a repeat in five years. She is up to date with her pneumonia, Tdap, and Zosterbex vaccines. [facility] Medical History Migraine White matter disease Anxiety MCI (mild cognitive impairment) Ataxia Well woman exam Postmenopausal bleeding Microscopic hematuria Injury of ligament of hand Thumb injury Microalbuminuria Abnormal ultrasound of endometrium Pelvic pain in female Periumbilical pain Morbid obesity due to excess calories Mild recurrent major depression Vertigo Thoracic spine pain Hypothyroidism Facial abscess Autoimmune thyroiditis Dyslipidemia Increased BMI Hx of migraines Hx of vertigo Arthritis Hiatal hernia GERD (gastroesophageal reflux disease) Renal calculi Diabetes Asthma Sleep apnea HTN (hypertension) Surgical History History of hysteroscopy History of arthroscopy of left knee History of esophagogastroduodenoscopy (EGD) Hx of colonoscopy Hx of tonsillectomy Hx of total knee arthroplasty Family History Father Stomach cancer Mother Stomach cancer Brother Stomach cancer Heart disease Sister Diabetes Breast cancer Social History Housing: Apartment Alcohol intake: never Comment: cramping Patient Tobacco Use Status: Former Tobacco user Tobacco use type: Cigarette e-Cigarette/Vaping Use: Never Used Second Hand Smoke Exposure: No service: No Current occupational status: disabled Current occupation: left hand dominant Current occupational exposures/hazards: No Cognitive needs: Yes Hearing needs: Yes Vision needs: Yes Female Reproductive History Menstrual Age of Menarche: 11 Questionnaire Thrive Questionnaire Date Thrive assessed: 08/08/24 I am a: Patient What is your living situation today?: I have a steady place to live Within the past 12 months, did the food you bought not last and you didn't have the money to get more?: Never true Within the past 12 months, did you worry whether your food would run out before you got money to buy more?: Sometimes True Do you have trouble paying for medicines?: No Do you have trouble getting transportation to medical appointments?: No Do you have trouble paying your heating and electricity bill?: No Do you have trouble taking care of your child, family member or friend?: No Do you have trouble with day-to-day activities such as bathing, preparing meals, shopping, managing finances, etc.?: Yes Are you currently unemployed and looking for a job?: No Are you interested in more education?: No Please select the resources that you would like help with: Daily support Currently or been in a relationship where the following occur: No concerns reported THRIVE Score: 1 JACOBO-7 AMB Questionnaire JACOBO-7 Date JACOBO - 7 assessed: 08/08/24 Source: Developed by Drs. Kishan Nolan, Palak Paul, Edmundo Rodriguez and colleagues, with an educational rob from [employer]. Review of Systems Const All systems reviewed & are unremarkable except as noted in HPI and below Card Denies chest pain at rest, Denies chest pain with activity, Denies edema, Denies irregular heart rhythm, Denies claudication, Denies dyspnea, Denies dyspnea on exertion, Denies orthopnea, Denies paroxysmal nocturnal dyspnea and Denies slow heart rate Resp Denies cough, Denies dyspnea and Denies dyspnea on exertion GI Denies abdominal pain, Denies change in bowel habits, Denies excessive flatus, Denies nausea and Denies vomiting Physical exam (Primary Care) Vital Signs: Last Vital Signs Pulse 68 11/25/24 08:09 BP 144/72 H 11/25/24 08:09 Pulse Ox 97 11/25/24 08:09 Oxygen Delivery Method Room Air 11/25/24 08:09 BMI result Body Mass Index 40.8 Tobacco/Smoking Status: Tobacco use Status Tobacco use date assessed 03/26/24 11/25/24 08:10 Patient Tobacco Use Status Former Tobacco user 11/25/24 08:10 Tobacco use type Cigarette 11/25/24 08:10 e-Cigarette/Vaping Use Never Used 11/25/24 08:10 Thrive Assessment: Date of Thrive Assessment Date Thrive assessed 08/08/24 11/25/24 08:10 Currently or been in a relationship where the following occur: No concerns reported [facility] Head: Yes normal to inspection, Yes normocephalic and Yes atraumatic Ears: external ears normal Eyes General: appearance normal, both eyes and all related structures Eyelids: Yes eyelids normal Conjunctivae: conjunctivae normal Neck Neck: Yes normal visual inspection and Yes supple Resp Effort & Inspection: normal respiratory effort Auscultation: clear to auscultation bilaterally Cardio Jugular venous distension: no JVD Rate: regular rate Rhythm: regular rhythm Heart sounds: S1 normal heart sound present and S2 normal heart sound present GI Inspection: Yes normal to inspection Palpation (GI): Soft to palpation and nontender Auscultation: normal bowel sounds Skin General skin exam: no rashes or lesions noted Neuro General: no focal motor deficits Extrem General: Yes full ROM Psych Appearance: grossly normal Results AMB Hemoglobin A1c AMB Hemoglobin A1c 7.8 % Last Edit by Pina Ding CMA on 11/25/24 08:23 Results Reviewed Results Reviewed: Laboratory Last Values Hgb A1c (Clinic) 7.8 % (4.0-6.0) H 11/25/24 08:11 Coding Level of Care Code Est Pt Level 4 (77254) Est Pt Prev Care >65y(02300) Diagnoses Physical exam Z00.00 Osteoarthritis of right knee M17.11 Type 2 diabetes mellitus without complication, without long-term current use of insulin E11.9 Diabetes mellitus type: type 2 Diabetes mellitus exterminator helper termite insulin use: without exterminator helper termite use Diabetes mellitus complication status: without complication Autoimmune thyroiditis E06.3 Mild recurrent major depression F33.0 Time Spent (min) 35 Assessment & Plan Assessment & Plan (1) Physical exam: Code(s): Z00.00 - Encounter for general adult medical examination without abnormal findings Category: Medical (2) Osteoarthritis of right knee: Code(s): M17.11 - Unilateral primary osteoarthritis, right knee Category: Medical (3) Diabetes mellitus: Code(s): E11.9 - Type 2 diabetes mellitus without complications Category: Medical Qualifiers: Diabetes mellitus type: type 2 Diabetes mellitus mcfp insulin use: without exterminator helper termite use Diabetes mellitus complication status: without complication Qualified Code(s): E11.9 - Type 2 diabetes mellitus without complications (4) Autoimmune thyroiditis: Code(s): E06.3 - Autoimmune thyroiditis Category: Medical (5) Mild recurrent major depression: Code(s): F33.0 - Major depressive disorder, recurrent, mild Category: Medical Plan Plan Patient was informed and verbally consented to the use of an ambient scribe for clinic note documentation during this visit. 1. Physical exam Repeat in a year. 2. Mild Major Depression The patient is currently managed by psychiatry for mild major depression. 3. Morbid Obesity The patient is advised to engage in exercise to reduce her BMI below 30. 4.. Type 2 Diabetes Mellitus The patient's A1c is 7.8%, indicating poor control, and she plans to resume her medications. 5. Hypertension The patient's blood pressure is slightly elevated, likely due to medication non-adherence. 6. Osteoarthritis. Start Celebrex prn. Orders: Orders Lipid Panel 4 Months E78.5 - Hyperlipidemia, unspecified Microalbumin, Random (w Creat) 4 Months R80.9 - Proteinuria, unspecified IRON PROFILE 4 Months D64.9 - Anemia, unspecified AMB Hemoglobin A1c Today Z13.9 - Encounter for screening, unspecified Complete Blood Count Auto Diff 4 Months D64.9 - Anemia, unspecified Comprehensive Banner. Panel Fast 4 Months E11.9 - Type 2 diabetes mellitus without complications Thyroid Stimulating Hormone 4 Months E06.3 - Autoimmune thyroiditis MM tomosynthesis screening BI Today Z12.31 - Encounter for screening mammogram for malignant neoplasm of breast Medications: New levothyroxine (Levoxyl) 100 mcg PO DAILY 90 tabs 1RF 90 days Discontinued levothyroxine (Levoxyl) Discontinued Reason: Patient Completed Course 125 mcg PO DAILY 90 days 90 tabs 1RF E06.3 - Autoimmune thyroiditis
== END 2024-11-25 08:52 | disposition home or self-care (01) ==
LOC: HO.HMCH 07:53
PROVIDERS: PCP Internal Medicine; Visit Provider Internal Medicine
DX: Z00.00 Encounter for general adult medical examination without abnormal findings (principal); M17.11 Unilateral primary osteoarthritis, right knee; E11.9 Type 2 diabetes mellitus without complications; E06.3 Autoimmune thyroiditis; F33.0 Major depressive disorder, recurrent, mild

== ENCOUNTER → 2024-11-25 07:52 | Outpatient (BNVA) | payer OTHER, SELFPAY | PROVIDERS: PCP Internal Medicine; Visit Provider Internal Medicine | DX: Z00.00 Encounter for general adult medical examination without abnormal findings (principal); M17.11 Unilateral primary osteoarthritis, right knee; E11.9 Type 2 diabetes mellitus without complications; E66.01 Morbid (severe) obesity due to excess calories; M79.7 Fibromyalgia; I20.9 Angina pectoris, unspecified; E06.3 Autoimmune thyroiditis; F33.0 Major depressive disorder, recurrent, mild; R80.9 Proteinuria, unspecified; D64.9 Anemia, unspecified; Z68.41 Body mass index [BMI] 40.0-44.9, adult | CPT/HCPCS: 83036; 99212; 99397 ==

== ENCOUNTER 2025-01-06 11:04 | Outpatient (AMB) | payer OTHER, SELFPAY ==
[2025-01-06 11:17] VITALS: BP 136/70; PULSE 70; O2SAT 96; BMI 41.1
--- NOTE | 2025-01-06 11:17 | MHC.OFFVIS ---
Vital Signs 01/06/25 11:17 Height 5 ft Weight 210 lb 4 oz BMI 41.1 BP 136/70 Blood Pressure Location Rt brachial Position Sitting Pulse 70 Pulse Source Pulse Oximeter Pulse Oximetry (%) 96 Oxygen Delivery Method Room Air Intake Visit Reasons: 3 mo follow up Intake Note: Patient presents follow up MATT/Migraine medication. Compliance in chart(, >=4hrs-2%, Average Usage-24min, Med Pressure-7.5, Med Leaks-1.9, AHI-0.9). Migraines are the same no changes. Accompanied by: Self / Same As Patient Allergies No Known Allergies (No Known Allergies*) Allergy (Verified 01/06/25 11:20) HPI Comments Details: 69 year old l. handed female presents for a f/u of MATT. Her sister 78 recently passed due to a stroke 2 months ago and now brother in law also passed due to stroke. 06/2024 HST AHI c/w 7.2 and 40% snoring, BMI is 41. 05/2022 MRI reviewed with pt. white matter disease MR/MR head/brain wo con IMPRESSION: Stable mild to moderate burden of supratentorial white matter disease without new lesion. No new acute intracranial abnormality. MATT Compliance Report September 2024- Dec 2024 reviewed with pt. She is not able to be compliant due to mask fitting and TMJ pain. She is waiting on a new mask fitting, she has an upcoming TMJ appt for PT visit 2x a week since Oct 2024 and could not tolerate the pain bilaterally in her jaws, and the mandible. She has arthritis on r. 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 She has hearing aides bilaterally. She goes to bed at 10pm and wakes up 1am, 2am, and falls asleep at 3am and then wakes up at 5am for the day. Feels chronically fatigued. She has witnessed apneas, has moderate snoring for 40% of her sleep, and she gets up 3-4 x a night. She suffers from, daily and spontaneous migraines from the occipital area and migrate with pulsating 7/10 pain with photophobia /phonophobia and blurry vision. She has dizziness with vertigo and balance difficulties, she says it feels as though the room is spins. STM is poor, brain fog, forgets where she places articles and forgets to complete chores, forgets names, and numbers. She has word recall difficulty and easily loses concentration with distractibility. She has a dredge mate who helps her get dressed, shower, cook and clean in the AM daily and takes her for a walk or shopping for groceries. Her mood is anxious, she gets irritable and depressed due to auditory hallucinations of someone knocking on the door. She has RLS symptoms of neuropathy in her feet bilaterally with numbness and tingling, she had NCS/EMG, pending results. Her BMI is elevated to 41. [facility] Medical History Migraine White matter disease Anxiety MCI (mild cognitive impairment) Ataxia Well woman exam Postmenopausal bleeding Microscopic hematuria Injury of ligament of hand Thumb injury Microalbuminuria Abnormal ultrasound of endometrium Pelvic pain in female Periumbilical pain Morbid obesity due to excess calories Mild recurrent major depression Vertigo Thoracic spine pain Hypothyroidism Facial abscess Autoimmune thyroiditis Dyslipidemia Increased BMI Hx of migraines Hx of vertigo Arthritis Hiatal hernia GERD (gastroesophageal reflux disease) Renal calculi Diabetes Asthma Sleep apnea HTN (hypertension) Surgical History History of hysteroscopy History of arthroscopy of left knee History of esophagogastroduodenoscopy (EGD) Hx of colonoscopy Hx of tonsillectomy Hx of total knee arthroplasty Family History Father Stomach cancer Mother Stomach cancer Brother Stomach cancer Heart disease Sister Diabetes Breast cancer Social History Housing: Apartment Alcohol intake: never Comment: cramping Patient Tobacco Use Status: Former Tobacco user Tobacco use type: Cigarette e-Cigarette/Vaping Use: Never Used Second Hand Smoke Exposure: No service: No Current occupational status: disabled Current occupation: left hand dominant Current occupational exposures/hazards: No Cognitive needs: Yes Hearing needs: Yes Vision needs: Yes Female Reproductive History Menstrual Age of Menarche: 11 Physical Exam Vital Signs: Last Vital Signs Pulse 70 01/06/25 11:17 BP 136/70 01/06/25 11:17 Pulse Ox 96 01/06/25 11:17 Oxygen Delivery Method Room Air 01/06/25 11:17 BMI result Body Mass Index 41.1 Const General: cooperative and anxious Nutritional Appearance: obese Orientation/consciousness: patient oriented x3 HEENT Face and sinus: Yes face symmetric Teeth and gingiva: other (mallampti score is 4) Eyes Pupils: Equal, round and reactive pupils present Neck Neck: Yes full ROM (with pain) Resp Effort & Inspection: normal respiratory effort and able to speak in complete sentences Neuro General: patient oriented x3 and moves all extremities Cranial nerves: Yes Facial sensation intact/muscles of mastication intact, Yes Equal, round and reactive pupils present, Yes Normal accommodation reflex present, Yes Normal facial strength present, Yes Midline tongue present, Yes Ability to bilaterally rotate head present (with limited rom) and Yes Ability to bilaterally elevate shoulders present Gait exam (Neuro): Ataxic gait present Motor exam (neuro): 5/5 motor strength present throughout and Normal motor muscle tone present throughout Psych Appearance: well kempt Speech and movement: Slurred speech present Affect: Anxious affect present Thought content: Normal thought content present Insight: Fair insight present (Psych) Judgement: Fair judgement present (Psych) Results Reviewed Results Reviewed: MR/MR head/brain wo con IMPRESSION: Stable mild to moderate burden of supratentorial white matter disease without new lesion. No new acute intracranial abnormality. MATT Compliance report reviewed with pt, she is not compliant due to TMJ pain and needs mask fitting. Assessment & Plan Assessment & Plan (1) MATT (obstructive sleep apnea): Comment: start cpap use - Code(s): G47.33 - Obstructive sleep apnea (adult) (pediatric) Category: Medical (2) Chronic headaches: Code(s): R51.9 - Headache, unspecified; G89.29 - Other chronic pain Category: Medical Qualifiers: Headache type: tension-type Intractability: intractable Qualified Code(s): G44.221 - Chronic tension-type headache, intractable (3) Vertigo: Comment: pt in future for vestibular / gait /balance Code(s): R42 - Dizziness and giddiness Category: Medical (4) Hx of migraines: Comment: sumatritpan 50mg po at onset Code(s): Z86.69 - Personal history of other diseases of the nervous system and sense organs Category: Medical (5) Balance problem due to vestibular dysfunction: Code(s): H81.90 - Unspecified disorder of vestibular function, unspecified ear Category: Medical Qualifiers: Laterality: bilateral Qualified Code(s): H81.93 - Unspecified disorder of vestibular function, bilateral (6) MATT (obstructive sleep apnea): Code(s): G47.33 - Obstructive sleep apnea (adult) (pediatric) Category: Medical (7) Insomnia: Code(s): G47.00 - Insomnia, unspecified Category: Medical Qualifiers: Insomnia type: primary Qualified Code(s): F51.01 - Primary insomnia Plan HST reviewed with patient, Compliance reviewed with pt. she is having some difficulties with her mask due to TMJ pain and attending PT for TMJ since Oct 2024. and continues to have bilateral headaches due to Bruxism. Mask fitting rx sent for N20 Fit air mask with RESMED Insomnia with sleep difficulties continue melatonin 5mg po daily and take Ambien on alternative days 5mg po daily. Headaches with TMJ pain will evaluate with CTscan to r/o Trigeminal Neuralgia. Chronic Headaches Amitryptyline increased from 25mg po daily at bedtime to 50mg po daily at bedtime. Episodic headaches Headaches Sumatriptan 50mg po at onset of headache may take one additional tablet if headache does not abort in 24 hours. Do not exceed 100mg po in 24 hours. Vertigo/Balance issues, vestibular PT. if pt is amenable BMI is elevated, patient education re: weight loss and positional therapy. Labs reviewed with pt today. 3/month f/u Orders: Orders CT head/brain wo IV con Today G89.29 - Other chronic pain, R51.9 - Headache, unspecified Medications: New zolpidem (Ambien) 5 mg PO BEDTIME 30 tabs 0RF sleep difficulties 1 month MDD 5mg G47.00 - Insomnia, unspecified melatonin 5 mg PO DAILY 90 caps 0RF insomnia 3 months MDD 5mg G47.33 - Obstructive sleep apnea (adult) (pediatric) Changed From amitriptyline 25 mg PO BEDTIME 90 days 90 tabs 1RF G89.29 - Other chronic pain, R51.9 - Headache, unspecified To amitriptyline take one 50mg po tablet daily at bedtime. 50 mg PO BEDTIME 90 tabs 1RF headaches 90 days MDD 50mg G89.29 - Other chronic pain, R51.9 - Headache, unspecified Refilled sumatriptan succinate take 1 tab at onset of headache; if no relief may repeat 1 tab after at least 2 hrs; max = 4 tabs/24 hr orally; 10 tabs 2RF migraines 1 month MDD 100mg R42 - Dizziness and giddiness, Z86.69 - Personal history of other diseases of the nervous system and sense organs Patient Instructions: Sleep Hygiene provided: set a scheduled bedtime and wake time to help regulate the circadian rhythm and balance the release of pituitary hormones. Sleep in a dark room, temperatures below 68 degrees, and no devices n bed. Limit caffeinated products 6 hours prior to bed, and limit fluids 2-4 hours prior to bed. Gentle night yoga, diffusing essential oils, and playing soft music can be relaxing. Coding Level of Care Code Est Pt Level 4 (86219) Complex EM visit Add On G2211 Diagnoses MATT (obstructive sleep apnea) G47.33 Chronic tension-type headache, intractable G44.221 Headache type: tension-type Intractability: intractable Vertigo R42 Hx of migraines Z86.69 Balance problem due to vestibular dysfunction of both ears H81.93 Laterality: bilateral Primary insomnia F51.01 Insomnia type: primary
--- OUTSIDE RECORDS SUMMARY | 2025-01-06 14:00 | XMS_ITS | Clinical Summary ---
Author Organization [facility] Facility Address [address] [place] [address] Care Team Providers Care Church History Teacher Name Role Phone Gemma Lee MD Primary Care Provider [phone] Allergies No known active allergies Medications Arthritis [...] Phone Billing Address Personal/Family Self 1955 [address] [address] One Care Dual SNP ([id number]) [place] [phone] [facility] One Care Dual SNP ([id number]) Care Teams Church History Teacher Relationship Specialty Start Date End Date Gemma Lee MD [address] [place], [place] PCP - General Internal Medicine 09/29/21
--- OUTSIDE RECORDS SUMMARY | 2025-01-06 14:00 | XMS_ITS | Patient Health Record ---
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 Role Phone Gemma Lee Primary Care Provider Kishan Ceron Unavailable [phone] Allergies No Known Allergies Reason For Referral No Information Medications Medication SIG (Take, Route, Frequency, Duration) Notes Start Date End Date Status metFORMIN HCl 500 MG 1 tablet with meals Orally Once a day Active traZODone HCl 100 MG 1 tablet at bedtime Orally Once a day Active Pantoprazole Sodium 40 MG 1 tablet 1/2 t o 1 hour before morning meal Orally Once a day 12/05/2024 Active ProAir HFA 108 (90 Base) MCG/ACT 2 puffs as needed Inhalation every 4 hrs Active Fluticasone Propionate 50 MCG/ACT 1 spray in each nostril Nasally Once a day Active Doc-Q-Lace 100 mg 1 po QD Ac tive MiraLax 17 GM/SCOOP 1 capful in 8 ounces of water Orally Once or twice a day for constipation; Duration: 30 days 06/22/2022 Not-Taking Levothyroxine Sodium 100 MCG 1 tablet Orally Once a day Active Metamucil 0.52 GM Take 2 with 8 ounces of water Orally Once or twice a day for constipation; Duration: 30 days 06/22/2022 Not-Taking clonazePAM 1 MG 1 tablet Orally Twic e a day Active Meclizine HCl Not-Bunny stephen Gabapentin 300 MG 1 capsule Orally twi ce a day Active Omeprazole 20 MG 1 capsule Orally Onc e a day; Duration: 30 days 12/11/2013 Not-Live chan Topiramate 200 MG 1 tablet Orally Once a day Not-Taking Verapamil HCl 120 MG 1 tablet Orally onc e a day Active Aspir-81 81 MG 1 tablet Orally Once a day Active Mapap 500 MG 1 tablet as needed Orally every 6 hrs Active FLUoxetine HCl 20 MG 1 capsule in the morning Orally Once a day Active SUMAtriptan Succinate 25 MG Orally Active Lisinopril-hydroCHLOROthi azide 20-12.5 MG 2 tablet Orally Once a day Active Clotrimazole 1 % 1 application to affected area Externally Twice a day Active Immunizations Vaccine Route Administration Date Status Comme nts Flu vaccine no Preserv 3 and > Unknown 12/23/2013 Admin istered Influenza Unknown 12/28/2021 Administered Influenza Unknown 12/06/2023 Administered Social History Tobacco Use: Social History Observation Description Date Details (start date - stop date) Former Smoker NA - NA Tobacco Use/Smoking Question Answer Notes Patient is a former smoker How long has it been since y ou last smoked? > 10 years Additional Findings: Tobacco User Modera te cigarette smoker (10-19 cigs/day) Additional Findings: Tobacco Non-User Ex-cigaret te smoker AUDIT-C (Standard) Question Answer Notes Did you have a drink containing alcohol in the p ast year? No Points 0 Interpretation Negative Section Notes: Nonsmoker; no sig. alcohol Nonsmoker; no sig. alcohol Nonsmoker; no sig. alcohol Nonsmoker; no sig. alcohol Problems Problem Type SNOMED Code ICD Code Onset Dates Problem Status W/U Status Risk Notes Problem Screening for malignant neoplasm of colon (211432667) Encounter for screening for malignant neoplasm of colon (Z12.11) Active confirmed Problem History of adenomatous polyp of colon (214240543) History of adenomatous polyp of colon (Z86.010) Active confirmed Problem Diarrhea (10499075) Diarrhea (R19.7) Active con firmed Problem Long-term current use of antiplatelet drug (500636479167239) intermediate card tender (current) use of aspirin (Z79.82) Active confirmed Problem Preprocedural examination (542630187754685) Preprocedural examination (Z01.818) Active confirmed Problem Computed tomography result abnormal (946643965) Abnormal CT scan, colon (R93.3) Active confirmed Problem Constipation (01853670) Constipation, unspecified constipation type (K59.00) Active confirmed Problem Gastroesophageal reflux disease (964192156) GERD (gastroesophagea l reflux disease) (K21.9) Active confirmed Vital Signs Temperature 97.5 degrees Fahrenheit 12/05/2024 Blood pressure diastolic 01 mm Hg 12/05/2024 Height 61 in 12/05/2024 Blood pressure systolic 001 mm Hg 12/05/2024 Weight 209.8 lbs 12/05/2024 BMI 39.64 kg/m2 12/05/2024 Procedures Procedure Date Ordered Date Performed Result Body Sit e COLONOSCOPY 12/05/2024 N/A Encounters Encounter Location Date Provider Diagnosis [facility] [address] [place] [address] 12/05/2024 Kishan Keen History of adenomato us polyp of colon Z86.010 ; GERD (gastroesophageal reflux disease) K21.9 ; Encounter for screening for malignant neoplasm of colon Z12.11 ; Preprocedural examination Z01.818 and intermediate card tender (current) use of aspirin Z79.82 [facility] [address] [place] [address] 12/05/2024 Kishan Keen Assessments Encounter Date Diagnosis (ICD Code) Assessment Notes Treatment Notes Treatment Clinical Notes Section Notes 12/05/2024 History of adenomatous polyp of colon (ICD-10 - Z86.010) Overall, Audrey appears well. Her reflux seems stable on her current regimen of her PPI. She is not having any worsening symptoms or worrisome symptoms to suggest the need for a repeat upper endoscopy at this time. We did review obviously that losing weight and being careful with her diet both in regard to the types of food and the amounts of food would help to relieve some of her reflux symptoms as well. I did advise her to continue her PPI. I did recommend a follow-up colonoscopy for further screening given her history of both tubular adenomas and a tubulovillous adenoma, her age, her good clinical appearance, and her last colonoscopy approaching 5 years ago. We did review the rationale for this in regard to colon cancer prevention. Full consent has been obtained for this, including risks of bleeding and perforation. She was given the below instructions regarding adjustment of her medications for the procedure. The procedure will be done with monitored anesthesia care. Audrey was comfortable with this plan. Thank you again for allowing me to participate in Audrey's care. I shall continue to keep you advised of her progress. 12/05/2024 GERD (gastroesophageal reflux disease) (ICD-10 - K21.9) Overall, Audrey appears well. Her reflux seems stable on her current regimen of her PPI. She is not having any worsening symptoms or worrisome symptoms to suggest the need for a repeat upper endoscopy at this time. We did review obviously that losing weight and being careful with her diet both in regard to the types of food and the amounts of food would help to relieve some of her reflux symptoms as well. I did advise her to continue her PPI. I did recommend a follow-up colonoscopy for further screening given her history of both tubular adenomas and a tubulovillous adenoma, her age, her good clinical appearance, and her last colonoscopy approaching 5 years ago. We did review the rationale for this in regard to colon cancer prevention. Full consent has been obtained for this, including risks of bleeding and perforation. She was given the below instructions regarding adjustment of her medications for the procedure. The procedure will be done with monitored anesthesia care. Audrey was comfortable with this plan. Thank you again for allowing me to participate in Audrey's care. I shall continue to keep you advised of her progress. 12/05/2024 Encounter for screening for malignant neoplasm of colon (ICD-10 - Z12.11) Overall, Audrey appears well. Her reflux seems stable on her current regimen of her PPI. She is not having any worsening symptoms or worrisome symptoms to suggest the need for a repeat upper endoscopy at this time. We did review obviously that losing weight and being careful with her diet both in regard to the types of food and the amounts of food would help to relieve some of her reflux symptoms as well. I did advise her to continue her PPI. I did recommend a follow-up colonoscopy for further screening given her history of both tubular adenomas and a tubulovillous adenoma, her age, her good clinical appearance, and her last colonoscopy approaching 5 years ago. We did review the rationale for this in regard to colon cancer prevention. Full consent has been obtained for this, including risks of bleeding and perforation. She was given the below instructions regarding adjustment of her medications for the procedure. The procedure will be done with monitored anesthesia care. Audrey was comfortable with this plan. Thank you again for allowing me to participate in Audrey's care. I shall continue to keep you advised of her progress. 12/05/2024 Preprocedural examination (ICD-10 - Z01.818) Overall, Audrey appears well. Her reflux seems stable on her current regimen of her PPI. She is not having any worsening symptoms or worrisome symptoms to suggest the need for a repeat upper endoscopy at this time. We did review obviously that losing weight and being careful with her diet both in regard to the types of food and the amounts of food would help to relieve some of her reflux symptoms as well. I did advise her to continue her PPI. I did recommend a follow-up colonoscopy for further screening given her history of both tubular adenomas and a tubulovillous adenoma, her age, her good clinical appearance, and her last colonoscopy approaching 5 years ago. We did review the rationale for this in regard to colon cancer prevention. Full consent has been obtained for this, including risks of bleeding and perforation. She was given the below instructions regarding adjustment of her medications for the procedure. The procedure will be done with monitored anesthesia care. Audrey was comfortable with this plan. Thank you again for allowing me to participate in Audrey's care. I shall continue to keep you advised of her progress. 12/05/2024 intermediate card tender (current) use of aspirin (ICD-10 - Z79.82) Overall, Audrey appears well. Her reflux seems stable on her current regimen of her PPI. She is not having any worsening symptoms or worrisome symptoms to suggest the need for a repeat upper endoscopy at this time. We did review obviously that losing weight and being careful with her diet both in regard to the types of food and the amounts of food would help to relieve some of her reflux symptoms as well. I did advise her to continue her PPI. I did recommend a follow-up colonoscopy for further screening given her history of both tubular adenomas and a tubulovillous adenoma, her age, her good clinical appearance, and her last colonoscopy approaching 5 years ago. We did review the rationale for this in regard to colon cancer prevention. Full consent has been obtained for this, including risks of bleeding and perforation. She was given the below instructions regarding adjustment of her medications for the procedure. The procedure will be done with monitored anesthesia care. Audrey was comfortable with this plan. Thank you again for allowing me to participate in Audrey's care. I shall continue to keep you advised of her progress. Plan Of Treatment Pending Test Test Name Order Date COLONOSCOPY 12/05/2024 CLOSTRIDIUM DIFF TOXIN A&B (C DIFF) 03/14 STOOL WBC 04/02/2015 GIARDIA AG, STOOL EIA 04/02/2015 OVA & PARASITES (O&P) 04/02/2015 CULTURE, STOOL 04/02/2015 Future Test Test Name Order Date COLONOSCOPY 08/19/2014 COLONOSCOPY 11/27/2019 Next Appt Details Provider Name:Kishan Keen , 02/28/2025 12:00:00 PM, [address] [place] [address] , [place], [place], [phone], Insurance Providers Payer Name Payer Address Payer Phone Subscriber Number Group Number Insured Name Patient Relationship to Insured Coverage Start Date Coverage End Date [facility] [address] Attn Claims [place] [address] [id number] Self - patient is the insured MEDICA[employer] OF [employer] [address] [place] [address] [id number] YAMILKA AUDREY Self - patient is the insured Medical (General) History Medical History History ICD Code Tubular adenomas removed in 2005 and 04/14 010; negative colonoscopy in 10/2014 Sigmoid diverticulosis and internal hemo rrhoids Hypertension Depression Migraines Denies [place],CVA, renal disease NIDDM Hard of hearing Kidney stones GERD- EGD in 2005-neg for Escamilla's- sma [facility] Sleep apnea- uses CPAP Hypothyroid Vertigo Sleep apnea--uses CPAP Asthma Colonoscopy in 01/2020 with removal of a small rectal tubulovillous adenoma Surgical History Surgery Date(Month/Year) Tonsillectomy Left knee replacement in 2018
== END 2025-01-06 14:26 | disposition home or self-care (01) ==
LOC: HO.HSMS 11:05
PROVIDERS: PCP Internal Medicine; Visit Provider Physician Assistant Medical
DX: G47.33 Obstructive sleep apnea (adult) (pediatric) (principal); G44.221 Chronic tension-type headache, intractable; R42 Dizziness and giddiness; H81.93 Unspecified disorder of vestibular function, bilateral; Z86.69 Personal history of other diseases of the nervous system and sense organs; F51.01 Primary insomnia
CPT/HCPCS: 99214; G2211

== ENCOUNTER → 2025-01-06 11:04 | Outpatient (BNVA) | payer OTHER, SELFPAY | PROVIDERS: PCP Internal Medicine; Visit Provider Physician Assistant Medical | DX: G47.33 Obstructive sleep apnea (adult) (pediatric) (principal); G44.221 Chronic tension-type headache, intractable; Z86.69 Personal history of other diseases of the nervous system and sense organs; H81.93 Unspecified disorder of vestibular function, bilateral; F51.01 Primary insomnia | CPT/HCPCS: 99212 ==

== ENCOUNTER 2025-02-21 | Outpatient (REF) | payer OTHER, SELFPAY ==
--- OUTSIDE RECORDS SUMMARY | 2025-04-03 12:34 | XMS_ITS | Data Portability ---
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 Procedures Surgical History Date Name Laterality Status Provider Name and Address Organization Details Recorded Time 01/26/2024 Comp Audio with Tymps - 63768 & 67366 completed LIANET DENYS, [facility] 100 [facility] [address], [place], [address], [facility] - [facility] 01/26/2024 13:20:24 Imaging Results None recorded. [...] Updated DateTime 01/26/2024 152.4 cm 41.7 kg/m2 70298.97 g Gilda Gunn [place] - [facility] 01/26/2024 14:26:38 Social History None recorded. Functional Status None recorded. Mental Status None recorded. Family History Nothing Reported. Medical History Condition Response Migraines Y Arthritis Y Hypertension Y Anxiety Y Asthma Y Gynecological HistoryNo gynecological history recorded. Obstetrics History GPAL:G 0 P 0 0 0 0 Past Encounters Encounter ID Performer Location Encounter Start Date Encounter Closed Date Diagnosis/Indication Diagnosis SNOMED-CT Code Diagnosis ICD10 Code Diagnosis IMO Codes Diagnosis Note [id number] MAMADOU QUIÑONEZ MD [facility] [address] [address] 01/26/2024 12:31:34 01/26/2024 14:45:05 Sensorineural hearing loss of bilateral ears [id number] H90.3 Audiologic al evaluation results: Right ear: [...] Terry Member ID Guarantor Name 06/21/2024 1 [facility] - DOS ON OR AFTER 2022 - MEDICARE ADVANTAGE [place] & [place] (MEDICARE REPLACEMENT/ADV ANTAGE - PPO) [facility] [id number] [facility] Notes Date Note Type Note Provider Name and Address Organization Details Recorded Time 01/26/2024 text/html ROS as noted in the HPI 68 yo F here for hearing loss. She needs new hearing aids5 years old hearing loss >20 years. Family History brother, uncle, nephewFrequent ear infections, sees Dr. Donald every 3 months. No loud noise exposureNo tinnitusSome vertigo described as lightheaded, no room spinningHead feels heavy , h/o migraines. no sore throat, no ear pain MAMADOU QUIÑONEZ MD [address] [place] [address], [phone], [facility] - [facility] 02/03/2024 15:03:55 OBGyn Episode No OBEpisode recorded.
--- OUTSIDE RECORDS SUMMARY | 2025-04-03 12:34 | XMS_ITS | Patient Health Record ---
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 Role Phone Gemma Lee Primary Care Provider Kishan Ceron Unavailable [phone] Allergies No Known Allergies Reason For Referral No Information Medications Medication SIG (Take, Route, Frequency, Duration) Notes Start Date End Date Status metFORMIN HCl 500 MG Tablet 1 tablet with meals Orally Once a day Active traZODone HCl 100 MG Tablet 1 tablet at bedtime Orally Once a day Active Pantoprazole Sodium 40 MG Tablet Delayed Release 1 tablet 1/2 to 1 hour before morning meal Orally Once a day 12/05/2024 Active ProAir HFA 108 (90 Base) MCG/ACT Aerosol Solution 2 puffs as needed Inhalation every 4 hrs Active Fluticasone Propionate 50 MCG/ACT Suspension 1 spray in each nostril Nasally Once a day Active Doc-Q-Lace 100 mg 1 1 po QD Active MiraLax 17 GM/SCOOP Powder 1 capful in 8 ounces of water Orally Once or twice a day for constipation; Duration: 30 days 06/22/2022 Not-Taking/PRN Levothyroxine Sodium 100 MCG Tablet 1 tablet Orally Once a day Active Metamucil 0.52 GM Capsule Take 2 with 8 ounces of water Orally Once or twice a day for constipation; Duration: 30 days 06/22/2022 Not-Taking/PRN clonazePAM 1 MG Tablet 1 tablet Orally T wice a day Active Meclizine HCl Not-Ta zafar/PRN Gabapentin 300 MG Capsule 1 capsule Orally twice a day Active Omeprazole 20 MG Capsule Delayed Release 1 capsule Orally Once a day; Duration: 30 days 12/11/2013 Not-Taking/PRN Topiramate 200 MG Tablet 1 tablet Orally Once a day Not-Taking/PRN Verapamil HCl 120 MG Tablet 1 tablet Orally once a day Active Aspir-81 81 MG Tablet Delayed Release 1 tablet Orally Once a day Active Mapap 500 MG Tablet 1 tablet as needed Orally every 6 hrs Active FLUoxetine HCl 20 MG Capsule 1 capsule in the morning Orally Once a day Active SUMAtriptan Succinate 25 MG Tablet Orally Active Lisinopril-hydroCHLOROt hiazide 20-12.5 MG Tablet 2 tablet Orally Once a day Active Clotrimazole 1 % Cream 1 application to affected area Externally Twice a day Active Immunizations Vaccine Route Administration Date Status Comme nts Flu vaccine no Preserv 3 and > Unknown 12/23/2013 Admin istered Influenza Unknown 12/28/2021 Administered Influenza Unknown 12/06/2023 Administered Social History Tobacco Use: Social History Observation Description Date Details (start date - stop date) Former Smoker NA - NA Social History Drug/Alcohol: Social Info Question Answer Notes AUDIT-C (Standard) Did you have a drink containing alcohol in the past year? No Points 0 Interpretation Negative Tobacco Use: Social Info Question Answer Notes Tobacco Use/Smoking Patient is a former smoker How long has it been since you last smoked? > 10 years Additional Findings: Tobacco User Modera te cigarette smoker (10-19 cigs/day) Additional Findings: Tobacco Non-User Ex-cigaret te smoker Additional Details Category Social Info Options Details Miscellaneous: Marital status: single Occupation: retired Section Notes: Nonsmoker; no sig. alcohol Nonsmoker; no sig. alcohol Nonsmoker; no sig. alcohol Nonsmoker; no sig. alcohol Problems Problem Type SNOMED Code ICD Code Onset Dates Problem Status W/U Status Risk Notes Problem Screening for malignant neoplasm of colon (351355476) Encounter for screening for malignant neoplasm of colon (Z12.11) Active confirmed Problem History of adenomatous polyp of colon (937883950) History of adenomatous polyp of colon (Z86.010) Active confirmed Problem Diarrhea (39856438) Diarrhea (R19.7) Active con firmed Problem Long-term current use of antiplatelet drug (982616596753489) intermediate (current) use of aspirin (Z79.82) Active confirmed Problem Preprocedural examination (098014751308338) Preprocedural examination (Z01.818) Active confirmed Problem Computed tomography result abnormal (699957288) Abnormal CT scan, colon (R93.3) Active confirmed Problem Constipation (67814713) Constipation, unspecified constipation type (K59.00) Active confirmed Problem Gastroesophageal reflux disease (475070853) GERD (gastroesophagea l reflux disease) (K21.9) Active confirmed Vital Signs Temperature 97.5 degrees Fahrenheit 12/05/2024 Blood pressure diastolic 01 mm Hg 12/05/2024 Height 61 in 12/05/2024 Blood pressure systolic 001 mm Hg 12/05/2024 Weight 209.8 lbs 12/05/2024 BMI 39.64 kg/m2 12/05/2024 Procedures Procedure Date Ordered Date Performed Result Body Sit e COLONOSCOPY 12/05/2024 N/A Encounters Encounter Location Date Provider Diagnosis [facility] [address] [place] [phone] 12/05/2024 Kishan Keen History of adenomato us polyp of colon Z86.010 ; GERD (gastroesophageal reflux disease) K21.9 ; Encounter for screening for malignant neoplasm of colon Z12.11 ; Preprocedural examination Z01.818 and 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) use of aspirin (ICD-10 - Z79.82) [...] Insured Coverage Start Date Coverage End Date [facility] [address] Attn Claims [place] [id number] AUDREY PRATHER Self - patient is the insured MEDICAID OF [place] [address] [place] [phone] [id number] AUDREY PRATHER Self - patient is the insured Medical (General) History Medical History History ICD Code Tubular adenomas removed in 2005 and 04/14 010; negative colonoscopy in 10/2014 Sigmoid diverticulosis and internal hemo rrhoids Hypertension Depression Migraines Denies NH,CVA, renal disease NIDDM Hard of hearing Kidney stones GERD- EGD in 2005-neg for [facility]- [facility] Sleep apnea- uses CPAP Hypothyroid Vertigo Sleep apnea--uses CPAP Asthma Colonoscopy in 01/2020 with removal of a small rectal tubulovillous adenoma Surgical History Surgery Date(Month/Year) Left knee replacement in 2019 Tonsillectomy
--- OUTSIDE RECORDS SUMMARY | 2025-04-03 12:34 | XMS_ITS | Clinical Summary ---
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
== END 2025-02-21 00:01 ==
LOC: CF
PROVIDERS: PCP Internal Medicine; Visit Provider Physician Assistant
DX: G89.29 Other chronic pain (principal); M75.102 Unspecified rotator cuff tear or rupture of left shoulder, not specified as traumatic
CPT/HCPCS: 20610; 99212; J0665; J1100; J2003

== ENCOUNTER 2025-02-21 09:41 | Outpatient (AMB) | payer OTHER, SELFPAY ==
--- NOTE | 2025-02-21 10:00 | MHC.OFFVIS ---
Intake Visit Reasons: left shoulder inj, last inj 10/11/24 Intake Note: Audrey is a 69 year old female who presents today for a repeat injection for her left shoulder, last injection was on 10/11/24. Patient states her last injection gave her relief. Allergies No Known Allergies (No Known Allergies*) Allergy (Verified 02/21/25 10:11) HPI HPI left shoulder inj, last inj 10/11/24: Details: Patient is a 69-year-old female who presents to the office today for chronic left shoulder pain. Last cortisone injection was 10/11/2024 which gave her good relief. She is looking to repeat injection while in the office today. COUNTS INCLUDE 234 BEDS AT THE [facility] Medical History Migraine White matter disease Anxiety MCI (mild cognitive impairment) Ataxia Well woman exam Postmenopausal bleeding Microscopic hematuria Injury of ligament of hand Thumb injury Microalbuminuria Abnormal ultrasound of endometrium Pelvic pain in female Periumbilical pain Morbid obesity due to excess calories Mild recurrent major depression Vertigo Thoracic spine pain Hypothyroidism Facial abscess Autoimmune thyroiditis Dyslipidemia Increased BMI Hx of migraines Hx of vertigo Arthritis Hiatal hernia GERD (gastroesophageal reflux disease) Renal calculi Diabetes Asthma Sleep apnea HTN (hypertension) Surgical History History of hysteroscopy History of arthroscopy of left knee History of esophagogastroduodenoscopy (EGD) Hx of colonoscopy Hx of tonsillectomy Hx of total knee arthroplasty Family History Father Stomach cancer Mother Stomach cancer Brother Stomach cancer Heart disease Sister Diabetes Breast cancer Social History Housing: Apartment Alcohol intake: never Comment: cramping Patient Tobacco Use Status: Former Tobacco user Tobacco use type: Cigarette e-Cigarette/Vaping Use: Never Used Second Hand Smoke Exposure: No service: No Current occupational status: disabled Current occupation: left hand dominant Current occupational exposures/hazards: No Cognitive needs: Yes Hearing needs: Yes Vision needs: Yes Female Reproductive History Menstrual Age of Menarche: 11 Review of Systems Const All systems reviewed & are unremarkable except as noted in HPI and below Physical Exam Const General: cooperative, healthy appearing and no acute distress Resp Effort & Inspection: normal respiratory effort and able to speak in complete sentences Extrem Other: Left shoulder: Normal to inspection. No ecchymosis, erythema, or edema. Forward flexion and abduction to 90 degrees. Able to reach back pocket. Positive empty can. Positive cross-body reach. Negative drop arm. NVI. Office Procedures AMB Joint Injection/Aspiration Joint Injection/Aspiration Primary Site: Left Shoulder Prep: site was prepped using aseptic technique, ethochloride spray was applied and injection warnings given Injected: 40 mg of, Decadron, with 3 mL of, 1% plain Lidocaine, 0.25% Bupivacaine and in the subcromial space Approach Used: posterolateral Procedure: The patient tolerated the procedure well, but had some pain with the injection and there was some relief with the local anesthesia Coding 05615 - Large joint Procedure code (CPT) selection complete Assessment & Plan Assessment & Plan (1) Painful arc syndrome of left shoulder: Code(s): M75.102 - Unspecified rotator cuff tear or rupture of left shoulder, not specified as traumatic Category: Medical Plan The patient was offered a cortisone injection in left shoulder. The patient was explained the risks, benefits, and alternatives to receiving this injection. After receiving consent for the injection, the patient had the procedure done while in the office today. The patient tolerated the procedure well with no complications. The risks, benefits, and alternatives to a corticosteroid injection were discussed with the patient, including the potential benefits of decreased inflammation and pain, improved function, and diagnostic value. Risks were reviewed, including post-injection flare, skin or fat atrophy, transient facial flushing, temporary elevation in blood glucose, bruising, and rare but serious complications such as infection, tendon weakening or rupture, and cartilage damage with repeated injections. Procedure-related discomfort and possible vasovagal symptoms were also explained. Alternatives were reviewed, including NSAIDs, physical therapy, activity modification, bracing, ice/heat, weight management, hyaluronic acid injections when appropriate, PRP or other orthobiologics, oral steroids, surgery depending on pathology, and observation. The patient verbalized understanding and elected to proceed. After receiving consent for the injection, the patient had the procedure done while in the office today. The patient tolerated the procedure well with no complications. Due to the patient?s history of diabetes, the patient was educated that corticosteroid injections may cause a temporary increase in blood glucose levels. They were instructed to monitor his glucose levels for the next 24-72 hours and contact their PCP if readings rise significantly above baseline become difficult to control. Follow-up will be PRN, or sooner if needed Coding Level of Care Code Est Pt Level 3 (19170) Add On Problem Visit Only Diagnoses Painful arc syndrome of left shoulder M75.102 CPT Codes Coding - 66413 Large joint: 03569 - Large joint ([id number])
== END 2025-02-21 10:12 | disposition home or self-care (01) ==
LOC: HO.HOS 09:42
PROVIDERS: PCP Internal Medicine; Visit Provider Physician Assistant
DX: M75.102 Unspecified rotator cuff tear or rupture of left shoulder, not specified as traumatic (principal)
CPT/HCPCS: 20610; 99213